=== PATIENT | male | born 1935 | race Caucasian/White ===

== ENCOUNTER → 2016-06-05 | Outpatient (CLI) | payer OTHER ==
[~2016-06-05] MED LIST: APIX1TAB3 PO; ASPI-435 PO; CARV6.252 PO; CLB100 PO; DVN/160 PO; GLC/500 PO; GLCSR/500 PO; INSDGI SC; ISR/30 PO; LEVO100T7 PO; LSX40 PO; MULT-188 PO; NVLGI/PEN SC; OMEP20CA9 PO; RXC5 PO; SUCR1TAB PO; ZCR40 PO; eloquis PO
[2016-06-05 14:09] LABS: BLOOD UREA NITROGEN 18 mg/dl (7-18); BUN/CREATININE RATIO 19.1 (10-20); CREATININE 0.96 mg/dl (0.60-1.40)
[2016-06-05 14:16] LABS: PROSTATE SPECIFIC ANTIGEN 0.734 ng/ml (0.000-4.000)
--- NOTE | 2016-06-10 09:17 | CODING QUERY MEDICAL NECESSITY ---
SUPPORTING DIAGNOSIS NEEDED A supporting diagnosis is required for the test/procedure performed on this patient in order for us to be reimbursed by the patient's insurance. Please provide a supporting diagnosis for the following test/procedure listed below next to the test name along with your signature. *If there is no additional diagnosis for this patient that would support the following test/procedure please document that below next to the test/procedure. Test(s)/Procedure(s) that require a supporting diagnosis: DOS 06/05 * PSA DIAGNOSIS: Provider Signature: Date: Thank you Micaela Le Health Information Management Once completed, please kindly fax back to [phone] For questions please call [phone]
== END | disposition home or self-care (01) ==
LOC: C.LAB 11:00
PROVIDERS: ATTEND Urology
DX: N28.1 Cyst of kidney, acquired (principal); N40.0 Benign prostatic hyperplasia without lower urinary tract symptoms

== ENCOUNTER → 2016-06-12 | Outpatient (CLI) | payer OTHER ==
[~2016-06-12] MED LIST changes: +OPTIRAY 320 IV PRN
--- NOTE | 2016-06-12 12:08 | DIAGNOSTIC IMAGING REPORT ---
CT OF THE ABDOMEN WITH AND WITHOUT CONTRAST RENAL PROTOCOL CT DOSE: 1761.03 mGycm CLINICAL HISTORY: Renal cyst. TECHNIQUE: Unenhanced, nephrographic and 5 minute delayed phase imaging of the abdomen was performed. Injection of 93 cc Optiray 320 IV was uneventful. COMPARISON STUDY: CT of the abdomen and pelvis July 25, 2014 and abdominal ultrasound May 02, 2016. FINDINGS: Visualized portions of the lower chest demonstrate several subpleural nodules which are similar to exam of July 25, 2014. These nodules are likely benign. The liver is cirrhotic. An 8 mm hypodense right hepatic lobe lesion is unchanged since prior CT. Sensitivity for detection of hypervascular lesions is diminished on this exam. The size of the spleen is normal. Adrenal glands and pancreas are normal. Note is made of a 6.1 cm water attenuation left renal lesion. This is consistent with a cyst. There is a 1.3 cm cyst within the midpole of the right kidney. There is a 5.9 cm water attenuation lesion arising from the upper pole of the right kidney. This is consistent with a cyst. This contains thin calcification. This is unchanged since prior CT. There is no hydronephrosis. A 1.4 cm calculus within lower pole of the left kidney is noted. Caliber and wall thickness of visualized small and large bowel are normal. Post surgical findings within the spine are noted. Pacer leads are noted. IMPRESSION: 1. Bilateral renal cysts, as described above. The largest right renal lesion contains thin calcification. This lesion is benign and considered Bosniak 2. 2. 1.4 cm left renal calculus. 3. Suspected cirrhosis. Electronically signed by: Stephen Ricketts M.D. 06/12/2016 12:05 PM Dictated Date/Time: 06/12/2016 11:54 AM
== END | disposition home or self-care (01) ==
LOC: C.CTS 10:46
PROVIDERS: ATTEND Urology
DX: N28.1 Cyst of kidney, acquired (principal)

== ENCOUNTER → 2016-06-14 | Outpatient (CLI) | payer OTHER ==
[~2016-06-14] MED LIST changes: -OPTIRAY 320 IV PRN
[2016-06-14 12:36] LABS: BLOOD UREA NITROGEN 17 mg/dl (7-18); BUN/CREATININE RATIO 17.9 (10-20); CREATININE 0.92 mg/dl (0.60-1.40)
== END | disposition home or self-care (01) ==
LOC: C.LAB 11:17
PROVIDERS: ATTEND Urology
DX: N28.1 Cyst of kidney, acquired (principal)

== ENCOUNTER 2016-06-21 08:57 | Day surgery (SDC) | payer OTHER ==
[~2016-06-21] VITALS: Ht 165.1 cm; Wt 102.5 kg
[2016-06-21] VITALS (10 sets, daily range): BP systolic 120–182; BP diastolic 53–86; PULSE 60–86; TEMP 36.5–37.3; O2SAT 93–97; Ht 165.1 cm; Wt 102.5 kg
[~2016-06-21 08:57] MED LIST changes: -APIX1TAB3 PO; -GLC/500 PO; -MULT-188 PO; -RXC5 PO
--- NOTE | 2016-06-21 10:44 | Discharge Instructions ---
Discharge Instructions Procedure Procedure Date: June 21, 2016. Reason for visit: Lumbar Spine Pain. Discharge Discharge Date: June 21, 2016. Discharge Diagnosis: post op pain Instructions Activity Recommendations: 1 Day-May resume regular activity, 48 Hours of decreased exertion Return to School/Work: no limitations Recommended Home Diet: Resume Previous Diet Provider Instructions: Post lumbar myelogram Lumbar Puncture performed with Fluoroscopic guidance [ L45] level with [22 ] needle. No complications. Allergies Coded Allergies: No Known Allergies (Unverified , 06/21/16) Ivan Quiñones Recommendations: Call your doctor if: * Temperature above 101 degrees * Pain not relieved by pain medicine ordered * There is increased drainage or redness from any incision * You have any unanswered questions or concerns. Your Doctors Instructions noted above were prepared by provider Pj Núñez. Patient Signature Section: Patient Instructions Signature Page Arsenio Hammond Patient (or Guardian) Signature/Date: I have read and understand the instructions given to me by my caregivers. Caregiver/RN/Doctor Signature/Date: The above-named patient and/or guardian has received patient instructions on this date. + Original Patient Signature Page (only) stays with chart. Please make copy for patient.
[2016-06-21] MEDS ORDERED: ACETAMINOPHEN 500 MG TAB PO PRN (10:45)
--- NOTE | 2016-06-21 10:52 | DIAGNOSTIC IMAGING REPORT ---
Lumbar myelogram Myelogram, super/inter LUMBAR CLINICAL HISTORY: Lumbar spine pain pain. Radiculopathy. TECHNIQUE: Following informed consent, a 20-gauge needle was advanced to the L4-L5 level lumbar spine. This is followed by the administration of 10 cc nonionic contrast. There were no complications. Patient was transferred to CT department for scanning purposes. COMPARISON STUDY: None FINDINGS: Successful pre-CT myelogram injection IMPRESSION: Successful pre-CT myelogram injection. Electronically signed by: Pj Núñez M.D. 06/21/2016 10:51 AM Dictated Date/Time: 06/21/2016 10:48 AM
--- NOTE | 2016-06-21 11:05 | DIAGNOSTIC IMAGING REPORT ---
CT lumbar spine post myelography LUMBAR SPINE WITH CLINICAL HISTORY: MYELOGRAM LUMBAR SPINE pain. Neuropathy. TECHNIQUE: Transaxial acquisition with multi axial reformatted images post myelography COMPARISON STUDY: None FINDINGS: Findings consistent with a grade 1 anterolisthesis of L5 on S1. There is a L5-S1 laminectomy and fusion. Interpedicular screws are present. Anterolisthesis is estimated 5 mm. Degenerative disc changes noted throughout. Sagittal images suggest probable multifactorial spinal stenosis at L2-L3. Transaxial images are acquired from T12 through S1. 1. T12-L1: No evidence of disc herniation or spinal stenosis. 2. L1-L2. Mild broad-based bulging disc. Minimal impact anterior thecal sac. Neuroforamina are patent bilaterally. 3. L2-L3: Moderate multifactorial narrowing of the spinal canal. Broad-based disc herniation with mild hypertrophic changes of the posterior elements and ligamentum flavum. Moderate to rather significant compromise of the neuroforamina bilaterally. 4. L3-L4: Broad-based bulging disc with mild impact anterior thecal sac. Foramina show minimal narrowing bilaterally. 5. L4-L5. No evidence of disc herniation 6. L5-S1. Mild broad-based disc bulge with no significant impact upon the thecal sac. IMPRESSION: 1. Significant degenerative and postoperative change throughout the entire lumbar region. 2. Moderate to rather significant multifactorial narrowing of the spinal canal at L2-L3. 3. Mild broad-based bulging disc L3-L4 and to lesser extent L1-L2. 4. L5-S1 laminectomy and fusion Electronically signed by: Pj Núñez M.D. 06/21/2016 11:03 AM Dictated Date/Time: 06/21/2016 10:56 AM
[2016-09-23] MEDS ORDERED: GLC/500 PO (13:46)
[2016-09-23] MEDS ORDERED: MULT-188 PO (14:16)
[2016-09-23] MEDS ORDERED: APIX1TAB3 PO ×2 (14:42→14:43)
== END 2016-06-21 15:10 | disposition home or self-care (01) ==
LOC: C.ACU 08:57
PROVIDERS: ATTEND Orthopaedic Surgery Orthopaedic Surgery of the Spine
DX: M54.16 Radiculopathy, lumbar region (principal)

== ENCOUNTER 2016-10-09 05:21 | Inpatient (IN) | payer OTHER ==
[2016-09-23 13:46] VITALS: BMI 38.0
--- NOTE | 2016-09-23 14:35 | PAT Medication Instructions ---
Service Date Sep 23, 2016. Current Home Medication List Carvedilol (Coreg), 6.25 MG PO BID Furosemide (Furosemide), 40 MG PO QAM Insulin Aspart (Novolog Flexpen), UNITS SC WM Insulin Glargine (Lantus), 31 UNITS SC HS Isosorbide Dinitrate (Isordil), 30 MG PO BID Levothyroxine Sodium (Levothyroxine Sodium), 100 MCG PO QAM Metformin HCl (Metformin HCl ER), 1,000 MG PO HS Metformin Hcl (Glucophage), 500 MG PO QAM Multiple Vitamins W/ Minerals (Ocuvite), 1 TAB PO BID Omeprazole (Prilosec), 20 MG PO BID Simvastatin (Simvastatin), 40 MG PO HS Sucralfate (Sucralfate), 1 GM PO QID Valsartan (Diovan), 160 MG PO QAM [eloquis], 5 MG PO BID Medication Instructions For Your Scheduled Surgery -Check with surgeon/autism tutor for instructions: [Eliquis], 5 MG PO BID - Hold the following medications 48 hours prior to surgery: Metformin HCl (Metformin HCl ER), 1,000 MG PO HS Metformin Hcl (Glucophage), 500 MG PO QAM - Hold the following medications the morning of surgery: Valsartan (Diovan), 160 MG PO QAM Sucralfate (Sucralfate), 1 GM PO QID Insulin Aspart (Novolog Flexpen), UNITS SC WM Furosemide (Furosemide), 40 MG PO QAM Multiple Vitamins W/ Minerals (Ocuvite), 1 TAB PO BID - Take the following medications the morning of surgery with a sip of water: Omeprazole (Prilosec), 20 MG PO BID Levothyroxine Sodium (Levothyroxine Sodium), 100 MCG PO QAM Isosorbide Dinitrate (Isordil), 30 MG PO BID Carvedilol (Coreg), 6.25 MG PO BID. - Take the following medications as scheduled the night before surgery: Sucralfate (Sucralfate), 1 GM PO QID Simvastatin (Simvastatin), 40 MG PO HS Omeprazole (Prilosec), 20 MG PO BID Isosorbide Dinitrate (Isordil), 30 MG PO BID Insulin Glargine (Lantus), 31 UNITS SC HS Insulin Aspart (Novolog Flexpen), UNITS SC WM Carvedilol (Coreg), 6.25 MG PO BID. If you have any questions please call us at [phone] or [phone] or [phone]
--- NOTE | 2016-09-23 15:23 | DIAGNOSTIC IMAGING REPORT ---
CHEST PREADMISSION(PA/LAT) CLINICAL HISTORY: Preoperative evaluation. COMPARISON STUDY: Chest radiograph July or 2015. FINDINGS: Note is made of a dual lead left subclavian pacer and median sternotomy wires. Moderate cardiomegaly is present. There is no evidence of pulmonary edema. No pneumothorax or pleural effusion is present. Prosthetic cardiac valve is present. There is no consolidation to suggest pneumonia. Appearance of the chest is unchanged. There are old right rib fractures. IMPRESSION: No acute cardiopulmonary findings. Stable moderate cardiomegaly. Electronically signed by: Stephen Ricketts M.D. 09/23/2016 3:21 PM Dictated Date/Time: 09/23/2016 3:20 PM
[2016-09-23 15:52] LABS: BASO % 0.3 %; BASO ABS # 0.02 K/uL (0-0.2); COMPLETE YES; EOS % 4.9 %; HEMATOCRIT 40.3 % (42-52); IG% 0.3 %; LYMPH % 32.8 %; LYMPH ABS # 1.95 K/uL (1.2-3.4); MEAN CELL VOLUME 94.2 fL (80-100); MEAN PLATELET VOLUME 10.9 fL (7.4-10.4); MONO % 12.6 %; NEUT % 49.1 %; PLATELET COUNT 162 K/uL (130-400); RED BLOOD COUNT 4.28 M/uL (4.7-6.1); WHITE BLOOD COUNT 5.95 K/uL (4.8-10.8)
[2016-09-23 15:59] LABS: BUN/CREATININE RATIO 19.2 (10-20); CREATININE 0.92 mg/dl (0.60-1.40)
[2016-09-23 16:01] LABS: URINE APPEARANCE CLEAR (CLEAR); URINE BILIRUBIN NEG (NEG); URINE COLOR YELLOW; URINE NITRITE NEG (NEG); URINE PH 5.5 (4.5-7.5); URINE SPECIFIC GRAVITY 1.024 (1.000-1.030); UROBILINOGEN NEG (NEG); ZZUR CULT IF INDIC CLEAN CATCH NO
[2016-09-23 16:03] LABS: MANUAL MICROSCOPIC REQUIRED? NO; REVIEW REQ? NO
[2016-09-23 16:05] LABS: PARTIAL THROMBOPLASTIN RATIO 1.1; PROTHROMBIN TIME (PATIENT) 11.1 SECONDS (9.0-12.0)
[~2016-10-09] VITALS: Ht 165.1 cm; Wt 103.6 kg
[2016-10-09] VITALS (10 sets, daily range): BP systolic 107–164; BP diastolic 63–86; PULSE 60–72; TEMP 36.4–36.8; O2SAT 89–98; BMI 38.0
[~2016-10-09 05:21] MED LIST changes: +APIX1TAB3 PO; -ASPI-435 PO; -CLB100 PO; +GLC/500 PO; +ISOS30TA51 PO; -ISR/30 PO; +MULT-188 PO; -eloquis PO
[2016-10-09] MEDS ORDERED: LACTATED RINGER'S 1000ML 1,000 ML IV SCH (06:00)
[2016-10-09] MEDS ORDERED: CEFAZOLIN 2000 MG/60 ML D5W IV SCH (06:00)
[2016-10-09] MEDS ORDERED: CEFAZOLIN IV 2,000 MG/60 ML D5W IV ONE (06:23)
[2016-10-09] MEDS ORDERED: FENTANYL CITRATE INJ 50 MCG/1 ML 2 ML VIAL ONE ×2 (06:44→07:59)
[2016-10-09] MEDS ORDERED: MIDAZOLAM HCL 1 MG/ML 2ML VIAL ONE (06:44)
[2016-10-09] MEDS ORDERED: BUPIVACAINE/EPINEPHRINE 0.5% MPF 1:200,000 10 ML VIAL ONE (06:57)
[2016-10-09] MEDS ORDERED: BACITRACIN 50000 UNIT VIAL ONE (06:58)
--- NOTE | 2016-10-09 07:29 | History & Physical Bridge Note ---
H&P Re-Evaluation Bridge Note: I have examined the patient, reviewed the History & Physical and in the interval since the performance of the History & Physical I have noted the following changes of clinical significance: No changes noted
--- NOTE | 2016-10-09 07:30 | History and Physical ---
History & Physical Date Oct 09, 2016. Chief Complaint Back and leg pain History of Present Illness The patient is a 81 year old male with complaints of Past Medical/Surgical History Medical Problems: (1) CAD (coronary artery disease) (2) Chest pain (3) DM (diabetes mellitus) (4) HTN (hypertension) (5) Pacemaker Surgical Problems: (1) Heart valve replaced (2) History of back surgery (3) Hx of cholecystectomy Additional History Hepatic Disease: No Endocrine Disorder: No Kidney Disease: No Hypertension: Yes Heart Disease: No Bleeding Tendencies: No Infectious Diseases: No Allergies Coded Allergies: No Known Allergies (Unverified , 10/09/16) Home Medications Scheduled Apixaban (Eliquis), 5 MG PO BID Carvedilol (Coreg), 6.25 MG PO BID Insulin Aspart (Novolog Flexpen), UNITS SC WM Insulin Glargine (Lantus), 31 UNITS SC HS Isosorbide Dinitrate (Isordil), 30 MG PO BID Levothyroxine Sodium (Levothyroxine Sodium), 100 MCG PO QAM Multiple Vitamins W/ Minerals (Ocuvite), 1 TAB PO BID Omeprazole (Prilosec), 20 MG PO BID Simvastatin (Simvastatin), 40 MG PO HS Sucralfate (Sucralfate), 1 GM PO QID Valsartan (Diovan), 160 MG PO QAM Physical Examination Skin: warm/dry, no rash Eyes: normal inspection, EOMI, sclerae normal ENT: normal ENT inspection, pharynx normal Head: normocephalic, atraumatic Neck: supple, no adenopathy, trachea midline Respiratory/Chest: lungs clear, normal breath sounds, no respiratory distress Cardiovascular: regular rate, rhythm, no edema, no murmur Abdomen / GI: normal bowel sounds, non tender Back: normal inspection Extremities: normal inspection, normal range of motion Neurologic/Psych: no motor/sensory deficits, alert, normal reflexes, oriented x 3 Diagnosis Lumbar spinal stenosis Plan of Treatment Lumbar decompression fusion L2 3
[2016-10-09] MEDS ORDERED: HYDROmorphone INJ 2 MG/ML SYR/VIAL ONE ×2 (07:59→09:41)
[2016-10-09] MEDS ORDERED: FENTANYL CITRATE INJ 50 MCG/1 ML 2 ML VIAL IV PRN (08:15)
[2016-10-09] MEDS ORDERED: HYDROmorphone INJ 1 MG/ML SYR IV PRN ×2 (08:15→11:15)
[2016-10-09] MEDS ORDERED: ONDANSETRON INJ 2 MG/ML 2 ML VIAL IV PRN ×2 (08:15→09:15)
[2016-10-09] MEDS ORDERED: EpHEDrine SULFATE INJ 50 MG/ML AMP IV PRN (08:15)
[2016-10-09] MEDS ORDERED: ATROPINE SULFATE 0.1 MG/ML 5ML SYR IV PRN (08:15)
[2016-10-09] MEDS ORDERED: FLOSEAL HEMOSTATIC MATRIX 10ML TOP ONE (08:56)
[2016-10-09] MEDS ORDERED: SODIUM CHLORIDE 0.9% 1000ML 1,000 ML IV SCH (09:14)
[2016-10-09] MEDS ORDERED: MAGNESIUM HYDROXIDE SUSP 30 ML UDC PO PRN (09:15)
[2016-10-09] MEDS ORDERED: HYDROmorphone INJ 0.5 MG/0.5 ML SYR IV PRN (09:15)
[2016-10-09] MEDS ORDERED: NALOXONE HCL 0.4 MG/1 ML VIAL/CARP IV PRN ×2 (09:15)
[2016-10-09] MEDS ORDERED: DO NOT ADMINISTER FLU VACCINE PRN ×3 (09:15)
[2016-10-09] MEDS ORDERED: SOD PHOSPHATE/SOD BIPHOSPHATE ENEMA 132 ML BTL PR PRN (09:15)
[2016-10-09] MEDS ORDERED: ACETAMINOPHEN IV 100 ML IV PRN (09:15)
[2016-10-09] MEDS ORDERED: BISACODYL 10 MG SUPP PR PRN (09:15)
[2016-10-09] MEDS ORDERED: METOCLOPRAMIDE HCL INJ 5 MG/ML 2 ML VIAL IV PRN (09:15)
[2016-10-09] MEDS ORDERED: PROMETHAZINE HCL INJ 12.5 MG in SODIUM CHLORIDE 0.9% 50ML 50 ML IV PRN (09:15)
[2016-10-09] MEDS ORDERED: FAMOTIDINE 20 MG TAB PO PRN (09:15)
[2016-10-09] MEDS ORDERED: ACETAMINOPHEN 500 MG TAB PO PRN (09:15)
[2016-10-09] MEDS ORDERED: DO NOT ADMINISTER PNEUMOCOCCAL VACCINE PRN ×2 (09:15)
[2016-10-09] MEDS ORDERED: LORAZEPAM INJ 0.5 MG in SYRINGE 0 ML IV PRN (09:15)
[2016-10-09] MEDS ORDERED: hydrOXYzine HCL 25 MG TAB PO PRN (09:15)
[2016-10-09] MEDS ORDERED: ALUMINUM/MAGNESIUM SUSP 30 ML UDC PO PRN (09:15)
[2016-10-09] MEDS ORDERED: LORAZEPAM 0.5 MG TAB PO PRN (09:15)
[2016-10-09] MEDS ORDERED: PROPOFOL IV EMULSION 10 MG/ML 20 ML VIAL IV ONE (09:21)
[2016-10-09] MEDS ORDERED: EpHEDrine SULFATE 50MG/5ML SYR ONE (09:21)
[2016-10-09] MEDS ORDERED: LIDOCAINE HCL 2% 2 ML VIAL (20MG/ML) ONE (09:21)
[2016-10-09] MEDS ORDERED: DEXAMETHASONE SOD INJ 4 MG/ML VIAL ONE (09:21)
[2016-10-09] MEDS ORDERED: ONDANSETRON INJ 2 MG/ML 2 ML VIAL ONE (09:21)
[2016-10-09] MEDS ORDERED: ROCURONIUM BROMIDE 10 MG/ML 5 ML VIAL IV ONE (09:21)
[2016-10-09] MEDS ORDERED: NEOSTIGMINE METHYLSULFATE 1 MG/ML 10ML VIAL ONE (09:21)
[2016-10-09] MEDS ORDERED: PHENYLEPHRINE 100MCG/ML 5ML SYR ONE (09:21)
[2016-10-09] MEDS ORDERED: GLYCOPYRROLATE INJ 0.2 MG/ML VIAL ONE (09:21)
--- NOTE | 2016-10-09 09:22 | [facility] Operative Report ---
Operative Report Operative Date Oct 09, 2016. Pre-Operative Diagnosis Lumbar Spinal Stenosis Post-Operative Diagnosis Lumbar Spinal Stenosis Procedure(s) Performed #1 lumbar decompression medial facetectomies foraminotomies L1 to L2 3. #2 posterior spinal fusion L2 3. #3 placement of posterior instrumentation L2 3. #4 interbody fusion L2 3. #5 placement peek cage 12 x 26 mm at L2-3. #6 placement locally harvested morcellized autograft in the posterior lateral gutters. #7 placement of osteoamp combined with bone marrow aspirate in the interbody space and posterior lateral gutters. Surgeon Dr Cedric Champagne Personnel Assistant Surgeon(s) Jessika Luque PA-C Findings Severe spinal stenosis Specimens None as per surgeon Description of Procedure Patient was met with preoperative early case discussed all questions are dressed. After informed consent obtained patient was taken back to the operative suite and underwent intubation placed in a prone position the Silver table on top of the Jamie frame. All bony promises well-padded eyes inspected to ensure no external pressure. This point the lumbar spine was prepped and draped in normal sterile fashion. Sharp dissection with the assistance of Bovie cautery performed onto an exposing the lamina and transverse processes of L to 3. From a caudal to cephalad fashion complete laminectomy of L2 partial laminectomy L3 was performed addressing severe lateral recess and foraminal stenosis. After this complete pedicle screws were placed in L2-L3 bilaterally with assistance of fluoroscopy and the probably size ly placed. Through a transforaminal approach on the right a complete discectomy of L2-3 was performed and plate created to subcortical bleeding bone and a 12 x 26 mm peek cage filled with osteo amp tapped in position. Brought in and locked and final position bilaterally. The transverse processes of L2-L3 burred to subcortical bleeding bone. The remaining bone graft was placed in the posterior lateral gutters. 15 round ANKIT drain inserted. Incision then closed with 1 Vicryl in the fascia 2-0 Vicryl subcutaneous tediously 4 Monocryl for Kimberly closure. Steri-Strips sterile dressing placed. Patient we can taken to PACU stable condition. Please note Jessika Wiseman present about the entire procedure involved in patient positioning complex portions of the procedure and final skin closure. I attest to the content of the Intraoperative Record and any orders documented therein. Any exceptions are noted below.
[2016-10-09] MEDS ORDERED: PHARMACY GLYCEMIC MGMT CONSULT SCH (09:31)
--- NOTE | 2016-10-09 09:42 | DIAGNOSTIC IMAGING REPORT ---
Radiology LUMBAR SPINE 2 OR 3 VIEW CLINICAL HISTORY: 81 years-old Male presenting with L2-L3 DECOMPRESSION AND FUSION. TECHNIQUE: 2 fluoroscopic spot image(s) obtained as part of an intraoperative procedure. COMPARISON: CT from 06/21/2016. FINDINGS/IMPRESSION: Interval posterior transpedicular screw and ly fixation of L2-3 with interbody spacer placement. Partial visualization of L5-S1 posterior fusion hardware with interbody spacer. Slight retrolisthesis of L3 on L4. Please see surgical report for further details. Fluoroscopy dosage (mGy): Not available. Fluoroscopy time: 20 seconds. Number of fluoroscopic spot images: 2. Electronically signed by: Aramis Dodson M.D. 10/09/2016 9:41 AM Dictated Date/Time: 10/09/2016 9:39 AM
[2016-10-09] MEDS: HYDROmorphone HCL 0.5MG/ML 50 ML CASSETTE IV PRN ×4 (09:55→23:15)
--- NOTE | 2016-10-09 10:27 | Anesthesiology Progress Note ---
Anesthesia Post Op Note Date & Time Oct 09, 2016 at 10:27 Vital Signs Pain Intensity: 0 Vital Signs Past 12 Hours Date Time Temp Pulse Resp B/P (MAP) Pulse Ox O2 Delivery O2 Flow Rate FiO2 10/09/16 10:23 60 23 94 10/09/16 10:23 60 23 10/09/16 10:20 122/65 10/09/16 10:18 65 18 94 10/09/16 10:18 65 18 10/09/16 10:16 130/60 10/09/16 10:13 60 22 92 10/09/16 10:13 60 22 10/09/16 10:12 60 21 10/09/16 10:12 60 21 92 10/09/16 10:11 133/61 10/09/16 10:07 60 23 10/09/16 10:07 60 23 95 10/09/16 10:06 126/58 10/09/16 10:02 61 22 10/09/16 10:02 61 22 93 10/09/16 10:01 128/63 10/09/16 09:59 62 19 10/09/16 09:59 61 19 94 10/09/16 09:56 118/78 10/09/16 09:54 63 20 10/09/16 09:54 63 20 94 10/09/16 09:51 117/59 10/09/16 09:49 69 18 93 10/09/16 09:49 64 18 10/09/16 09:45 130/63 10/09/16 09:45 124/61 10/09/16 09:44 67 92 10/09/16 09:44 67 10/09/16 09:44 36.5 66 14 130/63 94 Mask 15 10/09/16 05:54 36.5 67 20 107/79 94 Room Air Notes Mental Status: alert / awake / arousable, participated in evaluation Pt Amnestic to Procedure: Yes Nausea / Vomiting: adequately controlled Pain: adequately controlled Airway Patency, RR, SpO2: stable & adequate BP & HR: stable & adequate Hydration State: stable & adequate Anesthetic Complications: no major complications apparent
[2016-10-09] MEDS ORDERED: DEXTROSE 50% 50 ML SYR IV PRN (11:00)
[2016-10-09] MEDS ORDERED: GLUCAGON FOR INJ 1 MG VIAL SQ PRN (11:00)
[2016-10-09] MEDS ORDERED: GLUCOSE 40% GEL 15 GM TUBE PO PRN (11:00)
[2016-10-09] MEDS ORDERED: GLUCOSE 10 TABS/TUBE PO PRN (11:00)
[2016-10-09] MEDS: SODIUM CHLORIDE 0.9% 1000ML 1,000 ML IV SCH ×2 (11:24→17:16)
[2016-10-09] MEDS ORDERED: NVLGI/PEN SC (11:38)
[2016-10-09] MEDS ORDERED: INSULIN IV INFUSION PROTOCOL SCH (11:45)
[2016-10-09] MEDS ORDERED: INSULIN ASPART 100 UNITS/ML 3 ML PEN SC SCH (12:00)
--- NOTE | 2016-10-09 12:23 | Medical Consult ---
Consultation Date of Consultation: Oct 09, 2016. Attending Physician: Paras Champagne D.O. Reason for Consultation: postop medical management History of Present Illness Patient seen and examined after undergoing lumbar decompression/ fusion today by Dr. Champagne. He denies any complaints at present. Denies back pain, numbness, weakness, dizziness, chest pain, SOB, N/V. Last BM was this morning. Past Medical/Surgical History Medical Problems: (1) Aortic stenosis Status: Chronic (2) CAD (coronary artery disease) Status: Chronic (3) Complete heart block Status: Chronic (4) DM type 2 (diabetes mellitus, type 2) Status: Chronic (5) Dyslipidemia Status: Chronic (6) GERD (gastroesophageal reflux disease) Status: Chronic (7) History of atrial fibrillation Status: Chronic (8) HTN (hypertension) Status: Chronic (9) Hypothyroid Status: Chronic (10) Mitral stenosis Status: Chronic (11) Pacemaker Status: Chronic (12) Sleep apnea Status: Chronic Surgical Problems: (1) History of back surgery Status: Resolved (2) History of carpal tunnel surgery Status: Chronic (3) Hx of cholecystectomy Status: Resolved (4) S/P AVR (aortic valve replacement) Permanent Comment: 06/16/2013- # 23 Chow II bioprosthesis, Dr. William, [facility] [place] Status: Chronic (5) S/P CABG x 2 Permanent Comment: CABG x 2; 06/16/2013; Dr. William, [facility] [place] Status: Chronic (6) S/p mitral valve decalcification Permanent Comment: 06/16/2013; Dr. William, [facility] [place] Status: Chronic Family History Cancer Gallbladder disease Heart disease Hypertension Lung disease Social History Smoking Status: Never Smoker Alcohol Use: none Drug Use: none Marital Status: Housing Status: lives with significant other Occupation Status: retired Allergies Coded Allergies: No Known Allergies (Unverified , 10/09/16) Home Medications Active Reported Novolog Flexpen (Insulin Aspart) 100 Units/Ml Inj Units SC WM Eliquis (Apixaban) 5 Mg Tab 5 Mg PO BID Ocuvite (Multiple Vitamins W/ Minerals) 1 Tab Tab 1 Tab PO BID Isordil (Isosorbide Dinitrate) 30 Mg Tab 30 Mg PO BID Coreg (Carvedilol) 6.25 Mg Tab 12.5 Mg PO BID Diovan (Valsartan) 160 Mg Tab 160 Mg PO QAM Simvastatin 40 Mg Tab 40 Mg PO HS Levothyroxine Sodium 100 Mcg Tab 100 Mcg PO QAM Lantus (Insulin Glargine) 100 Unit/Ml Inj 31 Units SC HS Sucralfate 1 Gm Tab 1 Gm PO QID last pill of day is at bedtime Prilosec (Omeprazole) 20 Mg Cap 20 Mg PO BID Current Inpatient Medications Current Inpatient Medications Medications (Trade) Dose Ordered Sig/Pedrito Route Start Time Stop Time Status Last Admin Dose Admin Cefazolin Sodium 60 ml @ 100 mls/hr PREOP IV 10/09/16 06:00 10/09/16 18:00 Fentanyl Citrate (Fentanyl Inj) 50 mcg Q5M PRN IV 10/09/16 08:15 10/09/16 13:15 Hydromorphone HCl (Dilaudid Inj) 0.5 mg Q5M PRN IV 10/09/16 08:15 10/09/16 13:15 Ondansetron HCl (Zofran Inj) 4 mg ONE PRN IV 10/09/16 08:15 10/09/16 13:15 Ephedrine Sulfate (EpHEDrine SULFATE INJ) 5 mg Q5M PRN IV 10/09/16 08:15 10/09/16 13:15 Atropine Sulfate (Atropine Sulfate 0.1MG/Ml Inj) 0.5 mg Q1M PRN IV 10/09/16 08:15 10/09/16 13:15 Dexamethasone Sodium Phosphate 6 mg/Syringe 1.5 ml @ 1 mls/min Q8H IV 10/09/16 14:00 10/10/16 06:02 Promethazine HCl 12.5 mg/Sodium Chloride 50.5 ml @ 202 mls/hr Q6H PRN IV 10/09/16 09:15 11/08/16 09:14 Ondansetron HCl (Zofran Inj) 4 mg Q6H PRN IV 10/09/16 09:15 11/08/16 09:14 Metoclopramide HCl (Reglan Inj) 10 mg Q6H PRN IV 10/09/16 09:15 11/08/16 09:14 Lorazepam (Ativan Tab) 0.5 mg Q8H PRN PO 10/09/16 09:15 11/08/16 09:14 Lorazepam 0.5 mg/ Syringe 0.25 ml @ 1 mls/min Q8H PRN IV 10/09/16 09:15 11/08/16 09:14 Pneumococcal Polysaccharide Vaccine 1 ea PRN PRN N/A 10/09/16 09:15 11/08/16 09:14 Influenza Virus Vacc Triv Types A&B 1 ea PRN PRN N/A 10/09/16 09:15 11/08/16 09:14 Polyethylene (Miralax Powder Packet) 17 gm Q6 PO 10/11/16 06:00 11/10/16 05:59 Bisacodyl (Dulcolax Supp) 10 mg DAILY PRN NV 10/09/16 09:15 11/08/16 09:14 Magnesium Hydroxide (Milk Of Magnesia Susp) 30 ml DAILY PRN PO 10/09/16 09:15 11/08/16 09:14 Hydromorphone HCl (Dilaudid Inj) 0.5 mg Q3H PRN IV 10/09/16 09:15 10/23/16 09:14 Future hold Oxycodone HCl (Roxicodone Immediate Rel Tab) 5-10mg prn moderate to sev... Q4H PRN PO 10/10/16 06:00 10/24/16 05:59 Cefazolin Sodium 2000 mg/Dextrose 60 ml @ 100 mls/hr Q8H IV 10/09/16 16:00 10/10/16 00:35 Sodium Chloride 1,000 ml @ 150 mls/hr Q6H40M IV 10/09/16 11:00 11/08/16 10:59 10/09/16 11:24 150 MLS/HR Acetaminophen (Tylenol Tab) 1,000 mg Q8H PRN PO 10/09/16 09:15 11/08/16 09:14 Acetaminophen 100 ml @ 400 mls/hr Q8H PRN IV 10/09/16 09:15 11/08/16 09:14 Naloxone HCl (Narcan Inj) 0.1 mg Q5M PRN IV 10/09/16 09:15 11/08/16 09:14 Senna/Docusate Sodium (Senokot S Tab) 2 tab HS PO 10/09/16 21:00 11/08/16 20:59 Sodium Biphosphate/ Sodium Phosphate (Fleet Enema) 132 ml ONE PRN NV 10/09/16 09:15 11/08/16 09:14 Hydroxyzine HCl (Vistaril Tab) 25 mg Q8H PRN PO 10/09/16 09:15 11/08/16 09:14 Al Hydroxide/Mg Hydroxide (Maalox Susp) 30 ml Q6H PRN PO 10/09/16 09:15 11/08/16 09:14 Famotidine (Pepcid Tab) 20 mg Q12 PRN PO 10/09/16 09:15 11/08/16 09:14 Diphenhydramine HCl (Benadryl Cap) 25 mg Q6H PRN PO 10/09/16 09:15 11/08/16 09:14 Miscellaneous Information (Discontinue GENERAL PARTNER) 1 ea TODAY@0600 N/A 10/10/16 06:00 10/10/16 06:01 Naloxone HCl (Narcan Inj) 0.1 mg Q5M PRN IV 10/09/16 09:15 10/10/16 06:00 Hydromorphone HCl (Dilaudid Jv Baseball Coach) 25 mg PRN PRN IV 10/09/16 09:15 10/10/16 06:00 10/09/16 10:46 25 MG Sodium Chloride 1,000 ml @ 15 mls/hr Q24H IV 10/09/16 09:14 10/10/16 06:00 Levothyroxine Sodium (Synthroid Tab) 100 mcg DAILYBB PO 10/10/16 06:00 11/09/16 05:59 Simvastatin (Zocor Tab) 40 mg HS PO 10/09/16 21:00 11/08/16 20:59 Sucralfate (Carafate Tab) 1 gm QID PO 10/09/16 13:00 11/08/16 12:59 Valsartan (Diovan Tab) 160 mg QAM PO 10/10/16 09:00 11/09/16 08:59 Isosorbide Dinitrate (Isordil Tab) 30 mg BID@0700,1200 PO 10/09/16 12:00 11/08/16 11:59 Pantoprazole Sodium (Protonix Tab) 40 mg BID PO 10/09/16 21:00 11/08/16 20:59 Glucose (Glucose 40% Gel) 15-30 GRAMS 15 GRAMS... UD PRN PO 10/09/16 11:00 11/08/16 10:59 Glucose (Glucose Chew Tab) 4-8 Tablets 4 Tabl... UD PRN PO 10/09/16 11:00 11/08/16 10:59 Dextrose (Dextrose 50% 50ML Syringe) 25-50ML OF 50% DW IV FOR... UD PRN IV 10/09/16 11:00 11/08/16 10:59 Glucagon (Glucagon Inj) 1 mg UD PRN SQ 10/09/16 11:00 11/08/16 10:59 Hydromorphone HCl (Dilaudid Inj) 1 mg Q3H PRN IV 10/09/16 11:15 10/23/16 11:14 Future hold Carvedilol (Coreg Tab) 12.5 mg BID PO 10/09/16 21:00 11/08/16 20:59 UNV Insulin Glargine (Lantus Solostar Pen) 31 units HS SC 10/09/16 21:00 11/08/16 20:59 Insulin Aspart (novoLOG ASPART) SLIDING SCALE ACHS SC 10/09/16 12:00 11/08/16 11:59 Review of Systems Ten systems reviewed and negative except as noted in HPI. Physical Exam Date Time Temp Pulse Resp B/P (MAP) Pulse Ox O2 Delivery O2 Flow Rate FiO2 10/09/16 11:47 62 16 141/64 (89) 97 Nasal Cannula 4.0 10/09/16 11:15 36.6 60 16 131/63 (85) 96 Oxymask 4.0 10/09/16 10:45 95 Nasal Cannula 4.0 10/09/16 10:45 36.4 62 16 129/64 (85) 95 Oxymask 4.0 10/09/16 10:45 95 Oxymask 4.0 10/09/16 10:38 36.5 10/09/16 10:36 126/61 10/09/16 10:34 62 13 10/09/16 10:34 61 13 92 10/09/16 10:31 119/62 10/09/16 10:29 61 21 10/09/16 10:29 60 21 94 10/09/16 10:26 137/61 10/09/16 10:24 59 17 10/09/16 10:24 62 17 95 10/09/16 10:23 60 23 94 10/09/16 10:23 60 23 10/09/16 10:20 122/65 10/09/16 10:18 65 18 94 10/09/16 10:18 65 18 10/09/16 10:16 130/60 10/09/16 10:13 60 22 92 10/09/16 10:13 60 22 10/09/16 10:12 60 21 10/09/16 10:12 60 21 92 10/09/16 10:11 133/61 10/09/16 10:07 60 23 10/09/16 10:07 60 23 95 10/09/16 10:06 126/58 10/09/16 10:02 61 22 10/09/16 10:02 61 22 93 10/09/16 10:01 128/63 10/09/16 09:59 62 19 10/09/16 09:59 61 19 94 10/09/16 09:56 118/78 10/09/16 09:54 63 20 10/09/16 09:54 63 20 94 10/09/16 09:51 117/59 10/09/16 09:49 69 18 93 10/09/16 09:49 64 18 10/09/16 09:45 130/63 10/09/16 09:45 124/61 10/09/16 09:44 67 92 10/09/16 09:44 67 10/09/16 09:44 36.5 66 14 130/63 94 Mask 15 10/09/16 05:54 36.5 67 20 107/79 94 Room Air General Appearance: WD/WN, no apparent distress Head: normocephalic, atraumatic Eyes: normal inspection, sclerae normal ENT: + pertinent finding (hard of hearing) Neck: supple, trachea midline Respiratory/Chest: lungs clear, normal breath sounds, no respiratory distress, no accessory muscle use Cardiovascular: regular rate, rhythm, no murmur, normal peripheral pulses Abdomen/GI: normal bowel sounds, non tender, soft Back: + pertinent finding (s/p lumbar decompression/ fusion. drain with sanguinous drainage. ) Extremities/Musculoskelatal: no calf tenderness, no pedal edema, + pertinent finding (SCD's in place) Neurologic/Psych: no motor/sensory deficits, alert, oriented x 3, + pertinent finding (ankle flexion/ extension grossly intact) Skin: normal color, warm/dry Laboratory Results Last 24 Hours Test 10/09/16 05:44 10/09/16 09:51 10/09/16 11:43 10/09/16 11:55 Bedside Glucose 247 mg/dl 266 mg/dl 296 mg/dl Assessment & Plan S/P LUMBAR DECOMPRESSION/ FUSION POD # [address] Champagne Pain control, wound care, activity per ortho Recommend monitoring daily H/H for sign of acute blood loss anemia Continue incentive spirometry PT/ OT DM TYPE 2 BSG's in high 200's, on IV steroids postop Spoke to pharmacy who was consulted by ortho, insulin drip recommended for hyperglycemia, however at this time will hold off on insulin drip Continue home Lantus Novolog sliding scale coverage with stress level of 3 HX ATRIAL FIBRILLATION Rhythm regular, rate controlled Continue carvedilol Resume Eliquis when acceptable to ortho HX BIOPROSTHETIC AORTIC VALVE REPLACEMENT HX COMPLETE HEART BLOCK S/p pacemaker HYPERTENSION Stable, continue carvedilol and valsartan CAD S/P CABG Stable, no chest pain Continue isosorbide, carvedilol, simvastatin HYPOTHYROIDISM Continue levothyroxine DVT PROPHYLAXIS Per ortho DISPO Per ortho Patient seen in collaboration with Dr. Zheng. Please see his addendum. Dr. Mejia will be following the patient tomorrow. Attending Addendum Dr. Zheng I have seen and examined this patient with KAILA Darnell and agree with her plan with the following comments: This is a 81 years-old Male s/p orthopedic procedure for the following: #1 lumbar decompression medial facetectomies foraminotomies L1 to L2 3. #2 posterior spinal fusion L2 3. #3 placement of posterior instrumentation L2 3. #4 interbody fusion L2 3. #5 placement peek cage 12 x 26 mm at L2-3. #6 placement locally harvested morcellized autograft in the posterior lateral gutters. #7 placement of osteoamp combined with bone marrow aspirate in the interbody space and posterior lateral gutters. Patient seen today recuperating post op in his hospital room speaking comfortably and not in acute distress. He has a Silver [place] drain with red serosanguineous fluid to his left side. His lower extremities are in SCD sleeves. No calf tenderness. He is able to move his toes. Medical issues include history of diabetes with glucose above 200 and below 300. Have been called by pharmacy which suggested to start patient on insulin drip for tighter glucose control post-op. I recommend against starting insulin drip at this time as patient is not in diabetic ketoacidosis or hyperosmolar hyperglycemic state and because there are no recent labs since pre-op in regards to patients electrolyte levels such as potassium level. It would be preferable to have patient on subcutaneous Novolog and long acting insulin. Other medical problems of Hypertension, history of CABG with pacemaker and aortic valve replacement, Atrial Fibrillation. Can continue carvedilol, valsartan, isosorbide, carvedilol, simvastatin. Given cardiac history orthopedics can restart Eliquis as soon as possible when risk of bleeding post- op after orthopedic procedure is minimal and will defer this decision to patient 's primary orthopedic team.
[2016-10-09] MEDS: SUCRALFATE 1 GM TAB PO SCH ×3 (12:38→20:57)
[2016-10-09] MEDS: ISOSORBIDE DINITRATE 10 MG TAB PO SCH (12:40)
[2016-10-09] MEDS: INSULIN ASPART 100 UNITS/ML 3 ML PEN SC SCH ×4 (12:48→23:38)
[2016-10-09 12:53] LABS: ALB/GLOB RATIO 0.8 (0.9-2); ALKALINE PHOSPHATASE 66 U/L (45-117); ALT/SGPT 23 U/L (12-78); BLOOD UREA NITROGEN 16 mg/dl (7-18); BUN/CREATININE RATIO 17.5 (10-20); CALCIUM 8.2 mg/dl (8.5-10.1); CARBON DIOXIDE 29 mmol/L (21-32); CHLORIDE 104 mmol/L (98-107); CREATININE 0.92 mg/dl (0.60-1.40); GLUCOSE 313 mg/dl (70-99); SODIUM 137 mmol/L (136-145)
[2016-10-09] MEDS: DEXAMETHASONE INJ 6 MG in SYRINGE 0 ML IV SCH ×2 (13:14→21:19)
[2016-10-09] MEDS ORDERED: RXC5 PO (13:25)
--- NOTE | 2016-10-09 13:26 | Discharge Instructions ---
Discharge Instructions Date of Service Oct 09, 2016. Admission Reason for Admission: Lumbar Spinal Stenosis Discharge Discharge Diagnosis / Problem: lumbar stenosis Discharge Goals Goal(s): Improve function Activity Recommendations Activity Limitations: per Instructions/Follow-up section . Instructions / Follow-Up Instructions / Follow-Up ACTIVITY RECOMMENDATIONS: SELF CARE INSTRUCTIONS AFTER THORACIC/LUMBAR FUSIONS 1. You may walk to your tolerance. It is good exercise for your legs and back. Expect some back and intermittent leg aches and pains. 2. You may perform "counter-top" level activities (make a sandwich, anibal with a project, etc.). 3. No bending or lifting of more than 10 pounds or back twisting of any nature (roll like a log when turning in bed). 4. You may ride in a car for 20-30 minutes at a time. No driving until after your first visit with your doctor. 5. Frequent changes of position and restricting sitting to 30 minutes at a time will help limit the amount of back spasms and stiffness you may experience. 6. You may discontinue the use of ambulatory aids (cane, crutches, etc.) once your strength and confidence allow. 7. You may spindraw operator the shower and let water strike your incision when you arrive home at least once daily. Do not take a tub bath, sit in a hot tub or go into a swimming pool until after your first recheck in the office. SPECIAL CARE INSTRUCTIONS: VERY IMPORTANT TO READ AND REVIEW A. Your surgical incision has been closed with a cosmetic suture under the skin that will dissolve in about 6 weeks. In 14 days, you can use a pair of clean scissors and cut the suture that is left outside of the skin at the ends of your incision. 1. The small skin tapes can be removed 7 days after surgery if they have not fallen off by that point. 2. You may keep the wound open to air as much as possible to promote healing after post-op day number 5 unless told otherwise by your doctor. 3. If you think the wound looks like it is becoming infected (redness or worsening drainage) and/or you are experiencing fever, chill or worsening back pain and muscle spasms, contact the office so that we may evaluate you as soon as possible. B. Complications are uncommon, but please contact us if you have any signs or symptoms of: 1. wound infection (fever higher than 102.5 degrees F, redness, separation of wound, drainage, or increasing pain from the incision) 2. blood clots in legs (pain, swelling, redness and warmth in legs) 3. urinary tract infection (fever higher than 102.5 degrees F, burning upon urination or increased frequency of urination) 4. nerve problems (inability to walk on your toes or heels, numbness, loss of bowel or bladder control) 5. any other symptoms that concern you C. Please call the office at if you have any concerns or questions about your operation or recovery. D. No smoking! Smoking drastically decreases the chance of a solid fusion. E. Do not take any anti-inflammatory medications (Indocin, Advil, Motrin, Aspirin, Naprosyn, etc.) as these may inhibit the chance of a solid fusion. Tylenol is okay to take for pain. MANAGING PAIN AFTER SPINAL SURGERY 1. Narcotic medication is intended for short-term use and will be provided for surgical pain. Surgical pain usually lasts for a period of 4-6 weeks. Narcotic medication includes Percocet, Vicodin, Darvocet, Tylenol #3 or Lortab. 2. Longer-term pain is more appropriately treated with non-narcotic medication such as Tylenol ES. 3. Muscle spasm is not appropriately treated with narcotics. Muscle relaxers such as Soma, Flexeril or Skelaxin can be used along with Tylenol ES. 4. Remember that we all live with some "aches and pains". This is not unusual or uncommon after an injury or as we get older. a. Back pain is expected and may include muscle spasms for 4 to 6 weeks after surgery. The pain should gradually improve. If the pain worsens for no apparent reason, please contact the office. b. Intermittent leg pain may also be experienced and should not be concerned about unless it worsens for no apparent reason. If so, please contact the office. 5. We will provide appropriate medication within the normal guidelines of their prescribed use. We will also be very cautious and aware of potential abuse and extended duration of patients' medication needs. a. Pain medications are for your comfort and to assist with sleep and rest so that the tissue can heal. They are not provided in order to return to normal activity and should not be used through the day. To do so or worsening pain at night can result from ongoing tissue damage and development of tolerance to the prescribed medicine. 6. Please allow 2-3 days to process refills. Prescriptions will not be mailed but must be picked up at the office. FOLLOW UP VISIT: Keep your scheduled follow-up appointment. Any questions, please call the office at . Current Hospital Diet Patient's current hospital diet: Diabetes Type 2 Diet Discharge Diet Recommended Diet: Regular Diet Procedures Procedures Performed: #1 lumbar decompression medial facetectomies foraminotomies L1 to L2 3.#2 posterior spinal fusion L2 3. #3 placement of posteriorinstrumentation L2 3. #4 interbody fusion L2 3. #5 placement peek cage12 x 26 mm at L2-3. #6 placement locally harvested morcellized autograftin the posterior lateral gutters. #7 placement of osteoampcombined with bone marrow aspirate in the interbody space and posteriorlateral gutters. Pending Studies Studies pending at discharge: no Medical Emergencies . Who to Call and When: Medical Emergencies: If at any time you feel your situation is an emergency, please call 911 immediately. . Non-Emergent Contact Non-Emergency issues call your: Primary Care Provider . "Provider Documentation" section prepared by Paras Champagne. . VTE Core Measure Inpt VTE Proph given/why not?: Tej Gomes, SCD's
[2016-10-09 13:48] LABS: BETA-HYDROXYBUTYRATE 4.52 mg/dL (0.2-2.81); POTASSIUM 4.5 mmol/L (3.5-5.1)
[2016-10-09] MEDS: CEFAZOLIN IV 2,000 MG in DEXTROSE 5% 50ML 50 ML IV SCH (17:15)
[2016-10-09] MEDS: CARVEDILOL 12.5 MG TAB PO SCH (17:17)
[2016-10-09] MEDS: DOCUSATE SODIUM/SENNA 50/8.6MG TAB PO SCH (20:57)
[2016-10-09] MEDS: SIMVASTATIN 40 MG TAB PO SCH (20:57)
[2016-10-09] MEDS: PANTOprazole SOD 40 MG TAB PO SCH (20:57)
[2016-10-09] MEDS ORDERED: INSULIN GLARGINE SOLOSTAR 100 UNITS/ML 3 ML PEN SC SCH (21:00)
[2016-10-09] MEDS ORDERED: CARVEDILOL 6.25 MG TAB PO SCH (21:00)
[2016-10-09] MEDS: INSULIN GLARGINE SOLOSTAR 100 UNITS/ML 3 ML PEN SC SCH (21:02)
[2016-10-09] MEDS ORDERED: INSULIN ASPART 100 UNITS/ML 3 ML PEN SC STA (21:21)
[2016-10-09] MEDS ORDERED: PHARMACY GLYCEMIC MGMT CONSULT PRN (22:15)
[2016-10-10] VITALS (11 sets, daily range): BP systolic 121–162; BP diastolic 58–78; PULSE 63–68; TEMP 36.5–37; O2SAT 88–95; Ht 165.1 cm; Wt 103.6 kg
[2016-10-10] MEDS: CEFAZOLIN IV 2,000 MG in DEXTROSE 5% 50ML 50 ML IV SCH (00:05)
[2016-10-10] MEDS: SODIUM CHLORIDE 0.9% 1000ML 1,000 ML IV SCH (00:23)
[2016-10-10] MEDS ORDERED: NURSING VERBAL MED ORDER ONE (00:30)
[2016-10-10] MEDS: INSULIN ASPART 100 UNITS/ML 3 ML PEN SC SCH ×5 (04:35→21:35)
[2016-10-10] MEDS ORDERED: DC PCA SCH (06:00)
[2016-10-10 06:14] LABS: HEMATOCRIT 32.4 % (42-52); LYMPH % 6.8 %; MEAN CORPUSCULAR HEMOGLOBIN 32.3 pg (25-34); MEAN PLATELET VOLUME 9.8 fL (7.4-10.4); MONO % 6.1 %; NEUT % 86.7 %; PLATELET COUNT 153 K/uL (130-400); RED BLOOD COUNT 3.41 M/uL (4.7-6.1); WHITE BLOOD COUNT 12.43 K/uL (4.8-10.8)
[2016-10-10 06:15] LABS: BASO % 0.1 %; BASO ABS # 0.01 K/uL (0-0.2); COMPLETE YES; IG% 0.3 %; LYMPH ABS # 0.85 K/uL (1.2-3.4)
[2016-10-10] MEDS: LEVOTHYROXINE 100 MCG TAB PO SCH (06:26)
[2016-10-10] MEDS: DEXAMETHASONE INJ 6 MG in SYRINGE 0 ML IV SCH (06:27)
[2016-10-10 06:55] LABS: BUN/CREATININE RATIO 17.5 (10-20); CALCIUM 8.3 mg/dl (8.5-10.1); CREATININE 0.84 mg/dl (0.60-1.40); POTASSIUM 4.4 mmol/L (3.5-5.1)
[2016-10-10 07:10] LABS: ESTIMATED AVERAGE GLUCOSE 200 mg/dl; HA1C FLAG Normal (Normal)
[2016-10-10] MEDS: ISOSORBIDE DINITRATE 10 MG TAB PO SCH ×2 (08:20→12:50)
[2016-10-10] MEDS: OXYCODONE HCL IR 5 MG TAB (IMMEDIATE RELEASE) PO PRN ×3 (08:23→21:44)
[2016-10-10] MEDS ORDERED: INSULIN GLARGINE SOLOSTAR 100 UNITS/ML 3 ML PEN SC ONE (08:30)
[2016-10-10] MEDS: SUCRALFATE 1 GM TAB PO SCH ×4 (08:38→21:26)
[2016-10-10] MEDS: CARVEDILOL 12.5 MG TAB PO SCH ×2 (08:39→21:28)
[2016-10-10] MEDS: VALSARTAN 80 MG TAB PO SCH (08:40)
[2016-10-10] MEDS: PANTOprazole SOD 40 MG TAB PO SCH ×2 (08:41→21:27)
--- NOTE | 2016-10-10 08:59 | Anesthesiology Progress Note ---
Anesthesia Post Op Note Date & Time Oct 10, 2016 at 08:58 Vital Signs Pain Intensity: 4.0 Vital Signs Past 12 Hours Date Time Temp Pulse Resp B/P (MAP) Pulse Ox O2 Delivery O2 Flow Rate FiO2 10/10/16 08:05 95 Nasal Cannula 2.0 10/10/16 08:02 37.0 66 22 132/70 (90) 95 Nasal Cannula 2.0 10/10/16 07:05 Room Air 10/10/16 03:55 36.6 64 18 141/68 (92) 94 Nasal Cannula 2.0 10/09/16 23:46 Nasal Cannula 2.0 10/09/16 23:19 94 Nasal Cannula 2.0 10/09/16 23:15 36.8 69 18 136/72 (93) 89 Room Air Notes Mental Status: alert / awake / arousable Pt Amnestic to Procedure: Yes Nausea / Vomiting: adequately controlled Pain: adequately controlled Airway Patency, RR, SpO2: stable & adequate BP & HR: stable & adequate Hydration State: stable & adequate
[2016-10-10] MEDS ORDERED: LANTUS PER UNIT CHARGE SC SCH (09:00)
--- NOTE | 2016-10-10 11:03 | Pharmacy Progress Note ---
Glycemic Control Intl Consult Date of Service Oct 10, 2016. Scope Glycemic Pharmacist consulted by Dr Champagne & Dr Mejia on 10/09-10/10 for glycemic control and to write orders per [facility] inpatient glycemic control protocol Objective Weight (Kilograms): 103.600 Accuchecks BSG (last 24hrs): Test 10/09/16 11:43 10/09/16 12:05 10/09/16 17:23 10/09/16 20:59 Bedside Glucose 296 mg/dl (70-99) 260 mg/dl (70-99) 319 mg/dl (70-99) Random Glucose 313 mg/dl (70-99) Test 10/09/16 23:33 10/10/16 03:58 10/10/16 05:52 10/10/16 08:01 Bedside Glucose 216 mg/dl (70-99) 193 mg/dl (70-99) 228 mg/dl (70-99) Random Glucose 198 mg/dl (70-99) Laboratory Data (last 24hrs) Test 10/09/16 12:05 10/09/16 13:12 10/10/16 05:52 Anion Gap 4.0 mmol/L 4.0 mmol/L BUN/Creatinine Ratio 17.5 17.5 Blood Urea Nitrogen 16 mg/dl 15 mg/dl Creatinine 0.92 mg/dl 0.84 mg/dl Potassium Level mmol/L 4.5 mmol/L 4.4 mmol/L Sodium Level 137 mmol/L 135 mmol/L Hemoglobin A1c 8.6 % White Blood Count 12.43 K/uL Red Blood Count 3.41 M/uL Hemoglobin 11.0 g/dL Hematocrit 32.4 % Mean Corpuscular Volume 95.0 fL Mean Corpuscular Hemoglobin 32.3 pg Mean Corpuscular Hemoglobin Concent 34.0 g/dl Platelet Count 153 K/uL Mean Platelet Volume 9.8 fL Neutrophils (%) (Auto) 86.7 % Lymphocytes (%) (Auto) 6.8 % Monocytes (%) (Auto) 6.1 % Eosinophils (%) (Auto) 0.0 % Basophils (%) (Auto) 0.1 % Neutrophils # (Auto) 10.77 K/uL Lymphocytes # (Auto) 0.85 K/uL Monocytes # (Auto) 0.76 K/uL Eosinophils # (Auto) 0.00 K/uL Basophils # (Auto) 0.01 K/uL HbA1c Test 10/10/16 05:52 Hemoglobin A1c 8.6 % (4.5-5.6) H Recent Pertinent Medications Outpatient Anti-diabetic Regimen: * Lantus 31 units HS; Novolog with meals * A1c = 8.6 % 10/10/16 The patient is currently receiving: * Basal insulin: Lantus 31 units every 24 hours * Correctional Insulin: Novolog Correction per scale ACHS Goal Range: Low 110 mg/dL - High 140 mg/dL Correction Factor: 15 mg/dL/unit * Prandial insulin: Per carb ratio of 1 unit per 5 grams CHO consumed Risk Factors for Insulin Resistance: * Steroids: Dexamethasone 12mg IV x1 yesterday preop, then 6mg IV q8h x 3 doses , last dose was today at 0600 * Recent Surgery: POD1 Lumbar fusion * Diet: Type 2 DM Assessment & Plan ASSESSMENT: * 81 year old male, type 2 diabetic, uncontrolled on insulin at home, hyperglycemic due to steroids post op lumbar fusion, last dose this morning. * Pt requires a supplemental dose of Lantus this morning and tighter CF and CR, then will loosen back down later today as steroids taper off. * ADA & AACE recommend a goal blood sugar range 140-180 mg/dl for the majority of critically ill & non-critically ill patients. However, more stringent targets may be selected in individual cases. Will utilize more stringent goal of 110-140mg/dl based on patient age & comorbidities. Additionally, tighter glycemic control is warranted to facilitate wound/infection healing. PLAN FOR INPATIENT GLYCEMIC CONTROL: * Lantus 15 units x1 dose now, then continue 31 units SQ HS * Correctional Insulin with NOVOLOG per scale ACHS or Q6hrs while NPO * Goal Range: Low 110 mg/dL - High 140 mg/dL * Tighten: Correction Factor: 10 mg/dL/unit - loosen later today depending on BSG as steroids wear off * Tighten: Nutritional / Prandial insulin per carb ratio of 1 unit per 4 grams CHO consumed -loosen later today depending on BSG as steroids wear off DISCHARGE RECOMMENDATIONS: * A1c 8.6%, recommend titrating insulin doses per outpatient provider * Please note that the plan above was derived based on current level of insulin resistance and hospital stress. These recommendations are appropriate for inpatient admission only. Plan of care upon discharge will need to be reassessed to avoid potential outpatient hypo/hyperglycemia. Thank you.
--- NOTE | 2016-10-10 12:11 | Progress Note ---
Progress Note Date of Service Oct 10, 2016. Progress Note Patient's leg symptoms are markedly improved. Back pain is controlled. On exam patient is sitting in chair as good strength testing appears comfortable. Assessment status post lumbar decompression fusion. Planned this time continue physical therapy advance his bowel regimen anticipate home Friday or Friday.
--- NOTE | 2016-10-10 13:10 | Progress Note ---
Subjective Date of Service: Oct 10, 2016. Subjective Pt evaluation today including: conversation w/ patient, physical exam, lab review, review of studies, review of inpatient medication list Saw/examined the patient in room 317 He is doing well Had some hypoxia earlier today, improved with low, supplemental O2 via NC no CP/sob back is doing well with no pain currently drain is in place no other issues to note Problem List Medical Problems: (1) Ear pressure Status: Acute Review of Systems Constitutional: No fever, No chills Respiratory: No cough, No wheezing, No shortness of breath, No dyspnea on exertion, No dyspnea at rest Cardiac: No chest pain Abdomen: No pain, No nausea, No vomiting, No diarrhea Musculoskeletal: No joint pain (resolved) Heme: No abnormal bleeding/bruising Medications Current Inpatient Medications Medications (Trade) Dose Ordered Sig/Pedrito Route Start Time Stop Time Status Last Admin Dose Admin Promethazine HCl 12.5 mg/Sodium Chloride 50.5 ml @ 202 mls/hr Q6H PRN IV 10/09/16 09:15 11/08/16 09:14 Ondansetron HCl (Zofran Inj) 4 mg Q6H PRN IV 10/09/16 09:15 11/08/16 09:14 Metoclopramide HCl (Reglan Inj) 10 mg Q6H PRN IV 10/09/16 09:15 11/08/16 09:14 Lorazepam (Ativan Tab) 0.5 mg Q8H PRN PO 10/09/16 09:15 11/08/16 09:14 Lorazepam 0.5 mg/ Syringe 0.25 ml @ 1 mls/min Q8H PRN IV 10/09/16 09:15 11/08/16 09:14 Pneumococcal Polysaccharide Vaccine 1 ea PRN PRN N/A 10/09/16 09:15 11/08/16 09:14 Influenza Virus Vacc Triv Types A&B 1 ea PRN PRN N/A 10/09/16 09:15 11/08/16 09:14 Polyethylene (Miralax Powder Packet) 17 gm Q6 PO 10/11/16 06:00 11/10/16 05:59 Bisacodyl (Dulcolax Supp) 10 mg DAILY PRN AL 10/09/16 09:15 11/08/16 09:14 Magnesium Hydroxide (Milk Of Magnesia Susp) 30 ml DAILY PRN PO 10/09/16 09:15 11/08/16 09:14 Hydromorphone HCl (Dilaudid Inj) 0.5 mg Q3H PRN IV 10/09/16 09:15 10/23/16 09:14 Future hold Oxycodone HCl (Roxicodone Immediate Rel Tab) 5-10mg prn moderate to sev... Q4H PRN PO 10/10/16 06:00 10/24/16 05:59 10/10/16 08:23 5 MG Acetaminophen (Tylenol Tab) 1,000 mg Q8H PRN PO 10/09/16 09:15 11/08/16 09:14 Acetaminophen 100 ml @ 400 mls/hr Q8H PRN IV 10/09/16 09:15 11/08/16 09:14 Naloxone HCl (Narcan Inj) 0.1 mg Q5M PRN IV 10/09/16 09:15 11/08/16 09:14 Senna/Docusate Sodium (Senokot S Tab) 2 tab HS PO 10/09/16 21:00 11/08/16 20:59 10/09/16 20:57 2 TAB Sodium Biphosphate/ Sodium Phosphate (Fleet Enema) 132 ml ONE PRN AL 10/09/16 09:15 11/08/16 09:14 Hydroxyzine HCl (Vistaril Tab) 25 mg Q8H PRN PO 10/09/16 09:15 11/08/16 09:14 Al Hydroxide/Mg Hydroxide (Maalox Susp) 30 ml Q6H PRN PO 10/09/16 09:15 11/08/16 09:14 Famotidine (Pepcid Tab) 20 mg Q12 PRN PO 10/09/16 09:15 11/08/16 09:14 Diphenhydramine HCl (Benadryl Cap) 25 mg Q6H PRN PO 10/09/16 09:15 11/08/16 09:14 Levothyroxine Sodium (Synthroid Tab) 100 mcg DAILYBB PO 10/10/16 06:00 11/09/16 05:59 10/10/16 06:26 100 MCG Simvastatin (Zocor Tab) 40 mg HS PO 10/09/16 21:00 11/08/16 20:59 10/09/16 20:57 40 MG Sucralfate (Carafate Tab) 1 gm QID PO 10/09/16 13:00 11/08/16 12:59 10/10/16 12:50 1 GM Valsartan (Diovan Tab) 160 mg QAM PO 10/10/16 09:00 11/09/16 08:59 10/10/16 08:40 160 MG Isosorbide Dinitrate (Isordil Tab) 30 mg BID@0700,1200 PO 10/09/16 12:00 11/08/16 11:59 10/10/16 12:50 30 MG Pantoprazole Sodium (Protonix Tab) 40 mg BID PO 10/09/16 21:00 11/08/16 20:59 10/10/16 08:41 40 MG Glucose (Glucose 40% Gel) 15-30 GRAMS 15 GRAMS... UD PRN PO 10/09/16 11:00 11/08/16 10:59 Glucose (Glucose Chew Tab) 4-8 Tablets 4 Tabl... UD PRN PO 10/09/16 11:00 11/08/16 10:59 Dextrose (Dextrose 50% 50ML Syringe) 25-50ML OF 50% DW IV FOR... UD PRN IV 10/09/16 11:00 11/08/16 10:59 Glucagon (Glucagon Inj) 1 mg UD PRN SQ 10/09/16 11:00 11/08/16 10:59 Hydromorphone HCl (Dilaudid Inj) 1 mg Q3H PRN IV 10/09/16 11:15 10/23/16 11:14 Future hold Carvedilol (Coreg Tab) 12.5 mg BID PO 10/09/16 21:00 11/08/16 20:59 10/10/16 08:39 12.5 MG Insulin Glargine (Lantus Solostar Pen) 31 units HS SC 10/09/16 21:00 11/08/16 20:59 10/09/16 21:02 31 UNITS Insulin Aspart (novoLOG ASPART) SLIDING SCALE ACHS SC 10/09/16 12:00 11/08/16 11:59 10/10/16 08:59 23 UNITS Miscellaneous Information (Consult Glycemic Management Pharmacy) 1 ea UD PRN N/A 10/09/16 22:15 11/08/16 22:14 Objective Vital Signs Date Time Temp Pulse Resp B/P (MAP) Pulse Ox O2 Delivery O2 Flow Rate FiO2 10/10/16 12:00 36.8 68 24 128/78 (95) 95 Nasal Cannula 2.0 10/10/16 11:10 93 Nasal Cannula 2.0 10/10/16 10:45 88 Room Air 10/10/16 09:52 91 Room Air 10/10/16 09:45 Room Air 10/10/16 08:05 95 Nasal Cannula 2.0 10/10/16 08:02 37.0 66 22 132/70 (90) 95 Nasal Cannula 2.0 10/10/16 07:05 Room Air 10/10/16 03:55 36.6 64 18 141/68 (92) 94 Nasal Cannula 2.0 10/09/16 23:46 Nasal Cannula 2.0 10/09/16 23:19 94 Nasal Cannula 2.0 10/09/16 23:15 36.8 69 18 136/72 (93) 89 Room Air 10/09/16 19:04 36.6 70 19 131/75 (93) 95 Oxymask 3.0 10/09/16 15:45 Oxymask 4.0 10/09/16 15:37 36.5 72 18 150/86 (107) 96 Oxymask 4.0 10/09/16 14:07 63 16 153/72 (99) 98 Oxymask 4.0 Physical Exam General Appearance: no apparent distress Respiratory/Chest: lungs clear, normal breath sounds, no respiratory distress, no accessory muscle use Cardiovascular: regular rate, rhythm, no edema, no murmur Extremities: + pertinent finding (drain in place) Laboratory Results Last 24 Hours Test 10/09/16 13:12 10/09/16 17:23 10/09/16 20:59 10/09/16 23:33 Potassium Level 4.5 mmol/L Aspartate Amino Transf (AST/SGOT) 20 U/L Beta-Hydroxybutyric Acid 4.52 mg/dL Bedside Glucose 260 mg/dl 319 mg/dl 216 mg/dl Test 10/10/16 03:58 10/10/16 05:52 10/10/16 08:01 10/10/16 12:00 Bedside Glucose 193 mg/dl 228 mg/dl 350 mg/dl White Blood Count 12.43 K/uL Red Blood Count 3.41 M/uL Hemoglobin 11.0 g/dL Hematocrit 32.4 % Mean Corpuscular Volume 95.0 fL Mean Corpuscular Hemoglobin 32.3 pg Mean Corpuscular Hemoglobin Concent 34.0 g/dl Platelet Count 153 K/uL Mean Platelet Volume 9.8 fL Neutrophils (%) (Auto) 86.7 % Lymphocytes (%) (Auto) 6.8 % Monocytes (%) (Auto) 6.1 % Eosinophils (%) (Auto) 0.0 % Basophils (%) (Auto) 0.1 % Neutrophils # (Auto) 10.77 K/uL Lymphocytes # (Auto) 0.85 K/uL Monocytes # (Auto) 0.76 K/uL Eosinophils # (Auto) 0.00 K/uL Basophils # (Auto) 0.01 K/uL RDW Standard Deviation 46.5 fL RDW Coefficient of Variation 13.3 % Immature Granulocyte % (Auto) 0.3 % Immature Granulocyte # (Auto) 0.04 K/uL Sodium Level 135 mmol/L Potassium Level 4.4 mmol/L Chloride Level 102 mmol/L Carbon Dioxide Level 29 mmol/L Anion Gap 4.0 mmol/L Blood Urea Nitrogen 15 mg/dl Creatinine 0.84 mg/dl Est Creatinine Clear Calc Drug Dose 77.7 ml/min Estimated GFR () 95.8 Estimated GFR (Non- 82.7 BUN/Creatinine Ratio 17.5 Random Glucose 198 mg/dl Estimated Average Glucose 200 mg/dl Hemoglobin A1c 8.6 % Calcium Level 8.3 mg/dl Assessment and Plan This is an 81 year old male with a PMH of CAD s/p CABG, A. fib, bioprosthetic aortic valve replacement, insulin dependent DM2, hx. of heart block s/p PPM, HTN , hypothyroidism presents for lumbar decompression/fusion s/p Lumbar Decompression/Fusion POD #1 doing well ANKIT drain still in place pain controlled PT/OT d/c planning as per ortho Uncontrolled, Insulin Dependent DM2 Ha1c = 8.6% intraoperative steroid use BSGs have been uncontrolled appreciate pharmacy glycemic control consultation Expected Acute Blood Loss Anemia s/p surgery, Hgb down to 11 from 13, monitor; no indication for transfusion Expected Leukocytosis secondary to intraoperative steroid use CAD s/p CABG no chest pain, doing well continue current cardiac medications Hx. of complete heart block s/p pacemaker Hypothyroidism continue Synthroid HTN BP stable, continue current medications DVT ppx as per ortho FULL CODE
[2016-10-10] MEDS: DOCUSATE SODIUM/SENNA 50/8.6MG TAB PO SCH (21:28)
[2016-10-10] MEDS: SIMVASTATIN 40 MG TAB PO SCH (21:28)
[2016-10-10] MEDS: INSULIN GLARGINE SOLOSTAR 100 UNITS/ML 3 ML PEN SC SCH (21:32)
[2016-10-11] MEDS: INSULIN ASPART 100 UNITS/ML 3 ML PEN SC SCH ×4 (00:06→13:00)
[2016-10-11] MEDS: OXYCODONE HCL IR 5 MG TAB (IMMEDIATE RELEASE) PO PRN ×3 (01:23→12:17)
[2016-10-11] MEDS: POLYETHYLENE (MIRALAX) 17 GM PACK PO SCH ×2 (05:49→12:04)
[2016-10-11] MEDS: LEVOTHYROXINE 100 MCG TAB PO SCH (05:49)
[2016-10-11 06:12] LABS: HEMATOCRIT 31.9 % (42-52); MEAN CELL VOLUME 94.7 fL (80-100); MEAN CORPUSCULAR HEMOGLOBIN 30.6 pg (25-34); MEAN CORPUSCULAR HGB CONC 32.3 g/dl (32-36); MEAN PLATELET VOLUME 9.5 fL (7.4-10.4); PLATELET COUNT 148 K/uL (130-400); RED BLOOD COUNT 3.37 M/uL (4.7-6.1); WHITE BLOOD COUNT 12.14 K/uL (4.8-10.8)
[2016-10-11] MEDS: ISOSORBIDE DINITRATE 10 MG TAB PO SCH ×2 (06:30→12:03)
[2016-10-11 06:40] LABS: BUN/CREATININE RATIO 24.9 (10-20); CALCIUM 8.1 mg/dl (8.5-10.1); CREATININE 0.79 mg/dl (0.60-1.40)
[2016-10-11 07:25] VITALS: BP 126/66; PULSE 61; TEMP 37; O2SAT 90
[2016-10-11 07:30] VITALS: O2SAT 90
[2016-10-11] MEDS: SUCRALFATE 1 GM TAB PO SCH ×2 (08:25→13:13)
[2016-10-11] MEDS: CARVEDILOL 12.5 MG TAB PO SCH (08:27)
[2016-10-11] MEDS: VALSARTAN 80 MG TAB PO SCH (08:29)
[2016-10-11] MEDS: PANTOprazole SOD 40 MG TAB PO SCH (08:29)
[2016-10-11] MEDS ORDERED: INSULIN GLARGINE SOLOSTAR 100 UNITS/ML 3 ML PEN SC SCH (09:30)
--- NOTE | 2016-10-11 09:33 | Pharmacy Progress Note ---
Glycemic Control Progress Note Date of Service Oct 11, 2016. Scope Glycemic Pharmacist consulted for glycemic control to write orders per [facility] inpatient glycemic control protocol. Objective Accuchecks BSG (last 24hrs): Test 10/10/16 12:00 10/10/16 17:27 10/10/16 21:33 10/11/16 00:02 Bedside Glucose 350 mg/dl (70-99) 223 mg/dl (70-99) 208 mg/dl (70-99) 149 mg/dl (70-99) Test 10/11/16 04:18 10/11/16 05:34 10/11/16 07:57 Bedside Glucose 127 mg/dl (70-99) 149 mg/dl (70-99) Random Glucose 129 mg/dl (70-99) HbA1c: Test 10/10/16 05:52 Hemoglobin A1c 8.6 % (4.5-5.6) H Recent Pertinent Medications The patient is currently receiving: * Basal insulin: Lantus 31 units every qHS (additional 15 units given 10/10 am) * Correctional Insulin: Novolog Correction per scale ACHS Goal Range: Low 110 mg/dL - High 140 mg/dL Correction Factor: 10 mg/dL/unit * Prandial insulin: Per carb ratio of 1 unit per 4 grams CHO consumed Outpatient Anti-Diabetic Meds Basal Insulin * Lantus 31 units SQ HS Bolus Insulin * Novolog with meals Assessment & Plan ASSESSMENT: * See progress note from 10/10 for more background info, in short: * Pt receiving SQ basal bolus insulin regimen for hyperglycemia secondary to uncontrolled baseline DM, stress from recent surgery, and high dose IV steroids. Last dose of dexamethasone IV was administered 10/10 @ 0600. * Patient received 138 units of insulin over the pat 24 hours: * 46 units of basal insulin * 92 units of prandial/correctional insulin * BSGs ranging 149 - 350 mg/dl over the past 24hrs * Changes needed to insulin regimen: * AM Fasting BSG = 149 mg/dl. This is in slightly above goal range for patient based on inpatient targets and co-morbidities. Therefore, additional basal insulin is needed today. * Post-prandial BSGs are elevated but trending downwards. Regimen highly weighted towards basal insulin since steroids have most profound effect on prandial BSG. I anticipate further improvement today as effect of IV steroids wears off. CF/CR will likely require loosening throughout the day. PLAN FOR INPATIENT GLYCEMIC CONTROL: * Basal insulin with Lantus * Continue 31 units SQ HS (home dose) * Give additional 10 units SQ this am * Bolus insulin with Novolog * Loosen correction factor to 12 mg/dl/unit * Loosen carb ratio to 1 unit per 4 grams CHO consumed * Continuing goal range of Low 110 mg/dL - High 140 mg/dL DISCHARGE RECOMMENDATIONS: * Less than adequate glycemic control evidenced by A1c 8.6% * Recommend titrating insulin doses per outpatient provider * Please note that the plan above was derived based on current level of insulin resistance and hospital stress. These recommendations are appropriate for inpatient admission only. Plan of care upon discharge will need to be reassessed to avoid potential outpatient hypo/hyperglycemia. Thank you.
[2016-10-11 12:19] VITALS: BP 122/66; PULSE 66; TEMP 36.7; O2SAT 92
[2016-10-11 14:04] VITALS: BP 122/66; PULSE 66; TEMP 36.7; O2SAT 92
--- NOTE | 2016-10-11 14:46 | Discharge Summary ---
Orthopedic Discharge Summary Admission Date/Reason Oct 09, 2016 at 07:35 Lumbar Spinal Stenosis. Discharge Date/Disposition Oct 11, 2016 Home Diagnosis Principal Diagnosis: Lumbar spinal stenosis Admission Physical Exam As per Admitting History & Physical. Hospital Course Patient 1 lumbar depression fusion tolerated this well was taken to the orthopedic 4 postop we. Postoperative day #1 is up in amatory leg symptoms improved. He progressed to postoperative day #2. ANKIT drain decreased appropriate. Subsequently patient was discharged home. Discharge orders and instructions can be found the chart for further review. Discharge Instructions Please refer to the electronic Patient Visit Report (Discharge Instructions) for additional information.
[2016-10-12] MEDS ORDERED: INSULIN ASPART 100 UNITS/ML 3 ML PEN SC SCH
== END 2016-10-11 14:35 | disposition home or self-care (01) | DRG 460 ==
LOC: C.ACU 05:21 → C.3E 07:35 → ENRESERV 10:09
PROVIDERS: ADMIT Orthopaedic Surgery Orthopaedic Surgery of the Spine; ATTEND Orthopaedic Surgery Orthopaedic Surgery of the Spine
PROC: 0SG00AJ Fusion of Lumbar Vertebral Joint with Interbody Fusion Device, Posterior Approach, Anterior Column, Open Approach (ICD-10-PCS; principal; 2016-10-09 07:45)
PROC: 01NB0ZZ Release Lumbar Nerve, Open Approach (ICD-10-PCS; principal; 2016-10-09 07:45)
PROC: 0ST20ZZ Resection of Lumbar Vertebral Disc, Open Approach (ICD-10-PCS; principal; 2016-10-09 07:45)
PROC: 0SG0071 Fusion of Lumbar Vertebral Joint with Autologous Tissue Substitute, Posterior Approach, Posterior Column, Open Approach (ICD-10-PCS; principal; 2016-10-09 07:45)
DX: M48.06 Spinal stenosis, lumbar region (principal); I25.10 Atherosclerotic heart disease of native coronary artery without angina pectoris; E11.9 Type 2 diabetes mellitus without complications; I11.9 Hypertensive heart disease without heart failure; E78.5 Hyperlipidemia, unspecified; I48.2 Chronic atrial fibrillation; E03.9 Hypothyroidism, unspecified; I34.0 Nonrheumatic mitral (valve) insufficiency; Z95.0 Presence of cardiac pacemaker; Z95.2 Presence of prosthetic heart valve; Z95.1 Presence of aortocoronary bypass graft

== ENCOUNTER 2017-06-29 19:35 | Emergency (ER) | payer OTHER ==
[~2017-06-29] VITALS: Ht 165.1 cm; Wt 100.0 kg
[~2017-06-29 19:35] MED LIST changes: -GLC/500 PO; -GLCSR/500 PO; -ISOS30TA51 PO; +ISR/30 PO; -LSX40 PO; +RXC5 PO
[2017-06-29 19:45] VITALS: TEMP 36.5; Ht 165.1 cm; Wt 100.0 kg
[2017-06-29] MEDS ORDERED: METOCLOPRAMIDE HCL INJ 5 MG/ML 2 ML VIAL IV STA (19:55)
[2017-06-29] MEDS ORDERED: MAGNESIUM CITRATE 296 ML/BTL PO STA (19:55)
[2017-06-29] MEDS ORDERED: SODIUM CHLORIDE 0.9% 1000ML 1,000 ML IV STA (19:55)
--- NOTE | 2017-06-29 19:58 | EMERGENCY ROOM VISIT NOTE ---
History Report prepared by Sheri: Andi Judge Under the Supervision of: Dr. Juan M Hubbard M.D. First contact with patient: 19:49 Chief Complaint: CONSTIPATION Stated Complaint: CONSTIPATION, RECTAL CANCER History of Present Illness The patient is a 81 year old male who presents to the Emergency Room with complaints of constant constipation that began four days ago. He rates his discomfort as a 9/10 in severity. The patient states he recently saw Dr. Marcano three days ago when he was diagnosed with rectal cancer. He reports that he has his first radiation on July 08. The patient states he was put on Percocet for his rectal pain. He reports that since his visit, he has been having trouble urinating. The patient states when he is able to urinate, he notices a burning sensation. He reports that he also has been experiencing constipation and abdominal pain. The patient states he used an Enema earlier today without any relief of symptoms. He reports he is on Eliquis for his history of his pacemaker placement. Source of History: patient Onset: four days ago Position: other (global) Symptom Intensity: 9/10 Timing: constant Modifying Factors (Relieving): other (enema) Associated Symptoms: + abdominal pain, + urinary symptoms Review of Systems See HPI for pertinent positives & negatives. A total of 10 systems reviewed and were otherwise negative. Past Medical & Surgical Medical Problems: (1) Aortic stenosis (2) CAD (coronary artery disease) (3) Complete heart block (4) DM type 2 (diabetes mellitus, type 2) (5) Dyslipidemia (6) GERD (gastroesophageal reflux disease) (7) History of atrial fibrillation (8) HTN (hypertension) (9) Hypothyroid (10) Mitral stenosis (11) Pacemaker (12) Sleep apnea Surgical Problems: (1) History of back surgery (2) History of carpal tunnel surgery (3) Hx of cholecystectomy (4) S/P AVR (aortic valve replacement) (5) S/P CABG x 2 (6) S/p mitral valve decalcification Family History Cancer Gallbladder disease Heart disease Hypertension Lung disease Social History Smoking Status: Never Smoker Alcohol Use: none Drug Use: none Marital Status: Housing Status: lives with significant other Occupation Status: retired Current/Historical Medications Scheduled Apixaban (Eliquis), 5 MG PO BID Carvedilol (Carvedilol), 12.5 MG PO DAILY Ciprofloxacin Hcl (Cipro), 1 TAB PO BID Docusate Sodium (Colace), 1 CAP PO BID Insulin Aspart (Novolog Flexpen), UNITS SC WM Insulin Degludec (Tresiba Flextouch), 40 UNITS SQ HS Levothyroxine Sodium (Levothyroxine Sodium), 100 MCG PO QAM Multiple Vitamins W/ Minerals (Ocuvite), 1 TAB PO BID Omeprazole (Prilosec), 20 MG PO BID Sennosides (Senokot), 8.6 MG PO HS Simvastatin (Simvastatin), 40 MG PO HS Sucralfate (Sucralfate), 1 GM PO QID Valsartan (Diovan), 160 MG PO QAM Scheduled PRN Oxycodone HCl (Oxycodone HCl), 5-10 MG PO Q4H PRN for Moderate - severe pain Allergies Coded Allergies: No Known Allergies (Unverified , 06/29/17) Physical Exam Vital Signs Date Time Temp Pulse Resp B/P (MAP) Pulse Ox O2 Delivery O2 Flow Rate FiO2 06/29/17 22:10 67 16 120/67 98 06/29/17 21:30 52 20 115/76 95 Room Air 06/29/17 20:07 61 06/29/17 19:45 36.5 70 20 139/77 95 Room Air Physical Exam GENERAL: Awake, alert, well-appearing, in no acute distress HENT: Normocephalic, atraumatic. Oropharynx unremarkable. EYES: Normal conjunctiva. Sclera non-icteric. NECK: Supple. No nuchal rigidity. FROM. No JVD. RESPIRATORY: Clear to auscultation. CARDIAC: Regular rate, normal rhythm. Extremities warm and well perfused. Pulses equal. ABDOMEN: Soft, distended. No tenderness to palpation. No rebound or guarding. No masses. RECTAL: Deferred. MUSCULOSKELETAL: Chest examination reveals no tenderness. The back is symmetrical on inspection without obvious abnormality. There is no CVA tenderness to palpation. No joint edema. LOWER EXTREMITIES: Calves are equal size bilaterally and non-tender. No edema. No discoloration. NEURO: Normal sensorium. No sensory or motor deficits noted. SKIN: No rash or jaundice noted. Medical Decision & Procedures Laboratory Results 06/29/17 20:05 Red Blood Count 4.40, Mean Corpuscular Volume 80.9, Mean Corpuscular Hemoglobin 26.1, Mean Corpuscular Hemoglobin Concent 32.3, Mean Platelet Volume 9.7, Neutrophils (%) (Auto) 73.5, Lymphocytes (%) (Auto) 14.9, Monocytes (%) (Auto) 9.3, Eosinophils (%) (Auto) 1.7, Basophils (%) (Auto) 0.3, Neutrophils # (Auto) 5.70, Lymphocytes # (Auto) 1.15, Monocytes # (Auto) 0.72, Eosinophils # (Auto) 0.13, Basophils # (Auto) 0.02 06/29/17 20:05 Test 06/29/17 20:05 06/29/17 20:42 White Blood Count 7.74 K/uL (4.8-10.8) Red Blood Count 4.40 M/uL (4.7-6.1) Hemoglobin 11.5 g/dL (14.0-18.0) Hematocrit 35.6 % (42-52) Mean Corpuscular Volume 80.9 fL (80-100) Mean Corpuscular Hemoglobin 26.1 pg (25-34) Mean Corpuscular Hemoglobin Concent 32.3 g/dl (32-36) Platelet Count 199 K/uL (130-400) Mean Platelet Volume 9.7 fL (7.4-10.4) Neutrophils (%) (Auto) 73.5 % Lymphocytes (%) (Auto) 14.9 % Monocytes (%) (Auto) 9.3 % Eosinophils (%) (Auto) 1.7 % Basophils (%) (Auto) 0.3 % Neutrophils # (Auto) 5.70 K/uL (1.4-6.5) Lymphocytes # (Auto) 1.15 K/uL (1.2-3.4) Monocytes # (Auto) 0.72 K/uL (0.11-0.59) Eosinophils # (Auto) 0.13 K/uL (0-0.5) Basophils # (Auto) 0.02 K/uL (0-0.2) RDW Standard Deviation 46.1 fL (36.4-46.3) RDW Coefficient of Variation 15.7 % (11.5-14.5) Immature Granulocyte % (Auto) 0.3 % Immature Granulocyte # (Auto) 0.02 K/uL (0.00-0.02) Anion Gap 8.0 mmol/L (3-11) Est Creatinine Clear Calc Drug Dose 62.8 ml/min Estimated GFR () 80.1 Estimated GFR (Non- 69.1 BUN/Creatinine Ratio 12.5 (10-20) Calcium Level 8.5 mg/dl (8.5-10.1) Total Bilirubin 0.5 mg/dl (0.2-1) Direct Bilirubin mg/dl (0-0.2) Aspartate Amino Transf (AST/SGOT) U/L (15-37) Alanine Aminotransferase (ALT/SGPT) 21 U/L (12-78) Alkaline Phosphatase 84 U/L (45-117) Total Protein 8.1 gm/dl (6.4-8.2) Albumin 3.5 gm/dl (3.4-5.0) Lipase 86 U/L (73-393) Urine Color YELLOW Urine Appearance ERROR (CLEAR) Urine pH 5.0 (4.5-7.5) Urine Specific [place] 1.020 (1.000-1.030) Urine Protein 1+ (NEG) Urine Glucose (UA) 2+ (NEG) Urine Ketones TRACE (NEG) Urine Occult Blood TRACE (NEG) Urine Nitrite NEG (NEG) Urine Bilirubin NEG (NEG) Urine Urobilinogen NEG (NEG) Urine Leukocyte Esterase NEG (NEG) Urine WBC (Auto) 1-5 /hpf (0-5) Urine RBC (Auto) 0-4 /hpf (0-4) Urine Hyaline Casts (Auto) 0 /lpf (0-5) Urine Epithelial Cells (Auto) 0-5 /lpf (0-5) Urine Bacteria (Auto) NEG (NEG) Labs reviewed by ED physician. Medications Administered Medications (Trade) Dose Ordered Sig/Pedrito Route Start Time Stop Time Status Last Admin Dose Admin Magnesium Citrate (Citrate Of Magnesia Soln) 150 ml NOW STAT PO 06/29/17 19:55 06/29/17 19:58 DC 06/29/17 20:17 150 ML Sodium Chloride 1,000 ml @ 999 mls/hr Q1H1M STAT IV 06/29/17 19:55 06/29/17 20:55 DC 06/29/17 20:40 999 MLS/HR Metoclopramide HCl (Reglan Inj) 10 mg NOW STAT IV 06/29/17 19:55 06/29/17 19:58 DC 06/29/17 20:20 10 MG Hydromorphone HCl (Dilaudid Inj) 0.5 mg NOW STAT IV 06/29/17 20:35 06/29/17 20:36 DC 06/29/17 20:41 0.5 MG Ondansetron HCl (Zofran Inj) 4 mg NOW STAT IV 06/29/17 20:35 06/29/17 20:36 DC 06/29/17 20:43 4 MG Ciprofloxacin (Cipro Tab) 500 mg NOW STAT PO 06/29/17 20:50 06/29/17 20:52 DC 06/29/17 20:50 500 MG ECG Per My Interpretation Indication: abdominal pain Rate (beats per minute): 69 Rhythm: other (paced) Findings: other (No ST elevations or depressions) ED Course 1949: Past medical records reviewed. The patient was evaluated in room C04. A complete history and physical examination was performed. 1954: Ordered Reglan Injection 10 mg IV, Sodium Chloride 1000 ml @ 999 mls/hr IV , Magnesium Citrate 150 ml PO. 2034: Ordered Zofran Injection 4 mg IV, Dilaudid Injection 0.5 mg IV. 2049: Ordered Cipro Tab 500 mg PO. 2050: Upon reexamination the patient is feeling better. I discussed results and treatment plan with the patient. He verbalizes agreement and understanding. The patient is ready for discharge. Medical Decision Triage Nursing notes reviewed. Additional history obtained from the patient. The patient's history was concerning for constipation. Differential diagnosis: Etiologies such as functional constipation, impaction, obstruction, volvulus, metabolic abnormality, infection, neurologic, as well as others were entertained. This is an 81-year-old male who presents the emergency department with inability to move his bowels after starting Percocet. The patient is concerned he has an obstruction therefore using shared medical decision making, the patient was prepped for a CAT scan. The patient also consented to laboratory work including a CBC renal profile liver profile and lipase. These were all found to be within normal limits. While prepping for the CAT scan the patient had a very large bowel movement and at this point would like to cancel the CAT scan. 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 He is going to finish the magnesium citrate bottle at home. I recommended stool softeners on Percocet. Patient was in agreement with treatment plan. Medication Reconcilliation Current Medication List: was personally reviewed by me Blood Pressure Screening Patient's blood pressure: Elevated blood pressure Blood pressure disposition: Referred to PCP Impression Primary Impression: Constipation Additional Impression: UTI (urinary tract infection) Scribe Attestation The scribe's documentation has been prepared under my direction and personally reviewed by me in its entirety. I confirm that the note above accurately reflects all work, treatment, procedures, and medical decision making performed by me. Departure Information Dispostion Home / Self-Care Prescriptions Ciprofloxacin Hcl (CIPRO) 500 Mg Tab 1 TAB PO BID for 10 Days, #20 TAB Prov: Juan M Hubbard MD 06/29/17 Docusate Sodium (COLACE) 100 Mg Cap 1 CAP PO BID for 30 Days, #60 CAP Prov: Juan M Hubbard MD 06/29/17 Sennosides (SENOKOT) 8.6 Mg Tab 8.6 MG PO HS for 30 Days, #30 TAB Prov: Juan M Hubbard MD 06/29/17 Referrals Kennedy Saldaña D.O. (PCP) Forms HOME CARE DOCUMENTATION FORM, IMPORTANT VISIT INFORMATION Patient Instructions ED Constipation, ED UTI Cystitis Male, My [facility] Additional Instructions Finish second half of Mag Citrate in the morning Add stool softners to diet You have been examined and treated today on an emergency basis only. This is not a substitute for, or an effort to provide, complete comprehensive medical care. It is impossible to recognize and treat all injuries or illnesses in a single emergency department visit. It is therefore important that you follow up closely with Dr Saldaña. Call as soon as possible for an appointment. Thank you for your time and consideration. I look forward to speaking with you again soon. Please don't hesitate to call us if you have any questions. Problem Qualifiers Primary Impression: Constipation Constipation type: unspecified constipation type Qualified Codes: K59.00 - Constipation, unspecified Additional Impression: UTI (urinary tract infection) Urinary tract infection type: acute cystitis Hematuria presence: without hematuria Qualified Codes: N30.00 - Acute cystitis without hematuria
[2017-06-29] MEDS ORDERED: OPTIRAY 320 IV PRN (20:00)
[2017-06-29 20:18] LABS: BASO % 0.3 %; BASO ABS # 0.02 K/uL (0-0.2); EOS % 1.7 %; EOS ABS # 0.13 K/uL (0-0.5); HEMATOCRIT 35.6 % (42-52); HEMOGLOBIN 11.5 g/dL (14.0-18.0); IG# 0.02 K/uL (0.00-0.02); LYMPH % 14.9 %; LYMPH ABS # 1.15 K/uL (1.2-3.4); MEAN CELL VOLUME 80.9 fL (80-100); MEAN CORPUSCULAR HEMOGLOBIN 26.1 pg (25-34); MEAN CORPUSCULAR HGB CONC 32.3 g/dl (32-36); MEAN PLATELET VOLUME 9.7 fL (7.4-10.4); MONO % 9.3 %; MONO ABS # 0.72 K/uL (0.11-0.59); NEUT % 73.5 %; PLATELET COUNT 199 K/uL (130-400); RED CELL DISTRIBUTION WIDTH CV 15.7 % (11.5-14.5); RED CELL DISTRIBUTION WIDTH SD 46.1 fL (36.4-46.3); WHITE BLOOD COUNT 7.74 K/uL (4.8-10.8)
[2017-06-29] MEDS ORDERED: ONDANSETRON INJ 2 MG/ML 2 ML VIAL IV STA (20:35)
[2017-06-29] MEDS ORDERED: HYDROmorphone INJ 0.5 MG/0.5 ML SYR IV STA (20:35)
[2017-06-29 20:50] LABS: ALBUMIN 3.5 gm/dl (3.4-5.0); CALCIUM 8.5 mg/dl (8.5-10.1); CREATININE 1.02 mg/dl (0.60-1.40); TOTAL PROTEIN 8.1 gm/dl (6.4-8.2)
[2017-06-29] MEDS ORDERED: CIPROFLOXACIN 500 MG TAB PO STA (20:50)
[2017-06-29] MEDS ORDERED: DOCU-94 PO (20:53)
[2017-06-29] MEDS ORDERED: CIPR-255 PO (20:53)
[2017-06-29] MEDS ORDERED: SENN1TAB77 PO (20:53)
[2017-06-29] MEDS ORDERED: CRG125 PO (21:11)
[2017-06-29] MEDS ORDERED: INSU1INJ33 SQ (21:11)
[2017-06-29 22:10] VITALS: BP 120/67; PULSE 67; O2SAT 98
== END 2017-06-29 22:10 | disposition home or self-care (01) ==
LOC: C.EDB 19:35 → C.EDC 22:10
DX: K59.00 Constipation, unspecified (principal); N30.00 Acute cystitis without hematuria; I25.10 Atherosclerotic heart disease of native coronary artery without angina pectoris; E11.9 Type 2 diabetes mellitus without complications; E78.5 Hyperlipidemia, unspecified; K21.9 Gastro-esophageal reflux disease without esophagitis; I48.91 Unspecified atrial fibrillation; I10 Essential (primary) hypertension; E03.9 Hypothyroidism, unspecified; Z95.0 Presence of cardiac pacemaker; Z95.2 Presence of prosthetic heart valve; Z95.1 Presence of aortocoronary bypass graft; Z90.49 Acquired absence of other specified parts of digestive tract; Z98.890 Other specified postprocedural states; Z82.49 Family history of ischemic heart disease and other diseases of the circulatory system; Z79.01 Long term (current) use of anticoagulants; Z79.4 Long term (current) use of insulin; Z79.899 Other long term (current) drug therapy

== ENCOUNTER → 2017-09-25 | Outpatient (CLI) | payer OTHER ==
[~2017-09-25] MED LIST changes: +CARV12.52 PO; -CARV6.252 PO; +CRG125 PO; +FENT25DI10 TD; +HYDR-5688 PO; -INSDGI SC; +INSU1INJ33 SQ; -ISR/30 PO; -MULT-188 PO; -RXC5 PO; +XLD/500 PO
[2017-09-25 13:17] VITALS: BP 132/77; PULSE 80; TEMP 36.7; O2SAT 94
--- NOTE | 2017-09-25 14:51 | Radiation Oncology Follow-Up ---
Radiation Oncology Follow-Up Date of Visit Sep 25, 2017. Reason For Visit One-month follow-up Radiation Completion Date 08/29/17 Diagnosis (1) Rectal adenocarcinoma Status: Acute Onset Date: 06/03/2017 Permanent Comment: Rectal bleeding Evaluation under anethesia and finding of a rectal mass June 03, 2017 Biopsy revealing adenocarcinoma Plan for radiation and Xeloda Status post completion of combined neoadjuvant radiation and chemotherapy. Radiation was completed August 29, 2017. He received 5040 cGy Last Edited By: Rebecca Campbell on Sep 05, 2017 11:41 History of Present Illness We are seeing Mr. Hammond in consultation at the request of Dr. Chavez. The patient's was also present during the consultation. ECOG PS: 1 Mr. Hammond presented in April 2017 with rectal bleeding. The patient was then seen by Dr. Chavez for workup and evaluation. 05/15/2017 --- consultation with Dr. Toño Chavez from general surgery --- FACUDNO reveals firm posterior anal fissure with external extent skin tags and tenderness to exam as well as mild anal stenosis. Dr. Chavez recommends exam under anesthesia with biopsy. 06/03/2017 --- rectal exam under anesthesia with biopsy --- findings: Posterior anal fissure which is actually a mass. Also noted is submucosal extension going approximately into the rectum. Pathology reveals invasive adenocarcinoma , well-differentiated. No mismatch repair mutation is noted. 06/09/2017 --- follow-up exam with Dr. Chavez --- Dr. Chavez recommends preoperative chemotherapy and radiation therapy followed by surgical resection. Dr. Chavez also recommended staging workup including PET/CT scan given the fact that the patient cannot undergo MRI. 06/23/2017 --- PET/CT scan --- hypermetabolic mass at the low anorectal junction compatible with known primary malignancy. No evidence of dilan or distant metastasis. Multiple pleural-based right lower lobe pulmonary nodules without abnormal metabolic activity are indeterminate. Close interval follow-up, correlation with prior studies recommended. Hypermetabolic skin thickening of the low anterior abdominal wall, likely inflammatory. Hepatic steatosis. Nonobstructing left lower pole renal calculus and bilateral simple renal cysts. 06/26/2017 --- medical oncology consultation with Dr. Rambo Marcano --- Dr. Marcano recommended preoperative chemotherapy and radiation therapy. Dr. Marcano has recommended Xeloda 825 mg/m twice daily. We are now seeing the patient in consultation to discuss the role of radiation therapy. The patient does continue to have some discomfort in the perianal region. He also notes some bleeding per rectum. His energy, appetite and weight are stable. 08/29/2017--- status post completion of combined radiation and chemotherapy. He received 5040 cGy. The chemotherapy was comprised of Xeloda. Interim History Over the past month he has decreased amount of pain in the rectum. There is a continuous dull discomfort which she rates as a level 4. With bowel movements the pain can become a level 6. The pain is controlled with hydrocodone and fentanyl patch. He has occasional nausea for which he takes anti-emetics. He is regulating his bowel movements with MiraLAX and Senokot. He does have some rectal bleeding. This occurs with bowel movements. The amount of blood is minimal. He denied abdominal pain. Following treatment he had a clear discharge. This is improved. Allergies Coded Allergies: No Known Allergies (Unverified , 06/29/17) Home Medications Scheduled Apixaban (Eliquis), 5 MG PO BID Carvedilol (Coreg), 1 TAB PO BID Fentanyl (Duragesic), 12 MCG TD [id number] Insulin Aspart (Novolog Flexpen), 2 SC ACHS Insulin Degludec (Tresiba Flextouch), 40 UNITS SQ HS Levothyroxine Sodium (Levothyroxine Sodium), 100 MCG PO QAM Omeprazole (Prilosec), 20 MG PO BID Simvastatin (Simvastatin), 40 MG PO HS Sucralfate (Sucralfate), 1 GM PO QID Valsartan (Diovan), 160 MG PO QAM Scheduled PRN Hydrocodone/Acetaminophen 5MG/325MG ([place] 5MG/325MG), 1-2 TABLET PO q4-6hprn PRN for Pain Review of Systems Gastrointestinal: Symptoms: Nausea GI Comments: See below notations; Oral: Symptoms: No Problems Respiratory: Symptoms: WNL Urinary: Symptoms: WNL Skin: Symptoms: No Problems Other Skin Symptoms: Uses sween cream PRN to perirectal area;States this area is healed. Additional Notes: He completed a distress management report and answered no to all questions other than he has concerns about eating, pain, and his medical treatment choices. Physical Exam Vital Signs Date Time Temp Pulse Resp B/P (MAP) Pulse Ox O2 Delivery O2 Flow Rate FiO2 09/25/17 13:17 36.7 80 16 132/77 94 ECOG Performance Status: 1 Fatigue: Mild General Appearance: no apparent distress Eyes: normal inspection, EOMI ENT: normal ENT inspection, hearing grossly normal Neck: no adenopathy, thyroid normal Respiratory/Chest: lungs clear, no respiratory distress, no accessory muscle use Cardiovascular: regular rate, rhythm, no gallop, + systolic murmur ([place] best at the aortic area 2/6) Abdomen: non tender, soft, no organomegaly Anal / Rectum: Patient declined rectal exam. Extremities: no pedal edema Neurologic/Psychiatric: no motor/sensory deficits, alert, normal mood/affect Skin: warm/dry Pain Management Patient Reports Pain: Yes Initial Pain Intensity: 4.0 Pain Management Plan Pain is controlled with hydrocodone and fentanyl patch. Laboratory Laboratory Results: not applicable Pathology Pathology Results: were reviewed, and pertinent findings noted in HPI Imaging Imaging Studies: not applicable Assessment & Plan Plan: Continue regular follow-up with his primary care provider and medical oncologist. Pain management is through medical oncology. He has an appointment with the colorectal surgeon October 07, 2017. He has been planned that he would be evaluated and then undergo AP resection. He was seen and examined today by Dr. Barajas. We asked him to return to our office in 6 months. He may call if he has any questions or concerns in the interim. Assessment & Plan (Attending) I agree with note created by Rebecca Campbell PA-C. I reviewed the patient's chart and information with her. I have examined and evaluated the patient. I reviewed relevant clinical information and answered the patient's and/or family' s questions. 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 I spent 15 minutes reviewing information and completing this note. Total Time (Attending) In Follow-Up I spent 15 minutes examining and counseling the patient. 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
== END | disposition home or self-care (01) ==
LOC: C.ONC 13:00
PROVIDERS: ATTEND Physician Assistant Medical
DX: Z08 Encounter for follow-up examination after completed treatment for malignant neoplasm (principal); Z92.3 Personal history of irradiation; Z85.048 Personal history of other malignant neoplasm of rectum, rectosigmoid junction, and anus

== ENCOUNTER → 2017-09-25 | Outpatient (CLI) | payer OTHER ==
[2017-09-25 15:52] LABS: ALBUMIN 3.2 gm/dl (3.4-5.0); ALKALINE PHOSPHATASE 70 U/L (45-117); ALT/SGPT 19 U/L (12-78); AST/SGOT 17 U/L (15-37); BLOOD UREA NITROGEN 10 mg/dl (7-18); CARBON DIOXIDE 26 mmol/L (21-32); CHOLESTEROL 119 mg/dl (0-200); CREATININE 0.78 mg/dl (0.60-1.40); GLUCOSE 204 mg/dl (70-99); LDL CHOLESTEROL CALCULATED 62 mg/dl; SODIUM 132 mmol/L (136-145); TOTAL PROTEIN 7.4 gm/dl (6.4-8.2)
[2017-09-26 05:41] LABS: HEMOGLOBIN A1C 8.2 % (4.5-5.6)
== END | disposition home or self-care (01) ==
LOC: C.LAB 13:11
PROVIDERS: ATTEND Neuromusculoskeletal Medicine & OMM
DX: E11.9 Type 2 diabetes mellitus without complications (principal); E78.5 Hyperlipidemia, unspecified

== ENCOUNTER → 2017-10-10 | Outpatient (CLI) | payer OTHER ==
[~2017-10-10] MED LIST changes: -CRG125 PO; +OPTIRAY 320 IV PRN; -XLD/500 PO
[2017-10-10 12:37] LABS: ALBUMIN 3.2 gm/dl (3.4-5.0); ALKALINE PHOSPHATASE 68 U/L (45-117); ALT/SGPT 20 U/L (12-78); AST/SGOT 20 U/L (15-37); BLOOD UREA NITROGEN 13 mg/dl (7-18); CALCIUM 8.1 mg/dl (8.5-10.1); CARBON DIOXIDE 27 mmol/L (21-32); CREATININE 0.77 mg/dl (0.60-1.40); GLUCOSE 126 mg/dl (70-99); POTASSIUM 4.4 mmol/L (3.5-5.1); SODIUM 135 mmol/L (136-145); TOTAL PROTEIN 7.3 gm/dl (6.4-8.2)
[2017-10-10 12:53] LABS: BASO % 0.4 %; BASO ABS # 0.02 K/uL (0-0.2); EOS % 4.2 %; EOS ABS # 0.21 K/uL (0-0.5); HEMATOCRIT 34.6 % (42-52); HEMOGLOBIN 11.1 g/dL (14.0-18.0); IG# 0.01 K/uL (0.00-0.02); LYMPH ABS # 1.21 K/uL (1.2-3.4); MEAN CELL VOLUME 92.3 fL (80-100); MEAN CORPUSCULAR HEMOGLOBIN 29.6 pg (25-34); MEAN CORPUSCULAR HGB CONC 32.1 g/dl (32-36); MEAN PLATELET VOLUME 10.1 fL (7.4-10.4); MONO % 12.5 %; MONO ABS # 0.63 K/uL (0.11-0.59); NEUT % 58.7 %; NEUT ABS # 2.96 K/uL (1.4-6.5); PLATELET COUNT 169 K/uL (130-400); RED CELL DISTRIBUTION WIDTH CV 19.8 % (11.5-14.5); RED CELL DISTRIBUTION WIDTH SD 67.3 fL (36.4-46.3); WHITE BLOOD COUNT 5.04 K/uL (4.8-10.8)
--- NOTE | 2017-10-10 13:04 | DIAGNOSTIC IMAGING REPORT ---
CT (CHEST) THORAX WITH CLINICAL HISTORY: 82 years-old Male presenting with rectal cancer. TECHNIQUE: Multidetector CT imaging of the chest was performed after the administration of intravenous contrast. IV contrast: 91 mL of Optiray 320. A dose lowering technique was used consistent with the principles of ALARA (as low as reasonably achievable). COMPARISON: 06/23/2017 performed at an outside hospital and PET/CT from 06/23/2017. CT DOSE (mGy.cm): The estimated cumulative dose is 2037.77 mGy.cm. FINDINGS: Speech Therapist Technician topogram: Left subclavian pacer with leads to the right atrium and right ventricular apex. Median sternotomy wires. Moderate cardiomegaly. Lumbar fusion hardware. Cholecystectomy clips. On soft tissue windows, normal thyroid. Bilateral gynecomastia, right greater than left. Postsurgical changes of median sternotomy with coronary artery bypass grafting. Graft vessels grossly patent. Few scattered subcentimeter mediastinal lymph nodes, likely reactive. Atherosclerosis of the aorta. Postsurgical changes of aortic valve replacement. Coronary artery and mitral annular calcification. Mild multichamber enlargement of the heart. No pericardial or pleural effusion. Hepatic steatosis. Cholecystectomy clips. Multiple renal cysts. On lung windows, multiple solid pulmonary nodules noted bilaterally. These are largely subpleural and measure up to 7 mm in the right lower lobe (series 6 image 207). The largest nodule on the left is spiculated and solid measuring 6 mm at the left lower lobe (series 6 image 203). This is new in comparison to a CT of the abdomen and pelvis from 07/25/2014. The left lower lobe nodule has potentially increased in size slightly. Central airways patent. No pneumothorax. On bone windows, degenerative changes of the spine. Multiple old rib fractures noted. No destructive osseous lesion. IMPRESSION: 1. Stable to slight interval increase in size of the solid spiculated left lower lobe nodule. In comparison to many of the nodules, this nodule is new since 2014 and suspicious in its morphology. This is concerning for a site of metastatic disease. No lymphadenopathy. Electronically signed by: Aramis Dodson M.D. 10/10/2017 1:03 PM Dictated Date/Time: 10/10/2017 12:44 PM
--- NOTE | 2017-10-10 13:17 | DIAGNOSTIC IMAGING REPORT ---
CT OF THE ABDOMEN AND PELVIS WITH CONTRAST CLINICAL HISTORY: Rectal cancer. COMPARISON STUDY: Ct of the abdomen and pelvis July 25, 2014 and June 12, 2016 and June 23, 2017 and PET/CT June 23, 2017. TECHNIQUE: Following IV administration of 91 mL of Optiray-320, axial images of the abdomen and pelvis were obtained from the lung bases to the proximal femurs. Images were reviewed in the axial, sagittal, and coronal planes. IV contrast was administered without complication. A dose lowering technique was utilized adhering to the principles of ALARA. FINDINGS: Please note that the chest will be reported separately. However, a 1 cm nodule within the medial basilar segment of the right lower lobe shown on image 70 of 481 has slightly increased in size since CT of June 23, 2017 and is new since since CT of June 12, 2016. Similarly, a 6 mm left lower lobe nodule shown image 31 has slightly increased in size. Slight nodularity of the liver surface is noted with fissural widening. This raises the possibility of cirrhosis. An 8 mm right hepatic lobe cyst is noted. The spleen, adrenal glands and pancreas are unremarkable. There are bilateral renal cysts. A thin calcified septation within a right renal cyst is noted. This is unchanged. There is no hydronephrosis. Postoperative findings with the spine are noted. There is no evidence for a bowel obstruction. There is mild rectal wall thickening with mild perirectal infiltration. No discrete rectal mass is identified by CT although sensitivity for detection mucosal lesions is diminished given this technique. There is no abdominal or pelvic lymphadenopathy. Left renal calculi are noted. No hydronephrosis. IMPRESSION: 1. Several irregular nodules within the lower lungs which have slightly increased in size since CT of June 23, 2017 and are new since CT of June 12, 2016. These are suggestive of pulmonary metastases. 2. Mild rectal wall thickening, a nonspecific finding which may be treatment related. This could be correlated with site of known tumor. Mild perirectal infiltration which is likely treatment related. 3. No abdominal or pelvic lymphadenopathy. Electronically signed by: Stephen Ricketts M.D. 10/10/2017 1:16 PM Dictated Date/Time: 10/10/2017 1:01 PM
== END | disposition home or self-care (01) ==
LOC: C.CTS 09:49
PROVIDERS: ATTEND Colon & Rectal Surgery
DX: C20 Malignant neoplasm of rectum (principal); R91.8 Other nonspecific abnormal finding of lung field

== ENCOUNTER 2018-04-09 14:07 | Inpatient (IN) ==
[2018-04-09] MEDS ORDERED: SODIUM CHLORIDE 0.9% 1000ML 500 ML IV ONE (14:22)
--- NOTE | 2018-04-09 14:32 | Emergency Department Note ---
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 The patient is currently being treated for ongoing cancer. He has a history of rectal cancer. The patient was noted to have low blood pressure at the [facility]. He states that he is been feeling more weak than usual. He is denying any rectal bleeding. He denies having any chest pain. He does complain of some dyspnea on exertion. He also complains of generalized weakness. His blood pressure was noted to be low at the [facility] and he was referred to his primary care physician. When they were trying to set up an appointment with the primary care physician he was referred to the emergency department for further evaluation. The patient states that he has been compliant with his medications. He denies any new medications. He has been taking medications as prescribed. He denies having any recent falls. He denies having any fevers or chills. He states that he has been urinating as usual. He denies of any dysuria or frequency. Home Medications Home Medications Medication Instructions Recorded Confirmed Type carvedilol 25 mg PO BID 10/19/17 04/09/18 History hydrocodone-acetaminophen 1 tab PO Q4 PRN 10/19/17 04/09/18 History insulin aspart U-100 [Novolog 0 units SUBCUT DIRECTED 10/19/17 04/09/18 History Flexpen U-100 Insulin] insulin degludec [Tresiba 40 unit SUBCUT HS 10/19/17 04/09/18 History FlexTouch U-100] levothyroxine 100 mcg PO DAILY 10/19/17 04/09/18 History omeprazole 20 mg PO BID 10/19/17 04/09/18 History simvastatin 40 mg PO HS 10/19/17 04/09/18 History sucralfate 1 g PO QID 10/19/17 04/09/18 History valsartan 160 mg PO QAM 10/19/17 04/09/18 History ondansetron 4 mg TRANSLINGUAL Q6H PRN #14 tab 03/18/18 04/09/18 Rx apixaban 5 mg tablet 5 mg PO BID 04/09/18 04/09/18 History fentanyl 75 mcg/hr transdermal 1 patch TD Q72H 04/09/18 04/09/18 History patch loratadine 10 mg tablet 10 mg PO DAILY 04/09/18 04/09/18 History Allergies Allergy/AdvReac Type Severity Reaction Status Date / Time No Known Allergies Allergy Verified 04/09/18 14:28 Past Med/Surg History Medical History CAD (coronary artery disease) (Chronic) Pacemaker (Chronic) Hypothyroid (Chronic) Complete heart block (Chronic) HTN (hypertension) (Chronic) History of atrial fibrillation (Chronic) Aortic stenosis (Chronic) Mitral stenosis (Chronic) GERD (gastroesophageal reflux disease) (Chronic) Dyslipidemia (Chronic) Sleep apnea (Chronic) Rectal adenocarcinoma (Acute 06/03/17) "Rectal bleeding Evaluation under anethesia and finding of a rectal mass June 03, 2017 Biopsy revealing adenocarcinoma Plan for radiation and Xeloda Status post completion of combined neoadjuvant radiation and chemotherapy. Radiation was completed August 29, 2017. He received 5040 cGy" On 07/08/17 10:30 Rebecca Campbell wrote "Rectal bleeding Evaluation under anethesia and finding of a rectal mass June 03, 2017 Biopsy revealing adenocarcinoma Plan for radiation and Xeloda" On 07/08/17 10:23 Bayron Barajas wrote "Rectal bleeding Evaluation under anethesia and finding of a rectal mass Biopsy revealing adenocarcinoma Plan for radiation and Xeloda" Constipation (Acute) Elevated troponin Heart block (Chronic) Atrial fibrillation (Chronic) Diabetes (Chronic) Heart disease (Chronic) Rectal cancer (Chronic) RECENT DIAGNOSIS, REASON FOR A-PORT PLACEMENT Degenerative disc disease Fusion of spine LUMBAR GERD (gastroesophageal reflux disease) Hyperlipidemia Hypertension Osteoarthritis Sleep apnea Surgical History Hx of cholecystectomy (Resolved) History of back surgery (Resolved) S/P AVR (aortic valve replacement) (Chronic) "06/16/2013- # 23 Chow II bioprosthesis, Dr. William [facility]" S/P CABG x 2 (Chronic) "CABG x 2; 06/16/2013; Dr. William, [facility]" History of carpal tunnel surgery (Chronic) S/P AVR (aortic valve replacement) (Chronic) 05/2013 Status cardiac pacemaker (Chronic) 2014. FOLLOWS WITH DR. LASSITER IN CARDIO. History of cholecystectomy History of colonoscopy History of coronary artery bypass graft 2 VESSELS PER MEDICAL RECORD 05/2013 History of total knee replacement B/L Family History Other DM type 2 (diabetes mellitus, type 2) HTN (hypertension) Social History marital status: Current Living Situation: Spouse Other Information That Helps Us Care for You: No Feels Safe at Home: Yes Safety Concerns: Feels Safe At This Time Smoking Status: Never smoker Do You Dip or Chew Tobacco: No Second Hand Exposure: No Tobacco Cessation Education Requested by Patient: No Hx Alcohol Use: No Hx Substance Use: No Beliefs That Will Affect Care: None Communication Ability: Effective Review of Systems See HPI for pertinent positives & negatives. and A total of 10 systems reviewed and were otherwise negative Physical Exam Vital Signs Vital Signs - 24 hr 04/09/18 14:12 04/09/18 14:43 04/09/18 15:08 Temperature 36.3 C L Temperature Source Oral Sepsis Recent Fever Within 48 Hours No Sepsis Action Taken by Nursing No Action Required Pulse Rate 68 Pulse Rate [Apical] Pulse Rate [Finger] 60 60 Pulse Rhythm Regular Pulse Rhythm [Apical] Pulse Strength Normal Pulse Strength [Apical] Respiratory Rate 20 18 18 Respiratory Effort / Characteristics Non-Labored Respiratory Depth Normal Respiratory Pattern Regular Blood Pressure 91/51 L Blood Pressure [Left Arm] Blood Pressure [Right Arm] 105/56 L 96/57 L Blood Pressure Mean 64 Blood Pressure Mean [Left Arm] Blood Pressure Mean [Right Arm] 72 70 Blood Pressure Position Sitting Blood Pressure Position [Left Arm] Blood Pressure Position [Right Arm] Pulse Oximetry 95 93 86 L Oxygen Delivery Method Room Air Room Air Room Air Oxygen Flow Rate 04/09/18 15:09 04/09/18 15:49 04/09/18 17:50 Temperature Temperature Source Sepsis Recent Fever Within 48 Hours Sepsis Action Taken by Nursing Pulse Rate Pulse Rate [Apical] Pulse Rate [Finger] 60 60 Pulse Rhythm Pulse Rhythm [Apical] Pulse Strength Pulse Strength [Apical] Respiratory Rate 17 13 Respiratory Effort / Characteristics Respiratory Depth Respiratory Pattern Blood Pressure Blood Pressure [Left Arm] Blood Pressure [Right Arm] 103/57 L 123/62 Blood Pressure Mean Blood Pressure Mean [Left Arm] Blood Pressure Mean [Right Arm] 72 82 Blood Pressure Position Blood Pressure Position [Left Arm] Blood Pressure Position [Right Arm] Pulse Oximetry 95 97 97 Oxygen Delivery Method Nasal Cannula Nasal Cannula Nasal Cannula Oxygen Flow Rate 2 2 2 04/09/18 18:07 04/09/18 18:55 04/09/18 19:22 Temperature 36.7 C 36.9 C Temperature Source Axillary Oral Sepsis Recent Fever Within 48 Hours Sepsis Action Taken by Nursing Pulse Rate Pulse Rate [Apical] 68 Pulse Rate [Finger] 63 Pulse Rhythm Pulse Rhythm [Apical] Regular Pulse Strength Pulse Strength [Apical] Normal Respiratory Rate 13 22 18 Respiratory Effort / Characteristics Non-Labored Spontaneous Respiratory Depth Normal Respiratory Pattern Regular Blood Pressure Blood Pressure [Left Arm] Blood Pressure [Right Arm] 136/55 L 139/47 L Blood Pressure Mean Blood Pressure Mean [Left Arm] Blood Pressure Mean [Right Arm] 82 77 Blood Pressure Position Blood Pressure Position [Left Arm] Blood Pressure Position [Right Arm] Sitting Pulse Oximetry 97 93 95 Oxygen Delivery Method Nasal Cannula Room Air Room Air Oxygen Flow Rate 2 04/09/18 19:30 04/09/18 23:59 04/10/18 00:00 Temperature 36.7 C Temperature Source Oral Sepsis Recent Fever Within 48 Hours Sepsis Action Taken by Nursing Pulse Rate 63 60 Pulse Rate [Apical] 65 Pulse Rate [Finger] Pulse Rhythm Pulse Rhythm [Apical] Pulse Strength Pulse Strength [Apical] Respiratory Rate 18 Respiratory Effort / Characteristics Respiratory Depth Respiratory Pattern Blood Pressure Blood Pressure [Left Arm] Blood Pressure [Right Arm] 139/63 Blood Pressure Mean Blood Pressure Mean [Left Arm] Blood Pressure Mean [Right Arm] 88 Blood Pressure Position Blood Pressure Position [Left Arm] Blood Pressure Position [Right Arm] Lying Pulse Oximetry 95 Oxygen Delivery Method Room Air Oxygen Flow Rate 04/10/18 04:00 04/10/18 07:14 04/10/18 10:00 Temperature 36.8 C 36.5 C Temperature Source Oral Oral Sepsis Recent Fever Within 48 Hours Sepsis Action Taken by Nursing Pulse Rate 61 Pulse Rate [Apical] 62 67 Pulse Rate [Finger] Pulse Rhythm Pulse Rhythm [Apical] Pulse Strength Pulse Strength [Apical] Respiratory Rate 18 20 Respiratory Effort / Characteristics Non-Labored Spontaneous Respiratory Depth Normal Normal Respiratory Pattern Blood Pressure Blood Pressure [Left Arm] 119/46 L 154/69 H Blood Pressure [Right Arm] Blood Pressure Mean Blood Pressure Mean [Left Arm] 70 97 Blood Pressure Mean [Right Arm] Blood Pressure Position Blood Pressure Position [Left Arm] Lying Lying Blood Pressure Position [Right Arm] Pulse Oximetry 92 95 Oxygen Delivery Method Room Air Room Air Room Air Oxygen Flow Rate 04/10/18 11:06 Temperature 36.6 C Temperature Source Oral Sepsis Recent Fever Within 48 Hours Sepsis Action Taken by Nursing Pulse Rate Pulse Rate [Apical] 65 Pulse Rate [Finger] Pulse Rhythm Pulse Rhythm [Apical] Pulse Strength Pulse Strength [Apical] Respiratory Rate 16 Respiratory Effort / Characteristics Respiratory Depth Respiratory Pattern Blood Pressure Blood Pressure [Left Arm] 136/51 L Blood Pressure [Right Arm] Blood Pressure Mean Blood Pressure Mean [Left Arm] 79 Blood Pressure Mean [Right Arm] Blood Pressure Position Blood Pressure Position [Left Arm] Blood Pressure Position [Right Arm] Lying Pulse Oximetry 96 Oxygen Delivery Method Room Air Oxygen Flow Rate GENERAL: Patient is awake alert in no acute distress patient is resting comfortably and showing no signs of anxiety EYES: The conjunctivae are clear. The pupils are round and reactive. EARS, NOSE, MOUTH AND THROAT: The nose is without any evidence of any deformity. Mucous membranes are moist tongue is midline NECK: The neck is nontender and supple. RESPIRATORY: Diminished breath sounds were noted at the right base. There is no tachypnea or conversational dyspnea. CARDIOVASCULAR: Bradycardic rate with regular rhythm was noted. There was a systolic murmur noted. GASTROINTESTINAL: The abdomen is soft. Bowel sounds are present in all quadrants. Abdomen is nontender MUSCULOSKELETAL/EXTREMITIES: There is no evidence of gross deformity full range of motion is noted in the hips and shoulders SKIN: There is no obvious evidence of any rash. Trace pedal edema was noted bilaterally. NEUROLOGIC: Patient is awake alert and oriented x3 strength is symmetric patellar reflexes are 2+ bilaterally Course 1430: Past medical records reviewed. The patient was evaluated in room B2, and a complete history and physical examination were performed. 1549: I reviewed the patient's case with Dr. Monsalve - [facility] Hospitalist. He will evaluate the patient for further management. Administered Medications Hydrocodone Bitart/Acetaminophen ([place] 5/325) 1 tab PO Q4 PRN PRN Reason: Pain Stop: 04/23/18 18:30 Last Admin: 04/10/18 07:26 Dose: 1 tab Admin: 04/10/18 01:33 Dose: 1 tab Apixaban (Eliquis) 5 mg PO BID KARIS Stop: 05/09/18 20:59 Last Admin: 04/10/18 09:12 Dose: 5 mg Admin: 04/09/18 20:12 Dose: 5 mg Fentanyl (Duragesic) 75 mcg TD Q72H KARIS; Protocol Stop: 04/23/18 21:59 Last Admin: 04/09/18 22:26 Dose: 75 mcg Potassium Chloride/Sodium Chloride (Normal Saline W/20 Meq Kcl) 20 meq in 1, 000 mls @ 100 mls/hr IV .Q10H KARIS Stop: 05/09/18 18:44 Last Admin: 04/10/18 05:42 Dose: 100 mls/hr Infusion: 04/10/18 05:42 Dose: 100 mls/hr Admin: 04/09/18 20:13 Dose: 100 mls/hr Piperacillin Sod/Tazobactam (Sod 3.375 gm/ Dextrose) 115 mls @ 28.75 mls/hr IV Q8H KARIS; Protocol Stop: 04/16/18 21:59 Last Infusion: 04/10/18 10:13 Dose: Admin: 04/10/18 05:40 Dose: 28.8 mls/hr Infusion: 04/10/18 01:33 Dose: 0 mls/hr Admin: 04/09/18 21:27 Dose: 28.8 mls/hr Insulin Aspart (Novolog Flexpen) 0 units SC ACHS KARIS Stop: 05/09/18 20:59 Last Admin: 04/10/18 12:39 Dose: 5 units Admin: 04/10/18 07:56 Dose: 6 units Admin: 04/09/18 20:14 Dose: 1 units Insulin Glargine (Lantus Solostar Pen) 30 units SC HS KARIS Stop: 05/09/18 20:59 Last Admin: 04/09/18 20:13 Dose: 30 units Levothyroxine Sodium (Synthroid) 100 mcg PO DAILYBB [facility] Stop: 05/10/18 06:29 Last Admin: 04/10/18 05:41 Dose: 100 mcg Loratadine (Claritin) 10 mg PO DAILY [facility] Stop: 05/10/18 08:59 Last Admin: 04/10/18 07:58 Dose: 10 mg Miscellaneous (Fentanyl Patch Check Placement) 1 ea N/A QS KARIS Stop: 05/10/18 00:00 Last Admin: 04/10/18 07:58 Dose: 1 ea Admin: 04/10/18 00:10 Dose: 1 ea Miscellaneous (Fentanyl Patch Remove & Waste) 1 ea N/A Q72H [facility] Stop: 05/09/18 21:58 Last Admin: 04/09/18 22:26 Dose: 1 ea Pantoprazole Sodium (Protonix) 40 mg PO BID [facility]; Protocol Stop: 05/09/18 20:59 Last Admin: 04/10/18 07:58 Dose: 40 mg Admin: 04/09/18 20:12 Dose: 40 mg Simvastatin (Zocor) 40 mg PO HS [facility] Stop: 05/09/18 20:59 Last Admin: 04/09/18 20:13 Dose: 40 mg Sucralfate (Carafate Tab) 1 gm PO QID [facility] Stop: 05/09/18 18:30 Last Admin: 04/10/18 12:40 Dose: 1 gm Admin: 04/10/18 07:57 Dose: 1 gm Admin: 04/09/18 21:58 Dose: Not Given Admin: 04/09/18 20:12 Dose: 1 gm Discontinued Medications Sodium Chloride (Nss 1000ml) 500 mls @ 999 mls/hr IV .Q31M ONE Stop: 04/09/18 14:52 Last Infusion: 04/09/18 15:43 Dose: 0 mls/hr Admin: 04/09/18 15:11 Dose: 999 mls/hr Sodium Chloride (Nss 1000ml) 1,000 mls @ 999 mls/hr IV .Q1H1M ONE Stop: 04/09/18 16:26 Last Infusion: 04/09/18 16:48 Dose: 0 mls/hr Admin: 04/09/18 15:46 Dose: 999 mls/hr Piperacillin Sod/Tazobactam Sod (Zosyn) 4.5 gm in 120 mls @ 240 mls/hr IV NOW ONE Stop: 04/09/18 15:55 Last Infusion: 04/09/18 16:21 Dose: Admin: 04/09/18 15:46 Dose: 240 mls/hr Magnesium Sulfate/Dextrose (Magnesium Sulfate / D5w) 1 gm in 100 mls @ 100 mls/ hr IV Q1H KARIS Stop: 04/09/18 17:44 Last Infusion: 04/09/18 17:49 Dose: 0 mls/hr Admin: 04/09/18 16:20 Dose: 100 mls/hr Infusion: 04/09/18 16:20 Dose: 100 mls/hr Admin: 04/09/18 16:16 Dose: 100 mls/hr Miscellaneous Information (Consult) 1 ea N/A UD PRN PRN Reason: Consult Stop: 05/09/18 15:25 Last Admin: 04/09/18 16:20 Dose: 1 ea Medical Decision Making Differential Diagnosis Differential Diagnosis includes: metabolic, infection, hypo/hyperglycemia, electrolyte abnormalities, cardiac sources, intracerebral event, toxicologic, neurologic, as well as others were entertained. Medical Records Attestation: I reviewed the patient's medical records. Home Medications Current Medication List: was personally reviewed by me Laboratory Data Attestation: I reviewed the patient's lab results. Result diagrams: 04/10/18 06:14 04/10/18 06:14 Lab Results 04/09/18 04/09/18 04/09/18 Range/Units 14:38 14:38 14:38 WBC 8.60 (4.8-10.8) K/uL RBC 3.46 L (4.7-6.1) M/uL Hgb 10.2 L (14.0-18.0) g/dL Hct 30.7 L (42-52) % MCV 88.7 (80-100) fL MCH 29.5 (25-34) pg MCHC 33.2 (32-36) g/dL RDW Std Deviation 51.9 H (36.4-46.3) fL RDW Coeff of Geovani 17.5 H (11.5-14.5) % Plt Count 67 L (130-400) K/uL MPV 10.5 H (7.4-10.4) fL Immature Gran % (Auto) 1.5 % Neut % (Auto) 70.9 % Lymph % (Auto) 14.0 % Pepin % (Auto) 13.0 % Eos % (Auto) 0.5 % Baso % (Auto) 0.1 % Immature Gran # (Auto) 0.13 H (0.00-0.02) K/uL Neut # (Auto) 6.10 (1.4-6.5) K/uL Lymph # (Auto) 1.20 (1.2-3.4) K/uL Pepin # (Auto) 1.12 H (0.11-0.59) K/uL Eos # (Auto) 0.04 (0-0.5) K/uL Baso # (Auto) 0.01 (0-0.2) K/uL Absolute Nucleated RBC (0-0) K/uL Nucleated RBC % (auto) % Toxic Granulation Platelet Estimate Decreased (Normal) ESR 43 H (0-14) mm/hr PT 11.4 (9.0-12.0) Seconds INR 1.1 (0.9-1.1) APTT 27.3 (21.0-31.0) Seconds PTT Ratio 1.0 Sodium (136-145) mmol/L Potassium (3.5-5.1) mmol/L Chloride (98-107) mmol/L Carbon Dioxide (21-32) mmol/L Anion Gap (3-11) BUN (7-18) mg/dl Creatinine (0.6-1.4) mg/dl Est Cr Clr Drug Dosing ml/min Est GFR ( Amer) Est GFR (Non-Af Amer) BUN/Creatinine Ratio (10-20) Glucose (70-99) mg/dl POC Glucose (70-99) Lactate (0.4-2.0) mmol/L Calcium (8.5-10.1) mg/dl Magnesium (1.8-2.4) mg/dl Total Bilirubin (0.2-1) mg/dl AST (15-37) U/L ALT (12-78) U/L Alkaline Phosphatase (45-117) U/L Troponin I (0-0.045) ng/ml C-Reactive Protein (0-0.29) mg/dl Total Protein (6.4-8.2) gm/dl Albumin (3.4-5.0) gm/dl Globulin (2.5-4.0) gm/dl Albumin/Globulin Ratio (0.9-2) Beta-Hydroxybutyric Acd (0.2-2.81) mg/dl Procalcitonin (0-0.5) ng/ml Urine Color Urine Appearance (Clear) Urine pH (4.5-7.5) Ur Specific [place] (1.000-1.030) Urine Protein (Negative) Urine Glucose (UA) (Negative) Urine Ketones (Negative) Urine Blood (Negative) Urine Nitrite (Negative) Urine Bilirubin (Negative) Urine Urobilinogen (Negative) Ur Leukocyte Esterase (Negative) Urine WBC (Auto) (0-5) /hpf Urine RBC (Auto) (0-4) /hpf U Hyaline Cast (Auto) (0-5) /lpf U Epithel Cells (Auto) (0-5) /lpf Urine Bacteria (Auto) (Negative) 04/09/18 04/09/18 04/09/18 Range/Units 14:38 14:38 14:43 WBC (4.8-10.8) K/uL RBC (4.7-6.1) M/uL Hgb (14.0-18.0) g/dL Hct (42-52) % MCV (80-100) fL MCH (25-34) pg MCHC (32-36) g/dL RDW Std Deviation (36.4-46.3) fL RDW Coeff of Geovani (11.5-14.5) % Plt Count (130-400) K/uL MPV (7.4-10.4) fL Immature Gran % (Auto) % Neut % (Auto) % Lymph % (Auto) % Pepin % (Auto) % Eos % (Auto) % Baso % (Auto) % Immature Gran # (Auto) (0.00-0.02) K/uL Neut # (Auto) (1.4-6.5) K/uL Lymph # (Auto) (1.2-3.4) K/uL Pepin # (Auto) (0.11-0.59) K/uL Eos # (Auto) (0-0.5) K/uL Baso # (Auto) (0-0.2) K/uL Absolute Nucleated RBC (0-0) K/uL Nucleated RBC % (auto) % Toxic Granulation Platelet Estimate (Normal) ESR (0-14) mm/hr PT (9.0-12.0) Seconds INR (0.9-1.1) APTT (21.0-31.0) Seconds PTT Ratio Sodium 132 L (136-145) mmol/L Potassium 3.3 L (3.5-5.1) mmol/L Chloride 96 L (98-107) mmol/L Carbon Dioxide 27 (21-32) mmol/L Anion Gap 8.0 (3-11) BUN 15 (7-18) mg/dl Creatinine 1.29 (0.6-1.4) mg/dl Est Cr Clr Drug Dosing 44.9 ml/min Est GFR ( Amer) 59.9 Est GFR (Non-Af Amer) 51.7 BUN/Creatinine Ratio 11.9 (10-20) Glucose 306 H (70-99) mg/dl POC Glucose (70-99) Lactate 3.8 H* (0.4-2.0) mmol/L Calcium 7.7 L (8.5-10.1) mg/dl Magnesium 1.3 L (1.8-2.4) mg/dl Total Bilirubin 0.3 (0.2-1) mg/dl AST 22 (15-37) U/L ALT 20 (12-78) U/L Alkaline Phosphatase 108 (45-117) U/L Troponin I 0.021 (0-0.045) ng/ml C-Reactive Protein 3.12 H (0-0.29) mg/dl Total Protein 6.8 (6.4-8.2) gm/dl Albumin 2.8 L (3.4-5.0) gm/dl Globulin 4.0 (2.5-4.0) gm/dl Albumin/Globulin Ratio 0.7 L (0.9-2) Beta-Hydroxybutyric Acd 2.83 H (0.2-2.81) mg/dl Procalcitonin 0.18 (0-0.5) ng/ml Urine Color Urine Appearance (Clear) Urine pH (4.5-7.5) Ur Specific [place] (1.000-1.030) Urine Protein (Negative) Urine Glucose (UA) (Negative) Urine Ketones (Negative) Urine Blood (Negative) Urine Nitrite (Negative) Urine Bilirubin (Negative) Urine Urobilinogen (Negative) Ur Leukocyte Esterase (Negative) Urine WBC (Auto) (0-5) /hpf Urine RBC (Auto) (0-4) /hpf U Hyaline Cast (Auto) (0-5) /lpf U Epithel Cells (Auto) (0-5) /lpf Urine Bacteria (Auto) (Negative) 04/09/18 04/09/18 04/09/18 Range/Units 18:25 19:09 19:33 WBC (4.8-10.8) K/uL RBC (4.7-6.1) M/uL Hgb (14.0-18.0) g/dL Hct (42-52) % MCV (80-100) fL MCH (25-34) pg MCHC (32-36) g/dL RDW Std Deviation (36.4-46.3) fL RDW Coeff of Geovani (11.5-14.5) % Plt Count (130-400) K/uL MPV (7.4-10.4) fL Immature Gran % (Auto) % Neut % (Auto) % Lymph % (Auto) % Pepin % (Auto) % Eos % (Auto) % Baso % (Auto) % Immature Gran # (Auto) (0.00-0.02) K/uL Neut # (Auto) (1.4-6.5) K/uL Lymph # (Auto) (1.2-3.4) K/uL Pepin # (Auto) (0.11-0.59) K/uL Eos # (Auto) (0-0.5) K/uL Baso # (Auto) (0-0.2) K/uL Absolute Nucleated RBC (0-0) K/uL Nucleated RBC % (auto) % Toxic Granulation Platelet Estimate (Normal) ESR (0-14) mm/hr PT (9.0-12.0) Seconds INR (0.9-1.1) APTT (21.0-31.0) Seconds PTT Ratio Sodium (136-145) mmol/L Potassium (3.5-5.1) mmol/L Chloride (98-107) mmol/L Carbon Dioxide (21-32) mmol/L Anion Gap (3-11) BUN (7-18) mg/dl Creatinine (0.6-1.4) mg/dl Est Cr Clr Drug Dosing ml/min Est GFR ( Amer) Est GFR (Non-Af Amer) BUN/Creatinine Ratio (10-20) Glucose (70-99) mg/dl POC Glucose 191 H (70-99) Lactate 1.6 (0.4-2.0) mmol/L Calcium (8.5-10.1) mg/dl Magnesium (1.8-2.4) mg/dl Total Bilirubin (0.2-1) mg/dl AST (15-37) U/L ALT (12-78) U/L Alkaline Phosphatase (45-117) U/L Troponin I (0-0.045) ng/ml C-Reactive Protein (0-0.29) mg/dl Total Protein (6.4-8.2) gm/dl Albumin (3.4-5.0) gm/dl Globulin (2.5-4.0) gm/dl Albumin/Globulin Ratio (0.9-2) Beta-Hydroxybutyric Acd (0.2-2.81) mg/dl Procalcitonin (0-0.5) ng/ml Urine Color Yellow Urine Appearance Clear (Clear) Urine pH 5.5 (4.5-7.5) Ur Specific [place] 1.014 (1.000-1.030) Urine Protein 1+ H (Negative) Urine Glucose (UA) 1+ H (Negative) Urine Ketones Negative (Negative) Urine Blood Negative (Negative) Urine Nitrite Negative (Negative) Urine Bilirubin Negative (Negative) Urine Urobilinogen Negative (Negative) Ur Leukocyte Esterase Negative (Negative) Urine WBC (Auto) 1-5 (0-5) /hpf Urine RBC (Auto) 0-4 (0-4) /hpf U Hyaline Cast (Auto) 1-5 (0-5) /lpf U Epithel Cells (Auto) 5-10 H (0-5) /lpf Urine Bacteria (Auto) Negative (Negative) 04/10/18 04/10/18 04/10/18 Range/Units 06:14 06:14 07:07 WBC 7.91 (4.8-10.8) K/uL RBC 3.36 L (4.7-6.1) M/uL Hgb 9.8 L (14.0-18.0) g/dL Hct 29.9 L (42-52) % MCV 89.0 (80-100) fL MCH 29.2 (25-34) pg MCHC 32.8 (32-36) g/dL RDW Std Deviation 52.0 H (36.4-46.3) fL RDW Coeff of Geovani 17.6 H (11.5-14.5) % Plt Count 72 L (130-400) K/uL MPV 11.1 H (7.4-10.4) fL Immature Gran % (Auto) 2.7 % Neut % (Auto) 69.9 % Lymph % (Auto) 13.4 % Pepin % (Auto) 12.8 % Eos % (Auto) 0.9 % Baso % (Auto) 0.3 % Immature Gran # (Auto) 0.21 H (0.00-0.02) K/uL Neut # (Auto) 5.54 (1.4-6.5) K/uL Lymph # (Auto) 1.06 L (1.2-3.4) K/uL Pepin # (Auto) 1.01 H (0.11-0.59) K/uL Eos # (Auto) 0.07 (0-0.5) K/uL Baso # (Auto) 0.02 (0-0.2) K/uL Absolute Nucleated RBC 0.03 H (0-0) K/uL Nucleated RBC % (auto) 0.4 % Toxic Granulation 2+ Platelet Estimate (Normal) ESR (0-14) mm/hr PT (9.0-12.0) Seconds INR (0.9-1.1) APTT (21.0-31.0) Seconds PTT Ratio Sodium 139 D (136-145) mmol/L Potassium 3.5 (3.5-5.1) mmol/L Chloride 105 (98-107) mmol/L Carbon Dioxide 28 (21-32) mmol/L Anion Gap 6.0 (3-11) BUN 8 D (7-18) mg/dl Creatinine 0.83 D (0.6-1.4) mg/dl Est Cr Clr Drug Dosing 69.7 ml/min Est GFR ( Amer) 95.6 Est GFR (Non-Af Amer) 82.5 BUN/Creatinine Ratio 9.3 L (10-20) Glucose 122 H (70-99) mg/dl POC Glucose 123 H (70-99) Lactate (0.4-2.0) mmol/L Calcium 7.5 L (8.5-10.1) mg/dl Magnesium (1.8-2.4) mg/dl Total Bilirubin (0.2-1) mg/dl AST (15-37) U/L ALT (12-78) U/L Alkaline Phosphatase (45-117) U/L Troponin I (0-0.045) ng/ml C-Reactive Protein (0-0.29) mg/dl Total Protein (6.4-8.2) gm/dl Albumin (3.4-5.0) gm/dl Globulin (2.5-4.0) gm/dl Albumin/Globulin Ratio (0.9-2) Beta-Hydroxybutyric Acd (0.2-2.81) mg/dl Procalcitonin (0-0.5) ng/ml Urine Color Urine Appearance (Clear) Urine pH (4.5-7.5) Ur Specific [place] (1.000-1.030) Urine Protein (Negative) Urine Glucose (UA) (Negative) Urine Ketones (Negative) Urine Blood (Negative) Urine Nitrite (Negative) Urine Bilirubin (Negative) Urine Urobilinogen (Negative) Ur Leukocyte Esterase (Negative) Urine WBC (Auto) (0-5) /hpf Urine RBC (Auto) (0-4) /hpf U Hyaline Cast (Auto) (0-5) /lpf U Epithel Cells (Auto) (0-5) /lpf Urine Bacteria (Auto) (Negative) 04/10/18 Range/Units 11:29 WBC (4.8-10.8) K/uL RBC (4.7-6.1) M/uL Hgb (14.0-18.0) g/dL Hct (42-52) % MCV (80-100) fL MCH (25-34) pg MCHC (32-36) g/dL RDW Std Deviation (36.4-46.3) fL RDW Coeff of Geovani (11.5-14.5) % Plt Count (130-400) K/uL MPV (7.4-10.4) fL Immature Gran % (Auto) % Neut % (Auto) % Lymph % (Auto) % Pepin % (Auto) % Eos % (Auto) % Baso % (Auto) % Immature Gran # (Auto) (0.00-0.02) K/uL Neut # (Auto) (1.4-6.5) K/uL Lymph # (Auto) (1.2-3.4) K/uL Pepin # (Auto) (0.11-0.59) K/uL Eos # (Auto) (0-0.5) K/uL Baso # (Auto) (0-0.2) K/uL Absolute Nucleated RBC (0-0) K/uL Nucleated RBC % (auto) % Toxic Granulation Platelet Estimate (Normal) ESR (0-14) mm/hr PT (9.0-12.0) Seconds INR (0.9-1.1) APTT (21.0-31.0) Seconds PTT Ratio Sodium (136-145) mmol/L Potassium (3.5-5.1) mmol/L Chloride (98-107) mmol/L Carbon Dioxide (21-32) mmol/L Anion Gap (3-11) BUN (7-18) mg/dl Creatinine (0.6-1.4) mg/dl Est Cr Clr Drug Dosing ml/min Est GFR ( Amer) Est GFR (Non-Af Amer) BUN/Creatinine Ratio (10-20) Glucose (70-99) mg/dl POC Glucose 165 H (70-99) Lactate (0.4-2.0) mmol/L Calcium (8.5-10.1) mg/dl Magnesium (1.8-2.4) mg/dl Total Bilirubin (0.2-1) mg/dl AST (15-37) U/L ALT (12-78) U/L Alkaline Phosphatase (45-117) U/L Troponin I (0-0.045) ng/ml C-Reactive Protein (0-0.29) mg/dl Total Protein (6.4-8.2) gm/dl Albumin (3.4-5.0) gm/dl Globulin (2.5-4.0) gm/dl Albumin/Globulin Ratio (0.9-2) Beta-Hydroxybutyric Acd (0.2-2.81) mg/dl Procalcitonin (0-0.5) ng/ml Urine Color Urine Appearance (Clear) Urine pH (4.5-7.5) Ur Specific [place] (1.000-1.030) Urine Protein (Negative) Urine Glucose (UA) (Negative) Urine Ketones (Negative) Urine Blood (Negative) Urine Nitrite (Negative) Urine Bilirubin (Negative) Urine Urobilinogen (Negative) Ur Leukocyte Esterase (Negative) Urine WBC (Auto) (0-5) /hpf Urine RBC (Auto) (0-4) /hpf U Hyaline Cast (Auto) (0-5) /lpf U Epithel Cells (Auto) (0-5) /lpf Urine Bacteria (Auto) (Negative) Imaging Data Radiologist's Impression: Radiology results as stated below per my review and the radiologist's interpretation: XR chest 1V portable CLINICAL HISTORY: 82 years-old Male presenting with Sepsis. TECHNIQUE: Portable upright AP view of the chest was obtained. COMPARISON: 03/10/2018. FINDINGS: Left subclavian pacer with leads to the right atrium and right ventricular apex. Median sternotomy wires. Right subclavian Mediport terminates in the lower SVC. Bypass graft rings noted. Atherosclerosis of aortic arch. Chronic silhouette moderately enlarged. Mitral annular calcification. Pulmonary vascular prominence of bronchial wall cuffing. Central predominant opacity in the left lung with partial obscuration of the left heart border. No large pleural effusion or pneumothorax. Degenerative changes of the spine and shoulders. IMPRESSION: 1. Cardiomegaly with volume overload and congestive change, worsened from prior exam. 2. Asymmetric pulmonary edema in the left lung versus a focal infiltrate/ pneumonia to be considered. Electronically signed by: Aramis Dodson M.D. 04/09/2018 3:01 PM ECG Data Attestation: I personally reviewed and interpreted this ECG as follows: Indication: SOB/dyspnea Rate (beats per minute): 61 Rhythm: other (dual-chamber pacemaker) Findings: + other ( [place] beats); no PVC Comparison ECG Date: from (19-OCT-2017) Change: no significant change Blood Pressure Blood Pressure Findings: Low blood pressure Blood Pressure Disposition: further management by hospitalist [facility]ART Narrative The patient is an 82-year-old male who presented to the emergency department for an evaluation of low blood pressure. The patient is a history of cancer and is receiving chemotherapy. He was seen at the cancer center but was noted to have low blood pressure. For this reason he was sent to the emergency department for further evaluation. The patient was treated with IV fluids as well as IV antibiotics for presumed pneumonia noted on chest x-ray. I discussed the patient's laboratory and radiographic studies with him. Because of his presenting blood pressure I also discussed this case with the on-call [facility] hospitalist. They have agreed to evaluate the patient in the emergency department for further management and disposition. Impression & Plan Pneumonia, Hypotension, Hypomagnesemia Discharge Plan Visit Data *Final* Discharge Date/Time: 04/09/18 18:07 Chief Complaint: Hypotension Stated Complaint: LOW BLOOD PRESSURE 88/64 ED Provider: Jamison Yu Discharge Problem: Pneumonia, Hypotension, Hypomagnesemia Patient Disposition: Admitted As Inpatient Discharge Instructions Interventions: ED Discharge Assessment Last Done: 04/09/18 18:07 The scribe's documentation has been prepared under my direction and personally reviewed by me in its entirety. I confirm that the note above accurately reflects all work, treatment, procedures, and medical decision making performed by me.
[2018-04-09 14:59] LABS: Hematocrit (blood only) 30.7 % (42-52); Hemoglobin 10.2 g/dL (14.0-18.0); Mean Corpuscular Hgb Conc 33.2 g/dL (32-36); Mean Corpuscular Volume 88.7 fL (80-100); RDW Coefficient of Variation 17.5 % (11.5-14.5); RDW Standard Deviation 51.9 fL (36.4-46.3); Red Blood Count 3.46 M/uL (4.7-6.1)
--- NOTE | 2018-04-09 15:02 | XRay Report ---
XR chest 1V portable CLINICAL HISTORY: 82 years-old Male presenting with Sepsis. TECHNIQUE: Portable upright AP view of the chest was obtained. COMPARISON: 03/10/2018. FINDINGS: Left subclavian pacer with leads to the right atrium and right ventricular apex. Median sternotomy wi res. Right subclavian Mediport terminates in the lower SVC. Bypass graft rings noted. Atherosclerosis of aortic arch. Chronic silhouette moderately enlarged. Mitral annular calcification. Pulmonary vasc ular prominence of bronchial wall cuffing. Central predominant opacity in the left lung with partial obscuration of the left heart border. No large pleural effusion or pneumothorax. Degenerative changes of the spine and shoulders. IMPRESSION: 1. Cardiomegaly with volume overload and congestive change, worsened from prior exam. 2. Asymmetric pulmonary edema in the left lung versus a focal infiltrate/pneumonia to be considered. Electronically signed by: Aramis Dodson M.D. 04/09/2018 3:01 PM
[2018-04-09 15:10] LABS: INR 1.1 (0.9-1.1); Partial Thromboplastin Time 27.3 Seconds (21.0-31.0); Prothrombin Time 11.4 Seconds (9.0-12.0)
[2018-04-09 15:11] LABS: Albumin Level 2.8 gm/dl (3.4-5.0); BUN Creatinine Ratio 11.9 (10-20); C Reactive Protein 3.12 mg/dl (0-0.29); Calcium 7.7 mg/dl (8.5-10.1); Creatinine Clr Calc Pharmacy 44.9 ml/min; Est GFR (African American) 59.9; Est GFR (Non-African American) 51.7; Magnesium 1.3 mg/dl (1.8-2.4); Potassium 3.3 mmol/L (3.5-5.1)
[2018-04-09 15:13] LABS: Albumin Globulin Ratio 0.7 (0.9-2); Bilirubin,Total 0.3 mg/dl (0.2-1); Total Protein 6.8 gm/dl (6.4-8.2)
[2018-04-09 15:20] LABS: Basophils # (auto) 0.01 K/uL (0-0.2); Basophils % (auto) 0.1 %; Eosinophils # (auto) 0.04 K/uL (0-0.5); Eosinophils % (auto) 0.5 %; Immature Granulocytes # (auto) 0.13 K/uL (0.00-0.02); Immature Granulocytes % (auto) 1.5 %; Mean Platelet Volume 10.5 fL (7.4-10.4); Monocytes # (auto) 1.12 K/uL (0.11-0.59); Neutrophils % (auto) 70.9 %; Platelet Count 67 K/uL (130-400); Platelet Estimate Decreased (Normal); Troponin I 0.021 ng/ml (0-0.045)
[2018-04-09 15:21] LABS: Beta-Hydroxybutyrate 2.83 mg/dl (0.2-2.81)
[2018-04-09] MEDS ORDERED: PIPERACILLIN/TAZOBACTAM 4.5 GM/120 ML BAG IV ONE (15:26)
[2018-04-09] MEDS ORDERED: PIPERACILL/TAZOBAC CONSULT ACTIVE PRN ×2 (15:26→18:31)
[2018-04-09] MEDS ORDERED: SODIUM CHLORIDE 0.9% 1000ML 1,000 ML IV ONE (15:26)
[2018-04-09] MEDS: MAGNESIUM SULFATE / D5W 1 GM/100 ML BAG IV SCH ×2 (16:16→16:20)
--- NOTE | 2018-04-09 17:07 | History & Physical Report ---
Date of Service April 09, 2018 Assessment & Plan (1) Sepsis: sepsis due to left lower lobe pneumonia, POA no shock, BP was low but responded to IV fluids lactic acid was 3 but improved to 1.6 after fluids follow up blood cultures continue IV fluids, continue Zosyn (2) Pneumonia: left lower lobe, had symptoms of cough, sweats, malaise, poor appetite certainly set up for infection with chemotherapy WBC normal continue Zosyn, change to Augmentin as tolerated follow up blood cultures (3) Hypotension: due to infection, possibly due to some dehydration with chemoradiation, not eating well resolved with IV fluid challenge (4) Hypomagnesemia: replaced in the ED (5) CAD (coronary artery disease): no current chest pain continue Zocor aspirin not listed as medication (6) Pacemaker: paced, due to afib, heart block in the past (7) History of atrial fibrillation: continue Eliquis holding Coreg for now due to hypotension, likely resume tomorrow (8) Rectal adenocarcinoma: currently under radiation and chemotherapy treatment should resume after discharge once pneumonia and sepsis adequately treated History of Present Illness Chief Complaint: I feel really weak Primary Care Provider: Michael Humphries, DO 82 yo male with history of CABG x 2, AVR, back surgery who was diagnosed with rectal cancer in April 2017. He presented to the oncologist office for chemotherapy today but his blood pressure was too low and he was feeling weak. He was referred to the ED for evaluation and work up. The patient admits to feeling weak for a few days, has had light headedness and has been unsteady on his feet, even with his cane. He has not fallen. He admits to some increased shortness of breath, has a cough but not productive. His appetite has been decreased for a few days. He has experienced some sweats and chills, no true fever to his knowledge. He was attributing this to his chemotherapy, currently on third cycle of chemotherapy under direction of Dr. Marcano. In the ED he was initially hypotensive with BP 88/56 and his lactic acid was 3. WBC was normal. CXR showed possible pneumonia left lower lobe. UA was normal. He was given 2L of NSS and his BP improved, he was given a dose of Zosyn IV. His rectal cancer was diagnosed in April 2017 after he had rectal bleeding. Dr. Chavez, colorectal surgeon, found that he had an anal fissure on exam. Further examination showed a posterior mass, was biopsied, adenocarcinoma. He was treated with radiation and Xeloda initially. Staging PET scan and MRI showed no distant mets. He had spots on his lungs bilaterally that were considered equivocal on the PET. Following the initial radiation and Xeloda he still had rectal bleeding and evidence of mass. He is currently undergoing repeat radiation treatment and chemotherapy with FOLFOX and Avastin. He has had three cycles of chemotherapy, tolerating reasonably well. Has a history of CAD with CABG x 2 about three years ago. Never had any VA, his CAD was discovered as part of pre-op work up for spine surgery. In the past three years he underwent the CABG, aortic valve replacement, lumbar spine surgery as well as bilateral knee replacements. Despite the rectal cancer and chemoradiation, he continues to be independent, says that he "has a lot of living left to do." Allergies Allergy/AdvReac Type Severity Reaction Status Date / Time No Known Allergies Allergy Verified 04/09/18 14:28 Home Medications Home Medications Medication Instructions Recorded Confirmed Type carvedilol 25 mg PO BID 10/19/17 04/09/18 History hydrocodone-acetaminophen 1 tab PO Q4 PRN 10/19/17 04/09/18 History insulin aspart U-100 [Novolog 0 units SUBCUT DIRECTED 10/19/17 04/09/18 History Flexpen U-100 Insulin] insulin degludec [Tresiba 40 unit SUBCUT HS 10/19/17 04/09/18 History FlexTouch U-100] levothyroxine 100 mcg PO DAILY 10/19/17 04/09/18 History omeprazole 20 mg PO BID 10/19/17 04/09/18 History simvastatin 40 mg PO HS 10/19/17 04/09/18 History sucralfate 1 g PO QID 10/19/17 04/09/18 History valsartan 160 mg PO QAM 10/19/17 04/09/18 History ondansetron 4 mg TRANSLINGUAL Q6H PRN #14 tab 03/18/18 04/09/18 Rx apixaban 5 mg tablet 5 mg PO BID 04/09/18 04/09/18 History fentanyl 75 mcg/hr transdermal 1 patch TD Q72H 04/09/18 04/09/18 History patch loratadine 10 mg tablet 10 mg PO DAILY 04/09/18 04/09/18 History Past Med/Surg History Medical History CAD (coronary artery disease) (Chronic) Pacemaker (Chronic) Hypothyroid (Chronic) Complete heart block (Chronic) HTN (hypertension) (Chronic) History of atrial fibrillation (Chronic) Aortic stenosis (Chronic) Mitral stenosis (Chronic) GERD (gastroesophageal reflux disease) (Chronic) Dyslipidemia (Chronic) Sleep apnea (Chronic) Rectal adenocarcinoma (Acute 06/03/17) "Rectal bleeding Evaluation under anethesia and finding of a rectal mass June 03, 2017 Biopsy revealing adenocarcinoma Plan for radiation and Xeloda Status post completion of combined neoadjuvant radiation and chemotherapy. Radiation was completed August 29, 2017. He received 5040 cGy" On 07/08/17 10:30 Rebecca Campbell wrote "Rectal bleeding Evaluation under anethesia and finding of a rectal mass June 03, 2017 Biopsy revealing adenocarcinoma Plan for radiation and Xeloda" On 07/08/17 10:23 Bayron Barajas wrote "Rectal bleeding Evaluation under anethesia and finding of a rectal mass Biopsy revealing adenocarcinoma Plan for radiation and Xeloda" Constipation (Acute) Elevated troponin Heart block (Chronic) Atrial fibrillation (Chronic) Diabetes (Chronic) Heart disease (Chronic) Rectal cancer (Chronic) RECENT DIAGNOSIS, REASON FOR A-PORT PLACEMENT Degenerative disc disease Fusion of spine LUMBAR GERD (gastroesophageal reflux disease) Hyperlipidemia Hypertension Osteoarthritis Sleep apnea Surgical History Hx of cholecystectomy (Resolved) History of back surgery (Resolved) S/P AVR (aortic valve replacement) (Chronic) "06/16/2013- # 23 Chow II bioprosthesis, [place]. William, [facility] [place] S/P CABG x 2 (Chronic) "CABG x 2; 06/16/2013; Dr. William, [facility] [place] History of carpal tunnel surgery (Chronic) S/P AVR (aortic valve replacement) (Chronic) 05/2013 Status cardiac pacemaker (Chronic) 2014. FOLLOWS WITH DR. LASSITER IN CARDIO. History of cholecystectomy History of colonoscopy History of coronary artery bypass graft 2 VESSELS PER MEDICAL RECORD 05/2013 History of total knee replacement B/L Family History Other DM type 2 (diabetes mellitus, type 2) HTN (hypertension) Social History marital status: Current Living Situation: Spouse Other Information That Helps Us Care for You: No Feels Safe at Home: Yes Safety Concerns: Feels Safe At This Time Smoking Status: Never smoker Do You Dip or Chew Tobacco: No Second Hand Exposure: No Tobacco Cessation Education Requested by Patient: No Hx Alcohol Use: No Hx Substance Use: No Beliefs That Will Affect Care: None Preferred Language: Nigerian Communication Ability: Effective Curb Supervisor Required: No Review of Systems All systems reviewed & are unremarkable except as noted in HPI & below Physical Exam 2 Vital Signs (Past 24 Hours): Last Vital Signs Temp 36.3 C L 04/09/18 14:12 Pulse 60 04/09/18 15:49 Resp 17 04/09/18 15:49 BP 103/57 L 04/09/18 15:49 Pulse Ox 97 04/09/18 15:49 Constitutional: WD/WN, vitals as above Eyes: PERRL, conjunctivae normal, anicteric sclerae ENMT: external ear and nose normal, oropharynx normal Neck: trachea midline, no thyromegaly Respiratory: normal respiratory effort, lungs clear to auscultation Auscultation: + diminished lung sounds Cardiovascular: RRR, no murmur, no edema Rate/Rhythm: regular rate (paced) Heart Sounds: normal S1 and normal S2 (artificial S2) Vessels: normal peripheral pulses; no JVD Extremities: normal capillary refill; no pedal edema Gastrointestinal (Abdomen): normal bowel sounds, soft, nontender, no hepatosplenomegaly Musculoskeletal: no cyanosis or clubbing, extremities motor strength 5/5 Skin: no rashes, warm and dry Neurologic: patellar DTR's 2+ bilat, sensation intact and PERRL, EOMI, accommodation nl, no face palsy, no dysarthria Psychiatric: A+Ox3, euthymic affect Lymphatic: no cervical or axillary lymphadenopathy Results & Data Laboratory Results Laboratory Results - last 24 hr 04/09/18 04/09/18 04/09/18 14:38 14:38 14:38 WBC 8.60 RBC 3.46 L Hgb 10.2 L Hct 30.7 L MCV 88.7 MCH 29.5 MCHC 33.2 RDW Std Deviation 51.9 H RDW Coeff of Geovani 17.5 H Plt Count 67 L MPV 10.5 H Immature Gran % (Auto) 1.5 Neut % (Auto) 70.9 Lymph % (Auto) 14.0 Coleman % (Auto) 13.0 Eos % (Auto) 0.5 Baso % (Auto) 0.1 Immature Gran # (Auto) 0.13 H Neut # (Auto) 6.10 Lymph # (Auto) 1.20 Coleman # (Auto) 1.12 H Eos # (Auto) 0.04 Baso # (Auto) 0.01 Platelet Estimate Decreased ESR 43 H PT 11.4 INR 1.1 APTT 27.3 PTT Ratio 1.0 Sodium Potassium Chloride Carbon Dioxide Anion Gap BUN Creatinine Est Cr Clr Drug Dosing Est GFR ( Amer) Est GFR (Non-Af Amer) BUN/Creatinine Ratio Glucose POC Glucose Lactate Calcium Magnesium Total Bilirubin AST ALT Alkaline Phosphatase Troponin I C-Reactive Protein Total Protein Albumin Globulin Albumin/Globulin Ratio Beta-Hydroxybutyric Acd Procalcitonin Urine Color Urine Appearance Urine pH Ur Specific [place] Urine Protein Urine Glucose (UA) Urine Ketones Urine Blood Urine Nitrite Urine Bilirubin Urine Urobilinogen Ur Leukocyte Esterase Urine WBC (Auto) Urine RBC (Auto) U Hyaline Cast (Auto) U Epithel Cells (Auto) Urine Bacteria (Auto) 04/09/18 04/09/18 04/09/18 14:38 14:38 14:43 WBC RBC Hgb Hct MCV MCH MCHC RDW Std Deviation RDW Coeff of Geovani Plt Count MPV Immature Gran % (Auto) Neut % (Auto) Lymph % (Auto) [place] % (Auto) Eos % (Auto) Baso % (Auto) Immature Gran # (Auto) Neut # (Auto) Lymph # (Auto) Coleman # (Auto) Eos # (Auto) Baso # (Auto) Platelet Estimate ESR PT INR APTT PTT Ratio Sodium 132 L Potassium 3.3 L Chloride 96 L Carbon Dioxide 27 Anion Gap 8.0 BUN 15 Creatinine 1.29 Est Cr Clr Drug Dosing 44.9 Est GFR ( Amer) 59.9 Est GFR (Non-Af Amer) 51.7 BUN/Creatinine Ratio 11.9 Glucose 306 H POC Glucose Lactate 3.8 H* Calcium 7.7 L Magnesium 1.3 L Total Bilirubin 0.3 AST 22 ALT 20 Alkaline Phosphatase 108 Troponin I 0.021 C-Reactive Protein 3.12 H Total Protein 6.8 Albumin 2.8 L Globulin 4.0 Albumin/Globulin Ratio 0.7 L Beta-Hydroxybutyric Acd 2.83 H Procalcitonin 0.18 Urine Color Urine Appearance Urine pH Ur Specific [place] Urine Protein Urine Glucose (UA) Urine Ketones Urine Blood Urine Nitrite Urine Bilirubin Urine Urobilinogen Ur Leukocyte Esterase Urine WBC (Auto) Urine RBC (Auto) U Hyaline Cast (Auto) U Epithel Cells (Auto) Urine Bacteria (Auto) 04/09/18 04/09/18 04/09/18 18:25 19:09 19:33 WBC RBC Hgb Hct MCV MCH MCHC RDW Std Deviation RDW Coeff of Geovani Plt Count MPV Immature Gran % (Auto) Neut % (Auto) Lymph % (Auto) [place] % (Auto) Eos % (Auto) Baso % (Auto) Immature Gran # (Auto) Neut # (Auto) Lymph # (Auto) [place] # (Auto) Eos # (Auto) Baso # (Auto) Platelet Estimate ESR PT INR APTT PTT Ratio Sodium Potassium Chloride Carbon Dioxide Anion Gap BUN Creatinine Est Cr Clr Drug Dosing Est GFR ( Amer) Est GFR (Non-Af Amer) BUN/Creatinine Ratio Glucose POC Glucose 191 H Lactate 1.6 Calcium Magnesium Total Bilirubin AST ALT Alkaline Phosphatase Troponin I C-Reactive Protein Total Protein Albumin Globulin Albumin/Globulin Ratio Beta-Hydroxybutyric Acd Procalcitonin Urine Color Yellow Urine Appearance Clear Urine pH 5.5 Ur Specific [place] 1.014 Urine Protein 1+ H Urine Glucose (UA) 1+ H Urine Ketones Negative Urine Blood Negative Urine Nitrite Negative Urine Bilirubin Negative Urine Urobilinogen Negative Ur Leukocyte Esterase Negative Urine WBC (Auto) 1-5 Urine RBC (Auto) 0-4 U Hyaline Cast (Auto) 1-5 U Epithel Cells (Auto) 5-10 H Urine Bacteria (Auto) Negative Diagnostic Findings CHEST XRAY: IMPRESSION: 1. Cardiomegaly with volume overload and congestive change, worsened from prior exam. 2. Asymmetric pulmonary edema in the left lung versus a focal infiltrate/ pneumonia to be considered. Code Status & VTE Plan Code Status FULL CODE VTE Prophylaxis Plan VTE Prophylaxis will be ordered: Yes _ (1) Pneumonia Aspiration pneumonia type: Laterality: left Lung location: lower lobe of lung Pneumonia type: due to unspecified organism Qualified Code(s): J18.1 - Lobar pneumonia, unspecified organism (2) Hypotension Hypotension type: unspecified hypotension type Trimester: Qualified Code(s) : I95.9 - Hypotension, unspecified
[2018-04-09] MEDS ORDERED: ONDANSETRON INJ 2 MG/ML 2 ML VIAL IV PRN (18:31)
[2018-04-09] MEDS ORDERED: ACETAMINOPHEN 325 MG TAB PO PRN (18:31)
[2018-04-09] MEDS ORDERED: PIPERACILLIN/TAZOBACTAM 3.375 GM in DEXTROSE 5% 100 ML IV SCH (18:31)
[2018-04-09] MEDS ORDERED: GLUCOSE 10 TABS/TUBE PO PRN (18:48)
[2018-04-09] MEDS ORDERED: DEXTROSE 50% 50 ML SYRINGE IV PRN (18:48)
[2018-04-09] MEDS ORDERED: GLUCOSE 40% GEL 15 GM TUBE PO PRN (18:48)
[2018-04-09] MEDS ORDERED: CARBOHYDRATES FOR HYPOGLYCEMIA PO PRN (18:48)
[2018-04-09] MEDS ORDERED: GLUCAGON FOR INJ 1 MG VIAL IM PRN (18:48)
[2018-04-09] MEDS: PANTOprazole 40 MG TAB PO SCH (20:12)
[2018-04-09] MEDS: APIXABAN 5 MG TABLET PO SCH (20:12)
[2018-04-09] MEDS: SUCRALFATE 1 GM TAB PO SCH ×2 (20:12→21:58)
[2018-04-09] MEDS: SIMVASTATIN 40 MG TAB PO SCH (20:13)
[2018-04-09] MEDS: INSULIN GLARGINE SOLOSTAR 100 UNITS/ML 3 ML PEN SC SCH (20:13)
[2018-04-09] MEDS: NSS + 20MEQ KCL 20 MEQ/1,000 ML BAG IV SCH (20:13)
[2018-04-09] MEDS: INSULIN ASPART 100 UNITS/ML 3 ML PEN SC SCH (20:14)
[2018-04-09 20:56] LABS: Appearance Urine Clear (Clear); Bacteria Urine Automated Negative (Negative); Bilirubin Urine Negative (Negative); Blood Urine Negative (Negative); Color Urine Yellow; Glucose Urine UA 1+ (Negative); Ketones Urine Negative (Negative); Leukocyte Esterase Urine Negative (Negative); Nitrite Urine Negative (Negative); Protein Urine 1+ (Negative); RBC Urine Automated 0-4 /hpf (0-4); Specific Gravity Urine 1.014 (1.000-1.030); Urobilinogen Urine Negative (Negative); pH Urine 5.5 (4.5-7.5)
[2018-04-09] MEDS: PIPERACILLIN/TAZOBACTAM 3.375 GM in DEXTROSE 5% 100 ML IV SCH (21:27)
[2018-04-09] MEDS ORDERED: fentaNYL 75 MCG/HR TDSY TD SCH (22:00)
[2018-04-10] MEDS: CHECK FENTANYL PATCH PLACEMENT SCH ×4 (00:10→23:32)
[2018-04-10] MEDS: HYDROCODONE/ACETAMOPHEN 5/325MG TAB PO PRN ×4 (01:33→21:52)
[2018-04-10] MEDS: PIPERACILLIN/TAZOBACTAM 3.375 GM in DEXTROSE 5% 100 ML IV SCH ×3 (05:40→21:53)
[2018-04-10] MEDS: LEVOTHYROXINE SODIUM 100 MCG TABLET PO SCH (05:41)
[2018-04-10] MEDS: NSS + 20MEQ KCL 20 MEQ/1,000 ML BAG IV SCH ×2 (05:42→16:08)
[2018-04-10 06:40] LABS: Hematocrit (blood only) 29.9 % (42-52); Hemoglobin 9.8 g/dL (14.0-18.0); Mean Corpuscular Hgb Conc 32.8 g/dL (32-36); Nucleated RBC # (auto) 0.03 K/uL (0-0); Nucleated RBC % (auto) 0.4 %; RDW Coefficient of Variation 17.6 % (11.5-14.5); Red Blood Count 3.36 M/uL (4.7-6.1); White Blood Count 7.91 K/uL (4.8-10.8)
[2018-04-10 06:50] LABS: Mean Platelet Volume 11.1 fL (7.4-10.4); Platelet Count 72 K/uL (130-400)
[2018-04-10 07:07] LABS: Basophils # (auto) 0.02 K/uL (0-0.2); Basophils % (auto) 0.3 %; Eosinophils # (auto) 0.07 K/uL (0-0.5); Eosinophils % (auto) 0.9 %; Immature Granulocytes # (auto) 0.21 K/uL (0.00-0.02); Immature Granulocytes % (auto) 2.7 %; Lymphocytes # (auto) 1.06 K/uL (1.2-3.4); Lymphocytes % (auto) 13.4 %; Monocytes # (auto) 1.01 K/uL (0.11-0.59); Monocytes % (auto) 12.8 %; Neutrophils # (auto) 5.54 K/uL (1.4-6.5); Neutrophils % (auto) 69.9 %; Toxic Granulation 2+
[2018-04-10 07:17] LABS: BUN Creatinine Ratio 9.3 (10-20); Calcium 7.5 mg/dl (8.5-10.1); Creatinine Clr Calc Pharmacy 69.7 ml/min; Est GFR (African American) 95.6; Est GFR (Non-African American) 82.5; Potassium 3.5 mmol/L (3.5-5.1)
[2018-04-10] MEDS: INSULIN ASPART 100 UNITS/ML 3 ML PEN SC SCH ×4 (07:56→20:49)
[2018-04-10] MEDS: SUCRALFATE 1 GM TAB PO SCH ×4 (07:57→20:11)
[2018-04-10] MEDS: PANTOprazole 40 MG TAB PO SCH ×2 (07:58→20:12)
[2018-04-10] MEDS: LORATADINE 10 MG TAB PO SCH (07:58)
--- NOTE | 2018-04-10 08:45 | Family Medicine Progress Note ---
Date of Service April 10, 2018 Assessment & Plan (1) Sepsis: 82 yo M with h/o CAD s/p CABG, AVRm rectal cancer ( [id number]) presenting from Oncology clinic with generalized weakness, hypotension admitted with suspected Sepsis with elevated Lactate in the setting LLL Pneumonia - Sepsis resolved, qSOFA score 1 (low risk,Vitals signs stable, clinically improved, lactate normalized - likely secondary to Left Lower lobe Pneumonia consistent with CXR findings - Given resolution of hypotension, now hypertensive, will discontinue IV fluids - Continue to monitor BP - Continue antibiotic treatment with Zosyn for Pneumonia (2) Pneumonia: -significant clinical improvement - currently afebrile, VSS, no leukocytosis -CXR findings from 04/09 concerning for Pneumonia -Continue Zosyn (3) HTN (hypertension): - hypotension on arrival - resolved s/p IV fluids, now hypertensive , - home antihypertensives currently held - will restart metoprolol at low dose. maintain hold on valsartan - D/C IV fluids (4) History of atrial fibrillation: - asx, rate controlled - restart coreg at low dose, gradually increase to home dose by discharge - Continue anticoagulation with Eliquis (5) Hypothyroid: Continue Levothyroxine (6) CAD (coronary artery disease): asx - Coreg as above - Continue Simvistatin (7) Complete heart block: s/p pacemaker asx Continue to monitor (8) Dyslipidemia: Continue Simvistatin as above Supervising Physician Co-Signing Physician Notes I personally examined the patient and verified all villaseñor points of history and exam, discussed case, and agree with decision making with Dr Monzon. Feeling much better. Breathing better. Overall feels like himself again. Vitals noted, in general he is awake alert oriented x3 pleasant no distress. HEENT normal cephalic atraumatic mucous members are moist. Lungs show diminished air entry base left a little bit but no rales rhonchi or wheezes otherwise is clear to auscultation. Possible sepsis related to pneumoniathis appears to have improved, continue antibiotics, hopefully home tomorrow on p.o. antibiotics. Safe to moved to [facility], otherwise as above Subjective Patient reports overall improvement. Patient denies cough, chest pain, sob, wheezing. She denies fever, chills. abdominal pain, diarrhea. She is tolerating food, ambulating normally. Constitutional: no fever, no chills, no fatigue and no weakness Ear, Nose, Mouth, Throat: + sore throat; no nasal congestion and no post nasal drip Respiratory: + cough; no wheezing Cardiovascular: no chest pain, no palpitations, no edema and no calf pain Gastrointestinal: no abdominal pain, no nausea, no vomiting and no change in stools Integumentary: no rash and no lesions Neurologic: no localized weakness, no tingling and no numbness Physical Exam 2 Vital Signs (Past 24 Hours): Last Vital Signs Temp 36.5 C 04/10/18 07:14 Pulse 67 04/10/18 07:14 Resp 20 04/10/18 07:14 BP 154/69 H 04/10/18 07:14 Pulse Ox 95 04/10/18 07:14 Constitutional: WD/WN, vitals as above no acute distress Eyes: PERRL and EOM intact bilaterally ENMT: external ear and nose normal, oropharynx normal Neck: trachea midline, no thyromegaly Respiratory: Auscultation: + crackles (LLL) Cardiovascular: RRR, no murmur, no edema Gastrointestinal (Abdomen): normal bowel sounds, soft, nontender, no hepatosplenomegaly Musculoskeletal: Head/Neck/Chest: normocephalic and head atraumatic Skin: no rashes, warm and dry Neurologic: PERRL, EOMI, accommodation nl, no face palsy, no dysarthria CN' s II-XI intact bilaterally (grossly) and awake Psychiatric: A+Ox3, euthymic affect Results & Data Laboratory Results Laboratory Results WBC 7.91 K/uL (4.8-10.8) 04/10/18 06:14 RBC 3.36 M/uL (4.7-6.1) L 04/10/18 06:14 Hgb 9.8 g/dL (14.0-18.0) L 04/10/18 06:14 Hct 29.9 % (42-52) L 04/10/18 06:14 MCV 89.0 fL (80-100) 04/10/18 06:14 MCH 29.2 pg (25-34) 04/10/18 06:14 MCHC 32.8 g/dL (32-36) 04/10/18 06:14 RDW Std Deviation 52.0 fL (36.4-46.3) H 04/10/18 06:14 RDW Coeff of Geovani 17.6 % (11.5-14.5) H 04/10/18 06:14 Plt Count 72 K/uL (130-400) L 04/10/18 06:14 MPV 11.1 fL (7.4-10.4) H 04/10/18 06:14 Immature Gran % (Auto) 2.7 % 04/10/18 06:14 Neut % (Auto) 69.9 % 04/10/18 06:14 Lymph % (Auto) 13.4 % 04/10/18 06:14 [place] % (Auto) 12.8 % 04/10/18 06:14 Eos % (Auto) 0.9 % 04/10/18 06:14 Baso % (Auto) 0.3 % 04/10/18 06:14 Immature Gran # (Auto) 0.21 K/uL (0.00-0.02) H 04/10/18 06:14 Neut # (Auto) 5.54 K/uL (1.4-6.5) 04/10/18 06:14 Lymph # (Auto) 1.06 K/uL (1.2-3.4) L 04/10/18 06:14 [place] # (Auto) 1.01 K/uL (0.11-0.59) H 04/10/18 06:14 Eos # (Auto) 0.07 K/uL (0-0.5) 04/10/18 06:14 Baso # (Auto) 0.02 K/uL (0-0.2) 04/10/18 06:14 Absolute Nucleated RBC 0.03 K/uL (0-0) H 04/10/18 06:14 Nucleated RBC % (auto) 0.4 % 04/10/18 06:14 Toxic Granulation 2+ 04/10/18 06:14 Platelet Estimate Decreased (Normal) 04/09/18 14:38 ESR 43 mm/hr (0-14) H 04/09/18 14:38 PT 11.4 Seconds (9.0-12.0) 04/09/18 14:38 INR 1.1 (0.9-1.1) 04/09/18 14:38 APTT 27.3 Seconds (21.0-31.0) 04/09/18 14:38 PTT Ratio 1.0 04/09/18 14:38 Sodium 139 mmol/L (136-145) D 04/10/18 06:14 Potassium 3.5 mmol/L (3.5-5.1) 04/10/18 06:14 Chloride 105 mmol/L (98-107) 04/10/18 06:14 Carbon Dioxide 28 mmol/L (21-32) 04/10/18 06:14 Anion Gap 6.0 (3-11) 04/10/18 06:14 BUN 8 mg/dl (7-18) D 04/10/18 06:14 Creatinine 0.83 mg/dl (0.6-1.4) D 04/10/18 06:14 Est Cr Clr Drug Dosing 69.7 ml/min 04/10/18 06:14 Est GFR ( Amer) 95.6 04/10/18 06:14 Est GFR (Non-Af Amer) 82.5 04/10/18 06:14 BUN/Creatinine Ratio 9.3 (10-20) L 04/10/18 06:14 Glucose 122 mg/dl (70-99) H 04/10/18 06:14 POC Glucose 123 (70-99) H 04/10/18 07:07 Lactate 1.6 mmol/L (0.4-2.0) 04/09/18 19:33 Calcium 7.5 mg/dl (8.5-10.1) L 04/10/18 06:14 Magnesium 1.3 mg/dl (1.8-2.4) L 04/09/18 14:38 Total Bilirubin 0.3 mg/dl (0.2-1) 04/09/18 14:38 AST 22 U/L (15-37) 04/09/18 14:38 ALT 20 U/L (12-78) 04/09/18 14:38 Alkaline Phosphatase 108 U/L (45-117) 04/09/18 14:38 Troponin I 0.021 ng/ml (0-0.045) 04/09/18 14:38 C-Reactive Protein 3.12 mg/dl (0-0.29) H 04/09/18 14:38 Total Protein 6.8 gm/dl (6.4-8.2) 04/09/18 14:38 Albumin 2.8 gm/dl (3.4-5.0) L 04/09/18 14:38 Globulin 4.0 gm/dl (2.5-4.0) 04/09/18 14:38 Albumin/Globulin Ratio 0.7 (0.9-2) L 04/09/18 14:38 Beta-Hydroxybutyric Acd 2.83 mg/dl (0.2-2.81) H 04/09/18 14:38 Procalcitonin 0.18 ng/ml (0-0.5) 04/09/18 14:38 Urine Color Yellow 04/09/18 18:25 Urine Appearance Clear (Clear) 04/09/18 18:25 Urine pH 5.5 (4.5-7.5) 04/09/18 18:25 Ur Specific [place] 1.014 (1.000-1.030) 04/09/18 18:25 Urine Protein 1+ (Negative) H 04/09/18 18:25 Urine Glucose (UA) 1+ (Negative) H 04/09/18 18:25 Urine Ketones Negative (Negative) 04/09/18 18:25 Urine Blood Negative (Negative) 04/09/18 18:25 Urine Nitrite Negative (Negative) 04/09/18 18:25 Urine Bilirubin Negative (Negative) 04/09/18 18:25 Urine Urobilinogen Negative (Negative) 04/09/18 18:25 Ur Leukocyte Esterase Negative (Negative) 04/09/18 18:25 Urine WBC (Auto) 1-5 /hpf (0-5) 04/09/18 18:25 Urine RBC (Auto) 0-4 /hpf (0-4) 04/09/18 18:25 U Hyaline Cast (Auto) 1-5 /lpf (0-5) 04/09/18 18:25 U Epithel Cells (Auto) 5-10 /lpf (0-5) H 04/09/18 18:25 Urine Bacteria (Auto) Negative (Negative) 04/09/18 18:25 Medications Administered Hydrocodone Bitart/Acetaminophen ([place] 5/325) 1 tab PO Q4 PRN PRN Reason: Pain Stop: 04/23/18 18:30 Last Admin: 04/10/18 07:26 Dose: 1 tab Admin: 04/10/18 01:33 Dose: 1 tab Apixaban (Eliquis) 5 mg PO BID [facility] Stop: 05/09/18 20:59 Last Admin: 04/10/18 09:12 Dose: 5 mg Admin: 04/09/18 20:12 Dose: 5 mg Fentanyl (Duragesic) 75 mcg TD Q72H [facility]; Protocol Stop: 04/23/18 21:59 Last Admin: 04/09/18 22:26 Dose: 75 mcg Potassium Chloride/Sodium Chloride (Normal Saline W/20 Meq Kcl) 20 meq in 1, 000 mls @ 100 mls/hr IV .Q10H [facility] Stop: 05/09/18 18:44 Last Admin: 04/10/18 05:42 Dose: 100 mls/hr Infusion: 04/10/18 05:42 Dose: 100 mls/hr Admin: 04/09/18 20:13 Dose: 100 mls/hr Piperacillin Sod/Tazobactam (Sod 3.375 gm/ Dextrose) 115 mls @ 28.75 mls/hr IV Q8H [facility]; Protocol Stop: 04/16/18 21:59 Last Infusion: 04/10/18 10:13 Dose: Admin: 04/10/18 05:40 Dose: 28.8 mls/hr Infusion: 04/10/18 01:33 Dose: 0 mls/hr Admin: 04/09/18 21:27 Dose: 28.8 mls/hr Insulin Aspart (Novolog Flexpen) 0 units SC ACHS [facility] Stop: 05/09/18 20:59 Last Admin: 04/10/18 07:56 Dose: 6 units Admin: 04/09/18 20:14 Dose: 1 units Insulin Glargine (Lantus Solostar Pen) 30 units SC HS [facility] Stop: 05/09/18 20:59 Last Admin: 04/09/18 20:13 Dose: 30 units Levothyroxine Sodium (Synthroid) 100 mcg PO DAILYBB [facility] Stop: 05/10/18 06:29 Last Admin: 04/10/18 05:41 Dose: 100 mcg Loratadine (Claritin) 10 mg PO DAILY [facility] Stop: 05/10/18 08:59 Last Admin: 04/10/18 07:58 Dose: 10 mg Miscellaneous (Fentanyl Patch Check Placement) 1 ea N/A QS [facility] Stop: 05/10/18 00:00 Last Admin: 04/10/18 07:58 Dose: 1 ea Admin: 04/10/18 00:10 Dose: 1 ea Miscellaneous (Fentanyl Patch Remove & Waste) 1 ea N/A Q72H [facility] Stop: 05/09/18 21:58 Last Admin: 04/09/18 22:26 Dose: 1 ea Pantoprazole Sodium (Protonix) 40 mg PO BID [facility]; Protocol Stop: 05/09/18 20:59 Last Admin: 04/10/18 07:58 Dose: 40 mg Admin: 04/09/18 20:12 Dose: 40 mg Simvastatin (Zocor) 40 mg PO HS [facility] Stop: 05/09/18 20:59 Last Admin: 04/09/18 20:13 Dose: 40 mg Sucralfate (Carafate Tab) 1 gm PO QID [facility] Stop: 05/09/18 18:30 Last Admin: 04/10/18 07:57 Dose: 1 gm Admin: 04/09/18 21:58 Dose: Not Given Admin: 04/09/18 20:12 Dose: 1 gm Discontinued Medications Sodium Chloride (Nss 1000ml) 500 mls @ 999 mls/hr IV .Q31M ONE Stop: 04/09/18 14:52 Last Infusion: 04/09/18 15:43 Dose: 0 mls/hr Admin: 04/09/18 15:11 Dose: 999 mls/hr Sodium Chloride (Nss 1000ml) 1,000 mls @ 999 mls/hr IV .Q1H1M ONE Stop: 04/09/18 16:26 Last Infusion: 04/09/18 16:48 Dose: 0 mls/hr Admin: 04/09/18 15:46 Dose: 999 mls/hr Piperacillin Sod/Tazobactam Sod (Zosyn) 4.5 gm in 120 mls @ 240 mls/hr IV NOW ONE Stop: 04/09/18 15:55 Last Infusion: 04/09/18 16:21 Dose: Admin: 04/09/18 15:46 Dose: 240 mls/hr Magnesium Sulfate/Dextrose (Magnesium Sulfate / D5w) 1 gm in 100 mls @ 100 mls/ hr IV Q1H [facility] Stop: 04/09/18 17:44 Last Infusion: 04/09/18 17:49 Dose: 0 mls/hr Admin: 04/09/18 16:20 Dose: 100 mls/hr Infusion: 04/09/18 16:20 Dose: 100 mls/hr Admin: 04/09/18 16:16 Dose: 100 mls/hr Miscellaneous Information (Consult) 1 ea N/A UD PRN PRN Reason: Consult Stop: 05/09/18 15:25 Last Admin: 04/09/18 16:20 Dose: 1 ea Resident Activity Tracking Resident Involvement: Resident Care Provided Care Provided: Adult [facility] Medicine _ (1) Pneumonia Aspiration pneumonia type: Laterality: left Lung location: lower lobe of lung Pneumonia type: due to unspecified organism Qualified Code(s): J18.1 - Lobar pneumonia, unspecified organism
[2018-04-10] MEDS ORDERED: fentaNYL 75 MCG/HR TDSY TD SCH (09:00)
[2018-04-10] MEDS: APIXABAN 5 MG TABLET PO SCH ×2 (09:12→20:11)
[2018-04-10] MEDS: SIMVASTATIN 40 MG TAB PO SCH (20:12)
[2018-04-10] MEDS: CARVEDILOL 3.125 MG TAB PO SCH (20:51)
[2018-04-10] MEDS: INSULIN GLARGINE SOLOSTAR 100 UNITS/ML 3 ML PEN SC SCH (22:27)
[2018-04-11] MEDS: HYDROCODONE/ACETAMOPHEN 5/325MG TAB PO PRN ×3 (01:41→11:05)
[2018-04-11] MEDS ORDERED: HEPARIN 100 UNIT/ML 5ML FLUSH ONE (04:03)
[2018-04-11] MEDS: PIPERACILLIN/TAZOBACTAM 3.375 GM in DEXTROSE 5% 100 ML IV SCH ×2 (06:33→14:06)
[2018-04-11] MEDS: LEVOTHYROXINE SODIUM 100 MCG TABLET PO SCH (06:33)
[2018-04-11] MEDS: INSULIN ASPART 100 UNITS/ML 3 ML PEN SC SCH ×2 (07:58→12:02)
[2018-04-11] MEDS: PANTOprazole 40 MG TAB PO SCH (07:59)
[2018-04-11] MEDS: APIXABAN 5 MG TABLET PO SCH (07:59)
[2018-04-11] MEDS: CARVEDILOL 3.125 MG TAB PO SCH (07:59)
[2018-04-11] MEDS: SUCRALFATE 1 GM TAB PO SCH ×2 (07:59→12:01)
[2018-04-11] MEDS: LORATADINE 10 MG TAB PO SCH (07:59)
[2018-04-11] MEDS: CHECK FENTANYL PATCH PLACEMENT SCH (08:00)
--- NOTE | 2018-04-11 09:58 | Discharge Summary ---
Date of Service April 11, 2018 Admission HPI Per Admitting Provider 82 yo male with history of CABG x 2, AVR, back surgery who was diagnosed with rectal cancer in April 2017. He presented to the oncologist office for chemotherapy today but his blood pressure was too low and he was feeling weak. He was referred to the ED for evaluation and work up. The patient admits to feeling weak for a few days, has had light headedness and has been unsteady on his feet, even with his cane. He has not fallen. He admits to some increased shortness of breath, has a cough but not productive. His appetite has been decreased for a few days. He has experienced some sweats and chills, no true fever to his knowledge. He was attributing this to his chemotherapy, currently on third cycle of chemotherapy under direction of Dr. Marcano. In the ED he was initially hypotensive with BP 88/56 and his lactic acid was 3. WBC was normal. CXR showed possible pneumonia left lower lobe. UA was normal. He was given 2L of NSS and his BP improved, he was given a dose of Zosyn IV. His rectal cancer was diagnosed in April 2017 after he had rectal bleeding. Dr. Chavez, colorectal surgeon, found that he had an anal fissure on exam. Further examination showed a posterior mass, was biopsied, adenocarcinoma. He was treated with radiation and Xeloda initially. Staging PET scan and MRI showed no distant mets. He had spots on his lungs bilaterally that were considered equivocal on the PET. Following the initial radiation and Xeloda he still had rectal bleeding and evidence of mass. He is currently undergoing repeat radiation treatment and chemotherapy with FOLFOX and Avastin. He has had three cycles of chemotherapy, tolerating reasonably well. Has a history of CAD with CABG x 2 about three years ago. Never had any MN, his CAD was discovered as part of pre-op work up for spine surgery. In the past three years he underwent the CABG, aortic valve replacement, lumbar spine surgery as well as bilateral knee replacements. Despite the rectal cancer and chemoradiation, he continues to be independent, says that he "has a lot of living left to do." Principal Diagnosis Pneumonia Discharge Exam Subjective Exam: Pt told nurse he feels 120% better and told me he feels 130% better. He states he is ready to go home. He denies any significant coughing now or prior to admission. He does admit that sometimes at home when he eats food goes into the "wrong hole". ROS: No chest pain, no SOB, no dyspnea on exertion, no palpitations, no fevers, no chills, no nausea, no vomiting, no diarrhea, no dysuria, no rash. Constitutional WD/WN, vitals as above no acute distress Eyes PERRL and EOM intact bilaterally ENMT external ear and nose normal, oropharynx normal Neck trachea midline, no thyromegaly Respiratory normal respiratory effort, lungs clear to auscultation no respiratory distress Cardiovascular RRR, no murmur, no edema Gastrointestinal (Abdomen) normal bowel sounds, soft, nontender, no hepatosplenomegaly Musculoskeletal Head/Neck/Chest: normocephalic and head atraumatic Skin no rashes, warm and dry Neurologic PERRL, EOMI, accommodation nl, no face palsy, no dysarthria CN's II-XI intact bilaterally (grossly) and awake Psychiatric A+Ox3, euthymic affect Discharge Data Allergies Allergy/AdvReac Type Severity Reaction Status Date / Time No Known Allergies Allergy Verified 04/09/18 14:28 Consultations 04/09/18 15:41 ED Decision to Admit Stat 04/09/18 18:31 Consult Case Management - Discharge Planning Routine Hospital Course (1) Sepsis: 82 yo M with h/o CAD s/p CABG, AVRm rectal cancer ( [id number]) presenting from Oncology clinic with generalized weakness, hypotension admitted with suspected Sepsis with elevated Lactate in the setting LLL Pneumonia - Sepsis resolved, (low risk,Vitals signs stable, clinically improved, lactate normalized) - likely secondary to Left Lower lobe Pneumonia consistent with CXR findings, wondering if Aspiration plays a part. - Will discharge on Augmentin to complete a 10 day course of Antibiotics. - Will also set patient up for outpatient speech and swallow eval. - On admission pt's Valsartan was held and Coreg was reduced from 25mg BID to 3.125mg BID - his BPs have trended upwards however he does feel clinically better. Would like to continue 3.125mg BID of coreg with BP monitoring at home. Will restarted Valsartan on Discharge. Wondering if part of hypotension on admission could be attributable to high dose of coreg, especially in light of "new frailty" brought on by his current cancer situation. Recommend titrating back up on Coreg relatively slowly. (2) Pneumonia: - significant clinical improvement, pt does provider a history of aspiration, denied any respiratory symptoms prior to admission. - Will get speech therapy outpatient eval as above. - DC on Augmentin as above. (3) HTN (hypertension): - hypotension on arrival that resolved on Day #1 on admission. - Reduced Coreg dose on admission from 25mg BID to 3.125mg BID - will DC on 3.125mg BID. See above otherwise - Will resume Valsartan on Discharge. - Follow up with PCP for Coreg titration upwards and further BP monitoring. - Pt encouraged to monitor BP at home. (4) History of atrial fibrillation: - Asymptomatic & Paced rhythm. - HR was consistently under 70bpm entire admission. - Discharge on lower dose of coreg as above. - Continue anticoagulation with Eliquis (5) Hypothyroid: Continue Levothyroxine (6) CAD (coronary artery disease): - Stable, denies chest pain. - Coreg as above - Continue Simvastatin (7) Complete heart block: s/p pacemaker Continue to monitor (8) Dyslipidemia: Continue Simvastatin as above Total Time Total Time Spent Total Time Spent (In Minutes): <30 Discharge Plan Discharge Items Patient Disposition: Home - Home Health Services Reason For Visit: SEPSIS,PNEUMONIA Discharge Diagnosis: Aspiration Pneumonia Discharge Goals: Decrease discomfort, Improve disease control and Improve function Activity: Resume your previous activity Non-emergency contact: Primary Care Provider and Oncologist Call non-emergency contact if: you have any medication questions, your symptoms worsen, your pain is not controlled and your pain is worsening Follow-up/Referrals: Michael Humphries, [Primary Care Provider] - 04/17/18 9:20 am (Please, follow up with Dr. Michael Humphries on FridayApril 17 at 9:20 am. *If you need to change this appointment, call the office at [phone].) Diet: Regular Addtl Provider Instructions: You were admitted to the hospital for a suspected aspiration pneumonia. In the Emergency Room we found your blood pressure to be low. You improved with Intravenous antibiotics and by decreasing your Carvedilol ( Coreg) dosage from 25mg twice a day to 3.125mg twice a day while holding your Valsartan. On discharge you be prescribed an antibiotic called Augmentin for 8 days and you will be given a prescription for a lower dose (3.125mg twice daily ) of Carvedilol. You may resume your Valsartan. You should follow up with your PCP regarding bringing your Coreg dose back up if your blood pressure is not controlled. You should temporarily stop taking your 25mg coreg tablets while you are on this lower dose of Coreg. Coreg is also known as Carvedilol and the names are used interchangeably. An outpatient evaluation of your swallowing ability will be arranged for you. Please expect to be contacted early next week with a date and time for your speech evaluation. Information on swallowing, pharynx and tongue strengthening exercises will be printed for you on discharge. There are exercises and dietary tips in these instructions that may prevent aspiration in the future. There are also lifestyle modifications that can be incorporated to prevent aspiration. Please read these instructions carefully. Please follow up with your Primary care provider in one week. Please keep all follow up appointments with your Oncologist. Prescriptions: New carvedilol 3.125 mg Tablet 3.125 mg PO BID 30 Days Qty: 60 RF: 0 amoxicillin-pot clavulanate [Augmentin] 875-125 mg tablet 1 tab PO BID Qty: 17 RF: 0 Continue fentanyl 75 mcg/hr patch 72 hour 1 patch TD Q72H RF: 0 loratadine [Claritin] 10 mg tablet 10 mg PO DAILY RF: 0 hydrocodone-acetaminophen 5-325 mg Tablet 1 tab PO Q4 PRN (Reason: Pain) RF: 0 sucralfate 1 gram Tablet 1 g PO QID RF: 0 simvastatin 40 mg Tablet 40 mg PO HS RF: 0 levothyroxine 100 mcg Tablet 100 mcg PO DAILY RF: 0 valsartan 160 mg Tablet 160 mg PO QAM RF: 0 insulin aspart U-100 [Novolog Flexpen U-100 Insulin] 100 unit/mL Insulin Pen subcut DIRECTED RF: 0 omeprazole 20 mg Tablet,Delayed Release (Dr/Ec) 20 mg PO BID RF: 0 insulin degludec [Tresiba FlexTouch U-100] 100 unit/mL (3 mL) Insulin Pen 40 unit SUBCUT HS RF: 0 apixaban [Eliquis] 5 mg tablet 5 mg PO BID RF: 0 ondansetron 4 mg tablet,disintegrating 4 mg Translingual Q6H PRN (Reason: nausea and vomiting) Qty: 14 RF: 0 Discontinued carvedilol 25 mg Tablet 25 mg PO BID RF: 0 Stand-Alone Forms: [employer]/Other Patient Handouts: Amoxicillin Trihydrate Clavulanate Potassium Oral tablet, Pneumonia, Sepsis, Exercises Swallow Larynx Closure, Dysphagia Diet Manage Liquids, Larynx-Lifting Exercises for Dysphagia, Tongue- Strengthening Exercises for Dysphagia, Dysphagia Aspiration Discharge Orders: Discharge Order (Routine); Ordered 04/11/18 Ordered By: Pj Cat Admission Data Admit Date/Time: 04/09/18 16:54 Attending Provider: Leonid Monroe Admit Provider: Eriberto Monsalve Primary Care Provider: Michael Humphries Other Providers: Eriberto Monsalve Service: Telemetry Other Interventions: Discharge Summary Assessment (RN) Last Done: 04/11/18 13:35 DC Date/Time DO NOT enter until pt leaves facility: 04/11/18 14:53 Supervising Physician Co-Signing Physician Notes I personally examined the patient and verified all villaseñor points of history and exam, discussed case, and agree with decision making with Dr Cat. Feeling much good, wants to go home Vitals noted, in general he is awake alert oriented x3 pleasant no distress. HEENT normal cephalic atraumatic mucous members are moist. breathing unlabored no accessory muscles good effort Possible sepsis related to pneumoniathis appears to have improved, home as above. Resident Activity Tracking Resident Involvement: Resident Care Provided Care Provided: Adult Hospital Medicine
== END 2018-04-11 14:53 | disposition home health service (06) | DRG 871 ==
LOC: ED 14:07 → 2E 16:54 → SUATTDRO 16:54 → 2E 18:07

== ENCOUNTER 2018-06-09 19:27 | Inpatient (IN) ==
[2018-06-09] MEDS ORDERED: SODIUM CHLORIDE 0.9% 500 ML IV ONE (20:10)
[2018-06-09 21:17] LABS: INR 1.2 (0.9-1.1); Prothrombin Time 11.9 Seconds (9.0-12.0)
[2018-06-09 21:23] LABS: Albumin Level 2.8 gm/dl (3.4-5.0); BUN Creatinine Ratio 19.9 (10-20); Calcium 8.5 mg/dl (8.5-10.1); Creatinine Clr Calc Pharmacy 76.4 ml/min; Est GFR (African American) 99.2; Est GFR (Non-African American) 85.6; Potassium 3.6 mmol/L (3.5-5.1)
[2018-06-09 21:27] LABS: Albumin Globulin Ratio 0.7 (0.9-2); Bilirubin Direct 0.2 mg/dl (0-0.2); Bilirubin,Total 0.6 mg/dl (0.2-1); Globulin 3.8 gm/dl (2.5-4.0); Phosphorus 3.1 mg/dl (2.5-4.9); Total Protein 6.6 gm/dl (6.4-8.2)
[2018-06-09 21:37] LABS: Hematocrit (blood only) 27.4 % (42-52); Hemoglobin 9.4 g/dL (14.0-18.0); Mean Corpuscular Hgb Conc 34.3 g/dL (32-36); Mean Corpuscular Volume 96.5 fL (80-100); Mean Platelet Volume 9.5 fL (7.4-10.4); Platelet Count 132 K/uL (130-400); RDW Coefficient of Variation 22.1 % (11.5-14.5); RDW Standard Deviation 77.7 fL (36.4-46.3); Red Blood Count 2.84 M/uL (4.7-6.1); White Blood Count 60.76 K/uL (4.8-10.8)
[2018-06-09 21:38] LABS: Basophils # (auto) 0.03 K/uL (0-0.2); Dohle Bodies 1+; Eosinophils # (auto) 0.01 K/uL (0-0.5); Immature Granulocytes # (auto) 2.88 K/uL (0.00-0.02); Immature Granulocytes % (auto) 4.7 %; Lymphocytes # (auto) 0.87 K/uL (1.2-3.4); Lymphocytes % (auto) 1.4 %; Monocytes # (auto) 0.88 K/uL (0.11-0.59); Monocytes % (auto) 1.4 %; Neutrophils # (auto) 56.09 K/uL (1.4-6.5); Neutrophils % (auto) 92.5 %; Platelet Estimate Normal (Normal); Stomatocytes 1+
[2018-06-09] MEDS ORDERED: IOVERSOL 100ml IV PRN (21:40)
--- NOTE | 2018-06-09 21:57 | CT Scan Report ---
CT abd pelvis IV con only CLINICAL HISTORY: abdominal/rectal pain, metastatic rectal ca COMPARISON STUDY: 05/17/2018 TECHNIQUE: The patient was scanned in a dynamic helical fashion during intravenous administration of 94 cc of Optiray 320. A dose lowering technique was utilized adhering to the principles of ALARA. CT DOSE: 504.22 mGy.cm FINDINGS: Lower chest: There are bilateral lower lobe pulmonary nodules, similar to the preceding study. Liver: The serosal surface is somewhat nodular. Early cirrhosis must be considered. There is a stable 1 cm right lobe hypodensity. This likely represents a cyst. The portal vein is patent. Mild prominen ce the common bile duct likely relates to prior cholecystectomy Gallbladder: Surgically absent Spleen: Normal in size and attenuation. Pancreas: Unremarkable. Adrenal glands: Unremarkable. Kidneys: There are bilateral renal cysts. The largest on the left measures 6.2 cm. The largest in the right measures 6.7 cm. There is a 1 cm left renal calculus. There is no hydronephrosis. No ureteral calculi are visualized. Bowel: There are no transition zones indicate bowel obstruction. There is moderate fecal retention. T here is stable nonspecific thickening at the rectoanal junction. Peritoneum: There is no intraperitoneal free air or abdominal ascites. Vasculature: The abdominal aorta is normal in course and caliber. Adenopathy: None. Pelvic viscera: The bladder is distended measuring 19 cm in length. Skeletal structures: Postsurgical changes within the lumbar spine are again evident. IMPRESSION: 1. No evidence of bowel obstruction. No evidence of free air 2. Moderate fecal retention 3. Stable nonspecific thickening at the rectoanal junction 4. Multiple lower lobe pulmonary nodules similar to the prior study 5. Left-sided nephrolithiasis 6. Interval development of a distended urinary bladder which measures 19 cm in length Electronically signed by: Maikel Rao M.D. 06/09/2018 9:55 PM
[2018-06-09] MEDS ORDERED: LIDOCAINE 2% JELLY 5 ML TUBE ONE (22:03)
[2018-06-09] MEDS ORDERED: MoRPHine SULFATE 10 MG/ML CARP/VIAL IV STA (22:10)
--- NOTE | 2018-06-09 22:48 | Emergency Department Note ---
Entered by Beverly Roque acting as a scribe for Pablo Jean-Baptiste MD History of Present Illness General Chief complaint: Rectal Pain Stated complaint: RECTAL PAIN Time Seen by Provider: 06/09/18 20:08 Source: patient Limitations: no limitations History of Present Illness Provider complaint: rectal pain Onset (ago): year(s) (1.5) Location: buttocks Maximum Pain Intensity: 10 Associated symptoms: + nausea/vomiting (nausea no vomiting ) and + other (+constipation) Treatments prior to arrival: other (+oxycodone ) The patient is a 82 year old male who presents to the Emergency Room with complaints of rectal pain. The patient states that he has Stage 4 rectal cancer and states that he has had severe rectal pain from this. The patient states that he has constipation and nausea. The patient denies any vomiting. The patient states that his last bowel movement was 4 days prior to arrival and states that his usual bowel movements are every 4 days. The patient states that he is currently undergoing chemotherapy and states that his last treatment was 2 days prior to arrival. The patient states that he has been undergoing treatment for 1.[address] Marcano. The patient states that he takes oxycodone every 4 hours to manage his pain. Home Medications Home Medications Medication Instructions Recorded Confirmed Type Novolog Flexpen U-100 Insulin 0 units SUBCUT DIRECTED 10/19/17 06/09/18 History Tresiba FlexTouch U-100 40 unit SUBCUT HS 10/19/17 06/09/18 History levothyroxine 100 mcg PO QAM 10/19/17 06/09/18 History omeprazole 20 mg PO BID 10/19/17 06/09/18 History simvastatin 40 mg PO HS 10/19/17 06/09/18 History sucralfate 1 g PO QID 10/19/17 06/09/18 History apixaban 5 mg tablet 5 mg PO BID 04/09/18 06/09/18 History loratadine 10 mg tablet 10 mg PO QAM 04/09/18 06/09/18 History carvedilol 3.125 mg PO BID 05/17/18 06/09/18 History fentanyl 100 mcg TRANSDERMAL Q72H 05/17/18 06/09/18 History albuterol sulfate [ProAir HFA] 1 - 2 puff INHALATION Q6H PRN 06/09/18 06/09/18 History escitalopram oxalate 15 mg PO DAILY 06/09/18 06/09/18 History furosemide 40 mg PO DAILY 06/09/18 06/09/18 History hydrocodone-acetaminophen 1 tab PO .Q 4-6HR PRN 06/09/18 06/09/18 History hydrocortisone 1 applic TOPICAL DIRECTED 06/09/18 06/09/18 History linaclotide [Linzess] 145 mg PO DAILY 06/09/18 06/09/18 History ondansetron HCl 8 mg PO Q8 PRN 06/09/18 06/09/18 History prochlorperazine maleate 10 mg PO Q6 PRN 06/09/18 06/09/18 History vit C-E-zinc foi-gvovav-elusmp 1 tab PO BID 06/09/18 06/09/18 [facility] Allergies Allergy/AdvReac Type Severity Reaction Status Date / Time No Known Allergies Allergy Verified 06/09/18 23:31 Past Med/Surg History Medical History Sepsis Pneumonia (Acute) Hypotension (Acute) Hypomagnesemia (Acute) CAD (coronary artery disease) (Chronic) Pacemaker (Chronic) Hypothyroid (Chronic) Complete heart block (Chronic) HTN (hypertension) (Chronic) History of atrial fibrillation (Chronic) Aortic stenosis (Chronic) Mitral stenosis (Chronic) GERD (gastroesophageal reflux disease) (Chronic) Dyslipidemia (Chronic) Sleep apnea (Chronic) Rectal adenocarcinoma (Acute 06/03/17) "Rectal bleeding Evaluation under anethesia and finding of a rectal mass June 03, 2017 Biopsy revealing adenocarcinoma Plan for radiation and Xeloda Status post completion of combined neoadjuvant radiation and chemotherapy. Radiation was completed August 29, 2017. He received 5040 cGy" On 07/08/17 10:30 Rebecca Campbell wrote "Rectal bleeding Evaluation under anethesia and finding of a rectal mass June 03, 2017 Biopsy revealing adenocarcinoma Plan for radiation and Xeloda" On 07/08/17 10:23 Bayron Barajas wrote "Rectal bleeding Evaluation under anethesia and finding of a rectal mass Biopsy revealing adenocarcinoma Plan for radiation and Xeloda" Constipation (Acute) Elevated troponin Heart block (Chronic) Atrial fibrillation (Chronic) Diabetes (Chronic) Heart disease (Chronic) Rectal cancer (Chronic) RECENT DIAGNOSIS, REASON FOR A-PORT PLACEMENT Degenerative disc disease Fusion of spine LUMBAR GERD (gastroesophageal reflux disease) Hyperlipidemia Hypertension Osteoarthritis Sleep apnea Surgical History Hx of cholecystectomy (Resolved) History of back surgery (Resolved) S/P AVR (aortic valve replacement) (Chronic) "06/16/2013- # 23 Chow II bioprosthesis, Dr. William [facility]" S/P CABG x 2 (Chronic) "CABG x 2; 06/16/2013; Dr. William [facility] [place]" History of carpal tunnel surgery (Chronic) S/P AVR (aortic valve replacement) (Chronic) 05/2013 Status cardiac pacemaker (Chronic) 2014. FOLLOWS WITH DR. LASSITER IN CARDIO. History of cholecystectomy History of colonoscopy History of coronary artery bypass graft 2 VESSELS PER MEDICAL RECORD 05/2013 History of total knee replacement B/L Family History Other DM type 2 (diabetes mellitus, type 2) Hypertension Social History Preferred Language: Polish Communication Ability: Effective Visual Impairment: No Limitations Parking Meter Collector Required: No Beliefs That Will Affect Care: None marital status: Current Living Situation: Spouse current occupational status: retired Feels Safe at Home: Yes Safety Concerns: Feels Safe At This Time Smoking Status: Never smoker Second Hand Exposure: No Hx Alcohol Use: No Hx Substance Use: No Review of Systems See HPI for pertinent positives & negatives. and A total of 10 systems reviewed and were otherwise negative See HPI for pertinent positives & negatives. A total of 10 systems reviewed and were otherwise negative. Physical Exam Vital Signs Vital Signs - 24 hr 06/09/18 19:36 06/09/18 21:36 06/09/18 21:48 Temperature 36.5 C Temperature Source Oral Sepsis Recent Fever Within 48 Hours No Sepsis New/Unexplained Change in Mental Status No Sepsis Action Taken by Nursing No Action Required Pulse Rate 66 Pulse Rate [Apical] 71 Pulse Rhythm Regular Pulse Rhythm [Apical] Pulse Strength Normal Pulse Strength [Apical] Respiratory Rate 17 18 Respiratory Effort / Characteristics Non-Labored Spontaneous Non-Labored Spontaneous Respiratory Depth Normal Normal Respiratory Pattern Regular Regular Blood Pressure 144/72 H Blood Pressure [Right Arm] 177/82 H Blood Pressure Mean 96 Blood Pressure Mean [Right Arm] 113 Blood Pressure Position Sitting Blood Pressure Position [Right Arm] Lying Pulse Oximetry 95 96 96 Oxygen Delivery Method Room Air Room Air Room Air 06/09/18 23:36 06/10/18 00:00 06/10/18 01:04 Temperature 36.6 C Temperature Source Oral Sepsis Recent Fever Within 48 Hours Sepsis New/Unexplained Change in Mental Status Sepsis Action Taken by Nursing Pulse Rate Pulse Rate [Apical] 70 66 69 Pulse Rhythm Pulse Rhythm [Apical] Regular Pulse Strength Pulse Strength [Apical] Normal Respiratory Rate 18 18 16 Respiratory Effort / Characteristics Non-Labored Spontaneous Non-Labored Spontaneous Non-Labored Spontaneous Respiratory Depth Normal Normal Normal Respiratory Pattern Regular Regular Regular Blood Pressure Blood Pressure [Right Arm] 179/84 H 171/76 H 184/72 H Blood Pressure Mean Blood Pressure Mean [Right Arm] 115 107 109 Blood Pressure Position Blood Pressure Position [Right Arm] Lying Lying Lying Pulse Oximetry 97 94 94 Oxygen Delivery Method Room Air Room Air Room Air 06/10/18 01:12 06/10/18 01:56 Temperature Temperature Source Sepsis Recent Fever Within 48 Hours Sepsis New/Unexplained Change in Mental Status Sepsis Action Taken by Nursing Pulse Rate 74 Pulse Rate [Apical] Pulse Rhythm Pulse Rhythm [Apical] Pulse Strength Pulse Strength [Apical] Respiratory Rate 18 Respiratory Effort / Characteristics Non-Labored Accessory Muscle Use Respiratory Depth Normal Respiratory Pattern Regular Blood Pressure 180/77 H Blood Pressure [Right Arm] Blood Pressure Mean Blood Pressure Mean [Right Arm] Blood Pressure Position Blood Pressure Position [Right Arm] Pulse Oximetry 97 Oxygen Delivery Method Room Air GENERAL: Awake, alert, fatigued/chronically-ill appearing, in no distress. HENT: Normocephalic, atraumatic. Oropharynx with dry mucous membranes and otherwise unremarkable. EYES: Normal conjunctiva. Sclera non-icteric. NECK: Supple. No nuchal rigidity. FROM. No JVD. RESPIRATORY: Scant intermittent wheeze, otherwise clear. CARDIAC: Regular rate, normal rhythm. Extremities warm and well perfused. Pulses equal. ABDOMEN: Soft, Mild suprapubic fullness. No tenderness to palpation. No rebound or guarding. No masses. RECTAL: Deferred. MUSCULOSKELETAL: Chest examination reveals no tenderness. The back is symmetrical on inspection without obvious abnormality. There is no CVA t enderness to palpation. No joint edema. LOWER EXTREMITIES: Calves are equal size bilaterally and non-tender. No edema. No discoloration. NEURO: Normal sensorium. No sensory or motor deficits noted. SKIN: No rash or jaundice noted. Procedures Rectal Disimpaction Time out performed rectal disimpaction: Yes Indication: fecal impaction Procedural Sedation: No Sedation/Analgesia: opioids and other (Lidocaine Jelly) Technique: manual disimpaction with gloved finger Result: unable to disimpact Patient Tolerated Procedure: well Complications: bleeding (scant) Course 2020: The patient was evaluated in room C1B, and a complete history and physical examination were performed. Administered Medications Hydrocodone Bitart/Acetaminophen (Fulda 10/325) 1 tab PO Q4H PRN PRN Reason: Pain Stop: 06/24/18 01:41 Last Admin: 06/10/18 02:02 Dose: 1 tab Documented by: [id number] Carvedilol (Coreg) 3.125 mg PO BID KARIS Stop: 07/10/18 01:41 Last Admin: 06/10/18 02:17 Dose: 3.125 mg Documented by: [id number] Docusate Sodium (Colace) 100 mg PO BID KARIS Stop: 07/10/18 00:44 Last Admin: 06/10/18 02:17 Dose: 100 mg Documented by: [id number] Fentanyl (Duragesic) 100 mcg TD Q72H KARIS Stop: 06/24/18 01:41 Last Admin: 06/10/18 02:49 Dose: Not Given Documented by: [id number] Multivitamins/Minerals (Multivitamin W/ Minerals Tab) 1 tab PO BID KARIS Stop: 07/10/18 01:41 Last Admin: 06/10/18 02:20 Dose: 1 tab Documented by: [id number] Polyethylene Glycol (Miralax Powder Packet) 17 gm PO DAILY KARIS Stop: 07/10/18 01:41 Last Admin: 06/10/18 02:19 Dose: 17 gm Documented by: [id number] Prochlorperazine (Compazine) 10 mg PO Q6 PRN PRN Reason: Nausea Stop: 07/10/18 01:41 Last Admin: 06/10/18 02:17 Dose: 10 mg Documented by: [id number] Discontinued Medications Sodium Chloride (Nss) 500 mls @ 999 mls/hr IV .Q31M ONE Stop: 06/09/18 20:40 Last Infusion: 06/09/18 21:19 Dose: 0 mls/hr Documented by: [id number] Admin: 06/09/18 20:49 Dose: 999 mls/hr Documented by: [id number] Ioversol (Optiray 320 100ml) 94 ml IV ONCE PRN PRN Reason: Interaction Checking Stop: 06/13/18 21:39 Last Admin: 06/09/18 21:40 Dose: 94 ml Documented by: [id number] Lidocaine HCl (Xylocaine Jely 2%) Confirm Administered Dose 5 ml .ROUTE .STK-MED ONE Stop: 06/09/18 22:04 Last Admin: 06/09/18 22:15 Dose: 5 ml Documented by: [id number] Morphine Sulfate (Morphine Sulfate) 6 mg IV NOW STA Stop: 06/09/18 22:11 Last Admin: 06/09/18 22:14 Dose: 6 mg Documented by: [id number] Morphine Sulfate (Morphine Sulfate) 4 mg IV NOW STA Stop: 06/10/18 00:18 Last Admin: 06/10/18 00:26 Dose: 4 mg Documented by: [id number] Ondansetron HCl (Zofran) Confirm Administered Dose 4 mg .ROUTE .STK-MED ONE Stop: 06/09/18 22:50 Last Admin: 06/09/18 22:58 Dose: 4 mg Documented by: [id number] Medical Decision Making Differential Diagnosis Differential diagnosis: Etiologies such as functional constipation, drug effect, lack of activity, impaction, obstruction, volvulus, metabolic abnormality, infection, neurologic process, as well as others were entertained. Medical Records Attestation: I reviewed the patient's medical records. Home Medications Current Medication List: was personally reviewed by me Laboratory Data Attestation: I reviewed the patient's lab results. Result diagrams: 06/09/18 20:43 06/09/18 20:43 Lab Results 06/09/18 06/09/18 06/09/18 Range/Units 20:43 20:43 20:43 WBC 60.76 H* (4.8-10.8) K/uL RBC 2.84 L (4.7-6.1) M/uL Hgb 9.4 L (14.0-18.0) g/dL Hct 27.4 L (42-52) % MCV 96.5 (80-100) fL MCH 33.1 (25-34) pg MCHC 34.3 (32-36) g/dL RDW Std Deviation 77.7 H (36.4-46.3) fL RDW Coeff of Geovani 22.1 H (11.5-14.5) % Plt Count 132 (130-400) K/uL MPV 9.5 (7.4-10.4) fL Immature Gran % (Auto) 4.7 % Neut % (Auto) 92.5 % Lymph % (Auto) 1.4 % [place] % (Auto) 1.4 % Eos % (Auto) 0.0 % Baso % (Auto) 0.0 % Immature Gran # (Auto) 2.88 H (0.00-0.02) K/uL Neut # (Auto) 56.09 H (1.4-6.5) K/uL Lymph # (Auto) 0.87 L (1.2-3.4) K/uL [place] # (Auto) 0.88 H (0.11-0.59) K/uL Eos # (Auto) 0.01 (0-0.5) K/uL Baso # (Auto) 0.03 (0-0.2) K/uL Dohle Bodies 1+ Platelet Estimate Normal (Normal) Stomatocytes 1+ PT 11.9 (9.0-12.0) Seconds INR 1.2 H (0.9-1.1) Sodium 132 L (136-145) mmol/L Potassium 3.6 (3.5-5.1) mmol/L Chloride 96 L (98-107) mmol/L Carbon Dioxide 28 (21-32) mmol/L Anion Gap 9.0 (3-11) BUN 15 (7-18) mg/dl Creatinine 0.76 (0.6-1.4) mg/dl Est Cr Clr Drug Dosing 76.4 ml/min Est GFR ( Amer) 99.2 Est GFR (Non-Af Amer) 85.6 BUN/Creatinine Ratio 19.9 (10-20) Glucose 270 H (70-99) mg/dl POC Glucose (70-99) Calcium 8.5 (8.5-10.1) mg/dl Phosphorus 3.1 (2.5-4.9) mg/dl Magnesium 2.0 (1.8-2.4) mg/dl Total Bilirubin 0.6 (0.2-1) mg/dl Direct Bilirubin 0.2 (0-0.2) mg/dl AST 31 (15-37) U/L ALT 31 (12-78) U/L Alkaline Phosphatase 155 H (45-117) U/L Total Protein 6.6 (6.4-8.2) gm/dl Albumin 2.8 L (3.4-5.0) gm/dl Globulin 3.8 (2.5-4.0) gm/dl Albumin/Globulin Ratio 0.7 L (0.9-2) Lipase 88 (73-393) U/L Urine Color Urine Appearance (Clear) Urine pH (4.5-7.5) Ur Specific [place] (1.000-1.030) Urine Protein (Negative) Urine Glucose (UA) (Negative) Urine Ketones (Negative) Urine Blood (Negative) Urine Nitrite (Negative) Urine Bilirubin (Negative) Urine Urobilinogen (Negative) Ur Leukocyte Esterase (Negative) Urine WBC (Auto) (0-5) /hpf Urine RBC (Auto) (0-4) /hpf U Hyaline Cast (Auto) (0-5) /lpf U Epithel Cells (Auto) (0-5) /lpf Urine Bacteria (Auto) (Negative) 06/09/18 06/10/18 Range/Units 23:00 02:39 WBC (4.8-10.8) K/uL RBC (4.7-6.1) M/uL Hgb (14.0-18.0) g/dL Hct (42-52) % MCV (80-100) fL MCH (25-34) pg MCHC (32-36) g/dL RDW Std Deviation (36.4-46.3) fL RDW Coeff of Geovani (11.5-14.5) % Plt Count (130-400) K/uL MPV (7.4-10.4) fL Immature Gran % (Auto) % Neut % (Auto) % Lymph % (Auto) % [place] % (Auto) % Eos % (Auto) % Baso % (Auto) % Immature Gran # (Auto) (0.00-0.02) K/uL Neut # (Auto) (1.4-6.5) K/uL Lymph # (Auto) (1.2-3.4) K/uL [place] # (Auto) (0.11-0.59) K/uL Eos # (Auto) (0-0.5) K/uL Baso # (Auto) (0-0.2) K/uL Dohle Bodies Platelet Estimate (Normal) Stomatocytes PT (9.0-12.0) Seconds INR (0.9-1.1) Sodium (136-145) mmol/L Potassium (3.5-5.1) mmol/L Chloride (98-107) mmol/L Carbon Dioxide (21-32) mmol/L Anion Gap (3-11) BUN (7-18) mg/dl Creatinine (0.6-1.4) mg/dl Est Cr Clr Drug Dosing ml/min Est GFR ( Amer) Est GFR (Non-Af Amer) BUN/Creatinine Ratio (10-20) Glucose (70-99) mg/dl POC Glucose 240 H (70-99) Calcium (8.5-10.1) mg/dl Phosphorus (2.5-4.9) mg/dl Magnesium (1.8-2.4) mg/dl Total Bilirubin (0.2-1) mg/dl Direct Bilirubin (0-0.2) mg/dl AST (15-37) U/L ALT (12-78) U/L Alkaline Phosphatase (45-117) U/L Total Protein (6.4-8.2) gm/dl Albumin (3.4-5.0) gm/dl Globulin (2.5-4.0) gm/dl Albumin/Globulin Ratio (0.9-2) Lipase (73-393) U/L Urine Color Yellow Urine Appearance Clear (Clear) Urine pH 6.5 (4.5-7.5) Ur Specific [place] 1.018 (1.000-1.030) Urine Protein 1+ H (Negative) Urine Glucose (UA) 3+ H (Negative) Urine Ketones Negative (Negative) Urine Blood Negative (Negative) Urine Nitrite Negative (Negative) Urine Bilirubin Negative (Negative) Urine Urobilinogen Negative (Negative) Ur Leukocyte Esterase Negative (Negative) Urine WBC (Auto) 1-5 (0-5) /hpf Urine RBC (Auto) 0-4 (0-4) /hpf U Hyaline Cast (Auto) 0 (0-5) /lpf U Epithel Cells (Auto) 0-5 (0-5) /lpf Urine Bacteria (Auto) Negative (Negative) Imaging Data Radiologist's Impression: Radiology results as stated below per my review and the radiologist's interpretation: CT abd pelvis IV con only CLINICAL HISTORY: abdominal/rectal pain, metastatic rectal ca COMPARISON STUDY: 05/17/2018 TECHNIQUE: The patient was scanned in a dynamic helical fashion during intravenous administration of 94 cc of Optiray 320. A dose lowering technique was utilized adhering to the principles of ALARA. CT DOSE: 504.22 mGy.cm FINDINGS: Lower chest: There are bilateral lower lobe pulmonary nodules, similar to the preceding study. Liver: The serosal surface is somewhat nodular. Early cirrhosis must be considered. There is a stable 1 cm right lobe hypodensity. This likely represents a cyst. The portal vein is patent. Mild prominence the common bile duct likely relates to prior cholecystectomy Gallbladder: Surgically absent Spleen: Normal in size and attenuation. Pancreas: Unremarkable. Adrenal glands: Unremarkable. Kidneys: There are bilateral renal cysts. The largest on the left measures 6.2 cm. The largest in the right measures 6.7 cm. There is a 1 cm left renal calculus. There is no hydronephrosis. No ureteral calculi are visualized. Bowel: There are no transition zones indicate bowel obstruction. There is moderate fecal retention. There is stable nonspecific thickening at the rectoanal junction. Peritoneum: There is no intraperitoneal free air or abdominal ascites. Vasculature: The abdominal aorta is normal in course and caliber. Adenopathy: None. Pelvic viscera: The bladder is distended measuring 19 cm in length. Skeletal structures: Postsurgical changes within the lumbar spine are again evident. IMPRESSION: 1. No evidence of bowel obstruction. No evidence of free air 2. Moderate fecal retention 3. Stable nonspecific thickening at the rectoanal junction 4. Multiple lower lobe pulmonary nodules similar to the prior study 5. Left-sided nephrolithiasis 6. Interval development of a distended urinary bladder which measures 19 cm in length Electronically signed by: Maikel Rao M.D. 06/09/2018 9:55 PM Blood Pressure Blood Pressure Findings: Elevated blood pressure MDM Narrative The patient is a pleasant 82-year-old gentleman with a past medical history of stage IV rectal cancer who presents emergency department with intractable rectal pain in the setting of a large rectal fissure in the setting of his rectal cancer per hpi. Patient has been seen in the emergency department for this pain with associated constipation in the setting of his heavy narcotic use in the setting of his cancer twice in the past month, including initial visit with u rinary retention related to the patient's stool burden. Patient was referred to emergency department if symptoms worsen by his oncologist Dr. Marcano for additional pain control and likely surgical consultation for possible diversion given the patient's persistent intractable symptoms. On arrival patient is chronically ill-appearing but no acute distress, afebrile stable vital signs. Patient has suprapubic fullness but no tenderness to palpation. WBC 60 K the setting of the patient's Neulasta. H/H 9.4/27.4 similar to prior values. Platelets within normal limits. Chemistry without acidosis. LFTs unremarkable. CT abdomen pelvis demonstrates stable findings related to the patient's metast atic disease with moderate stool burden. Patient's bladder is distended. Disimpaction attempted at the bedside with marginal results. Subsequent enema also with marginal results. Of note, during enema patient did spontaneously void/urinate large volume with subsequent bladder scan per RN without retention. Case was discussed with Dr. Marcano who further describes the patient's persistent intractable pain requiring significant doses of narcotics without success which also makes his constipation worsen and then subsequently his rectal pain worse. Recommends admission to optimize pain control and possible surgical consultation to assess possibility/appropriateness for diversion, which while a drastic measure could alleviate the patient's recurring sx. Case d/w Dr. Rollins, [facility] [place], who will evaluate the patient for admission. Impression & Plan Intractable pain, Metastatic disease, Obstipation Discharge Plan Visit Data *Final* Discharge Date/Time: 06/10/18 01:12 Chief Complaint: Rectal Pain Stated Complaint: RECTAL PAIN ED Provider: Pablo Jean-Baptiste Discharge Problem: Intractable pain, Metastatic disease, Obstipation Patient Disposition: Admitted As Inpatient Discharge Instructions Interventions: ED Discharge Assessment Last Done: 06/10/18 01:12 The scribe's documentation has been prepared under my direction and personally reviewed by me in its entirety. I confirm that the note above accurately reflects all work, treatment, procedures, and medical decision making performed by me.
[2018-06-09] MEDS ORDERED: ONDANSETRON INJ 2 MG/ML 2 ML VIAL ONE (22:49)
[2018-06-09 23:27] LABS: Appearance Urine Clear (Clear); Bacteria Urine Automated Negative (Negative); Bilirubin Urine Negative (Negative); Blood Urine Negative (Negative); Cast Urine Automated 0 /lpf (0-5); Color Urine Yellow; Epithelial Cell Urine Auto 0-5 /lpf (0-5); Glucose Urine UA 3+ (Negative); Ketones Urine Negative (Negative); Leukocyte Esterase Urine Negative (Negative); Nitrite Urine Negative (Negative); Protein Urine 1+ (Negative); RBC Urine Automated 0-4 /hpf (0-4); Specific Gravity Urine 1.018 (1.000-1.030); Urobilinogen Urine Negative (Negative); pH Urine 6.5 (4.5-7.5)
[2018-06-10] MEDS ORDERED: MoRPHine SULFATE 4 MG/ML 1 ML CARP\\VIAL IV STA (00:17)
--- NOTE | 2018-06-10 00:38 | History & Physical Report ---
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 Refractory anal pain in the setting of stage 4 rectal adenocarcinoma exacerbated by narcotic induced constipation -afebrile -WBC elevated in the setting of neulasta (received chemo 2 days ago) -Continue home fentanyl 100mcg patch, norco 10/325 1 tab Q4H PRN and Linzess -Consider morphine for break through pain -Received soap suds enema in the ED -Bowel regimen: miralax and colace daily -Continue home zofran and compazine for nausea/vomiting -Surgery consulted for diversion surgery recommended by Dr. Marcano - NPO for possible procedure -Oncology consulted: Dr. Marcano Anal fissure -Continue hydrocortisone cream -Started on nitro 2% cream BID -Bowel and pain regimen as above CAD/HTN/HLD/AVR/MV stenosis/AFib -Continue home carvedilol, lasix, simvastatin and apixaban DM2 -Hold home insulin regimen while NPO -On SSI with Novolog Hypothyroidism -Continue levothyroxine GERD -Continue prilosec Anemia -Hgb 9.4 (baseline 9-10) -No concern for acute bleed at this time -Continue to monitor CBC Mood disorder -Continue home escitalopram DVT prophylaxis: apixaban Code: Full Dispo: med/surg telemetry (2) Metastatic disease: (3) CAD (coronary artery disease): (4) Pacemaker: (5) Hypothyroid: (6) Complete heart block: (7) HTN (hypertension): (8) History of atrial fibrillation: (9) Mitral stenosis: (10) GERD (gastroesophageal reflux disease): (11) Dyslipidemia: (12) Sleep apnea: (13) DM type 2 (diabetes mellitus, type 2): (14) S/P AVR (aortic valve replacement): (15) S/P CABG x 2: (16) Rectal adenocarcinoma: (17) Constipation: (18) Diabetes: History of Present Illness Chief Complaint: Anal pain Primary Care Provider: Michael Humphries, DO 82 yo M with h/o of CAD s/p CABGx 2, AVR, MV stenosis, Afib, HTN, HLD, complete heart block with pacemaker, DM2, ESME, GERD, hypothyroidism, mood disorder and rectal adenocarcinoma stage 4 ([id number]) presents with severe rectal pain exacerbated by constipation and anal fissure. Pt is on narcotics for significant anal pain secondary to stage 4 rectal cancer which subsequently causes constipation and exacerbated anal pain. He currently also has an anal fissure. Last BM was 4 days ago and semi-hard. He did not note any bleeding or dark stools. A/w nausea. Oncologist is Dr. Marcano. Denies any f/c, HAMM/dizziness, cp, sob, abdominal pain, vomiting, hematochezia, melena, hematuria, dysuria. Surgical hx: cholecystectomy, back surgery, AVR, CABGx2 Allergies Allergy/AdvReac Type Severity Reaction Status Date / Time No Known Allergies Allergy Verified 06/09/18 23:31 Home Medications Home Medications Medication Instructions Recorded Confirmed Type Novolog Flexpen U-100 Insulin 0 units SUBCUT DIRECTED 10/19/17 06/09/18 History Tresiba FlexTouch U-100 40 unit SUBCUT HS 10/19/17 06/09/18 History levothyroxine 100 mcg PO QAM 10/19/17 06/09/18 History omeprazole 20 mg PO BID 10/19/17 06/09/18 History simvastatin 40 mg PO HS 10/19/17 06/09/18 History sucralfate 1 g PO QID 10/19/17 06/09/18 History apixaban 5 mg tablet 5 mg PO BID 04/09/18 06/09/18 History loratadine 10 mg tablet 10 mg PO QAM 04/09/18 06/09/18 History carvedilol 3.125 mg PO BID 05/17/18 06/09/18 History fentanyl 100 mcg TRANSDERMAL Q72H 05/17/18 06/09/18 History albuterol sulfate [ProAir HFA] 1 - 2 puff INHALATION Q6H PRN 06/09/18 06/09/18 History escitalopram oxalate 15 mg PO DAILY 06/09/18 06/09/18 History furosemide 40 mg PO DAILY 06/09/18 06/09/18 History hydrocodone-acetaminophen 1 tab PO .Q 4-6HR PRN 06/09/18 06/09/18 History hydrocortisone 1 applic TOPICAL DIRECTED 06/09/18 06/09/18 History linaclotide [Linzess] 145 mg PO DAILY 06/09/18 06/09/18 History ondansetron HCl 8 mg PO Q8 PRN 06/09/18 06/09/18 History prochlorperazine maleate 10 mg PO Q6 PRN 06/09/18 06/09/18 History vit C-E-zinc vbd-fxbomc-[id number] 1 tab PO BID 06/09/18 06/09/18 History [[facility]] Past Med/Surg History Medical History Sepsis Pneumonia (Acute) Hypotension (Acute) Hypomagnesemia (Acute) CAD (coronary artery disease) (Chronic) Pacemaker (Chronic) Hypothyroid (Chronic) Complete heart block (Chronic) HTN (hypertension) (Chronic) History of atrial fibrillation (Chronic) Aortic stenosis (Chronic) Mitral stenosis (Chronic) GERD (gastroesophageal reflux disease) (Chronic) Dyslipidemia (Chronic) Sleep apnea (Chronic) Rectal adenocarcinoma (Acute 06/03/17) "Rectal bleeding Evaluation under anethesia and finding of a rectal mass June 03, 2017 Biopsy revealing adenocarcinoma Plan for radiation and Xeloda Status post completion of combined neoadjuvant radiation and chemotherapy. Radiation was completed August 29, 2017. He received 5040 cGy" On 07/08/17 10:30 Rebecca Campbell wrote "Rectal bleeding Evaluation under anethesia and finding of a rectal mass June 03, 2017 Biopsy revealing adenocarcinoma Plan for radiation and Xeloda" On 07/08/17 10:23 Bayron Barajas wrote "Rectal bleeding Evaluation under anethesia and finding of a rectal mass Biopsy revealing adenocarcinoma Plan for radiation and Xeloda" Constipation (Acute) Elevated troponin Heart block (Chronic) Atrial fibrillation (Chronic) Diabetes (Chronic) Heart disease (Chronic) Rectal cancer (Chronic) RECENT DIAGNOSIS, REASON FOR A-PORT PLACEMENT Degenerative disc disease Fusion of spine LUMBAR GERD (gastroesophageal reflux disease) Hyperlipidemia Hypertension Osteoarthritis Sleep apnea Surgical History Hx of cholecystectomy (Resolved) History of back surgery (Resolved) S/P AVR (aortic valve replacement) (Chronic) "06/16/2013- # 23 Chow II bioprost[place], [place] [facility] [place] S/P CABG x 2 (Chronic) "CABG x 2; 06/16/2013; [place]. [place], [facility] [place] History of carpal tunnel surgery (Chronic) S/P AVR (aortic valve replacement) (Chronic) 05/2013 Status cardiac pacemaker (Chronic) 2014. FOLLOWS WITH DR. LASSITER IN CARDIO. History of cholecystectomy History of colonoscopy History of coronary artery bypass graft 2 VESSELS PER MEDICAL RECORD 05/2013 History of total knee replacement B/L Family History Other DM type 2 (diabetes mellitus, type 2) Hypertension Social History Preferred Language: Slovenian Communication Ability: Effective Visual Impairment: No Limitations Kiln Drawer Required: No Beliefs That Will Affect Care: None marital status: Current Living Situation: Spouse current occupational status: retired Feels Safe at Home: Yes Safety Concerns: Feels Safe At This Time Smoking Status: Never smoker Second Hand Exposure: No Hx Alcohol Use: No Hx Substance Use: No Review of Systems Review of Systems: As per HPI Physical Exam Physical Exam: General: In NAD, pleasant Neuro: alert, and oriented x 4 CV: RRR, 3/6 decrescendo murmur PULM: CTAB, equal breath sounds bilaterally GI: +BS, non-distended, TTP over LLQ region, large fissure along posterior rectal wall without active bleeding LE: no calf TTP, no LE edema Results & Data Vital Signs (Past 12 Hours) Vital Signs Temp Pulse Pulse Resp BP BP Pulse Ox 06/10/18 00:00 66 18 171/76 H 94 06/09/18 23:36 70 18 179/84 H 97 06/09/18 21:48 96 06/09/18 21:36 71 18 177/82 H 96 06/09/18 19:36 36.5 C 66 17 144/72 H 95 Laboratory Results Abnormal lab results 06/09/18 06/09/18 06/09/18 Range/Units 20:43 20:43 20:43 WBC 60.76 H* (4.8-10.8) K/uL RBC 2.84 L (4.7-6.1) M/uL Hgb 9.4 L (14.0-18.0) g/dL Hct 27.4 L (42-52) % RDW Std Deviation 77.7 H (36.4-46.3) fL RDW Coeff of Geovani 22.1 H (11.5-14.5) % Immature Gran # (Auto) 2.88 H (0.00-0.02) K/uL Neut # (Auto) 56.09 H (1.4-6.5) K/uL Lymph # (Auto) 0.87 L (1.2-3.4) K/uL Banks # (Auto) 0.88 H (0.11-0.59) K/uL INR 1.2 H (0.9-1.1) Sodium 132 L (136-145) mmol/L Chloride 96 L (98-107) mmol/L Glucose 270 H (70-99) mg/dl Alkaline Phosphatase 155 H (45-117) U/L Albumin 2.8 L (3.4-5.0) gm/dl Albumin/Globulin Ratio 0.7 L (0.9-2) Urine Protein (Negative) Urine Glucose (UA) (Negative) 06/09/18 Range/Units 23:00 WBC (4.8-10.8) K/uL RBC (4.7-6.1) M/uL Hgb (14.0-18.0) g/dL Hct (42-52) % RDW Std Deviation (36.4-46.3) fL RDW Coeff of Geovani (11.5-14.5) % Immature Gran # (Auto) (0.00-0.02) K/uL Neut # (Auto) (1.4-6.5) K/uL Lymph # (Auto) (1.2-3.4) K/uL Banks # (Auto) (0.11-0.59) K/uL INR (0.9-1.1) Sodium (136-145) mmol/L Chloride (98-107) mmol/L Glucose (70-99) mg/dl Alkaline Phosphatase (45-117) U/L Albumin (3.4-5.0) gm/dl Albumin/Globulin Ratio (0.9-2) Urine Protein 1+ H (Negative) Urine Glucose (UA) 3+ H (Negative) Diagnostic Findings CT abd pelvis IV con only CLINICAL HISTORY: abdominal/rectal pain, metastatic rectal ca COMPARISON STUDY: 05/17/2018 TECHNIQUE: The patient was scanned in a dynamic helical fashion during intravenous administration of 94 cc of Optiray 320. A dose lowering technique was utilized adhering to the principles of ALARA. CT DOSE: 504.22 mGy.cm FINDINGS: Lower chest: There are bilateral lower lobe pulmonary nodules, similar to the preceding study. Liver: The serosal surface is somewhat nodular. Early cirrhosis must be considered. There is a stable 1 cm right lobe hypodensity. This likely represents a cyst. The portal vein is patent. Mild prominence the common bile duct likely relates to prior cholecystectomy Gallbladder: Surgically absent Spleen: Normal in size and attenuation. Pancreas: Unremarkable. Adrenal glands: Unremarkable. Kidneys: There are bilateral renal cysts. The largest on the left measures 6.2 cm. The largest in the right measures 6.7 cm. There is a 1 cm left renal calculus. There is no hydronephrosis. No ureteral calculi are visualized. Bowel: There are no transition zones indicate bowel obstruction. There is moderate fecal retention. There is stable nonspecific thickening at the rectoanal junction. Peritoneum: There is no intraperitoneal free air or abdominal ascites. Vasculature: The abdominal aorta is normal in course and caliber. Adenopathy: None. Pelvic viscera: The bladder is distended measuring 19 cm in length. Skeletal structures: Postsurgical changes within the lumbar spine are again evident. IMPRESSION: 1. No evidence of bowel obstruction. No evidence of free air 2. Moderate fecal retention 3. Stable nonspecific thickening at the rectoanal junction 4. Multiple lower lobe pulmonary nodules similar to the prior study 5. Left-sided nephrolithiasis 6. Interval development of a distended urinary bladder which measures 19 cm in length Code Status & VTE Plan Code Status Full Code VTE Prophylaxis Plan VTE Prophylaxis will be ordered: Yes Supervising Physician Co-Signing Physician Notes 82 y/o M Hx CAD, AVR, mitral stenosis, AF, HTN, HLD, 3' heart block - pacemaker, DMII, ESME, GERD, hypothyroid, stage IV rectal adenoCA. Presents with intractable pain due to CA and a fissure. The fissure has been present for an extended period and there is consideration for diversion surgery. OE AAO x 3 S1,2 R , +M CTAB NT, ND No CCE Rectal exam per ER - large perirectal P: We have consulted surgery and requested an NTG cream compound from pharmacy - stool softeners provided - IV narcotics provided to supplement Fentanyl patch Placed on a SS for DM He is anticoagulated with Apixaban which would delay surgery for 1-2 days - will cont Carvedilol Resident Activity Tracking Resident Involvement: Resident Care Provided Care Provided: Adult Hospital Medicine
[2018-06-10] MEDS ORDERED: ALBUTEROL HFA 8 GM INHALER INH PRN (01:42)
[2018-06-10] MEDS ORDERED: MAGNESIUM HYDROXIDE SUSP 30 ML UDC PO PRN (01:42)
[2018-06-10] MEDS ORDERED: fentaNYL 100 MCG/HR TDSY TD SCH (01:42)
[2018-06-10] MEDS: HYDROCODONE/ACETAMINOPHEN 10/325 TAB PO PRN ×5 (02:02→20:33)
[2018-06-10] MEDS: CARVEDILOL 3.125 MG TAB PO SCH ×3 (02:17→21:36)
[2018-06-10] MEDS: PROCHLORPERAZINE MALEATE 10 MG TAB PO PRN (02:17)
[2018-06-10] MEDS: DOCUSATE SODIUM 100 MG CAP PO SCH ×2 (02:17→08:20)
[2018-06-10] MEDS: POLYETHYLENE (MIRALAX) 17 GM PACK PO SCH ×2 (02:19→08:20)
[2018-06-10] MEDS: CEROVITE ADV FORMULA TAB PO SCH ×3 (02:20→20:35)
[2018-06-10] MEDS ORDERED: DEXTROSE 50% 50 ML SYRINGE IV PRN (04:00)
[2018-06-10] MEDS ORDERED: GLUCOSE 40% GEL 15 GM TUBE PO PRN (04:00)
[2018-06-10] MEDS ORDERED: CARBOHYDRATES FOR HYPOGLYCEMIA PO PRN (04:00)
[2018-06-10] MEDS ORDERED: GLUCAGON FOR INJ 1 MG VIAL IM PRN (04:00)
[2018-06-10] MEDS ORDERED: GLUCOSE 10 TABS/TUBE PO PRN (04:00)
[2018-06-10] MEDS: LEVOTHYROXINE SODIUM 100 MCG TABLET PO SCH (05:44)
[2018-06-10] MEDS: INSULIN ASPART 100 UNITS/ML 3 ML PEN SC SCH ×4 (06:06→20:41)
[2018-06-10 06:56] LABS: Hematocrit (blood only) 27.6 % (42-52); Hemoglobin 9.2 g/dL (14.0-18.0); Mean Corpuscular Hgb Conc 33.3 g/dL (32-36); Mean Corpuscular Volume 98.6 fL (80-100); Mean Platelet Volume 9.3 fL (7.4-10.4); Platelet Count 106 K/uL (130-400); RDW Coefficient of Variation 22.1 % (11.5-14.5); RDW Standard Deviation 79.8 fL (36.4-46.3)
[2018-06-10 07:25] LABS: Albumin Level 2.6 gm/dl (3.4-5.0); BUN Creatinine Ratio 18.4 (10-20); Calcium 8.4 mg/dl (8.5-10.1); Creatinine Clr Calc Pharmacy 94.6 ml/min; Est GFR (African American) 104.4; Est GFR (Non-African American) 90.1; Potassium 3.6 mmol/L (3.5-5.1)
[2018-06-10 07:28] LABS: Albumin Globulin Ratio 0.7 (0.9-2); Bilirubin,Total 0.6 mg/dl (0.2-1); Globulin 3.6 gm/dl (2.5-4.0); Total Protein 6.2 gm/dl (6.4-8.2)
[2018-06-10 07:36] LABS: Basophils # (auto) 0.03 K/uL (0-0.2); Basophils % (auto) 0.1 %; Eosinophils # (auto) 0.02 K/uL (0-0.5); Immature Granulocytes # (auto) 2.95 K/uL (0.00-0.02); Immature Granulocytes % (auto) 5.1 %; Lymphocytes % (auto) 2.1 %; Monocytes # (auto) 0.89 K/uL (0.11-0.59); Monocytes % (auto) 1.5 %; Neutrophils # (auto) 53.01 K/uL (1.4-6.5); Neutrophils % (auto) 91.2 %
[2018-06-10] MEDS: CHECK FENTANYL PATCH PLACEMENT SCH ×2 (08:16→15:38)
[2018-06-10] MEDS: PANTOprazole 40 MG TAB PO SCH ×2 (08:17→20:34)
[2018-06-10] MEDS: FUROSEMIDE 40 MG TAB PO SCH (08:17)
[2018-06-10] MEDS: SUCRALFATE 1 GM TAB PO SCH ×4 (08:17→20:34)
[2018-06-10] MEDS: ESCITALOPRAM OXALATE 10 MG TAB PO SCH (08:17)
[2018-06-10] MEDS: LORATADINE 10 MG TAB PO SCH (08:17)
[2018-06-10] MEDS: APIXABAN 5 MG TABLET PO SCH ×2 (08:19→21:36)
--- NOTE | 2018-06-10 08:21 | Family Medicine Progress Note ---
Date of Service June 10, 2018 Assessment & Plan (1) Intractable pain: 82 yo M with h/o of CAD s/p CABGx 2, AVR, MV stenosis, Afib, HTN, HLD, complete heart block with pacemaker, DM2, ESME, GERD, hypothyroidism, mood disorder and rectal adenocarcinoma stage 4 ([id number]) presents with severe rectal pain exacerbated by constipation and anal fissure. Refractory anal pain in the setting of stage 4 rectal adenocarcinoma exacerbated by narcotic induced constipation -afebrile -WBC elevated to 58 in the setting of neulasta (received chemo 2 days ago) -Continue home fentanyl 100mcg patch, norco 10/325 1 tab Q4H PRN -Start Relistor for constipation -Pain management consult -PRN Runnells 10/325 -Discontinued Linzess in favor of Relistor -If anal fissure heals consider ganglionic impar nerve block -Received soap suds enema in the ED, has not had a bowel movement since -Bowel regimen: miralax daily and Senokot BID, Relistor -Continue home zofran and compazine for nausea/vomiting -Surgery consulted -Outpatient follow-up in 4 weeks to discuss palliative colostomy -Hydrocortisone suppositories 25 mg twice daily -Can consider cansa if hydrocortisone is not effective -Due to location of tumor and relation to fissure doubtful if topical therapy will be effective -Senokot S twice daily MiraLAX daily can also use milk of magnesia, mag citrate, and prune juice -Oncology consulted: Dr. Marcano -Consider palliative colostomy, likely will need to delay surgery as patient has been on biologic Bevacizumab -Consider transition to methadone if current pain med regimen is not effective Anal fissure -dc hydrocortisone cream -dc nitro cream BID and start on nifedipine 2% cream 4 times daily applied to the anus -hydrocortisone suppository -Bowel regimen per surgery -Pain regimen per pain management CAD/HTN/HLD/AVR/MV stenosis/AFib -Continue home carvedilol, lasix, simvastatin and apixaban DM2 -On SSI with Novolog Hypothyroidism -Continue levothyroxine GERD -Continue prilosec Anemia -Hgb 9.4 (baseline 9-10) -No concern for acute bleed at this time -Continue to monitor CBC Mood disorder -Continue home escitalopram DVT prophylaxis: apixaban Diet: Heart healthy/DM 1 Code: Full Dispo: med/surg telemetry Supervising Physician Co-Signing Physician Notes Patient seen and examined with Dr. Medina. Agree with history, exam, assessment and plan of care with the following updates: 82 year old male with hx of CAD s/p CABG x2, AVR, MV stenosis, afib, HTN, HLD, complete heart block with pacer, mood disorder and rectal adenocarcinoma stage 4 admitted with uncontrolled rectal pain complicated by constipation and anal fissure. 1.rectal pain. Continue home fentanyl 100mcg TD, norco 10/325. Morphine for breakthrough pain. If pain is not well controlled, may consider consulted palliative to discuss possibility of methadone vs having pain management discuss methadone possibilities. 2. constipation. s/p soap linda enema in ED. Bowel regimen. Added Relistor for opioid induced constipation. 3. anal fissure. Switch from topical nitro to topical nifedipime. Continue bowel regiment as above. Spoke with surgerycurrently not a good candidate for diversion procedure. Rec trial of optimizing bowel regimen. Pharmacy does not have Canasa in stock so will do hydrocortisone suppositories BID. We can write a rx for canasa and try to get it approved prior to discharge through his insurance. 4. anemia. Chronic. Stable. Baseline hgb ~9. 5. chronically anticoagulated with apixaban. Subjective Patient laying in the bed during the exam this morning in no acute distress. Patient reported improvement in his rectal pain although it was still quite severe. Patient is tolerating his diet, voiding, sleeping, significantly constipated with last complete bowel movement approximately 5 days ago. No acute concerns at present, answered all questions, lots of consultants scheduled for today. Patient denies fevers, chills, nausea, vomiting, diarrhea, weakness in his extremities, or other signs or symptoms of acute infectious process Physical Exam Physical Exam: General: In NAD, pleasant Neuro: alert, and oriented x 4 CV: RRR, 3/6 decrescendo murmur PULM: CTAB, equal breath sounds bilaterally GI: +BS, non-distended, TTP over LLQ region LE: no calf TTP, no LE edema Results & Data Vital Signs (Past 12 Hours) Vital Signs Temp Pulse Pulse Pulse Resp BP BP 06/10/18 07:24 36.3 C L 60 16 138/64 06/10/18 04:18 36.6 C 71 18 160/71 H 06/10/18 01:12 74 18 180/77 H 06/10/18 01:04 36.6 C 69 16 184/72 H 06/10/18 00:00 66 18 171/76 H 06/09/18 23:36 70 18 179/84 H 06/09/18 21:48 06/09/18 21:36 71 18 177/82 H Pulse Ox 06/10/18 07:24 92 06/10/18 04:18 94 06/10/18 01:12 97 06/10/18 01:04 94 06/10/18 00:00 94 06/09/18 23:36 97 06/09/18 21:48 96 06/09/18 21:36 96 Laboratory Results 06/10/18 06/10/18 06/10/18 Range/Units 16:57 11:34 06:30 WBC (4.8-10.8) K/uL RBC (4.7-6.1) M/uL Hgb (14.0-18.0) g/dL Hct (42-52) % MCV (80-100) fL MCH (25-34) pg MCHC (32-36) g/dL RDW Std Deviation (36.4-46.3) fL RDW Coeff of Geovani (11.5-14.5) % Plt Count (130-400) K/uL MPV (7.4-10.4) fL Immature Gran % (Auto) % Neut % (Auto) % Lymph % (Auto) % [place] % (Auto) % Eos % (Auto) % Baso % (Auto) % Immature Gran # (Auto) (0.00-0.02) K/uL Neut # (Auto) (1.4-6.5) K/uL Lymph # (Auto) (1.2-3.4) K/uL [place] # (Auto) (0.11-0.59) K/uL Eos # (Auto) (0-0.5) K/uL Baso # (Auto) (0-0.2) K/uL Dohle Bodies Platelet Estimate (Normal) Stomatocytes PT (9.0-12.0) Seconds INR (0.9-1.1) Sodium 132 L (136-145) mmol/L Potassium 3.6 (3.5-5.1) mmol/L Chloride 97 L (98-107) mmol/L Carbon Dioxide 28 (21-32) mmol/L Anion Gap 7.0 (3-11) BUN 12 (7-18) mg/dl Creatinine 0.67 (0.6-1.4) mg/dl Est Cr Clr Drug Dosing 94.6 ml/min Est GFR ( Amer) 104.4 Est GFR (Non-Af Amer) 90.1 BUN/Creatinine Ratio 18.4 (10-20) Glucose 193 H (70-99) mg/dl POC Glucose 198 H 188 H (70-99) Calcium 8.4 L (8.5-10.1) mg/dl Phosphorus (2.5-4.9) mg/dl Magnesium (1.8-2.4) mg/dl Total Bilirubin 0.6 (0.2-1) mg/dl Direct Bilirubin (0-0.2) mg/dl AST 29 (15-37) U/L ALT 28 (12-78) U/L Alkaline Phosphatase 180 H (45-117) U/L Total Protein 6.2 L (6.4-8.2) gm/dl Albumin 2.6 L (3.4-5.0) gm/dl Globulin 3.6 (2.5-4.0) gm/dl Albumin/Globulin Ratio 0.7 L (0.9-2) Lipase (73-393) U/L Urine Color Urine Appearance (Clear) Urine pH (4.5-7.5) Ur Specific [place] (1.000-1.030) Urine Protein (Negative) Urine Glucose (UA) (Negative) Urine Ketones (Negative) Urine Blood (Negative) Urine Nitrite (Negative) Urine Bilirubin (Negative) Urine Urobilinogen (Negative) Ur Leukocyte Esterase (Negative) Urine WBC (Auto) (0-5) /hpf Urine RBC (Auto) (0-4) /hpf U Hyaline Cast (Auto) (0-5) /lpf U Epithel Cells (Auto) (0-5) /lpf Urine Bacteria (Auto) (Negative) 06/10/18 06/10/18 06/10/18 Range/Units 06:30 05:58 02:39 WBC 58.10 H* (4.8-10.8) K/uL RBC 2.80 L (4.7-6.1) M/uL Hgb 9.2 L (14.0-18.0) g/dL Hct 27.6 L (42-52) % MCV 98.6 (80-100) fL MCH 32.9 (25-34) pg MCHC 33.3 (32-36) g/dL RDW Std Deviation 79.8 H (36.4-46.3) fL RDW Coeff of Geovani 22.1 H (11.5-14.5) % Plt Count 106 L (130-400) K/uL MPV 9.3 (7.4-10.4) fL Immature Gran % (Auto) 5.1 % Neut % (Auto) 91.2 % Lymph % (Auto) 2.1 % [place] % (Auto) 1.5 % Eos % (Auto) 0.0 % Baso % (Auto) 0.1 % Immature Gran # (Auto) 2.95 H (0.00-0.02) K/uL Neut # (Auto) 53.01 H (1.4-6.5) K/uL Lymph # (Auto) 1.20 (1.2-3.4) K/uL [place] # (Auto) 0.89 H (0.11-0.59) K/uL Eos # (Auto) 0.02 (0-0.5) K/uL Baso # (Auto) 0.03 (0-0.2) K/uL Dohle Bodies Platelet Estimate (Normal) Stomatocytes PT (9.0-12.0) Seconds INR (0.9-1.1) Sodium (136-145) mmol/L Potassium (3.5-5.1) mmol/L Chloride (98-107) mmol/L Carbon Dioxide (21-32) mmol/L Anion Gap (3-11) BUN (7-18) mg/dl Creatinine (0.6-1.4) mg/dl Est Cr Clr Drug Dosing ml/min Est GFR ( Amer) Est GFR (Non-Af Amer) BUN/Creatinine Ratio (10-20) Glucose (70-99) mg/dl POC Glucose 230 H 240 H (70-99) Calcium (8.5-10.1) mg/dl Phosphorus (2.5-4.9) mg/dl Magnesium (1.8-2.4) mg/dl Total Bilirubin (0.2-1) mg/dl Direct Bilirubin (0-0.2) mg/dl AST (15-37) U/L ALT (12-78) U/L Alkaline Phosphatase (45-117) U/L Total Protein (6.4-8.2) gm/dl Albumin (3.4-5.0) gm/dl Globulin (2.5-4.0) gm/dl Albumin/Globulin Ratio (0.9-2) Lipase (73-393) U/L Urine Color Urine Appearance (Clear) Urine pH (4.5-7.5) Ur Specific [place] (1.000-1.030) Urine Protein (Negative) Urine Glucose (UA) (Negative) Urine Ketones (Negative) Urine Blood (Negative) Urine Nitrite (Negative) Urine Bilirubin (Negative) Urine Urobilinogen (Negative) Ur Leukocyte Esterase (Negative) Urine WBC (Auto) (0-5) /hpf Urine RBC (Auto) (0-4) /hpf U Hyaline Cast (Auto) (0-5) /lpf U Epithel Cells (Auto) (0-5) /lpf Urine Bacteria (Auto) (Negative) 06/09/18 06/09/18 06/09/18 Range/Units 23:00 20:43 20:43 WBC (4.8-10.8) K/uL RBC (4.7-6.1) M/uL Hgb (14.0-18.0) g/dL Hct (42-52) % MCV (80-100) fL MCH (25-34) pg MCHC (32-36) g/dL RDW Std Deviation (36.4-46.3) fL RDW Coeff of Geovani (11.5-14.5) % Plt Count (130-400) K/uL MPV (7.4-10.4) fL Immature Gran % (Auto) % Neut % (Auto) % Lymph % (Auto) % [place] % (Auto) % Eos % (Auto) % Baso % (Auto) % Immature Gran # (Auto) (0.00-0.02) K/uL Neut # (Auto) (1.4-6.5) K/uL Lymph # (Auto) (1.2-3.4) K/uL [place] # (Auto) (0.11-0.59) K/uL Eos # (Auto) (0-0.5) K/uL Baso # (Auto) (0-0.2) K/uL Dohle Bodies Platelet Estimate (Normal) Stomatocytes PT 11.9 (9.0-12.0) Seconds INR 1.2 H (0.9-1.1) Sodium 132 L (136-145) mmol/L Potassium 3.6 (3.5-5.1) mmol/L Chloride 96 L (98-107) mmol/L Carbon Dioxide 28 (21-32) mmol/L Anion Gap 9.0 (3-11) BUN 15 (7-18) mg/dl Creatinine 0.76 (0.6-1.4) mg/dl Est Cr Clr Drug Dosing 76.4 ml/min Est GFR ( Amer) 99.2 Est GFR (Non-Af Amer) 85.6 BUN/Creatinine Ratio 19.9 (10-20) Glucose 270 H (70-99) mg/dl POC Glucose (70-99) Calcium 8.5 (8.5-10.1) mg/dl Phosphorus 3.1 (2.5-4.9) mg/dl Magnesium 2.0 (1.8-2.4) mg/dl Total Bilirubin 0.6 (0.2-1) mg/dl Direct Bilirubin 0.2 (0-0.2) mg/dl AST 31 (15-37) U/L ALT 31 (12-78) U/L Alkaline Phosphatase 155 H (45-117) U/L Total Protein 6.6 (6.4-8.2) gm/dl Albumin 2.8 L (3.4-5.0) gm/dl Globulin 3.8 (2.5-4.0) gm/dl Albumin/Globulin Ratio 0.7 L (0.9-2) Lipase 88 (73-393) U/L Urine Color Yellow Urine Appearance Clear (Clear) Urine pH 6.5 (4.5-7.5) Ur Specific [place] 1.018 (1.000-1.030) Urine Protein 1+ H (Negative) Urine Glucose (UA) 3+ H (Negative) Urine Ketones Negative (Negative) Urine Blood Negative (Negative) Urine Nitrite Negative (Negative) Urine Bilirubin Negative (Negative) Urine Urobilinogen Negative (Negative) Ur Leukocyte Esterase Negative (Negative) Urine WBC (Auto) 1-5 (0-5) /hpf Urine RBC (Auto) 0-4 (0-4) /hpf U Hyaline Cast (Auto) 0 (0-5) /lpf U Epithel Cells (Auto) 0-5 (0-5) /lpf Urine Bacteria (Auto) Negative (Negative) 06/09/18 Range/Units 20:43 WBC 60.76 H* (4.8-10.8) K/uL RBC 2.84 L (4.7-6.1) M/uL Hgb 9.4 L (14.0-18.0) g/dL Hct 27.4 L (42-52) % MCV 96.5 (80-100) fL MCH 33.1 (25-34) pg MCHC 34.3 (32-36) g/dL RDW Std Deviation 77.7 H (36.4-46.3) fL RDW Coeff of Geovani 22.1 H (11.5-14.5) % Plt Count 132 (130-400) K/uL MPV 9.5 (7.4-10.4) fL Immature Gran % (Auto) 4.7 % Neut % (Auto) 92.5 % Lymph % (Auto) 1.4 % [place] % (Auto) 1.4 % Eos % (Auto) 0.0 % Baso % (Auto) 0.0 % Immature Gran # (Auto) 2.88 H (0.00-0.02) K/uL Neut # (Auto) 56.09 H (1.4-6.5) K/uL Lymph # (Auto) 0.87 L (1.2-3.4) K/uL [place] # (Auto) 0.88 H (0.11-0.59) K/uL Eos # (Auto) 0.01 (0-0.5) K/uL Baso # (Auto) 0.03 (0-0.2) K/uL Dohle Bodies 1+ Platelet Estimate Normal (Normal) Stomatocytes 1+ PT (9.0-12.0) Seconds INR (0.9-1.1) Sodium (136-145) mmol/L Potassium (3.5-5.1) mmol/L Chloride (98-107) mmol/L Carbon Dioxide (21-32) mmol/L Anion Gap (3-11) BUN (7-18) mg/dl Creatinine (0.6-1.4) mg/dl Est Cr Clr Drug Dosing ml/min Est GFR ( Amer) Est GFR (Non-Af Amer) BUN/Creatinine Ratio (10-20) Glucose (70-99) mg/dl POC Glucose (70-99) Calcium (8.5-10.1) mg/dl Phosphorus (2.5-4.9) mg/dl Magnesium (1.8-2.4) mg/dl Total Bilirubin (0.2-1) mg/dl Direct Bilirubin (0-0.2) mg/dl AST (15-37) U/L ALT (12-78) U/L Alkaline Phosphatase (45-117) U/L Total Protein (6.4-8.2) gm/dl Albumin (3.4-5.0) gm/dl Globulin (2.5-4.0) gm/dl Albumin/Globulin Ratio (0.9-2) Lipase (73-393) U/L Urine Color Urine Appearance (Clear) Urine pH (4.5-7.5) Ur Specific [place] (1.000-1.030) Urine Protein (Negative) Urine Glucose (UA) (Negative) Urine Ketones (Negative) Urine Blood (Negative) Urine Nitrite (Negative) Urine Bilirubin (Negative) Urine Urobilinogen (Negative) Ur Leukocyte Esterase (Negative) Urine WBC (Auto) (0-5) /hpf Urine RBC (Auto) (0-4) /hpf U Hyaline Cast (Auto) (0-5) /lpf U Epithel Cells (Auto) (0-5) /lpf Urine Bacteria (Auto) (Negative) Medications Administered Current Inpatient Medications Hydrocodone Bitart/Acetaminophen (Runnells 10/325) 1 tab PO Q4H PRN PRN Reason: Pain Stop: 06/24/18 01:41 Last Admin: 06/10/18 15:41 Dose: 1 tab Documented by: Albuterol (Ventolin Hfa) 2 puffs INH Q6H PRN PRN Reason: Shortness Of Breath Or Wheezin Apixaban (Eliquis) 5 mg PO BID [facility] Stop: 07/10/18 08:59 Last Admin: 06/10/18 08:19 Dose: Not Given Documented by: Carvedilol (Coreg) 3.125 mg PO BID [facility] Stop: 07/10/18 01:41 Last Admin: 06/10/18 08:20 Dose: 3.125 mg Documented by: Nitroglycerin 7.5 inch/Emollient Ointment 67.5 gm/BARCODE IDENTIFIER 1 ea 0 inch EXT BID [facility] Stop: 07/10/18 08:59 Last Admin: 06/10/18 08:22 Dose: 1 appln Documented by: Dextrose (Dextrose 50%) 25 - 50 ml IV UD PRN; Protocol PRN Reason: Hypoglycemia Protocol Stop: 07/10/18 03:59 Escitalopram Oxalate (Lexapro) 15 mg PO DAILY [facility] Stop: 07/10/18 08:59 Last Admin: 06/10/18 08:17 Dose: 15 mg Documented by: Fentanyl (Duragesic) 100 mcg TD Q72H [facility] Stop: 06/26/18 07:59 Furosemide (Lasix) 40 mg PO DAILY [facility] Stop: 07/10/18 08:59 Last Admin: 06/10/18 08:17 Dose: 40 mg Documented by: Glucagon (Glucagen) 1 mg IM UD PRN; Protocol PRN Reason: Hypoglycemia Protocol Stop: 07/10/18 03:59 Glucose (Glucose 40%) 15 - 30 gm PO UD PRN; Protocol PRN Reason: Hypoglycemia Protocol Stop: 07/10/18 03:59 Glucose (Dex4 Glucose) 4 - 8 tabs PO UD PRN; Protocol PRN Reason: Hypoglycemia Protocol Stop: 07/10/18 03:59 Hydrocortisone (Anusol Hc) 25 mg IA BID [facility] Stop: 07/10/18 20:59 Insulin Aspart (Novolog Flexpen) 0 units SC ACHS [facility] Stop: 07/10/18 16:29 Last Admin: 06/10/18 17:19 Dose: 4 units Documented by: Levothyroxine Sodium (Synthroid) 100 mcg PO DAILYBB [facility] Stop: 07/10/18 06:29 Last Admin: 06/10/18 05:44 Dose: 100 mcg Documented by: Loratadine (Claritin) 10 mg PO QAM [facility] Stop: 07/10/18 08:59 Last Admin: 06/10/18 08:17 Dose: 10 mg Documented by: Magnesium Hydroxide (Milk Of Magnesia) 30 ml PO Q12H PRN PRN Reason: Constipation Stop: 07/10/18 01:41 Methylnaltrexone [place] (Relistor) 12 mg SQ Q2D [facility] Stop: 07/10/18 09:59 Last Admin: 06/10/18 11:18 Dose: 12 mg Documented by: Miscellaneous (Fentanyl Patch Remove & Waste) 1 ea N/A Q72H [facility] Stop: 07/12/18 07:58 Miscellaneous (Fentanyl Patch Check Placement) 1 ea N/A QS [facility] Stop: 07/10/18 07:59 Last Admin: 06/10/18 15:38 Dose: 1 ea Documented by: Miscellaneous (Carbohydrates For Hypoglycemia) 15 - 30 gm PO UD PRN PRN Reason: Hypoglycemia Treatment Stop: 07/10/18 03:59 Morphine Sulfate (Morphine Sulfate) 2 mg IV Q6H PRN PRN Reason: Breakthrough Pain Stop: 06/24/18 13:23 Last Admin: 06/10/18 13:43 Dose: 2 mg Documented by: Multivitamins/Minerals (Multivitamin W/ Minerals Tab) 1 tab PO BID [facility] Stop: 07/10/18 01:41 Last Admin: 06/10/18 08:20 Dose: 1 tab Documented by: Nifedipine (Nifedipine Rectal Ointment) 1 appln TOP QID [facility] Stop: 07/10/18 16:59 Last Admin: 06/10/18 17:03 Dose: 1 appln Documented by: Ondansetron HCl (Zofran Odt) 8 mg PO Q8 PRN PRN Reason: Nausea Stop: 07/10/18 01:41 Pantoprazole Sodium (Protonix) 40 mg PO BID [facility] Stop: 07/10/18 08:59 Last Admin: 06/10/18 08:17 Dose: 40 mg Documented by: Polyethylene Glycol (Miralax Powder Packet) 17 gm PO DAILY [facility] Stop: 07/10/18 01:41 Last Admin: 06/10/18 08:20 Dose: Not Given Documented by: Prochlorperazine (Compazine) 10 mg PO Q6 PRN PRN Reason: Nausea Stop: 07/10/18 01:41 Last Admin: 06/10/18 02:17 Dose: 10 mg Documented by: Senna/Docusate Sodium (Senokot S) 1 tab PO BID [facility] Stop: 07/10/18 20:59 Simvastatin (Zocor) 40 mg PO HS [facility] Stop: 07/10/18 20:59 Sucralfate (Carafate Tab) 1 gm PO QID [facility] Stop: 07/10/18 08:59 Last Admin: 06/10/18 17:02 Dose: 1 gm Documented by: Resident Activity Tracking Resident Involvement: Resident Care Provided Care Provided: Adult Hospital Medicine
[2018-06-10] MEDS: NITROGLYCERIN 2% 7.5 INCH, AQUAPHOR 67.5 GM, BARCODE IDENTIFIER 1 EA EXT SCH ×2 (08:22→20:36)
[2018-06-10] MEDS ORDERED: LINACLOTIDE 72 MCG CAPSULE PO SCH (09:00)
[2018-06-10] MEDS ORDERED: HYDROCORTISONE 2.5% CR 30 GM TUBE EXT SCH (09:00)
--- NOTE | 2018-06-10 10:18 | Consultation Report ---
DATE OF CONSULTATION: 06/10/2018 MEDICAL ONCOLOGY CONSULTATION REASON FOR CONSULTATION: An 82-year-old gentleman with history of metastatic colorectal cancer and intractable perirectal pain. HISTORY OF PRESENT ILLNESS: Mr. Hammond is a very pleasant 82-year-old gentleman with longstanding history of metastatic colorectal cancer, currently under my care at the [facility], receiving combination FOLFOX and Avastin therapy. Mr. Hammond was originally diagnosed in June of 2017. He was originally being considered for definitive surgical intervention and had received chemoradiation. Subsequently, after he completed combined modality therapy, he was evaluated by colorectal surgery at the [facility] and determined to suffer from pulmonary metastatic disease and thus deeming him unresectable. That said, we then proceeded to give him combination FOLFOX with Avastin which continues at present. Last dose was administered on 06/04/2018. Since the completion of combined modality therapy, Arsenio has struggled with perirectal pain, specifically on defecation. He equally struggles with constipation associated with increased opioid demand. He is presently on fentanyl 100 mcg topically q. 72 hours and he has been taking more than the prescribed breakthrough opioids. I had him seen by Dr. Contreras at one point to consider methadone. The noncompliance has resulted in multiple red flags by the state database and pharmacies refusing to refills of breakthrough opioids. This has become a significant problem. 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 There are no surgical suggestions provided at that time. His pain issues have span over several months and equally significant increase in his opioid demand has become problematic. I believe Arsenio has been evaluated by pain management and perhaps being considered for epidural or perhaps a pain pump. I will ask general surgery to evaluate Arsenio and possibly consider a diverting procedure for palliation. PAST MEDICAL HISTORY: Includes metastatic colorectal cancer, type 2 diabetes mellitus, diabetic neuropathy, diabetic retinopathy, dyslipidemia, hyperkalemia, hypertension, microalbuminuria, seborrheic keratoses, squamous cell carcinoma of the skin, thyroid disease, coronary artery disease. PAST SURGICAL HISTORY: Includes aortic valve replacement, hemorrhoidectomy, spinal surgery, upper GI endoscopy, coronary artery bypass grafting, cholecystectomy, knee replacement, cardiac pacemaker insertion. MEDICATIONS: Prior to admission include NovoLog FlexPen insulin p.r.n., Tresiba 40 units subQ at bedtime, levothyroxine 100 mcg p.o. q.a.m., omeprazole 20 mg p.o. b.i.d., simvastatin 40 mg p.o. at bedtime, sucralfate 1 gram p.o. q.i.d., Eliquis 5 mg p.o. b.i.d., loratadine 10 mg p.o. q. daily, carvedilol 3.125 mg p.o. b.i.d., fentanyl 100 mcg transdermally q. 72 hours, albuterol sulfate 1-2 puffs inhalation q. 6 hours p.r.n., escitalopram oxalate 15 mg p.o. daily, furosemide 40 mg p.o. daily, recently prescribed oxycodone 10 mg q. 4-6 hours p.r.n. He was also on hydrocodone/acetaminophen previously. Hydrocortisone 1 application topical in the perirectal area, Linzess 145 mg p.o. daily, Zofran 8 mg p.o. q. 8 hours p.r.n., Compazine 10 mg p.o. q. 6 hours p.r.n. ALLERGIES: No known drug allergies. 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 He has grown children. He is a nonsmoker, nondrinker. FAMILY HISTORY: Mother succumbed to complications of multiple myeloma. Father succumbed to emphysema. REVIEW OF SYSTEMS: As per HPI, most notably for uncontrolled perirectal pain and significant opioid requirement. No fevers, chills or sweats. He has maintained his weight and appetite. SKIN: No rashes or lesions. He has history of seborrheic keratoses and skin cancer. HEENT: Negative for headaches, lightheadedness or dizziness. He denies any visual or hearing deficits. No sinus symptoms, sore throat or dysphagia. LYMPH: No history of lymphoproliferative disease. CARDIAC: Positive history of coronary artery disease. No current angina or palpitations. PULMONARY: Negative for COPD. He is not short of breath, dyspneic or orthopneic at present. GASTROINTESTINAL: Negative for abdominal pain. Positive for persistent perirectal pain, attributable to radiation-induced proctitis and anal fissure. Positive for occasional rectal bleeding. GENITOURINARY: No history of prostate disease. Positive for urinary retention, again attributable to chronic constipation. ENDOCRINE: Positive for diabetes. Positive for hypothyroidism. MUSCULOSKELETAL: No arthralgias or myalgias. No muscle weakness. PSYCHIATRIC: Negative for anxiety, depression or psychoses. NEUROLOGIC: Negative for seizure, stroke, or migraine headache. HEMATOLOGIC: Positive for cytopenias attributable to chemotherapeutic effect. PHYSICAL EXAMINATION: GENERAL: Arsenio is a pleasant 82-year-old gentleman, awake, alert and appropriate, in no acute distress. VITAL SIGNS: Temperature 36.3, pulse 60, respiratory rate 16, blood pressure 138/64. SKIN: Warm, dry, noncyanotic without petechia, rash or ecchymosis. HEENT: Head: Atraumatic, normocephalic. Eyes: PERRLA, EOMI. Sclerae nonicteric. Nares patent. Throat clear. Tongue midline. No buccal lesions or ulcerations. NECK: Supple. Trachea midline, no JVD noted. LYMPH: No cervical or supraclavicular palpable nodes. HEART: Regular rate and rhythm. No clicks, rubs, murmurs or gallops. LUNGS: Clear to auscultation bilaterally. ABDOMEN: Soft, nontender, nondistended without palpable hepatosplenomegaly. EXTREMITIES: No clubbing, cyanosis or edema. NEUROLOGICALLY: He is awake, alert and oriented x3. Cranial nerves are grossly intact. LABORATORY DATA: WBC count 58,100, hemoglobin 9.2, platelet count 106,000. Absolute neutrophil count 53,000. Sodium 132, potassium 3.6, chloride 97, carbon dioxide 28, BUN 12, creatinine 0.67, glucose elevated at 193, albumin 2.6, alkaline phosphatase 180. RADIOGRAPHIC DATA: CT scan of the abdomen and pelvis, no evidence of bowel obstruction or free air, moderate fecal retention, left-sided nephrolithiasis, stable nonspecific thickening at the rectoanal junction. Multiple lower lobe pulmonary nodules, similar to prior study. IMPRESSION: 1. Intractable perirectal pain. 2. Urinary retention, attributable to constipation. 3. Constipation. 4. Metastatic colorectal cancer. 5. Leukocytosis, attributable to granulocyte colony stimulating growth factor. 6. Anemia/thrombocytopenia, attributable to current chemotherapy, FOLFOX/Avastin. PLAN: Mr. Hammond is a very pleasant but unfortunate 82-year-old gentleman who was diagnosed with colorectal cancer in [place] of 2018. When he initially presented, there was no evidence of metastatic disease present. He proceeded with standard chemoradiation which completed later on the spring. Since that time, he has continued to struggle with perirectal pain and actually underwent examination with anesthesia at the [facility] which diagnosed him with radiation-induced proctitis and anal fissure. It is unclear to me why there was no surgical recommendation at that time. Arsenio has struggled with perirectal pain, constipation, urinary retention with an ever increasing opioid requirement. I have received many red flag warnings from the [place] database because of Arsenio's overuse of breakthrough opioids as a result of his pain. I think at this point surgical options need to be explored particularly palliative colostomy to allow this area to heal without constant exposure of stool and further trauma brought on by constipation. However, surgery with Mr. Hammond may pose some risk. He has been receiving bevacizumab as part of his salvage regimen. Bevacizumab can inhibit wound healing and should allow at least 4-6 weeks prior to any type of surgery. I did discuss this fact with Arsenio which unfortunately may delay surgical intervention. In the meantime, I would like Dr. Contreras to revisit the possibility of putting him on methadone and subsequently discontinuing both fentanyl and breakthrough opioids if at all possible. Perhaps pain management could render an opinion regarding possible inserted pain pump versus epidural to at least buy time to allow the effects of bevacizumab to wean preceding surgical intervention. Obviously, further chemotherapy will be held until decisions are made moving forward. Agree with current medical management. It would more than happy to discuss Arsenio's case with the certified surgical tech/first assistant when available. Thank you very much for allowing me to participate in this gentleman's care. KATHY
--- NOTE | 2018-06-10 10:23 | Pain Management Consultation ---
Date of Consultation June 10, 2018 Assessment & Plan (1) Rectal adenocarcinoma: Continue Fentanyl patch 100mcg Continue PRN Antigo 10/325mg Linzess was discontinued and Relistor was ordered for opioid induced constipation He is not a candidate for a ganglion impar nerve block at this time as he does have an open wound (anal fissure). If anal fissure does heal then he may be considered for ganglion impar nerve block. Please note that a radiofrequency ablation of the ganglion impar nerves could not be performed as he does have a pacemaker. Patient may come into the Pain Management office as a new patient on an outpatient basis. Thank you for the consultation. (2) Anal fissure: Defer to hospitalist on creams for anal fissure treatment. History of Present Illness Attending Physician: Ed Ortiz DO History of Present Illness This is an 82-year-old white male with a significant history of stage IV rectal adenocarcinoma with metastasis. Patient has been chronically on Fentanyl patch 100mcg and Antigo 10/325mg PRN. Patient's predominant pain complaint is located in the rectal area and described as a burning and aching pain. Patient did previously have radiation in the rectal area and states that the pain started then. Patient does have associated opioid induced constipation and typically has a bowel movement every 3 days or so. Stool is always hard and difficult to pass. He is prescribed Linzess but he is unsure how long he has been on that medication. Patient does have an anal fissure that has been non-healing. Currently hydrocortisone and Nitro is being placed on the anal fissure. Patient is unsure how long he has had the fissure for. Pain is rated 4/10 currently. Patient denies any constitutional complaints, abdominal pain , flank pain, urinary sx. Patient was scheduled for a new patient consultation with our office tomorrow but it was cancelled due to hospitalization. Case discussed with Dr. Anabel Christine Allergies Allergy/AdvReac Type Severity Reaction Status Date / Time No Known Allergies Allergy Verified 06/09/18 23:31 Home Medications Home Medications Medication Instructions Recorded Confirmed Type Novolog Flexpen U-100 Insulin 0 units SUBCUT DIRECTED 10/19/17 06/09/18 History Tresiba FlexTouch U-100 40 unit SUBCUT HS 10/19/17 06/09/18 History levothyroxine 100 mcg PO QAM 10/19/17 06/09/18 History omeprazole 20 mg PO BID 10/19/17 06/09/18 History simvastatin 40 mg PO HS 10/19/17 06/09/18 History sucralfate 1 g PO QID 10/19/17 06/09/18 History apixaban 5 mg tablet 5 mg PO BID 04/09/18 06/09/18 History loratadine 10 mg tablet 10 mg PO QAM 04/09/18 06/09/18 History carvedilol 3.125 mg PO BID 05/17/18 06/09/18 History fentanyl 100 mcg TRANSDERMAL Q72H 05/17/18 06/09/18 History albuterol sulfate [ProAir HFA] 1 - 2 puff INHALATION Q6H PRN 06/09/18 06/09/18 History escitalopram oxalate 15 mg PO DAILY 06/09/18 06/09/18 History furosemide 40 mg PO DAILY 06/09/18 06/09/18 History hydrocodone-acetaminophen 1 tab PO .Q 4-6HR PRN 06/09/18 06/09/18 History hydrocortisone 1 applic TOPICAL DIRECTED 06/09/18 06/09/18 History linaclotide [Linzess] 145 mg PO DAILY 06/09/18 06/09/18 History ondansetron HCl 8 mg PO Q8 PRN 06/09/18 06/09/18 History prochlorperazine maleate 10 mg PO Q6 PRN 06/09/18 06/09/18 History vit C-E-zinc [id number]-[id number] 1 tab PO BID 06/09/18 06/09/18 History [[facility]] Pain History Pain Location Full Body Front + Back: 1. Pain Intensity [facility] Combined Pain Scale: 5-Moderate - Cannot perform normal tasks without increase in pain Patient History Medical History Fusion of spine LUMBAR Osteoarthritis Sleep apnea Hypertension Hyperlipidemia GERD (gastroesophageal reflux disease) Sepsis Pneumonia (Acute) Hypotension (Acute) Hypomagnesemia (Acute) CAD (coronary artery disease) (Chronic) Pacemaker (Chronic) Hypothyroid (Chronic) Complete heart block (Chronic) HTN (hypertension) (Chronic) History of atrial fibrillation (Chronic) Aortic stenosis (Chronic) Mitral stenosis (Chronic) GERD (gastroesophageal reflux disease) (Chronic) Dyslipidemia (Chronic) Sleep apnea (Chronic) Rectal adenocarcinoma (Acute 06/03/17) "Rectal bleeding Evaluation under anethesia and finding of a rectal mass June 03, 2017 Biopsy revealing adenocarcinoma Plan for radiation and Xeloda Status post completion of combined neoadjuvant radiation and chemotherapy. Radiation was completed August 29, 2017. He received 5040 cGy" On 07/08/17 10:30 Rebecca Campbell wrote "Rectal bleeding Evaluation under anethesia and finding of a rectal mass June 03, 2017 Biopsy revealing adenocarcinoma Plan for radiation and Xeloda" On 07/08/17 10:23 Bayron Barajas wrote "Rectal bleeding Evaluation under anethesia and finding of a rectal mass Biopsy revealing adenocarcinoma Plan for radiation and Xeloda" Constipation (Acute) Elevated troponin Heart block (Chronic) Atrial fibrillation (Chronic) Diabetes (Chronic) Heart disease (Chronic) Rectal cancer (Chronic) RECENT DIAGNOSIS, REASON FOR A-PORT PLACEMENT Degenerative disc disease Surgical History History of total knee replacement B/L History of cholecystectomy History of colonoscopy History of coronary artery bypass graft 2 VESSELS PER MEDICAL RECORD 05/2013 Hx of cholecystectomy (Resolved) History of back surgery (Resolved) S/P AVR (aortic valve replacement) (Chronic) "06/16/2013- # 23 Chow II bioprosthesis, Dr. William, [facility] [place]" S/P CABG x 2 (Chronic) "CABG x 2; 06/16/2013; Dr. William, [facility] [place]" History of carpal tunnel surgery (Chronic) S/P AVR (aortic valve replacement) (Chronic) 05/2013 Status cardiac pacemaker (Chronic) 2014. FOLLOWS WITH DR. LASSITER IN C[facility]IO. Family History Other DM type 2 (diabetes mellitus, type 2) Hypertension Social History Preferred Language: Occitan Communication Ability: Effective Visual Impairment: No Limitations Glass Tube Bender Required: No Beliefs That Will Affect Care: None marital status: Current Living Situation: Spouse current occupational status: retired Feels Safe at Home: Yes Safety Concerns: Feels Safe At This Time Smoking Status: Never smoker Second Hand Exposure: No Hx Alcohol Use: No Hx Substance Use: No Physical Exam Physical Exam: GENERAL: 82 year old white male is moderately confused and does have difficulty recalling and answering medical history questions that I have asked him. Speech is slightly slowed. Mood and affect is appropriate. Does not appear in acute distress. HEAD: Normocephalic; atraumatic. EYES: Pupils are round, equal, and reactive to light; EOM intact. ENT: No external ear discharge or lesions. No rhinorrhea or epistaxis. No mucosal lesions. CHEST: Regular chest respiration and excursion. ABDOMEN: Mildly protuberant abdomen. Active bowel sounds throughout; non-tender to palpation. No peritoneal signs. No CVA tenderness bilaterally. BACK: There is no midline, SI joint, or facet joint tenderness. No lumbosacral tenderness. NEURO: CN II-XII grossly intact with no focal deficits noted. Gait was not witnessed. SKIN: No lesions, erythema, or rashes noted. Results Diagnostic Review CT Findings: CT abd pelvis IV con only CLINICAL HISTORY: abdominal/rectal pain, metastatic rectal ca COMPARISON STUDY: 05/17/2018 TECHNIQUE: The patient was scanned in a dynamic helical fashion during intravenous administration of 94 cc of Optiray 320. A dose lowering technique was utilized adhering to the principles of ALARA. CT DOSE: 504.22 mGy.cm FINDINGS: Lower chest: There are bilateral lower lobe pulmonary nodules, similar to the preceding study. Liver: The serosal surface is somewhat nodular. Early cirrhosis must be considered. There is a stable 1 cm right lobe hypodensity. This likely represents a cyst. The portal vein is patent. Mild prominence the common bile duct likely relates to prior cholecystectomy Gallbladder: Surgically absent Spleen: Normal in size and attenuation. Pancreas: Unremarkable. Adrenal glands: Unremarkable. Kidneys: There are bilateral renal cysts. The largest on the left measures 6.2 cm. The largest in the right measures 6.7 cm. There is a 1 cm left renal calculus. There is no hydronephrosis. No ureteral calculi are visualized. Bowel: There are no transition zones indicate bowel obstruction. There is moderate fecal retention. There is stable nonspecific thickening at the rectoanal junction. Peritoneum: There is no intraperitoneal free air or abdominal ascites. Vasculature: The abdominal aorta is normal in course and caliber. Adenopathy: None. Pelvic viscera: The bladder is distended measuring 19 cm in length. Skeletal structures: Postsurgical changes within the lumbar spine are again evident. IMPRESSION: 1. No evidence of bowel obstruction. No evidence of free air 2. Moderate fecal retention 3. Stable nonspecific thickening at the rectoanal junction 4. Multiple lower lobe pulmonary nodules similar to the prior study 5. Left-sided nephrolithiasis 6. Interval development of a distended urinary bladder which measures 19 cm in length Electronically signed by: Maikel Rao M.D. 06/09/2018 9:55 PM
[2018-06-10] MEDS: METHYLNALTREXONE BROMIDE 12 MG/0.6 ML VIAL SQ SCH (11:18)
[2018-06-10] MEDS: MoRPHine SULFATE 2 MG/ML CARP IV PRN ×2 (13:43→19:20)
--- NOTE | 2018-06-10 16:36 | Surgery Consultation ---
Date of Consultation June 10, 2018 Assessment & Plan (1) Colorectal cancer, stage IV: Pt is an 82 yo male with multiple comorbidities and stage for colorectal cancer with mets to the lungs. 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 Diverting ostomy may relieve some of the pain with defecation, but he will likely still have ongoing pain related to the primary disease process and radiation proctitis. It would be reasonable to pursue diverting ostomy to help with some of these symptoms as well as the fact that he will likely need diversion for obstruction in the future (though he currently has no obstruction). He is on Avastin so ideally would wait a minimum of 6 weeks after the last dose prior to any surgical intervention because of the very high risk of significant wound healing issues and concern for wound dehiscence. Also, prior to diverting for pain purposes would try all non-operative measures. Regardless of treatments pursued the posterior fissure will almost certainly not heal. - Recommend Canasa suppository QHS or Hydrocortisone 25 mg suppositories BID, which can help with proctitis. - These options were discussed with the Dr. Ortiz with Internal Medicine reg arding availability and affordability both as an inpatient and outpatient. These suppositories are associated with pain on insertion, but if tolerated can help with some of the proctitis related pain. Effects can take a week to see results. - If suppository is started would d/c hydrocortisone cream - Constipation: - Recommend starting with Senokot-S BID and Miralax daily. Titrate these based on effect. Will see how he does with these medications. Other agents to alternate with this regimen include MOM, Mg Citrate, and even prune juice. - I have not personally prescribed Linzess, this is more frequently prescribed by GI, and in my limited experience with the drug I have seen it mostly in the setting of IBS, however it is possible that there is indication for narcotic induced constipation. Relistor is another potential agent used for narcotic induced constipation. For either Linzess or Relistor I would defer to recommendations from GI - Will continue to follow along, however plan for outpatient f/u with general surgery in approximately 4 weeks to re-evaluate for diverting ostomy. Plans were also discussed with Dr. Marcano from Oncology and he was likely planning on stopping Avastin for the time being History of Present Illness Reason for Consultation: Rectal pain in the setting of colorectal cancer Requesting Physician: Ed Ortiz DO; Rambo Marcano DO Attending Physician: Ed Ortiz DO History of Present Illness Patient is an 82 yo male with a past medical history significant for, but not limited to, CAD, hx of CABG x 2, aortic valve replacement, A-fib, complete heart block with pacemaker, on Eliquis, DM2, ESME, and GERD. He has metastatic colorectal adenocarcinoma (mets to the lungs), initially diagnosed in May 2017 via a biopsy of a posterior anal fissure. During the EUA and biopsy he was also noted to have stenosis. He has received radiation and is currently receiving a combination of FOLFOX and Avastin, last dose was 06/04/18. 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 He has chronic rectal pain requiring increased doses of narcotics. Pain is worse with defecation. He was diagnosed with radiation proctitis a couple of months ago as well. He also has constipation. Prior to the past couple of weeks he would be incontinent of stool very occasionally, but this has become more frequent over the past couple of weeks. On exam today he was incontinent of liquid stool. He has mild abdominal pain. He denies nausea. He hasn't had significant weight loss and denies decreased appetite. His mobility has decreased significantly and he states he does not ambulate much. Current pain regimen includes fentanyl 100 mcg patch q72 hours, oxycodone 10 mg q4-6 hrs prn and previously Percocet. For constipation he was prescribed Linzes s. He has been taking narcotics more frequently than prescribed and has had issues with refills at pharmacies because of this and this was also apparently one of the reasons methadone was not pursued. He was initially seen by a surgeon at [facility], uncertain of the last time they evaluated him. He denies any prior abdominal surgeries, but records show a cholecystectomy. General Surgery was asked to evaluate the patient for possible diverting ostomy to help with pain and healing of fissure, as well as recommendations for constipation management. Allergies Allergy/AdvReac Type Severity Reaction Status Date / Time No Known Allergies Allergy Verified 06/09/18 23:31 Home Medications Home Medications Medication Instructions Recorded Confirmed Type Novolog Flexpen U-100 Insulin 0 units SUBCUT DIRECTED 10/19/17 06/09/18 History Tresiba FlexTouch U-100 40 unit SUBCUT HS 10/19/17 06/09/18 History levothyroxine 100 mcg PO QAM 10/19/17 06/09/18 History omeprazole 20 mg PO BID 10/19/17 06/09/18 History simvastatin 40 mg PO HS 10/19/17 06/09/18 History sucralfate 1 g PO QID 10/19/17 06/09/18 History apixaban 5 mg tablet 5 mg PO BID 04/09/18 06/09/18 History loratadine 10 mg tablet 10 mg PO QAM 04/09/18 06/09/18 History carvedilol 3.125 mg PO BID 05/17/18 06/09/18 History fentanyl 100 mcg TRANSDERMAL Q72H 05/17/18 06/09/18 History albuterol sulfate [ProAir HFA] 1 - 2 puff INHALATION Q6H PRN 06/09/18 06/09/18 History escitalopram oxalate 15 mg PO DAILY 06/09/18 06/09/18 History furosemide 40 mg PO DAILY 06/09/18 06/09/18 History hydrocodone-acetaminophen 1 tab PO .Q 4-6HR PRN 06/09/18 06/09/18 History hydrocortisone 1 applic TOPICAL DIRECTED 06/09/18 06/09/18 History linaclotide [Linzess] 145 mg PO DAILY 06/09/18 06/09/18 History ondansetron HCl 8 mg PO Q8 PRN 06/09/18 06/09/18 History prochlorperazine maleate 10 mg PO Q6 PRN 06/09/18 06/09/18 History vit C-E-zinc gee-ezslqi-egrluj 1 tab PO BID 06/09/18 06/09/18 History [[facility]] Patient History Medical History Anal fissure (Acute) Fusion of spine LUMBAR Osteoarthritis Sleep apnea Hypertension Hyperlipidemia GERD (gastroesophageal reflux disease) Sepsis Pneumonia (Acute) Hypotension (Acute) Hypomagnesemia (Acute) CAD (coronary artery disease) (Chronic) Pacemaker (Chronic) Hypothyroid (Chronic) Complete heart block (Chronic) HTN (hypertension) (Chronic) History of atrial fibrillation (Chronic) Aortic stenosis (Chronic) Mitral stenosis (Chronic) GERD (gastroesophageal reflux disease) (Chronic) Dyslipidemia (Chronic) Sleep apnea (Chronic) Rectal adenocarcinoma (Chronic 06/03/17) "Rectal bleeding Evaluation under anethesia and finding of a rectal mass June 03, 2017 Biopsy revealing adenocarcinoma Plan for radiation and Xeloda Status post completion of combined neoadjuvant radiation and chemotherapy. Radiation was completed August 29, 2017. He received 5040 cGy" On 07/08/17 10:30 Rebecca Campbell wrote "Rectal bleeding Evaluation under anethesia and finding of a rectal mass June 03, 2017 Biopsy revealing adenocarcinoma Plan for radiation and Xeloda" On 07/08/17 10:23 Bayron Barajas wrote "Rectal bleeding Evaluation under anethesia and finding of a rectal mass Biopsy revealing adenocarcinoma Plan for radiation and Xeloda" Constipation (Acute) Elevated troponin Heart block (Chronic) Atrial fibrillation (Chronic) Diabetes (Chronic) Heart disease (Chronic) Rectal cancer (Chronic) RECENT DIAGNOSIS, REASON FOR A-PORT PLACEMENT Degenerative disc disease Surgical History History of total knee replacement B/L History of cholecystectomy History of colonoscopy History of coronary artery bypass graft 2 VESSELS PER MEDICAL RECORD 05/2013 Hx of cholecystectomy (Resolved) History of back surgery (Resolved) S/P AVR (aortic valve replacement) (Chronic) "06/16/2013- # 23 Chow II bioprosthesis, Dr. William, [facility] – [place]" S/P CABG x 2 (Chronic) "CABG x 2; 06/16/2013; Dr. William, [facility] [place]" History of carpal tunnel surgery (Chronic) S/P AVR (aortic valve replacement) (Chronic) 05/2013 Status cardiac pacemaker (Chronic) 2014. FOLLOWS WITH DR. LASSITER IN [facility]. Family History Other DM type 2 (diabetes mellitus, type 2) Hypertension Social History Preferred Language: [place] Island[place] Communication Ability: Effective Visual Impairment: No Limitations Soap Maker Required: No Beliefs That Will Affect Care: None marital status: Current Living Situation: Spouse current occupational status: retired Feels Safe at Home: Yes Safety Concerns: Feels Safe At This Time Smoking Status: Never smoker Second Hand Exposure: No Hx Alcohol Use: No Hx Substance Use: No Review of Systems Constitutional: no fever, no chills, no weight loss and no weight gain Respiratory: no cough and no dyspnea Cardiovascular: no chest pain Gastrointestinal: as per Subjective / HPI Genitourinary: no dysuria Musculoskeletal: as per Subjective / HPI Physical Exam Constitutional: well developed and well nourished; no acute distress Eyes: PERRL, conjunctivae normal, anicteric sclerae ENMT: external ear and nose normal, oropharynx normal Neck: normal visual inspection Respiratory: normal respiratory effort Cardiovascular: Rate/Rhythm: regular rate Gastrointestinal (Abdomen): abdomen soft, nondistended, mild lower abdominal tenderness, incontinent of liquid stool, large posterior "fissure" (defect at site of known cancer), tender to palpation Neurologic: alert and oriented Results & Data Vital Signs (Past 12 Hours) Vital Signs Temp Pulse Pulse Pulse Pulse Resp BP 06/10/18 15:41 36.5 C 62 18 154/68 H 06/10/18 15:03 60 06/10/18 12:23 36.9 C 70 18 171/69 H 06/10/18 08:00 60 06/10/18 07:24 36.3 C L 60 16 138/64 06/10/18 04:18 36.6 C 71 18 160/71 H Pulse Ox 06/10/18 15:41 91 06/10/18 15:03 06/10/18 12:23 95 06/10/18 08:00 06/10/18 07:24 92 06/10/18 04:18 94 Laboratory Results 06/10/18 06/10/18 06/10/18 Range/Units 16:57 11:34 06:30 WBC (4.8-10.8) K/uL RBC (4.7-6.1) M/uL Hgb (14.0-18.0) g/dL Hct (42-52) % MCV (80-100) fL MCH (25-34) pg MCHC (32-36) g/dL RDW Std Deviation (36.4-46.3) fL RDW Coeff of Geovani (11.5-14.5) % Plt Count (130-400) K/uL MPV (7.4-10.4) fL Immature Gran % (Auto) % Neut % (Auto) % Lymph % (Auto) % [place] % (Auto) % Eos % (Auto) % Baso % (Auto) % Immature Gran # (Auto) (0.00-0.02) K/uL Neut # (Auto) (1.4-6.5) K/uL Lymph # (Auto) (1.2-3.4) K/uL [place] # (Auto) (0.11-0.59) K/uL Eos # (Auto) (0-0.5) K/uL Baso # (Auto) (0-0.2) K/uL Dohle Bodies Platelet Estimate (Normal) Stomatocytes PT (9.0-12.0) Seconds INR (0.9-1.1) Sodium 132 L (136-145) mmol/L Potassium 3.6 (3.5-5.1) mmol/L Chloride 97 L (98-107) mmol/L Carbon Dioxide 28 (21-32) mmol/L Anion Gap 7.0 (3-11) BUN 12 (7-18) mg/dl Creatinine 0.67 (0.6-1.4) mg/dl Est Cr Clr Drug Dosing 94.6 ml/min Est GFR ( Amer) 104.4 Est GFR (Non-Af Amer) 90.1 BUN/Creatinine Ratio 18.4 (10-20) Glucose 193 H (70-99) mg/dl POC Glucose 198 H 188 H (70-99) Calcium 8.4 L (8.5-10.1) mg/dl Phosphorus (2.5-4.9) mg/dl Magnesium (1.8-2.4) mg/dl Total Bilirubin 0.6 (0.2-1) mg/dl Direct Bilirubin (0-0.2) mg/dl AST 29 (15-37) U/L ALT 28 (12-78) U/L Alkaline Phosphatase 180 H (45-117) U/L Total Protein 6.2 L (6.4-8.2) gm/dl Albumin 2.6 L (3.4-5.0) gm/dl Globulin 3.6 (2.5-4.0) gm/dl Albumin/Globulin Ratio 0.7 L (0.9-2) Lipase (73-393) U/L Urine Color Urine Appearance (Clear) Urine pH (4.5-7.5) Ur Specific [place] (1.000-1.030) Urine Protein (Negative) Urine Glucose (UA) (Negative) Urine Ketones (Negative) Urine Blood (Negative) Urine Nitrite (Negative) Urine Bilirubin (Negative) Urine Urobilinogen (Negative) Ur Leukocyte Esterase (Negative) Urine WBC (Auto) (0-5) /hpf Urine RBC (Auto) (0-4) /hpf U Hyaline Cast (Auto) (0-5) /lpf U Epithel Cells (Auto) (0-5) /lpf Urine Bacteria (Auto) (Negative) 06/10/18 06/10/18 06/10/18 Range/Units 06:30 05:58 02:39 WBC 58.10 H* (4.8-10.8) K/uL RBC 2.80 L (4.7-6.1) M/uL Hgb 9.2 L (14.0-18.0) g/dL Hct 27.6 L (42-52) % MCV 98.6 (80-100) fL MCH 32.9 (25-34) pg MCHC 33.3 (32-36) g/dL RDW Std Deviation 79.8 H (36.4-46.3) fL RDW Coeff of Geovani 22.1 H (11.5-14.5) % Plt Count 106 L (130-400) K/uL MPV 9.3 (7.4-10.4) fL Immature Gran % (Auto) 5.1 % Neut % (Auto) 91.2 % Lymph % (Auto) 2.1 % Eaton % (Auto) 1.5 % Eos % (Auto) 0.0 % Baso % (Auto) 0.1 % Immature Gran # (Auto) 2.95 H (0.00-0.02) K/uL Neut # (Auto) 53.01 H (1.4-6.5) K/uL Lymph # (Auto) 1.20 (1.2-3.4) K/uL Eaton # (Auto) 0.89 H (0.11-0.59) K/uL Eos # (Auto) 0.02 (0-0.5) K/uL Baso # (Auto) 0.03 (0-0.2) K/uL Dohle Bodies Platelet Estimate (Normal) Stomatocytes PT (9.0-12.0) Seconds INR (0.9-1.1) Sodium (136-145) mmol/L Potassium (3.5-5.1) mmol/L Chloride (98-107) mmol/L Carbon Dioxide (21-32) mmol/L Anion Gap (3-11) BUN (7-18) mg/dl Creatinine (0.6-1.4) mg/dl Est Cr Clr Drug Dosing ml/min Est GFR ( Amer) Est GFR (Non-Af Amer) BUN/Creatinine Ratio (10-20) Glucose (70-99) mg/dl POC Glucose 230 H 240 H (70-99) Calcium (8.5-10.1) mg/dl Phosphorus (2.5-4.9) mg/dl Magnesium (1.8-2.4) mg/dl Total Bilirubin (0.2-1) mg/dl Direct Bilirubin (0-0.2) mg/dl AST (15-37) U/L ALT (12-78) U/L Alkaline Phosphatase (45-117) U/L Total Protein (6.4-8.2) gm/dl Albumin (3.4-5.0) gm/dl Globulin (2.5-4.0) gm/dl Albumin/Globulin Ratio (0.9-2) Lipase (73-393) U/L Urine Color Urine Appearance (Clear) Urine pH (4.5-7.5) Ur Specific [place] (1.000-1.030) Urine Protein (Negative) Urine Glucose (UA) (Negative) Urine Ketones (Negative) Urine Blood (Negative) Urine Nitrite (Negative) Urine Bilirubin (Negative) Urine Urobilinogen (Negative) Ur Leukocyte Esterase (Negative) Urine WBC (Auto) (0-5) /hpf Urine RBC (Auto) (0-4) /hpf U Hyaline Cast (Auto) (0-5) /lpf U Epithel Cells (Auto) (0-5) /lpf Urine Bacteria (Auto) (Negative) 06/09/18 06/09/18 06/09/18 Range/Units 23:00 20:43 20:43 WBC (4.8-10.8) K/uL RBC (4.7-6.1) M/uL Hgb (14.0-18.0) g/dL Hct (42-52) % MCV (80-100) fL MCH (25-34) pg MCHC (32-36) g/dL RDW Std Deviation (36.4-46.3) fL RDW Coeff of Geovani (11.5-14.5) % Plt Count (130-400) K/uL MPV (7.4-10.4) fL Immature Gran % (Auto) % Neut % (Auto) % Lymph % (Auto) % Eaton % (Auto) % Eos % (Auto) % Baso % (Auto) % Immature Gran # (Auto) (0.00-0.02) K/uL Neut # (Auto) (1.4-6.5) K/uL Lymph # (Auto) (1.2-3.4) K/uL [place] # (Auto) (0.11-0.59) K/uL Eos # (Auto) (0-0.5) K/uL Baso # (Auto) (0-0.2) K/uL Dohle Bodies Platelet Estimate (Normal) Stomatocytes PT 11.9 (9.0-12.0) Seconds INR 1.2 H (0.9-1.1) Sodium 132 L (136-145) mmol/L Potassium 3.6 (3.5-5.1) mmol/L Chloride 96 L (98-107) mmol/L Carbon Dioxide 28 (21-32) mmol/L Anion Gap 9.0 (3-11) BUN 15 (7-18) mg/dl Creatinine 0.76 (0.6-1.4) mg/dl Est Cr Clr Drug Dosing 76.4 ml/min Est GFR ( Amer) 99.2 Est GFR (Non-Af Amer) 85.6 BUN/Creatinine Ratio 19.9 (10-20) Glucose 270 H (70-99) mg/dl POC Glucose (70-99) Calcium 8.5 (8.5-10.1) mg/dl Phosphorus 3.1 (2.5-4.9) mg/dl Magnesium 2.0 (1.8-2.4) mg/dl Total Bilirubin 0.6 (0.2-1) mg/dl Direct Bilirubin 0.2 (0-0.2) mg/dl AST 31 (15-37) U/L ALT 31 (12-78) U/L Alkaline Phosphatase 155 H (45-117) U/L Total Protein 6.6 (6.4-8.2) gm/dl Albumin 2.8 L (3.4-5.0) gm/dl Globulin 3.8 (2.5-4.0) gm/dl Albumin/Globulin Ratio 0.7 L (0.9-2) Lipase 88 (73-393) U/L Urine Color Yellow Urine Appearance Clear (Clear) Urine pH 6.5 (4.5-7.5) Ur Specific [place] 1.018 (1.000-1.030) Urine Protein 1+ H (Negative) Urine Glucose (UA) 3+ H (Negative) Urine Ketones Negative (Negative) Urine Blood Negative (Negative) Urine Nitrite Negative (Negative) Urine Bilirubin Negative (Negative) Urine Urobilinogen Negative (Negative) Ur Leukocyte Esterase Negative (Negative) Urine WBC (Auto) 1-5 (0-5) /hpf Urine RBC (Auto) 0-4 (0-4) /hpf U Hyaline Cast (Auto) 0 (0-5) /lpf U Epithel Cells (Auto) 0-5 (0-5) /lpf Urine Bacteria (Auto) Negative (Negative) 06/09/18 Range/Units 20:43 WBC 60.76 H* (4.8-10.8) K/uL RBC 2.84 L (4.7-6.1) M/uL Hgb 9.4 L (14.0-18.0) g/dL Hct 27.4 L (42-52) % MCV 96.5 (80-100) fL MCH 33.1 (25-34) pg MCHC 34.3 (32-36) g/dL RDW Std Deviation 77.7 H (36.4-46.3) fL RDW Coeff of Geovani 22.1 H (11.5-14.5) % Plt Count 132 (130-400) K/uL MPV 9.5 (7.4-10.4) fL Immature Gran % (Auto) 4.7 % Neut % (Auto) 92.5 % Lymph % (Auto) 1.4 % Eaton % (Auto) 1.4 % Eos % (Auto) 0.0 % Baso % (Auto) 0.0 % Immature Gran # (Auto) 2.88 H (0.00-0.02) K/uL Neut # (Auto) 56.09 H (1.4-6.5) K/uL Lymph # (Auto) 0.87 L (1.2-3.4) K/uL Eaton # (Auto) 0.88 H (0.11-0.59) K/uL Eos # (Auto) 0.01 (0-0.5) K/uL Baso # (Auto) 0.03 (0-0.2) K/uL Dohle Bodies 1+ Platelet Estimate Normal (Normal) Stomatocytes 1+ PT (9.0-12.0) Seconds INR (0.9-1.1) Sodium (136-145) mmol/L Potassium (3.5-5.1) mmol/L Chloride (98-107) mmol/L Carbon Dioxide (21-32) mmol/L Anion Gap (3-11) BUN (7-18) mg/dl Creatinine (0.6-1.4) mg/dl Est Cr Clr Drug Dosing ml/min Est GFR ( Amer) Est GFR (Non-Af Amer) BUN/Creatinine Ratio (10-20) Glucose (70-99) mg/dl POC Glucose (70-99) Calcium (8.5-10.1) mg/dl Phosphorus (2.5-4.9) mg/dl Magnesium (1.8-2.4) mg/dl Total Bilirubin (0.2-1) mg/dl Direct Bilirubin (0-0.2) mg/dl AST (15-37) U/L ALT (12-78) U/L Alkaline Phosphatase (45-117) U/L Total Protein (6.4-8.2) gm/dl Albumin (3.4-5.0) gm/dl Globulin (2.5-4.0) gm/dl Albumin/Globulin Ratio (0.9-2) Lipase (73-393) U/L Urine Color Urine Appearance (Clear) Urine pH (4.5-7.5) Ur Specific [place] (1.000-1.030) Urine Protein (Negative) Urine Glucose (UA) (Negative) Urine Ketones (Negative) Urine Blood (Negative) Urine Nitrite (Negative) Urine Bilirubin (Negative) Urine Urobilinogen (Negative) Ur Leukocyte Esterase (Negative) Urine WBC (Auto) (0-5) /hpf Urine RBC (Auto) (0-4) /hpf U Hyaline Cast (Auto) (0-5) /lpf U Epithel Cells (Auto) (0-5) /lpf Urine Bacteria (Auto) (Negative) Diagnostic Findings (06/09/18) CT Abdomen/Pelvis: FINDINGS: Lower chest: There are bilateral lower lobe pulmonary nodules, similar to the preceding study. Liver: The serosal surface is somewhat nodular. Early cirrhosis must be considered. There is a stable 1 cm right lobe hypodensity. This likely represents a cyst. The portal vein is patent. Mild prominence the common bile duct likely relates to prior cholecystectomy Gallbladder: Surgically absent Spleen: Normal in size and attenuation. Pancreas: Unremarkable. Adrenal glands: Unremarkable. Kidneys: There are bilateral renal cysts. The largest on the left measures 6.2 cm. The largest in the right measures 6.7 cm. There is a 1 cm left renal calculus. There is no hydronephrosis. No ureteral calculi are visualized. Bowel: There are no transition zones indicate bowel obstruction. There is moderate fecal retention. There is stable nonspecific thickening at the rectoanal junction. Peritoneum: There is no intraperitoneal free air or abdominal ascites. Vasculature: The abdominal aorta is normal in course and caliber. Adenopathy: None. Pelvic viscera: The bladder is distended measuring 19 cm in length. Skeletal structures: Postsurgical changes within the lumbar spine are again evident. IMPRESSION: 1. No evidence of bowel obstruction. No evidence of free air 2. Moderate fecal retention 3. Stable nonspecific thickening at the rectoanal junction 4. Multiple lower lobe pulmonary nodules similar to the prior study 5. Left-sided nephrolithiasis 6. Interval development of a distended urinary bladder which measures 19 cm in length
[2018-06-10] MEDS ORDERED: Nursing to Pharmacy Communication ONE (16:57)
[2018-06-10] MEDS: NIFEDIPINE 0.2% TOP SCH ×2 (17:03→20:35)
[2018-06-10] MEDS: SIMVASTATIN 40 MG TAB PO SCH (20:34)
[2018-06-10] MEDS: DOCUSATE SODIUM/SENNA 50/8.6MG TAB PO SCH (20:40)
[2018-06-10] MEDS: HYDROCORTISONE ACETATE 25 MG SUPP PR SCH (20:40)
[2018-06-11] MEDS: CHECK FENTANYL PATCH PLACEMENT SCH ×4 (00:05→23:30)
[2018-06-11] MEDS: HYDROCODONE/ACETAMINOPHEN 10/325 TAB PO PRN ×2 (00:29→04:29)
[2018-06-11] MEDS: MoRPHine SULFATE 2 MG/ML CARP IV PRN ×4 (01:58→20:59)
[2018-06-11] MEDS: ONDANSETRON 4 MG OD TAB PO PRN ×3 (04:29→21:12)
[2018-06-11] MEDS: LEVOTHYROXINE SODIUM 100 MCG TABLET PO SCH (05:41)
[2018-06-11 08:06] LABS: Hematocrit (blood only) 27.6 % (42-52); Hemoglobin 9.4 g/dL (14.0-18.0); Mean Corpuscular Hgb Conc 34.1 g/dL (32-36); Mean Corpuscular Volume 97.9 fL (80-100); Mean Platelet Volume 9.1 fL (7.4-10.4); Platelet Count 92 K/uL (130-400); RDW Standard Deviation 78.5 fL (36.4-46.3); Red Blood Count 2.82 M/uL (4.7-6.1); White Blood Count 48.81 K/uL (4.8-10.8)
[2018-06-11] MEDS: INSULIN ASPART 100 UNITS/ML 3 ML PEN SC SCH ×4 (08:11→21:17)
[2018-06-11] MEDS: NIFEDIPINE 0.2% TOP SCH ×4 (08:12→21:13)
[2018-06-11] MEDS: ESCITALOPRAM OXALATE 10 MG TAB PO SCH (08:12)
[2018-06-11] MEDS: APIXABAN 5 MG TABLET PO SCH ×2 (08:13→21:05)
[2018-06-11] MEDS: FUROSEMIDE 40 MG TAB PO SCH (08:13)
[2018-06-11] MEDS: LORATADINE 10 MG TAB PO SCH (08:13)
[2018-06-11] MEDS: CEROVITE ADV FORMULA TAB PO SCH ×2 (08:13→21:06)
[2018-06-11] MEDS: SUCRALFATE 1 GM TAB PO SCH ×4 (08:13→21:05)
[2018-06-11] MEDS: PANTOprazole 40 MG TAB PO SCH ×2 (08:13→21:06)
[2018-06-11] MEDS: POLYETHYLENE (MIRALAX) 17 GM PACK PO SCH (08:13)
[2018-06-11] MEDS: CARVEDILOL 3.125 MG TAB PO SCH ×2 (08:14→21:05)
[2018-06-11] MEDS: DOCUSATE SODIUM/SENNA 50/8.6MG TAB PO SCH ×2 (08:14→21:12)
[2018-06-11] MEDS: HYDROCORTISONE ACETATE 25 MG SUPP PR SCH ×2 (08:15→21:04)
[2018-06-11] MEDS: NITROGLYCERIN 2% 7.5 INCH, AQUAPHOR 67.5 GM, BARCODE IDENTIFIER 1 EA EXT SCH ×2 (08:16→21:04)
[2018-06-11 08:27] LABS: Anisocytosis Present; Basophils # (auto) 0.03 K/uL (0-0.2); Basophils % (auto) 0.1 %; Eosinophils # (auto) 0.01 K/uL (0-0.5); Immature Granulocytes % (auto) 1.2 %; Lymphocytes # (auto) 1.24 K/uL (1.2-3.4); Lymphocytes % (auto) 2.5 %; Monocytes # (auto) 1.07 K/uL (0.11-0.59); Monocytes % (auto) 2.2 %; Neutrophils # (auto) 45.86 K/uL (1.4-6.5)
[2018-06-11 08:35] LABS: BUN Creatinine Ratio 11.3 (10-20); Calcium 8.2 mg/dl (8.5-10.1); Creatinine Clr Calc Pharmacy 92.4 ml/min; Est GFR (African American) 107.8
--- NOTE | 2018-06-11 09:37 | Pain Management Progress Note ---
Date of Service June 11, 2018 Assessment & Plan (1) Colorectal cancer, stage IV: 1. Continue Fentanyl patch 100mcg 2. Discontinue Hydrocodone and initiate Dilaudid PO 2mg x 4 hours PRN pain for possible increased efficacy. 3. If Dilaudid 2mg is not effective, may consider increasing to 4mg tablets. 4. Patient is not a candidate for interventional procedures such as a ganglion impar block or intrathecal pump implantation due to open non healing wound and impaired healing. (2) Anal fissure: Subjective This is an 82-year-old white male with a significant history of stage IV rectal adenocarcinoma with metastasis. Patient's predominant pain complaint is located in the rectal area and described as a burning and aching pain. Patient does have an anal fissure that has been non-healing. When he is having a bowel movement, the pain is significantly worsened. Currently hydrocortisone and Nefedipine is being placed on the anal fissure. He is currently on Fentanyl patch 100mcg and [place] 10/325mg. He does find the medication slightly efficacious towards diminishing his pain but pain levels are slight ranging from 5-10/10. Patient denies any side effects to the medications. Case discussed with Dr. Anabel Christine Pain Assessment Pain Assessment Full Body Front + Back: 1. [facility] Combined Pain Scale: 7-Severe - Pain prevents productive activity. Impossible to tolerate. Physical Exam Physical Exam: GENERAL: 82 year old white male appears his stated age. Speech and cognition is intact. Mood and affect is appropriate. He is sitting quietly in the hospital bed, no acute distress. HEAD: Normocephalic; atraumatic. EYES: Pupils are round, equal, and reactive to light; EOM intact. ENT: No external ear discharge or lesions. No rhinorrhea or epistaxis. No mucosal lesions. CHEST: Regular chest respiration and excursion. ABDOMEN: Active bowel sounds throughout; non-tender to palpation. No peritoneal signs. No CVA tenderness bilaterally. NEURO: CN II-XII grossly intact with no focal deficits noted. SKIN: No lesions, erythema, or rashes noted.
--- NOTE | 2018-06-11 10:27 | Surgery Progress Note ---
Date of Service June 11, 2018 Assessment & Plan (1) Colorectal cancer, stage IV: Pt is an 82 yo male with multiple comorbidities and stage four colorectal cancer with mets to the lungs. 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 Diverting ostomy may relieve some of the pain with defecation, but he will likely still have ongoing pain related to the primary disease process and radiation proctitis. It would be reasonable to pursue diverting ostomy to help with some of these symptoms as well as the fact that he will likely need diversion for obstruction in the future (though he currently has no obstruction). He is on Avastin so ideally would wait a minimum of 6 weeks after the last dose prior to any surgical intervention because of the very high risk of significant wound healing issues and concern for wound dehiscence. Also, prior to diverting for pain purposes would try all non-operative measures. Regardless of treatments pursued the posterior fissure will almost certainly not heal. - Continue Anusol 25 mg suppository bid -Would continue the suppository for at least 1-2 weeks to see effect - continue bowel regimen to prevent constipation/straining/hard stools - Recommend starting with Senokot-S BID and Miralax daily. Titrate these based on effect. Will see how he does with these medications. Other agents to alternate with this regimen include MOM, Mg Citrate, and even prune juice. - Continue pain management recommendations for pain control - outpatient f/u with general surgery in approximately 4 weeks to re-evaluate for diverting ostomy. Our services signing off, please call with any questions in regards to bowel regimen. Dr. Escobar has seen patient and agrees with above Supervising Physician Co-Signing Physician Notes I have seen and evaluated the patient and reviewed the medical record. I agree with the documentation as provided in this note by [place] Farr PA-C. Subjective still having moderate to severe rectal pain, " can be debilitating at times" had suppository this morning no nausea or vomiting Physical Exam Constitutional: WD/WN, vitals as above no acute distress and not ill appearing Respiratory: normal respiratory effort; no respiratory distress Gastrointestinal (Abdomen): Inspection/Auscultation: abdomen normal to inspection; abdomen not distended Percussion/Palpation: abdomen soft; abdomen nontender, no guarding and abdomen not rigid Skin: no rashes, warm and dry Psychiatric: A+Ox3, euthymic affect Results & Data Vital Signs (Past 12 Hours) Vital Signs Temp Pulse Pulse Resp BP BP Pulse Ox 06/11/18 08:00 60 06/11/18 07:00 36.6 C 60 20 136/65 92 06/11/18 03:00 36.4 C L 61 18 146/66 H 94 06/10/18 22:55 37.0 C 60 18 119/63 93 Laboratory Results 06/11/18 06/11/18 06/11/18 Range/Units 07:45 07:45 07:30 WBC 48.81 H* (4.8-10.8) K/uL RBC 2.82 L (4.7-6.1) M/uL Hgb 9.4 L (14.0-18.0) g/dL Hct 27.6 L (42-52) % MCV 97.9 (80-100) fL MCH 33.3 (25-34) pg MCHC 34.1 (32-36) g/dL RDW Std Deviation 78.5 H (36.4-46.3) fL RDW Coeff of Geovani 22.0 H (11.5-14.5) % Plt Count 92 L (130-400) K/uL MPV 9.1 (7.4-10.4) fL Immature Gran % (Auto) 1.2 % Neut % (Auto) 94.0 % Lymph % (Auto) 2.5 % App[place] % (Auto) 2.2 % Eos % (Auto) 0.0 % Baso % (Auto) 0.1 % Immature Gran # (Auto) 0.60 H (0.00-0.02) K/uL Neut # (Auto) 45.86 H (1.4-6.5) K/uL Lymph # (Auto) 1.24 (1.2-3.4) K/uL [place] # (Auto) 1.07 H (0.11-0.59) K/uL Eos # (Auto) 0.01 (0-0.5) K/uL Baso # (Auto) 0.03 (0-0.2) K/uL Hypersegmented Neuts Occasional Anisocytosis Present Sodium 134 L (136-145) mmol/L Potassium 3.0 L D (3.5-5.1) mmol/L Chloride 99 (98-107) mmol/L Carbon Dioxide 28 (21-32) mmol/L Anion Gap 8.0 (3-11) BUN 7 D (7-18) mg/dl Creatinine 0.62 (0.6-1.4) mg/dl Est Cr Clr Drug Dosing 92.4 ml/min Est GFR ( Amer) 107.8 Est GFR (Non-Af Amer) 93.0 BUN/Creatinine Ratio 11.3 (10-20) Glucose 152 H (70-99) mg/dl POC Glucose 157 H (70-99) Calcium 8.2 L (8.5-10.1) mg/dl 06/10/18 06/10/18 06/10/18 Range/Units 20:14 16:57 11:34 WBC (4.8-10.8) K/uL RBC (4.7-6.1) M/uL Hgb (14.0-18.0) g/dL Hct (42-52) % MCV (80-100) fL MCH (25-34) pg MCHC (32-36) g/dL RDW Std Deviation (36.4-46.3) fL RDW Coeff of Geovani (11.5-14.5) % Plt Count (130-400) K/uL MPV (7.4-10.4) fL Immature Gran % (Auto) % Neut % (Auto) % Lymph % (Auto) % [place] % (Auto) % Eos % (Auto) % Baso % (Auto) % Immature Gran # (Auto) (0.00-0.02) K/uL Neut # (Auto) (1.4-6.5) K/uL Lymph # (Auto) (1.2-3.4) K/uL [place] # (Auto) (0.11-0.59) K/uL Eos # (Auto) (0-0.5) K/uL Baso # (Auto) (0-0.2) K/uL Hypersegmented Neuts Anisocytosis Sodium (136-145) mmol/L Potassium (3.5-5.1) mmol/L Chloride (98-107) mmol/L Carbon Dioxide (21-32) mmol/L Anion Gap (3-11) BUN (7-18) mg/dl Creatinine (0.6-1.4) mg/dl Est Cr Clr Drug Dosing ml/min Est GFR ( Amer) Est GFR (Non-Af Amer) BUN/Creatinine Ratio (10-20) Glucose (70-99) mg/dl POC Glucose 235 H 198 H 188 H (70-99) Calcium (8.5-10.1) mg/dl
[2018-06-11] MEDS: POTASSIUM CHLORIDE 20 MEQ TABCR PO SCH ×3 (11:22→16:10)
[2018-06-11] MEDS: HYDROmorphone HCL 2 MG TAB PO PRN ×4 (12:19→23:55)
--- NOTE | 2018-06-11 17:31 | Family Medicine Progress Note ---
Date of Service June 11, 2018 Assessment & Plan (1) Intractable pain: 82 yo M with h/o of CAD s/p CABGx 2, AVR, MV stenosis, Afib, HTN, HLD, complete heart block with pacemaker, DM2, ESME, GERD, hypothyroidism, mood disorder and rectal adenocarcinoma stage 4 ([id number]) presents with severe rectal pain exacerbated by constipation and anal fissure. Refractory anal pain in the setting of stage 4 rectal adenocarcinoma exacerbated by narcotic induced constipation -afebrile -WBC elevated to 58 in the setting of neulasta (received chemo 2 days ago) -Start Relistor for constipation -Pain management consult -Continue home fentanyl 100mcg patch -Patient transition from hydrocodone to p.o. Dilaudid 2 mg every 4 H has not received adequate analgesia will increase to 4 mg tablets -Discontinued Linzess in favor of Relistor -Bowel regimen: miralax and colace daily, Relistor twice q2d -Patient had 5 bowel movements since yesterday it appears as if his constipation is resolved -Continue home zofran and compazine for nausea/vomiting -Surgery consulted -Outpatient follow-up in 4 weeks to discuss palliative colostomy -Hydrocortisone suppositories 25 mg twice daily -Can consider cansa if hydrocortisone is not effective -Due to location of tumor and relation to fissure doubtful if topical therapy will be effective -Senokot S twice daily MiraLAX daily rotate with milk of magnesia, mag citrate, and prune juice -Oncology consulted: Dr. Marcano -Consider palliative colostomy, likely will need to delay surgery as patient has been on biologic Bevacizumab -Consider transition to methadone Anal fissure -Continue hydrocortisone suppository if ineffective try cansa -Continue nitro cream BID and started on nifedipine 2% cream 4 times daily applied to the anus -Bowel regimen per surgery -Pain regimen per pain management CAD/HTN/HLD/AVR/MV stenosis/AFib -Continue home carvedilol, lasix, simvastatin and apixaban DM2 -On SSI with Novolog Hypothyroidism -Continue levothyroxine GERD -Continue prilosec Anemia -Hgb 9.4 (baseline 9-10) -No concern for acute bleed at this time -Continue to monitor CBC Mood disorder -Continue home escitalopram DVT prophylaxis: apixaban Diet: Heart healthy/DM 1 Code: Full Dispo: med/surg telemetry Supervising Physician Co-Signing Physician Notes Patient seen and examined with Dr. Medina. Agree with history, exam, assessment and plan of care with the following updates: 82 year old male with hx of CAD s/p CABG x2, AVR, MV stenosis, afib, HTN, HLD, complete heart block with pacer, mood disorder and rectal adenocarcinoma stage 4 admitted with uncontrolled rectal pain complicated by constipation and anal fissure. 1.rectal pain. Continue home fentanyl 100mcg TD, d/c norco 10/325. Dilaudid 2mg q4h PRN pain. If pain is not well controlled, may consider consulted palliative to discuss possibility of methadone vs having pain management discuss methadone possibilities. 2. constipation. s/p soap linda enema in ED. Bowel regimen. Added Relistor for opioid induced constipation. 3. anal fissure. Switch from topical nitro to topical nifedipime. Continue bowel regiment as above. Spoke with surgerycurrently not a good candidate for diversion procedure. Rec trial of optimizing bowel regimen. Pharmacy does not have Canasa in stock so will do hydrocortisone suppositories BID. We can write a rx for canasa and try to get it approved prior to discharge through his insurance. 4. anemia. Chronic. Stable. Baseline hgb ~9. 5. chronically anticoagulated with apixaban. Dispo: pending improved pain on oral medication Subjective Patient sitting up in bed today in no acute distress with his at the bedside. Patient reports doing well overnight tolerating his diet, sleeping, voiding, and had 5 bowel movements providing significant relief from his constipation. Patient did require IV pain medication this morning and was requesting it again this afternoon. His current pain regimen does not appear adequate to control his pain. Patient reports his pain is 8 out of 10 today. All questions were answered, no acute concerns at present. Patient denies fevers, chills, nausea, vomiting, diarrhea, muscle aches or pains, congestion, or other signs or symptoms of acute infectious process Physical Exam Physical Exam: General: In NAD, pleasant Neuro: alert, and oriented x 4 CV: RRR, 3/6 decrescendo murmur PULM: CTAB, equal breath sounds bilaterally GI: +BS, non-distended, TTP over LLQ region LE: no calf TTP, no LE edema Results & Data Vital Signs (Past 12 Hours) Vital Signs Temp Pulse Pulse Resp BP BP Pulse Ox 06/11/18 15:48 71 06/11/18 15:20 36.7 C 57 L 18 158/73 H 95 06/11/18 11:55 36.5 C 60 20 145/66 H 91 06/11/18 08:00 60 06/11/18 07:00 36.6 C 60 20 136/65 92 Laboratory Results 06/11/18 07:45 06/11/18 07:45 06/11/18 06/11/18 06/11/18 Range/Units 16:36 11:27 07:45 WBC (4.8-10.8) K/uL RBC (4.7-6.1) M/uL Hgb (14.0-18.0) g/dL Hct (42-52) % MCV (80-100) fL MCH (25-34) pg MCHC (32-36) g/dL RDW Std Deviation (36.4-46.3) fL RDW Coeff of Geovani (11.5-14.5) % Plt Count (130-400) K/uL MPV (7.4-10.4) fL Immature Gran % (Auto) % Neut % (Auto) % Lymph % (Auto) % [place] % (Auto) % Eos % (Auto) % Baso % (Auto) % Immature Gran # (Auto) (0.00-0.02) K/uL Neut # (Auto) (1.4-6.5) K/uL Lymph # (Auto) (1.2-3.4) K/uL [place] # (Auto) (0.11-0.59) K/uL Eos # (Auto) (0-0.5) K/uL Baso # (Auto) (0-0.2) K/uL Hypersegmented Neuts Anisocytosis Sodium 134 L (136-145) mmol/L Potassium 3.0 L D (3.5-5.1) mmol/L Chloride 99 (98-107) mmol/L Carbon Dioxide 28 (21-32) mmol/L Anion Gap 8.0 (3-11) BUN 7 D (7-18) mg/dl Creatinine 0.62 (0.6-1.4) mg/dl Est Cr Clr Drug Dosing 92.4 ml/min Est GFR ( Amer) 107.8 Est GFR (Non-Af Amer) 93.0 BUN/Creatinine Ratio 11.3 (10-20) Glucose 152 H (70-99) mg/dl POC Glucose 127 H 197 H (70-99) Calcium 8.2 L (8.5-10.1) mg/dl 06/11/18 06/11/18 06/10/18 Range/Units 07:45 07:30 20:14 WBC 48.81 H* (4.8-10.8) K/uL RBC 2.82 L (4.7-6.1) M/uL Hgb 9.4 L (14.0-18.0) g/dL Hct 27.6 L (42-52) % MCV 97.9 (80-100) fL MCH 33.3 (25-34) pg MCHC 34.1 (32-36) g/dL RDW Std Deviation 78.5 H (36.4-46.3) fL RDW Coeff of Geovani 22.0 H (11.5-14.5) % Plt Count 92 L (130-400) K/uL MPV 9.1 (7.4-10.4) fL Immature Gran % (Auto) 1.2 % Neut % (Auto) 94.0 % Lymph % (Auto) 2.5 % [place] % (Auto) 2.2 % Eos % (Auto) 0.0 % Baso % (Auto) 0.1 % Immature Gran # (Auto) 0.60 H (0.00-0.02) K/uL Neut # (Auto) 45.86 H (1.4-6.5) K/uL Lymph # (Auto) 1.24 (1.2-3.4) K/uL [place]ard # (Auto) 1.07 H (0.11-0.59) K/uL Eos # (Auto) 0.01 (0-0.5) K/uL Baso # (Auto) 0.03 (0-0.2) K/uL Hypersegmented Neuts Occasional Anisocytosis Present Sodium (136-145) mmol/L Potassium (3.5-5.1) mmol/L Chloride (98-107) mmol/L Carbon Dioxide (21-32) mmol/L Anion Gap (3-11) BUN (7-18) mg/dl Creatinine (0.6-1.4) mg/dl Est Cr Clr Drug Dosing ml/min Est GFR ( Amer) Est GFR (Non-Af Amer) BUN/Creatinine Ratio (10-20) Glucose (70-99) mg/dl POC Glucose 157 H 235 H (70-99) Calcium (8.5-10.1) mg/dl Medications Administered Current Inpatient Medications Albuterol (Ventolin Hfa) 2 puffs INH Q6H PRN PRN Reason: Shortness Of Breath Or Wheezin Apixaban (Eliquis) 5 mg PO BID [facility] Stop: 07/10/18 08:59 Last Admin: 06/11/18 08:13 Dose: 5 mg Documented by: Carvedilol (Coreg) 3.125 mg PO BID [facility] Stop: 07/10/18 01:41 Last Admin: 06/11/18 08:14 Dose: 3.125 mg Documented by: Nitroglycerin 7.5 inch/Emollient Ointment 67.5 gm/BARCODE IDENTIFIER 1 ea 0 inch EXT BID [facility] Stop: 07/10/18 08:59 Last Admin: 06/11/18 08:16 Dose: 1 appln Documented by: Dextrose (Dextrose 50%) 25 - 50 ml IV UD PRN; Protocol PRN Reason: Hypoglycemia Protocol Stop: 07/10/18 03:59 Escitalopram Oxalate (Lexapro) 15 mg PO DAILY [facility] Stop: 07/10/18 08:59 Last Admin: 06/11/18 08:12 Dose: 15 mg Documented by: Fentanyl (Duragesic) 100 mcg TD Q72H [facility] Stop: 06/26/18 07:59 Furosemide (Lasix) 40 mg PO DAILY [facility] Stop: 07/10/18 08:59 Last Admin: 06/11/18 08:13 Dose: 40 mg Documented by: Glucagon (Glucagen) 1 mg IM UD PRN; Protocol PRN Reason: Hypoglycemia Protocol Stop: 07/10/18 03:59 Glucose (Glucose 40%) 15 - 30 gm PO UD PRN; Protocol PRN Reason: Hypoglycemia Protocol Stop: 07/10/18 03:59 Glucose (Dex4 Glucose) 4 - 8 tabs PO UD PRN; Protocol PRN Reason: Hypoglycemia Protocol Stop: 07/10/18 03:59 Hydrocortisone (Anusol Hc) 25 mg WA BID [facility] Stop: 07/10/18 20:59 Last Admin: 06/11/18 08:15 Dose: 25 mg Documented by: Hydromorphone HCl (Dilaudid) 4 mg PO Q4 PRN PRN Reason: Pain Stop: 06/25/18 08:36 Insulin Aspart (Novolog Flexpen) 0 units SC ACHS [facility] Stop: 07/10/18 16:29 Last Admin: 06/11/18 17:31 Dose: Not Given Documented by: Levothyroxine Sodium (Synthroid) 100 mcg PO DAILYBB [facility] Stop: 07/10/18 06:29 Last Admin: 06/11/18 05:41 Dose: 100 mcg Documented by: Loratadine (Claritin) 10 mg PO QAM [facility] Stop: 07/10/18 08:59 Last Admin: 06/11/18 08:13 Dose: 10 mg Documented by: Magnesium Hydroxide (Milk Of Magnesia) 30 ml PO Q12H PRN PRN Reason: Constipation Stop: 07/10/18 01:41 Methylnaltrexone [place] (Relistor) 12 mg SQ Q2D [facility] Stop: 07/10/18 09:59 Last Admin: 06/10/18 11:18 Dose: 12 mg Documented by: Miscellaneous (Fentanyl Patch Remove & Waste) 1 ea N/A Q72H [facility] Stop: 07/12/18 07:58 Miscellaneous (Fentanyl Patch Check Placement) 1 ea N/A QS [facility] Stop: 07/10/18 07:59 Last Admin: 06/11/18 15:25 Dose: 1 ea Documented by: Miscellaneous (Carbohydrates For Hypoglycemia) 15 - 30 gm PO UD PRN PRN Reason: Hypoglycemia Treatment Stop: 07/10/18 03:59 Morphine Sulfate (Morphine Sulfate) 2 mg IV Q6H PRN PRN Reason: Breakthrough Pain Stop: 06/24/18 13:23 Last Admin: 06/11/18 15:05 Dose: 2 mg Documented by: Multivitamins/Minerals (Multivitamin W/ Minerals Tab) 1 tab PO BID [facility] Stop: 07/10/18 01:41 Last Admin: 06/11/18 08:13 Dose: 1 tab Documented by: Nifedipine (Nifedipine Rectal Ointment) 1 appln TOP QID [facility] Stop: 07/10/18 16:59 Last Admin: 06/11/18 17:10 Dose: 1 appln Documented by: Ondansetron HCl (Zofran Odt) 8 mg PO Q8 PRN PRN Reason: Nausea Stop: 07/10/18 01:41 Last Admin: 06/11/18 15:25 Dose: 8 mg Documented by: Pantoprazole Sodium (Protonix) 40 mg PO BID [facility] Stop: 07/10/18 08:59 Last Admin: 06/11/18 08:13 Dose: 40 mg Documented by: Polyethylene Glycol (Miralax Powder Packet) 17 gm PO DAILY [facility] Stop: 07/10/18 01:41 Last Admin: 06/11/18 08:13 Dose: 17 gm Documented by: Prochlorperazine (Compazine) 10 mg PO Q6 PRN PRN Reason: Nausea Stop: 07/10/18 01:41 Last Admin: 06/10/18 02:17 Dose: 10 mg Documented by: Senna/Docusate Sodium (Senokot S) 1 tab PO BID [facility] Stop: 07/10/18 20:59 Last Admin: 06/11/18 08:14 Dose: 1 tab Documented by: Simvastatin (Zocor) 40 mg PO HS [facility] Stop: 07/10/18 20:59 Last Admin: 06/10/18 20:34 Dose: 40 mg Documented by: Sucralfate (Carafate Tab) 1 gm PO QID [facility] Stop: 07/10/18 08:59 Last Admin: 06/11/18 17:10 Dose: Not Given Documented by: Resident Activity Tracking Resident Involvement: Resident Care Provided Care Provided: Adult Hospital Medicine
[2018-06-11] MEDS: PROCHLORPERAZINE MALEATE 10 MG TAB PO PRN (19:46)
[2018-06-11] MEDS ORDERED: Nursing to Pharmacy Communication ONE ×2 (20:52)
[2018-06-11] MEDS ORDERED: ONDANSETRON 4 MG OD TAB ONE (20:56)
[2018-06-11] MEDS: SIMVASTATIN 40 MG TAB PO SCH (21:07)
[2018-06-12] MEDS: MoRPHine SULFATE 2 MG/ML CARP IV PRN ×2 (03:42→10:54)
[2018-06-12] MEDS: HYDROmorphone HCL 2 MG TAB PO PRN ×5 (05:32→21:00)
[2018-06-12] MEDS: LEVOTHYROXINE SODIUM 100 MCG TABLET PO SCH (05:32)
[2018-06-12 07:13] LABS: BUN Creatinine Ratio 13.8 (10-20); Calcium 8.2 mg/dl (8.5-10.1); Creatinine Clr Calc Pharmacy 111.6 ml/min; Est GFR (African American) 116.8; Est GFR (Non-African American) 100.8; Potassium 3.5 mmol/L (3.5-5.1)
[2018-06-12 07:14] LABS: Hematocrit (blood only) 28.2 % (42-52); Hemoglobin 9.5 g/dL (14.0-18.0); Mean Corpuscular Hgb Conc 33.7 g/dL (32-36); Mean Corpuscular Volume 96.9 fL (80-100); Mean Platelet Volume 8.8 fL (7.4-10.4); Platelet Count 81 K/uL (130-400); RDW Coefficient of Variation 21.9 % (11.5-14.5); RDW Standard Deviation 77.4 fL (36.4-46.3); Red Blood Count 2.91 M/uL (4.7-6.1); White Blood Count 21.38 K/uL (4.8-10.8)
[2018-06-12 07:16] LABS: Anisocytosis Present; Basophils # (auto) 0.01 K/uL (0-0.2); Dohle Bodies 1+; Eosinophils # (auto) 0.07 K/uL (0-0.5); Eosinophils % (auto) 0.3 %; Immature Granulocytes % (auto) 0.5 %; Lymphocytes % (auto) 5.6 %; Monocytes % (auto) 6.5 %; Neutrophils % (auto) 87.1 %
[2018-06-12] MEDS ORDERED: POTASSIUM CHLORIDE 10 MEQ TABCR PO ONE ×2 (07:45→10:00)
[2018-06-12] MEDS: fentaNYL 100 MCG/HR TDSY TD SCH (08:15)
[2018-06-12] MEDS: POLYETHYLENE (MIRALAX) 17 GM PACK PO SCH (08:15)
[2018-06-12] MEDS: CHECK FENTANYL PATCH PLACEMENT SCH ×3 (08:16→23:45)
[2018-06-12] MEDS: DOCUSATE SODIUM/SENNA 50/8.6MG TAB PO SCH ×2 (08:17→20:57)
[2018-06-12] MEDS: NITROGLYCERIN 2% 7.5 INCH, AQUAPHOR 67.5 GM, BARCODE IDENTIFIER 1 EA EXT SCH ×2 (08:17→21:00)
[2018-06-12] MEDS: ESCITALOPRAM OXALATE 10 MG TAB PO SCH (08:18)
[2018-06-12] MEDS: SUCRALFATE 1 GM TAB PO SCH ×4 (08:19→20:56)
[2018-06-12] MEDS: LORATADINE 10 MG TAB PO SCH (08:19)
[2018-06-12] MEDS: HYDROCORTISONE ACETATE 25 MG SUPP PR SCH ×2 (08:20→20:56)
[2018-06-12] MEDS: CEROVITE ADV FORMULA TAB PO SCH ×2 (08:20→20:57)
[2018-06-12] MEDS: NIFEDIPINE 0.2% TOP SCH ×4 (08:20→20:58)
[2018-06-12] MEDS: CARVEDILOL 3.125 MG TAB PO SCH ×2 (08:20→20:57)
[2018-06-12] MEDS: PANTOprazole 40 MG TAB PO SCH ×2 (08:20→20:57)
[2018-06-12] MEDS: APIXABAN 5 MG TABLET PO SCH ×2 (08:21→20:58)
[2018-06-12] MEDS: FUROSEMIDE 40 MG TAB PO SCH (08:21)
[2018-06-12] MEDS: INSULIN ASPART 100 UNITS/ML 3 ML PEN SC SCH ×4 (08:23→20:59)
--- NOTE | 2018-06-12 08:49 | Pain Management Progress Note ---
Date of Service June 12, 2018 Assessment & Plan (1) Colorectal cancer, stage IV: 1. Continue Fentanyl patch 100mcg 2. Continue Dilaudid 4mg PO x 4 hours PRN pain 3. Patient reports adequate pain relief so pain management will sign off at this time. Thank you for the consultation. (2) Anal fissure: Subjective This is an 82-year-old white male with a significant history of stage IV rectal adenocarcinoma with metastasis. Rectal pain from tumor and non healing anal fissure are his predominent pain complaints. He is on Fentanyl patch and Dilaudid PO for pain. Yesterday Hydrocodone 10/325mg was discontinued and he was initiated on Dilaudid PO which has been providing adequate relief at 4mg dosage. He is pleased with his pain relief at this time. He was able to sleep well throughout the night. Pain is rated 2/10 currently. Patient denies any constitutional complaints. Case discussed with Dr. Anabel Christine Physical Exam Physical Exam: GENERAL: 82 year old white male appears his stated age. Speech and cognition is intact. Mood and affect is appropriate. He is sitting quietly in the hospital bed, no acute distress. ABDOMEN: Active bowel sounds throughout; non-tender to palpation. No peritoneal signs. No CVA tenderness bilaterally. NEURO: CN II-XII grossly intact with no focal deficits noted.
[2018-06-12] MEDS: METHYLNALTREXONE BROMIDE 12 MG/0.6 ML VIAL SQ SCH (09:51)
--- NOTE | 2018-06-12 15:28 | Family Medicine Progress Note ---
Date of Service June 12, 2018 Assessment & Plan (1) Intractable pain: 82 yo M with h/o of CAD s/p CABGx 2, AVR, MV stenosis, Afib, HTN, HLD, complete heart block with pacemaker, DM2, ESME, GERD, hypothyroidism, mood disorder and rectal adenocarcinoma stage 4 ([id number]) presents with severe rectal pain exacerbated by constipation and anal fissure. Refractory anal pain in the setting of stage 4 rectal adenocarcinoma exacerbated by narcotic induced constipation -afebrile -WBC elevated to 21.38 in the setting of neulasta (received chemo 2 days ago) -Pain management signed off -Pain Regimen -Patient agreeable with pain management expectations see subjective -Continue home fentanyl 100mcg patch -Dilaudid 5 mg every 4 hours as needed as needed for pain -DC'd IV morphine -Discontinued Linzess in favor of Relistor -Bowel regimen: miralax and colace daily, Relistor twice q2d -Patient is moving his bowels adequately reports subjective constipation is gone -Continue home zofran and compazine for nausea/vomiting -Surgery consulted -Outpatient follow-up in 4 weeks to discuss palliative colostomy -Hydrocortisone suppositories 25 mg twice daily -Can consider cansa if hydrocortisone is not effective -Due to location of tumor and relation to fissure doubtful if topical therapy will be effective -Senokot S twice daily MiraLAX daily rotate with milk of magnesia, mag citrate, and prune juice -Oncology consulted: Dr. Marcano -Consider palliative colostomy, likely will need to delay surgery as patient has been on biologic Bevacizumab -Consider transition to methadone Anal fissure -Continue hydrocortisone suppository if ineffective try cansa -Continue nitro cream BID and started on nifedipine 2% cream 4 times daily applied to the anus -Bowel regimen per surgery -Pain regimen as above CAD/HTN/HLD/AVR/MV stenosis/AFib -Continue home carvedilol, lasix, simvastatin and apixaban DM2 -On SSI with Novolog Hypothyroidism -Continue levothyroxine GERD -Continue prilosec Anemia -Hgb 9.5 (baseline 9-10) -No concern for acute bleed at this time -Continue to monitor CBC Mood disorder -Continue home escitalopram DVT prophylaxis: apixaban Diet: Heart healthy/DM 1 Code: Full Dispo: Assuming pain is well controlled over the next day or 2 Supervising Physician Co-Signing Physician Notes Attending attestation Pt seen and examined in concert with Dr. Medina. In agreement with the documented findings as noted in the resident documentation with any exceptions or additions as noted here. Patient reports pain is presently a 9/10. He states that he has been a 9/10 for approximately 6 months which has been unpleasant but did not previously require hospitalization. He had been previously at a 3/10 until he received chemo and radiation for his cancer, which caused the increase in discomfort. He states that his pain on admission was a 13 or more, and that it is improved. Having just received his pain medication approximately 1 hour prior to my evaluation, he states that he is 9/10 with a smile and laugh. On examination, S1/S2 nl RRR no MCG. CTAB. Abd NT/ND BS+ve Rectal pain - presently on fentanyl 100mcg, dilaudid 4mg q4 PRN and IV morphine 2mg PRN. After discussion above, will d/c IV morphine, increase hydromorphone PO to 5mg, monitoring closely for mental status changes, and trend tolerance. Patient is understanding that he will be unable to return home while needing IV medications, and that he will not have a pain level of 0/10 or even 3/10 prior to his discharge. Constipation - significant improvement, tolerating relistor well. Anal fissure - continue nifedipine, HC supp and bowel regimen. For surgical evaluation as outpatient Else see resident documentation as noted. Subjective Patient sitting up in bed in no acute distress. Reported no acute events overnight. Tolerating his diet, voiding, stooling, and sleeping well. We had a conversation this afternoon about expectation managements with regards to pain, the patient reported his current pain is a 9 but was a 13 on admission. We explained to him that unfortunately we will be unable to alleviate all of his pain given the severity of his current condition however the goal was for "pain management". To achieve our goal we are going to stop using IV pain medication and transition to only orals, upon discharge from the hospital he should expect his pain to be at about 9 but trending downwards and will defer to his primary care physician for further pain recommendations. Patient was agreeable to this strategy we answered all questions and no acute concerns are present. Patient denies fevers chills nausea vomiting diarrhea muscle aches and pains head congestion shortness of breath chest pain chest pressure or other signs or symptoms of acute process Physical Exam Physical Exam: General: In NAD, pleasant Neuro: alert, and oriented x 4 CV: RRR, 3/6 decrescendo murmur PULM: CTAB, equal breath sounds bilaterally GI: +BS, non-distended, TTP over LLQ region LE: no calf TTP, no LE edema Results & Data Vital Signs (Past 12 Hours) Vital Signs Temp Pulse Resp BP Pulse Ox 06/12/18 07:17 36.8 C 60 20 147/70 H 97 06/12/18 03:40 36.4 C L 65 18 178/81 H 95 06/11/18 22:30 36.4 C L 59 L 21 162/72 H 94 06/11/18 19:45 36.6 C 97 H 20 173/74 H 98 Laboratory Results 06/12/18 06:24 06/12/18 06:24 06/12/18 06/12/18 06/12/18 Range/Units 11:28 07:43 06:24 WBC 21.38 H D (4.8-10.8) K/uL RBC 2.91 L (4.7-6.1) M/uL Hgb 9.5 L (14.0-18.0) g/dL Hct 28.2 L (42-52) % MCV 96.9 (80-100) fL MCH 32.6 (25-34) pg MCHC 33.7 (32-36) g/dL RDW Std Deviation 77.4 H (36.4-46.3) fL RDW Coeff of Geovani 21.9 H (11.5-14.5) % Plt Count 81 L (130-400) K/uL MPV 8.8 (7.4-10.4) fL Immature Gran % (Auto) 0.5 % Neut % (Auto) 87.1 % Lymph % (Auto) 5.6 % [place] % (Auto) 6.5 % Eos % (Auto) 0.3 % Baso % (Auto) 0.0 % Immature Gran # (Auto) 0.10 H (0.00-0.02) K/uL Neut # (Auto) 18.60 H (1.4-6.5) K/uL Lymph # (Auto) 1.20 (1.2-3.4) K/uL [place] # (Auto) 1.40 H (0.11-0.59) K/uL Eos # (Auto) 0.07 (0-0.5) K/uL Baso # (Auto) 0.01 (0-0.2) K/uL Dohle Bodies 1+ Anisocytosis Present Sodium (136-145) mmol/L Potassium (3.5-5.1) mmol/L Chloride (98-107) mmol/L Carbon Dioxide (21-32) mmol/L Anion Gap (3-11) BUN (7-18) mg/dl Creatinine (0.6-1.4) mg/dl Est Cr Clr Drug Dosing ml/min Est GFR ( Amer) Est GFR (Non-Af Amer) BUN/Creatinine Ratio (10-20) Glucose (70-99) mg/dl POC Glucose 214 H 145 H (70-99) Calcium (8.5-10.1) mg/dl 06/12/18 06/11/18 06/11/18 Range/Units 06:24 20:09 16:36 WBC (4.8-10.8) K/uL RBC (4.7-6.1) M/uL Hgb (14.0-18.0) g/dL Hct (42-52) % MCV (80-100) fL MCH (25-34) pg MCHC (32-36) g/dL RDW Std Deviation (36.4-46.3) fL RDW Coeff of Geovani (11.5-14.5) % Plt Count (130-400) K/uL MPV (7.4-10.4) fL Immature Gran % (Auto) % Neut % (Auto) % Lymph % (Auto) % [place] % (Auto) % Eos % (Auto) % Baso % (Auto) % Immature Gran # (Auto) (0.00-0.02) K/uL Neut # (Auto) (1.4-6.5) K/uL Lymph # (Auto) (1.2-3.4) K/uL [place] # (Auto) (0.11-0.59) K/uL Eos # (Auto) (0-0.5) K/uL Baso # (Auto) (0-0.2) K/uL Dohle Bodies Anisocytosis Sodium 136 (136-145) mmol/L Potassium 3.5 D (3.5-5.1) mmol/L Chloride 103 (98-107) mmol/L Carbon Dioxide 25 (21-32) mmol/L Anion Gap 7.0 (3-11) BUN 7 (7-18) mg/dl Creatinine 0.51 L (0.6-1.4) mg/dl Est Cr Clr Drug Dosing 111.6 ml/min Est GFR ( Amer) 116.8 Est GFR (Non-Af Amer) 100.8 BUN/Creatinine Ratio 13.8 (10-20) Glucose 135 H (70-99) mg/dl POC Glucose 146 H 127 H (70-99) Calcium 8.2 L (8.5-10.1) mg/dl Medications Administered Current Inpatient Medications Albuterol (Ventolin Hfa) 2 puffs INH Q6H PRN PRN Reason: Shortness Of Breath Or Wheezin Apixaban (Eliquis) 5 mg PO BID KARIS Stop: 07/10/18 08:59 Last Admin: 06/12/18 08:21 Dose: 5 mg Documented by: Carvedilol (Coreg) 3.125 mg PO BID KARIS Stop: 07/10/18 01:41 Last Admin: 06/12/18 08:20 Dose: 3.125 mg Documented by: Nitroglycerin 7.5 inch/Emollient Ointment 67.5 gm/BARCODE IDENTIFIER 1 ea 0 inch EXT BID KARIS Stop: 07/10/18 08:59 Last Admin: 06/12/18 08:17 Dose: 1 appln Documented by: Dextrose (Dextrose 50%) 25 - 50 ml IV UD PRN; Protocol PRN Reason: Hypoglycemia Protocol Stop: 07/10/18 03:59 Escitalopram Oxalate (Lexapro) 15 mg PO DAILY [facility]IS Stop: 07/10/18 08:59 Last Admin: 06/12/18 08:18 Dose: 15 mg Documented by: Fentanyl (Duragesic) 100 mcg TD Q72H [facility] Stop: 06/26/18 07:59 Last Admin: 06/12/18 08:15 Dose: 100 mcg Documented by: Furosemide (Lasix) 40 mg PO DAILY K[facility]IS Stop: 07/10/18 08:59 Last Admin: 06/12/18 08:21 Dose: 40 mg Documented by: Glucagon (Glucagen) 1 mg IM UD PRN; Protocol PRN Reason: Hypoglycemia Protocol Stop: 07/10/18 03:59 Glucose (Glucose 40%) 15 - 30 gm PO UD PRN; Protocol PRN Reason: Hypoglycemia Protocol Stop: 07/10/18 03:59 Glucose (Dex4 Glucose) 4 - 8 tabs PO UD PRN; Protocol PRN Reason: Hypoglycemia Protocol Stop: 07/10/18 03:59 Heparin Sodium (Porcine) (Heparin Sod 100 Unit/Ml Flush) 5 ml IV PRN PRN PRN Reason: Flush Stop: 07/11/18 20:59 Last Admin: 06/12/18 10:59 Dose: 5 ml Documented by: Hydrocortisone (Anusol Hc) 25 mg MD BID KARIS Stop: 07/10/18 20:59 Last Admin: 06/12/18 08:20 Dose: 25 mg Documented by: Hydromorphone HCl (Dilaudid) 5 mg PO Q4 PRN PRN Reason: Pain Stop: 06/25/18 08:36 Insulin Aspart (Novolog Flexpen) [address] [facility] Stop: 07/10/18 16:29 Last Admin: 06/12/18 12:20 Dose: 7 units Documented by: Levothyroxine Sodium (Synthroid) [address] [facility] Stop: 07/10/18 06:29 Last Admin: 06/12/18 05:32 Dose: 100 mcg Documented by: Loratadine (Claritin) [address] [facility] Stop: 07/10/18 08:59 Last Admin: 06/12/18 08:19 Dose: 10 mg Documented by: Magnesium Hydroxide (Milk Of Magnesia) 30 ml PO Q12H PRN PRN Reason: Constipation Stop: 07/10/18 01:41 Methylnaltrexone [place] (Relistor) [address] [facility] Stop: 07/10/18 09:59 Last Admin: 06/12/18 09:51 Dose: 12 mg Documented by: Miscellaneous (Fentanyl Patch Remove & Waste) 1 ea N/A Q72H [facility] Stop: 07/12/18 07:58 Last Admin: 06/12/18 08:16 Dose: 1 ea Documented by: Miscellaneous (Fentanyl Patch Check Placement) 1 ea N/A QS [facility] Stop: 07/10/18 07:59 Last Admin: 06/12/18 08:16 Dose: 1 ea Documented by: Miscellaneous (Carbohydrates For Hypoglycemia) 15 - 30 gm PO UD PRN PRN Reason: Hypoglycemia Treatment Stop: 07/10/18 03:59 Morphine Sulfate (Morphine Sulfate) 2 mg IV Q6H PRN PRN Reason: Breakthrough Pain Stop: 06/24/18 13:23 Last Admin: 06/12/18 10:54 Dose: 2 mg Documented by: Multivitamins/Minerals (Multivitamin W/ Minerals Tab) 1 tab PO BID [facility] Stop: 07/10/18 01:41 Last Admin: 06/12/18 08:20 Dose: 1 tab Documented by: Nifedipine (Nifedipine Rectal Ointment) [address] [facility] Stop: 07/10/18 16:59 Last Admin: 06/12/18 12:19 Dose: 1 appln Documented by: Ondansetron HCl (Zofran Odt) 8 mg PO Q4H PRN PRN Reason: Nausea Stop: 07/10/18 01:41 Last Admin: 06/11/18 21:12 Dose: 8 mg Documented by: Pantoprazole Sodium (Protonix) 40 mg PO BID [facility]IS Stop: 07/10/18 08:59 Last Admin: 06/12/18 08:20 Dose: 40 mg Documented by: Polyethylene Glycol (Miralax Powder Packet) [address] [facility] Stop: 07/10/18 01:41 Last Admin: 06/12/18 08:15 Dose: 17 gm Documented by: Prochlorperazine (Compazine) 10 mg PO Q6 PRN PRN Reason: Nausea Stop: 07/10/18 01:41 Last Admin: 06/11/18 19:46 Dose: 10 mg Documented by: Senna/Docusate Sodium (Senokot S) 1 tab PO BID [facility] Stop: 07/10/18 20:59 Last Admin: 06/12/18 08:17 Dose: 1 tab Documented by: Simvastatin (Zocor) [address] [facility] Stop: 07/10/18 20:59 Last Admin: 06/11/18 21:07 Dose: 40 mg Documented by: Sucralfate (Carafate Tab) 1 gm PO QID [facility] Stop: 07/10/18 08:59 Last Admin: 06/12/18 12:19 Dose: 1 gm Documented by: Resident Activity Tracking Resident Involvement: Resident Care Provided Care Provided: Adult Hospital Medicine
[2018-06-12] MEDS: ONDANSETRON 4 MG OD TAB PO PRN (16:20)
[2018-06-12] MEDS: PROCHLORPERAZINE MALEATE 10 MG TAB PO PRN ×2 (17:12→23:37)
[2018-06-12] MEDS ORDERED: DRONABINOL 2.5 MG CAP PO PRN (19:09)
[2018-06-12] MEDS: DRONABINOL 2.5 MG CAP PO SCH (19:48)
[2018-06-12] MEDS: SIMVASTATIN 40 MG TAB PO SCH (20:58)
[2018-06-13] MEDS: HYDROmorphone HCL 2 MG TAB PO PRN ×6 (01:12→23:49)
[2018-06-13] MEDS: ONDANSETRON 4 MG OD TAB PO PRN ×2 (03:47→08:10)
[2018-06-13] MEDS ORDERED: HydrALAZINE HCL 20 MG/ML VIAL IV PRN ×2 (04:51→08:22)
[2018-06-13] MEDS: LEVOTHYROXINE SODIUM 100 MCG TABLET PO SCH (05:26)
--- NOTE | 2018-06-13 06:40 | Family Medicine Progress Note ---
Date of Service June 13, 2018 Assessment & Plan (1) Intractable pain: 82 yo M with h/o of CAD s/p CABGx 2, AVR, MV stenosis, Afib, HTN, HLD, complete heart block with pacemaker, DM2, ESME, GERD, hypothyroidism, mood disorder and rectal adenocarcinoma stage 4 ([id number]) presents with severe rectal pain exacerbated by constipation and anal fissure. Refractory anal pain in the setting of stage 4 rectal adenocarcinoma exacerbated by narcotic induced constipation -afebrile -Received last dose of Neulasta 2 days prior to admission -Pain management signed off -Pain Regimen -Patient agreeable with pain management expectations see subjective -Continue home fentanyl 100mcg patch -Dilaudid 5 mg every 4 hours as needed as needed for pain -Relistor prn for constipation -Marinol 2.5 mg 3 times daily for cachexia and synergistic pain management -Patient reports significant improvement on this pain went 13 on admission to 9 and is now a 6 status post initiation of Marinol -Bowel regimen: miralax and colace daily -Patient has not moved his bowels in 2 days, if he does not have an adequate bowel movement will consider another dose of Relistor tomorrow -Continue home zofran and compazine for nausea/vomiting -Surgery consulted -Outpatient follow-up in 4 weeks to discuss palliative colostomy -Hydrocortisone suppositories 25 mg twice daily -Can consider cansa if hydrocortisone is not effective -Due to location of tumor and relation to fissure doubtful if topical therapy will be effective -Senokot S twice daily MiraLAX daily rotate with milk of magnesia, mag citrate, and prune juice -Oncology consulted: Dr. Marcano -Consider palliative colostomy, likely will need to delay surgery as patient has been on biologic Bevacizumab -Consider transition to methadone -Palliative consult placed appreciate Recs -PT OT consult placed appreciate further recommendations with new knowledge that his will be unable to help him with ADLs at home Urinary retention During this admission patient began to experience urinary retention approximately on 06/11. Patient has been unable to control his voids and required intermittent straight cathing since. -Differential includes: Secondary to constipation, secondary to malignancy, BPH, significantly less likely secondary to pain management therapy -Straight cath every 4 hours for now -We will contact Dr. Humphries to see if he has any history of similar -Potentially a gravity dependent process patient was attempted he was standing up -We will consider uro-consult Hypertension Patient seems to have curiosity to his hypertension and seems to get worse in the evening and overnight and resolve in the morning -Potentially secondary to urinary retention -Responded to PRN hydralazine, 10 Mgs hydralazine every 2 hours as needed for systolic greater than 180 -Continue to monitor for now Anal fissure -Continue hydrocortisone suppository if ineffective try cansa -Continue nitro cream BID and started on nifedipine 2% cream 4 times daily applied to the anus -Bowel regimen per surgery -Pain regimen as above CAD/HTN/HLD/AVR/MV stenosis/AFib -Continue home carvedilol, lasix, simvastatin and apixaban DM2 -On SSI with Novolog Hypothyroidism -Continue levothyroxine GERD -Continue prilosec Anemia -Hgb 10.7 (baseline 9-10) -No concern for acute bleed at this time -Continue to monitor CBC Mood disorder -Continue home escitalopram DVT prophylaxis: apixaban Diet: Heart healthy/DM 1 Code: Full Dispo: Assuming pain is well controlled over the next day or 2 Supervising Physician Co-Signing Physician Notes Attending attestation Pt seen and examined in concert with Dr. Medina. In agreement with the documented findings as noted in the resident documentation with any exceptions or additions as noted here. Significant improvement in pain control w/ dilaudid 5mg and marinol addition for POI. Complaining of difficulty with urination for the last few days, truncated, weak stream which is new for him. Has been tolerating CIC well and clearing urine. On examination, S1/S2 nl RRR no MCG. CTAB. Abd NT/ND BS+ve Difficulty voiding - multifactorial underlying causes including stage 4 rectal carcinoma and radiation therapy to the area - start tamsulosin, consult urology for tomorrow in case of no improvement Rectal pain - presently on fentanyl 100mcg, dilaudid 5mg q4 PRN and doing well. Continue. Constipation - significant improvement, tolerating Relistor well. Anal fissure - continue nifedipine, HC supp and bowel regimen. For surgical evaluation as outpatient 4-6 wks after d/c chemotherapy Else see resident documentation as noted. Subjective Patient sleeping in bed this morning in no acute distress. Overnight the patient was hypertensive and was noted to have trouble voiding on his own requiring straight cath. The patient reports significant improvement in his pain after initiation of Marinol. On admission his pain was a 13 with optimizing his bowel and pain regimen he dropped to a 9 and remained there for several days. With the addition of Marinol overnight his pain is now a 6. Attempted to elucidate further history with reference to his urinary hesitancy. He states this is a new symptom that started during this admission he was voiding on his own and then was not. We advised he attempt to urinate while standing upright and advises that this improved his symptoms. He has not had a bowel movement 1.5 days, slept well overnight, and is tolerating his diet. In fact he reports his diet has been much improved since initiation of Marinol. Answered all questions no acute concerns at present Physical Exam Physical Exam: General: In NAD, pleasant decreased pain Neuro: alert, and oriented x 4 CV: RRR, 3/6 decrescendo murmur PULM: CTAB, equal breath sounds bilaterally GI: +BS, non-distended, TTP over LLQ region LE: no calf TTP, no LE edema Results & Data Vital Signs (Past 12 Hours) Vital Signs Temp Pulse Resp BP BP Pulse Ox 06/13/18 04:45 175/80 H 06/13/18 04:27 60 190/87 H 202/92 H 06/13/18 04:14 36.3 C L 61 18 199/94 H 98 06/12/18 23:09 36.5 C 60 18 161/79 H 98 06/12/18 19:00 36.6 C 61 18 148/68 H 94 Laboratory Results 06/13/18 06:46 06/13/18 06:46 06/13/18 06/13/18 06/13/18 Range/Units 11:54 07:38 06:46 WBC (4.8-10.8) K/uL RBC (4.7-6.1) M/uL Hgb (14.0-18.0) g/dL Hct (42-52) % MCV (80-100) fL MCH (25-34) pg MCHC (32-36) g/dL RDW Std Deviation (36.4-46.3) fL RDW Coeff of Geovani (11.5-14.5) % Plt Count (130-400) K/uL MPV (7.4-10.4) fL Immature Gran % (Auto) % Neut % (Auto) % Lymph % (Auto) % Payne % (Auto) % Eos % (Auto) % Baso % (Auto) % Immature Gran # (Auto) (0.00-0.02) K/uL Neut # (Auto) (1.4-6.5) K/uL Lymph # (Auto) (1.2-3.4) K/uL Payne # (Auto) (0.11-0.59) K/uL Eos # (Auto) (0-0.5) K/uL Baso # (Auto) (0-0.2) K/uL Anisocytosis Sodium 131 L (136-145) mmol/L Potassium 3.7 (3.5-5.1) mmol/L Chloride 101 (98-107) mmol/L Carbon Dioxide 24 (21-32) mmol/L Anion Gap 6.0 (3-11) BUN 9 (7-18) mg/dl Creatinine 0.56 L (0.6-1.4) mg/dl Est Cr Clr Drug Dosing 100.4 ml/min Est GFR ( Amer) 112.4 Est GFR (Non-Af Amer) 97.0 BUN/Creatinine Ratio 16.1 (10-20) Glucose 171 H (70-99) mg/dl POC Glucose 174 H 178 H (70-99) Calcium 8.2 L (8.5-10.1) mg/dl 06/13/18 06/13/18 06/12/18 Range/Units 06:46 05:58 20:07 WBC 14.34 H (4.8-10.8) K/uL RBC 3.25 L (4.7-6.1) M/uL Hgb 10.7 L (14.0-18.0) g/dL Hct 31.6 L (42-52) % MCV 97.2 (80-100) fL MCH 32.9 (25-34) pg MCHC 33.9 (32-36) g/dL RDW Std Deviation 76.8 H (36.4-46.3) fL RDW Coeff of Geovani 21.8 H (11.5-14.5) % Plt Count 92 L (130-400) K/uL MPV 9.7 (7.4-10.4) fL Immature Gran % (Auto) 0.6 % Neut % (Auto) 82.0 % Lymph % (Auto) 6.8 % Payne % (Auto) 10.2 % Eos % (Auto) 0.3 % Baso % (Auto) 0.1 % Immature Gran # (Auto) 0.09 H (0.00-0.02) K/uL Neut # (Auto) 11.77 H (1.4-6.5) K/uL Lymph # (Auto) 0.97 L (1.2-3.4) K/uL Payne # (Auto) 1.46 H (0.11-0.59) K/uL Eos # (Auto) 0.04 (0-0.5) K/uL Baso # (Auto) 0.01 (0-0.2) K/uL Anisocytosis Present Sodium (136-145) mmol/L Potassium (3.5-5.1) mmol/L Chloride (98-107) mmol/L Carbon Dioxide (21-32) mmol/L Anion Gap (3-11) BUN (7-18) mg/dl Creatinine 0.55 L (0.6-1.4) mg/dl Est Cr Clr Drug Dosing 102.2 ml/min Est GFR ( Amer) 113.3 Est GFR (Non-Af Amer) 97.7 BUN/Creatinine Ratio (10-20) Glucose (70-99) mg/dl POC Glucose 214 H (70-99) Calcium (8.5-10.1) mg/dl 06/12/18 Range/Units 16:38 WBC (4.8-10.8) K/uL RBC (4.7-6.1) M/uL Hgb (14.0-18.0) g/dL Hct (42-52) % MCV (80-100) fL MCH (25-34) pg MCHC (32-36) g/dL RDW Std Deviation (36.4-46.3) fL RDW Coeff of Geovani (11.5-14.5) % Plt Count (130-400) K/uL MPV (7.4-10.4) fL Immature Gran % (Auto) % Neut % (Auto) % Lymph % (Auto) % Payne % (Auto) % Eos % (Auto) % Baso % (Auto) % Immature Gran # (Auto) (0.00-0.02) K/uL Neut # (Auto) (1.4-6.5) K/uL Lymph # (Auto) (1.2-3.4) K/uL Payne # (Auto) (0.11-0.59) K/uL Eos # (Auto) (0-0.5) K/uL Baso # (Auto) (0-0.2) K/uL Anisocytosis Sodium (136-145) mmol/L Potassium (3.5-5.1) mmol/L Chloride (98-107) mmol/L Carbon Dioxide (21-32) mmol/L Anion Gap (3-11) BUN (7-18) mg/dl Creatinine (0.6-1.4) mg/dl Est Cr Clr Drug Dosing ml/min Est GFR ( Amer) Est GFR (Non-Af Amer) BUN/Creatinine Ratio (10-20) Glucose (70-99) mg/dl POC Glucose 168 H (70-99) Calcium (8.5-10.1) mg/dl Medications Administered Current Inpatient Medications Albuterol (Ventolin Hfa) 2 puffs INH Q6H PRN PRN Reason: Shortness Of Breath Or Wheezin Apixaban (Eliquis) 5 mg PO BID [facility] Stop: 07/10/18 08:59 Last Admin: 06/13/18 08:13 Dose: 5 mg Documented by: Carvedilol (Coreg) 3.125 mg PO BID [facility] Stop: 07/10/18 01:41 Last Admin: 06/13/18 08:12 Dose: 3.125 mg Documented by: Nitroglycerin 7.5 inch/Emollient Ointment 67.5 gm/[employer] 1 ea 0 inch EXT BID [facility] Stop: 07/10/18 08:59 Last Admin: 06/13/18 08:13 Dose: 1 appln Documented by: Dextrose (Dextrose 50%) 25 - 50 ml IV UD PRN; Protocol PRN Reason: Hypoglycemia Protocol Stop: 07/10/18 03:59 Dronabinol (Marinol) 2.5 mg PO TID [facility] Stop: 07/12/18 19:29 Last Admin: 06/13/18 09:00 Dose: 2.5 mg Documented by: Escitalopram Oxalate (Lexapro) 15 mg PO DAILY [facility] Stop: 07/10/18 08:59 Last Admin: 06/13/18 08:11 Dose: 15 mg Documented by: Fentanyl (Duragesic) 100 mcg TD Q72H [facility] Stop: 06/26/18 07:59 Last Admin: 06/12/18 08:15 Dose: 100 mcg Documented by: Furosemide (Lasix) 40 mg PO DAILY [facility] Stop: 07/10/18 08:59 Last Admin: 06/13/18 08:13 Dose: 40 mg Documented by: Glucagon (Glucagen) 1 mg IM UD PRN; Protocol PRN Reason: Hypoglycemia Protocol Stop: 07/10/18 03:59 Glucose (Glucose 40%) 15 - 30 gm PO UD PRN; Protocol PRN Reason: Hypoglycemia Protocol Stop: 07/10/18 03:59 Glucose (Dex4 Glucose) 4 - 8 tabs PO UD PRN; Protocol PRN Reason: Hypoglycemia Protocol Stop: 07/10/18 03:59 Heparin Sodium (Porcine) (Heparin Sod 100 Unit/Ml Flush) 5 ml IV PRN PRN PRN Reason: Flush Stop: 07/11/18 20:59 Last Admin: 06/13/18 05:55 Dose: 5 ml Documented by: Hydralazine HCl (Hydralazine Hcl) 10 mg IV Q2H PRN PRN Reason: Hypertension Stop: 07/13/18 04:59 Hydrocortisone (Anusol Hc) 25 mg GA BID [facility] Stop: 07/10/18 20:59 Last Admin: 06/13/18 08:09 Dose: 25 mg Documented by: Hydromorphone HCl (Dilaudid) 5 mg PO Q4 PRN PRN Reason: Pain Stop: 06/25/18 08:36 Last Admin: 06/13/18 09:01 Dose: 5 mg Documented by: Insulin Aspart (Novolog Flexpen) 0 units SC ACHS [facility] Stop: 07/10/18 16:29 Last Admin: 06/13/18 12:22 Dose: 1 units Documented by: Levothyroxine Sodium (Synthroid) 100 mcg PO DAILYBB [facility] Stop: 07/10/18 06:29 Last Admin: 06/13/18 05:26 Dose: 100 mcg Documented by: Loratadine (Claritin) 10 mg PO QAM [facility] Stop: 07/10/18 08:59 Last Admin: 06/13/18 08:11 Dose: 10 mg Documented by: Magnesium Hydroxide (Milk Of Magnesia) 30 ml PO Q12H PRN PRN Reason: Constipation Stop: 07/10/18 01:41 Methylnaltrexone Downing (Relistor) 12 mg SQ Q2D [facility] Stop: 07/10/18 09:59 Last Admin: 06/12/18 09:51 Dose: 12 mg Documented by: Miscellaneous (Fentanyl Patch Remove & Waste) 1 ea N/A Q72H [facility] Stop: 07/12/18 07:58 Last Admin: 06/12/18 08:16 Dose: 1 ea Documented by: Nagi (Fentanyl Patch Check Placement) 1 ea N/A QS [facility] Stop: 07/10/18 07:59 Last Admin: 06/13/18 08:09 Dose: 1 ea Documented by: Nagi (Carbohydrates For Hypoglycemia) 15 - 30 gm PO UD PRN PRN Reason: Hypoglycemia Treatment Stop: 07/10/18 03:59 Morphine Sulfate (Morphine Sulfate) 2 mg IV Q6H PRN PRN Reason: Breakthrough Pain Stop: 06/24/18 13:23 Last Admin: 06/12/18 10:54 Dose: 2 mg Documented by: Multivitamins/Minerals (Multivitamin W/ Minerals Tab) 1 tab PO BID [facility] Stop: 07/10/18 01:41 Last Admin: 06/13/18 08:11 Dose: 1 tab Documented by: Nifedipine (Nifedipine Rectal Ointment) 1 appln TOP QID [facility] Stop: 07/10/18 16:59 Last Admin: 06/13/18 08:12 Dose: Not Given Documented by: Ondansetron HCl (Zofran Odt) 8 mg PO Q4H PRN PRN Reason: Nausea Stop: 07/10/18 01:41 Last Admin: 06/13/18 08:10 Dose: 8 mg Documented by: Pantoprazole Sodium (Protonix) 40 mg PO BID [facility] Stop: 07/10/18 08:59 Last Admin: 06/13/18 08:11 Dose: 40 mg Documented by: Polyethylene Glycol (Miralax Powder Packet) 17 gm PO DAILY [facility] Stop: 07/10/18 01:41 Last Admin: 06/13/18 08:12 Dose: 17 gm Documented by: Prochlorperazine (Compazine) 10 mg PO Q6 PRN PRN Reason: Nausea Stop: 07/10/18 01:41 Last Admin: 06/12/18 23:37 Dose: 10 mg Documented by: Senna/Docusate Sodium (Senokot S) 1 tab PO BID [facility] Stop: 07/10/18 20:59 Last Admin: 06/13/18 08:12 Dose: 1 tab Documented by: Simvastatin (Zocor) 40 mg PO HS [facility] Stop: 07/10/18 20:59 Last Admin: 06/12/18 20:58 Dose: 40 mg Documented by: Sucralfate (Carafate Tab) 1 gm PO QID [facility] Stop: 07/10/18 08:59 Last Admin: 06/13/18 08:11 Dose: 1 gm Documented by: Resident Activity Tracking Resident Involvement: Resident Care Provided Care Provided: Adult Hospital Medicine
[2018-06-13 06:58] LABS: Creatinine Clr Calc Pharmacy 102.2 ml/min; Est GFR (African American) 113.3; Est GFR (Non-African American) 97.7
[2018-06-13 07:16] LABS: Hematocrit (blood only) 31.6 % (42-52); Hemoglobin 10.7 g/dL (14.0-18.0); Mean Corpuscular Hgb Conc 33.9 g/dL (32-36); Mean Corpuscular Volume 97.2 fL (80-100); RDW Coefficient of Variation 21.8 % (11.5-14.5); RDW Standard Deviation 76.8 fL (36.4-46.3); Red Blood Count 3.25 M/uL (4.7-6.1); White Blood Count 14.34 K/uL (4.8-10.8)
[2018-06-13 07:23] LABS: Mean Platelet Volume 9.7 fL (7.4-10.4); Platelet Count 92 K/uL (130-400)
[2018-06-13 07:52] LABS: BUN Creatinine Ratio 16.1 (10-20); Calcium 8.2 mg/dl (8.5-10.1); Creatinine Clr Calc Pharmacy 100.4 ml/min; Est GFR (African American) 112.4; Potassium 3.7 mmol/L (3.5-5.1)
[2018-06-13 07:53] LABS: Anisocytosis Present; Basophils # (auto) 0.01 K/uL (0-0.2); Basophils % (auto) 0.1 %; Eosinophils # (auto) 0.04 K/uL (0-0.5); Eosinophils % (auto) 0.3 %; Immature Granulocytes # (auto) 0.09 K/uL (0.00-0.02); Immature Granulocytes % (auto) 0.6 %; Lymphocytes # (auto) 0.97 K/uL (1.2-3.4); Lymphocytes % (auto) 6.8 %; Monocytes # (auto) 1.46 K/uL (0.11-0.59); Monocytes % (auto) 10.2 %; Neutrophils # (auto) 11.77 K/uL (1.4-6.5)
[2018-06-13] MEDS: HYDROCORTISONE ACETATE 25 MG SUPP PR SCH ×2 (08:09→21:08)
[2018-06-13] MEDS: CHECK FENTANYL PATCH PLACEMENT SCH ×3 (08:09→23:49)
[2018-06-13] MEDS: CEROVITE ADV FORMULA TAB PO SCH ×2 (08:11→21:09)
[2018-06-13] MEDS: SUCRALFATE 1 GM TAB PO SCH ×3 (08:11→17:09)
[2018-06-13] MEDS: ESCITALOPRAM OXALATE 10 MG TAB PO SCH (08:11)
[2018-06-13] MEDS: LORATADINE 10 MG TAB PO SCH (08:11)
[2018-06-13] MEDS: PANTOprazole 40 MG TAB PO SCH ×2 (08:11→21:09)
[2018-06-13] MEDS: DOCUSATE SODIUM/SENNA 50/8.6MG TAB PO SCH ×2 (08:12→21:10)
[2018-06-13] MEDS: POLYETHYLENE (MIRALAX) 17 GM PACK PO SCH (08:12)
[2018-06-13] MEDS: NIFEDIPINE 0.2% TOP SCH ×4 (08:12→21:10)
[2018-06-13] MEDS: CARVEDILOL 3.125 MG TAB PO SCH ×2 (08:12→21:08)
[2018-06-13] MEDS: NITROGLYCERIN 2% 7.5 INCH, AQUAPHOR 67.5 GM, BARCODE IDENTIFIER 1 EA EXT SCH ×2 (08:13→21:11)
[2018-06-13] MEDS: FUROSEMIDE 40 MG TAB PO SCH (08:13)
[2018-06-13] MEDS: APIXABAN 5 MG TABLET PO SCH ×2 (08:13→21:08)
[2018-06-13] MEDS: INSULIN ASPART 100 UNITS/ML 3 ML PEN SC SCH ×4 (08:14→21:06)
[2018-06-13] MEDS ORDERED: HydrALAZINE HCL 20 MG/ML VIAL IV STA (08:22)
[2018-06-13] MEDS ORDERED: POTASSIUM CHLORIDE 10 MEQ TABCR PO STA (08:28)
[2018-06-13] MEDS: DRONABINOL 2.5 MG CAP PO SCH ×3 (09:00→21:07)
[2018-06-13] MEDS ORDERED: POTASSIUM CHLORIDE 20 MEQ TABCR PO ONE (10:30)
[2018-06-13] MEDS ORDERED: Nursing to Pharmacy Communication ONE (17:37)
[2018-06-13] MEDS: SUCRALFATE 1 GM/10 ML UDC PO SCH (21:07)
[2018-06-13] MEDS: SIMVASTATIN 40 MG TAB PO SCH (21:11)
[2018-06-14] MEDS: LEVOTHYROXINE SODIUM 100 MCG TABLET PO SCH (06:01)
[2018-06-14 07:44] LABS: Hematocrit (blood only) 31.1 % (42-52); Hemoglobin 10.5 g/dL (14.0-18.0); Mean Corpuscular Hgb Conc 33.8 g/dL (32-36); Mean Corpuscular Volume 98.4 fL (80-100); RDW Coefficient of Variation 21.7 % (11.5-14.5); RDW Standard Deviation 77.7 fL (36.4-46.3); Red Blood Count 3.16 M/uL (4.7-6.1); White Blood Count 14.27 K/uL (4.8-10.8)
--- NOTE | 2018-06-14 07:46 | Family Medicine Progress Note ---
Date of Service June 14, 2018 Assessment & Plan (1) Intractable pain: 82 yo M with h/o of CAD s/p CABGx 2, AVR, MV stenosis, Afib, HTN, HLD, complete heart block with pacemaker, DM2, ESME, GERD, hypothyroidism, mood disorder and rectal adenocarcinoma stage 4 ([id number]) presents with severe rectal pain exacerbated by constipation and anal fissure. Refractory anal pain in the setting of stage 4 rectal adenocarcinoma exacerbated by narcotic induced constipation -afebrile -Received last dose of Neulasta 2 days prior to admission -Pain management signed off -Pain Regimen -Patient agreeable with pain management expectations see subjective -Continue home fentanyl 100mcg patch -Dilaudid 5 mg every 4 hours as needed as needed for pain -Relistor holding relistor,Secondary to diarrhea -Marinol 2.5 mg 3 times daily for cachexia and synergistic pain management -Patient reports significant improvement on this pain went 13 on admission to 9 and is now a 6 status post initiation of Marinol, Patient reported pain was a 4 yesterday afternoon -Bowel regimen: Relistor DC all other meds as patient is having significant diarrhea -Continue home zofran and compazine for nausea/vomiting -Surgery consulted -Outpatient follow-up in 4 weeks to discuss palliative colostomy -Hydrocortisone suppositories 25 mg twice daily -Can consider cansa if hydrocortisone is not effective -Due to location of tumor and relation to fissure doubtful if topical therapy will be effective -Senokot S twice daily MiraLAX daily rotate with milk of magnesia, mag citrate, and prune juice -Oncology consulted: Dr. Marcano -Consider palliative colostomy, likely will need to delay surgery as patient has been on biologic Bevacizumab -Consider transition to methadone -Palliative consult placed appreciate Recs -PT OT consult placed appreciate further recommendations with new knowledge that his will be unable to help him with ADLs at home Urinary retention During this admission patient began to experience urinary retention approximately on 06/11. Patient has been unable to control his voids and required intermittent straight cathing since. -Differential includes: Secondary to constipation, secondary to malignancy, BPH, significantly less likely secondary to pain management therapy -Straight cath every 4 hours for now -We will contact Dr. Humphries to see if he has any history of similar -Potentially a gravity dependent process patient was attempted he was standing up -Uro Cx -check PVR with bladder scan Q shift to ensure he is emptying adequately. -new meds for symptoms seen ongoing health issues if he is feeling better. recheck symptoms tomorrow. Consider outpatient vs. PRN f/u depending on bladder scan and symptoms. Hypertension Patient seems to have periodcity to his hypertension and seems to get worse in the evening and overnight and resolve in the morning -Potentially secondary to urinary retention Appears to have resolved status post every 6 hours straight cath -Responded to PRN hydralazine, 10 Mgs hydralazine every 2 hours as needed for systolic greater than 180 -Continue to monitor for now Anal fissure -Continue hydrocortisone suppository if ineffective try cansa -Continue nitro cream BID and started on nifedipine 2% cream 4 times daily applied to the anus -Relistor for constipation -Pain regimen as above CAD/HTN/HLD/AVR/MV stenosis/AFib -Continue home carvedilol, lasix, simvastatin and apixaban DM2 -On SSI with Novolog -No indication for basal insulin at present Hypothyroidism -Continue levothyroxine GERD -Continue prilosec Anemia -Hgb 10.5 (baseline 9-10) -No concern for acute bleed at this time -Continue to monitor CBC Mood disorder -Continue home escitalopram DVT prophylaxis: apixaban Diet: Heart healthy/DM 1 Code: Full Dispo: pending PT and OT final recs and evaluation Supervising Physician Co-Signing Physician Notes Attending attestation Pt seen and examined in concert with Dr. Medina. In agreement with the documented findings as noted in the resident documentation with any exceptions or additions as noted here. 82 y/o male h/o stage 4 rectal carcinoma. Pain is well controlled on present regimen with mild flare this morning 2/2 increased bowel movement frequency following laxative administration. POI/appetite considerably improved with marinol. Was able to void 500/800cc while standing overnight, but still tolerating CIC well. On examination, S1/S2 nl RRR no MCG. CTAB. Abd NT/ND BS+ve Difficulty voiding - multifactorial underlying causes including stage 4 rectal carcinoma and radiation therapy to the area - urology consultation - continue tamsulosin, CIC. For outpatient follow up with urology. Rectal pain - presently on fentanyl 100mcg, dilaudid 5mg q4 PRN. Tolerating. Constipation - now having significantly increased BM, so will narrow bowel regimen. Anal fissure - continue nifedipine, HC supp and bowel regimen. For surgical evaluation as outpatient 4-6 wks after d/c chemotherapy Else see resident documentation as noted. Subjective Patient laying in bed this morning complaining of rectal pain. Patient reports having severe diarrhea this morning, and being unable to make it to the restroom. The diarrhea irritated his fissure and has been causing him significant pain. Patient voided ones on his own overnight reports he is unable to void while seated however does better while standing. Otherwise patient has been straight cath every 6 hours. Patient is tolerating his diet and reports increased hunger. Patient's pain was previously well controlled and he reported at a 4 yesterday afternoon however the diarrhea has worsened. Patient slept well overnight. No acute concerns at present, all questions answered. Patient denies fevers, chills, nausea, vomiting, abdominal pain, muscle aches or pain, chest pain, shortness of breath, other signs or symptoms of acute infectious process Physical Exam Physical Exam: General: In NAD, pleasant Neuro: alert, and oriented x 4 CV: RRR, 3/6 decrescendo murmur PULM: CTAB, equal breath sounds bilaterally GI: +BS, non-distended, Reports diarrhea and rectal pain LE: no calf TTP, no LE edema Results & Data Vital Signs (Past 12 Hours) Vital Signs Temp Pulse Pulse Resp BP BP Pulse Ox 06/14/18 07:21 36.4 C L 20 111/63 97 06/14/18 06:59 60 06/14/18 05:23 133/71 06/14/18 04:00 36.6 C 59 L 18 163/86 H 98 06/13/18 23:00 36.7 C 59 L 18 128/72 96 Laboratory Results 06/14/18 07:29 06/14/18 07:29 06/14/18 06/14/18 06/14/18 Range/Units 08:09 07:29 07:29 WBC 14.27 H (4.8-10.8) K/uL RBC 3.16 L (4.7-6.1) M/uL Hgb 10.5 L (14.0-18.0) g/dL Hct 31.1 L (42-52) % MCV 98.4 (80-100) fL MCH 33.2 (25-34) pg MCHC 33.8 (32-36) g/dL RDW Std Deviation 77.7 H (36.4-46.3) fL RDW Coeff of Geovani 21.7 H (11.5-14.5) % Plt Count 99 L (130-400) K/uL MPV 9.5 (7.4-10.4) fL Immature Gran % (Auto) 0.4 % Neut % (Auto) 78.8 % Lymph % (Auto) 8.5 % [place] % (Auto) 11.5 % Eos % (Auto) 0.7 % Baso % (Auto) 0.1 % Immature Gran # (Auto) 0.06 H (0.00-0.02) K/uL Neut # (Auto) 11.24 H (1.4-6.5) K/uL Lymph # (Auto) 1.21 (1.2-3.4) K/uL [place] # (Auto) 1.64 H (0.11-0.59) K/uL Eos # (Auto) 0.10 (0-0.5) K/uL Baso # (Auto) 0.02 (0-0.2) K/uL Toxic Granulation 1+ Dohle Bodies 2+ Polychromasia 1+ Macrocytosis Present Sodium 134 L (136-145) mmol/L Potassium 3.7 (3.5-5.1) mmol/L Chloride 100 (98-107) mmol/L Carbon Dioxide 28 (21-32) mmol/L Anion Gap 6.0 (3-11) BUN 11 (7-18) mg/dl Creatinine 0.72 (0.6-1.4) mg/dl Est Cr Clr Drug Dosing 76.7 ml/min Est GFR ( Amer) 101.4 Est GFR (Non-Af Amer) 87.5 BUN/Creatinine Ratio 15.5 (10-20) Glucose 170 H (70-99) mg/dl POC Glucose 196 H (70-99) Calcium 8.7 (8.5-10.1) mg/dl 06/13/18 06/13/18 06/13/18 Range/Units 20:04 16:34 11:54 WBC (4.8-10.8) K/uL RBC (4.7-6.1) M/uL Hgb (14.0-18.0) g/dL Hct (42-52) % MCV (80-100) fL MCH (25-34) pg MCHC (32-36) g/dL RDW Std Deviation (36.4-46.3) fL RDW Coeff of Geovani (11.5-14.5) % Plt Count (130-400) K/uL MPV (7.4-10.4) fL Immature Gran % (Auto) % Neut % (Auto) % Lymph % (Auto) % [place] % (Auto) % Eos % (Auto) % Baso % (Auto) % Immature Gran # (Auto) (0.00-0.02) K/uL Neut # (Auto) (1.4-6.5) K/uL Lymph # (Auto) (1.2-3.4) K/uL [place] # (Auto) (0.11-0.59) K/uL Eos # (Auto) (0-0.5) K/uL Baso # (Auto) (0-0.2) K/uL Toxic Granulation Dohle Bodies Polychromasia Macrocytosis Sodium (136-145) mmol/L Potassium (3.5-5.1) mmol/L Chloride (98-107) mmol/L Carbon Dioxide (21-32) mmol/L Anion Gap (3-11) BUN (7-18) mg/dl Creatinine (0.6-1.4) mg/dl Est Cr Clr Drug Dosing ml/min Est GFR ( Amer) Est GFR (Non-Af Amer) BUN/Creatinine Ratio (10-20) Glucose (70-99) mg/dl POC Glucose 199 H 157 H 174 H (70-99) Calcium (8.5-10.1) mg/dl Medications Administered Current Inpatient Medications Albuterol (Ventolin Hfa) 2 puffs INH Q6H PRN PRN Reason: Shortness Of Breath Or Wheezin Apixaban (Eliquis) 5 mg PO BID [facility] Stop: 07/10/18 08:59 Last Admin: 06/14/18 08:34 Dose: 5 mg Documented by: Carvedilol (Coreg) 3.125 mg PO BID [facility] Stop: 07/10/18 01:41 Last Admin: 06/14/18 08:36 Dose: 3.125 mg Documented by: Nitroglycerin 7.5 inch/Emollient Ointment 67.5 gm/BARCODE IDENTIFIER 1 ea 0 inch EXT BID [facility] Stop: 07/10/18 08:59 Last Admin: 06/14/18 08:36 Dose: 1 appln Documented by: Dextrose (Dextrose 50%) 25 - 50 ml IV UD PRN; Protocol PRN Reason: Hypoglycemia Protocol Stop: 07/10/18 03:59 Dronabinol (Marinol) 2.5 mg PO TID [facility] Stop: 07/12/18 19:29 Last Admin: 06/14/18 08:52 Dose: 2.5 mg Documented by: Escitalopram Oxalate (Lexapro) 15 mg PO DAILY [facility] Stop: 07/10/18 08:59 Last Admin: 06/14/18 08:28 Dose: 15 mg Documented by: Fentanyl (Duragesic) 100 mcg TD Q72H [facility] Stop: 06/26/18 07:59 Last Admin: 06/12/18 08:15 Dose: 100 mcg Documented by: Furosemide (Lasix) 40 mg PO DAILY [facility] Stop: 07/10/18 08:59 Last Admin: 06/14/18 08:34 Dose: 40 mg Documented by: Glucagon (Glucagen) 1 mg IM UD PRN; Protocol PRN Reason: Hypoglycemia Protocol Stop: 07/10/18 03:59 Glucose (Glucose 40%) 15 - 30 gm PO UD PRN; Protocol PRN Reason: Hypoglycemia Protocol Stop: 07/10/18 03:59 Glucose (Dex4 Glucose) 4 - 8 tabs PO UD PRN; Protocol PRN Reason: Hypoglycemia Protocol Stop: 07/10/18 03:59 Heparin Sodium (Porcine) (Heparin Sod 100 Unit/Ml Flush) 5 ml IV PRN PRN PRN Reason: Flush Stop: 07/11/18 20:59 Last Admin: 06/13/18 05:55 Dose: 5 ml Documented by: Hydralazine HCl (Hydralazine Hcl) 10 mg IV Q2H PRN PRN Reason: Hypertension Stop: 07/13/18 04:59 Hydrocortisone (Anusol Hc) 25 mg OR BID [facility] Stop: 07/10/18 20:59 Last Admin: 06/14/18 08:29 Dose: 25 mg Documented by: Hydromorphone HCl (Dilaudid) 5 mg PO Q4 PRN PRN Reason: Pain Stop: 06/25/18 08:36 Last Admin: 06/14/18 08:27 Dose: 5 mg Documented by: Insulin Aspart (Novolog Flexpen) 0 units SC ACHS [facility] Stop: 07/10/18 16:29 Last Admin: 06/14/18 08:37 Dose: 300 units Documented by: Levothyroxine Sodium (Synthroid) 100 mcg PO DAILYBB [facility] Stop: 07/10/18 06:29 Last Admin: 06/14/18 06:01 Dose: 100 mcg Documented by: Loratadine (Claritin) 10 mg PO QAM [facility] Stop: 07/10/18 08:59 Last Admin: 06/14/18 08:34 Dose: 10 mg Documented by: Magnesium Hydroxide (Milk Of Magnesia) 30 ml PO Q12H PRN PRN Reason: Constipation Stop: 07/10/18 01:41 Methylnaltrexone [place] (Relistor) 12 mg SQ Q2D [facility] Stop: 07/10/18 09:59 Last Admin: 06/14/18 09:55 Dose: Not Given Documented by: Miscellaneous (Fentanyl Patch Remove & Waste) 1 ea N/A Q72H [facility] Stop: 07/12/18 07:58 Last Admin: 06/12/18 08:16 Dose: 1 ea Documented by: Miscellaneous (Fentanyl Patch Check Placement) 1 ea N/A QS [facility] Stop: 07/10/18 07:59 Last Admin: 06/14/18 08:29 Dose: 1 ea Documented by: Miscellaneous (Carbohydrates For Hypoglycemia) 15 - 30 gm PO UD PRN PRN Reason: Hypoglycemia Treatment Stop: 07/10/18 03:59 Morphine Sulfate (Morphine Sulfate) 2 mg IV Q6H PRN PRN Reason: Breakthrough Pain Stop: 06/24/18 13:23 Last Admin: 06/12/18 10:54 Dose: 2 mg Documented by: Multivitamins/Minerals (Multivitamin W/ Minerals Tab) 1 tab PO BID [facility] Stop: 07/10/18 01:41 Last Admin: 06/14/18 08:35 Dose: 1 tab Documented by: Nifedipine (Nifedipine Rectal Ointment) 1 appln TOP QID [facility] Stop: 07/10/18 16:59 Last Admin: 06/14/18 08:29 Dose: 1 appln Documented by: Ondansetron HCl (Zofran Odt) 8 mg PO Q4H PRN PRN Reason: Nausea Stop: 07/10/18 01:41 Last Admin: 06/13/18 08:10 Dose: 8 mg Documented by: Pantoprazole Sodium (Protonix) 40 mg PO BID [facility] Stop: 07/10/18 08:59 Last Admin: 06/14/18 08:33 Dose: 40 mg Documented by: Polyethylene Glycol (Miralax Powder Packet) 17 gm PO DAILY [facility] Stop: 07/10/18 01:41 Last Admin: 06/14/18 08:35 Dose: Not Given Documented by: Prochlorperazine (Compazine) 10 mg PO Q6 PRN PRN Reason: Nausea Stop: 07/10/18 01:41 Last Admin: 06/12/18 23:37 Dose: 10 mg Documented by: Senna/Docusate Sodium (Senokot S) 1 tab PO BID [facility] Stop: 07/10/18 20:59 Last Admin: 06/14/18 08:33 Dose: 1 tab Documented by: Simvastatin (Zocor) 40 mg PO HS [facility] Stop: 07/10/18 20:59 Last Admin: 06/13/18 21:11 Dose: 40 mg Documented by: Sucralfate (Carafate) 1 gm PO QID [facility] Stop: 07/13/18 20:59 Last Admin: 06/14/18 08:32 Dose: 1 gm Documented by: Tamsulosin HCl (Flomax) 0.4 mg PO QAM [facility] Stop: 07/14/18 08:59 Last Admin: 06/14/18 08:52 Dose: 0.4 mg Documented by: Resident Activity Tracking Resident Involvement: Resident Care Provided Care Provided: Adult Hospital Medicine
[2018-06-14 08:04] LABS: Mean Platelet Volume 9.5 fL (7.4-10.4); Platelet Count 99 K/uL (130-400)
[2018-06-14 08:07] LABS: Basophils # (auto) 0.02 K/uL (0-0.2); Basophils % (auto) 0.1 %; Dohle Bodies 2+; Eosinophils % (auto) 0.7 %; Immature Granulocytes # (auto) 0.06 K/uL (0.00-0.02); Immature Granulocytes % (auto) 0.4 %; Lymphocytes # (auto) 1.21 K/uL (1.2-3.4); Lymphocytes % (auto) 8.5 %; Macrocytosis Present; Monocytes # (auto) 1.64 K/uL (0.11-0.59); Monocytes % (auto) 11.5 %; Neutrophils # (auto) 11.24 K/uL (1.4-6.5); Neutrophils % (auto) 78.8 %; Polychromasia 1+; Toxic Granulation 1+
[2018-06-14 08:09] LABS: BUN Creatinine Ratio 15.5 (10-20); Calcium 8.7 mg/dl (8.5-10.1); Creatinine Clr Calc Pharmacy 76.7 ml/min; Est GFR (African American) 101.4; Est GFR (Non-African American) 87.5; Potassium 3.7 mmol/L (3.5-5.1)
[2018-06-14] MEDS: HYDROmorphone HCL 2 MG TAB PO PRN ×4 (08:27→21:07)
[2018-06-14] MEDS: ESCITALOPRAM OXALATE 10 MG TAB PO SCH (08:28)
[2018-06-14] MEDS: CHECK FENTANYL PATCH PLACEMENT SCH ×2 (08:29→16:28)
[2018-06-14] MEDS: NIFEDIPINE 0.2% TOP SCH ×4 (08:29→21:07)
[2018-06-14] MEDS: HYDROCORTISONE ACETATE 25 MG SUPP PR SCH ×2 (08:29→21:05)
[2018-06-14] MEDS: SUCRALFATE 1 GM/10 ML UDC PO SCH ×4 (08:32→21:05)
[2018-06-14] MEDS: PANTOprazole 40 MG TAB PO SCH ×2 (08:33→21:04)
[2018-06-14] MEDS: DOCUSATE SODIUM/SENNA 50/8.6MG TAB PO SCH (08:33)
[2018-06-14] MEDS: APIXABAN 5 MG TABLET PO SCH ×2 (08:34→21:05)
[2018-06-14] MEDS: LORATADINE 10 MG TAB PO SCH (08:34)
[2018-06-14] MEDS: FUROSEMIDE 40 MG TAB PO SCH (08:34)
[2018-06-14] MEDS: POLYETHYLENE (MIRALAX) 17 GM PACK PO SCH (08:35)
[2018-06-14] MEDS: CEROVITE ADV FORMULA TAB PO SCH ×2 (08:35→21:06)
[2018-06-14] MEDS: CARVEDILOL 3.125 MG TAB PO SCH ×2 (08:36→21:05)
[2018-06-14] MEDS: NITROGLYCERIN 2% 7.5 INCH, AQUAPHOR 67.5 GM, BARCODE IDENTIFIER 1 EA EXT SCH ×2 (08:36→21:06)
[2018-06-14] MEDS: INSULIN ASPART 100 UNITS/ML 3 ML PEN SC SCH ×4 (08:37→21:12)
[2018-06-14] MEDS: DRONABINOL 2.5 MG CAP PO SCH ×3 (08:52→21:01)
[2018-06-14] MEDS: TAMSULOSIN HCL 0.4 MG CAP PO SCH (08:52)
[2018-06-14] MEDS: POTASSIUM CHLORIDE 20 MEQ TABCR PO SCH ×2 (09:55→10:47)
[2018-06-14] MEDS: METHYLNALTREXONE BROMIDE 12 MG/0.6 ML VIAL SQ SCH (09:55)
--- NOTE | 2018-06-14 11:08 | Urology Consultation ---
Date of Consultation June 14, 2018 Assessment & Plan (1) Slow urinary stream: A/P 82 yo male with transient LUTS, improved. Patient feels he has returned to baseline, not currently bothered. Will check PVR with bladder scan Q shift to ensure he is emptying adequately. Hold on new meds for symptoms seen ongoing health issues if he is feeling better. Will recheck symptoms tomorrow. Consider outpatient vs. PRN f/u depending on bladder scan and symptoms. Thank you for allowing us to participate in this patient's acute care. Please contact our services with any questions or concerns. History of Present Illness Reason for Consultation: LUTS, retention. Attending Physician: Oscar Pearson MD History of Present Illness 82 yo male admitted due to rectal pain, history of metastatic colorectal CA with an extensive medical history who had new onset of bothersome symptoms associated with his voiding. His inpatient notes and consultations are reviewed. He required straight catheterization twice yesterday but seems to be doing better today, feels his voiding has returned to baseline. He denies hematuria or prior issues with his voiding. Urology consultation is requested to assist with his inpatient care. Allergies Allergy/AdvReac Type Severity Reaction Status Date / Time No Known Allergies Allergy Verified 06/09/18 23:31 Home Medications Home Medications Medication Instructions Recorded Confirmed Type Novolog Flexpen U-100 Insulin 0 units SUBCUT DIRECTED 10/19/17 06/09/18 History Tresiba FlexTouch U-100 40 unit SUBCUT HS 10/19/17 06/09/18 History levothyroxine 100 mcg PO QAM 10/19/17 06/09/18 History omeprazole 20 mg PO BID 10/19/17 06/09/18 History simvastatin 40 mg PO HS 10/19/17 06/09/18 History sucralfate 1 g PO QID 10/19/17 06/09/18 History apixaban 5 mg tablet 5 mg PO BID 04/09/18 06/09/18 History loratadine 10 mg tablet 10 mg PO QAM 04/09/18 06/09/18 History carvedilol 3.125 mg PO BID 05/17/18 06/09/18 History fentanyl 100 mcg TRANSDERMAL Q72H 05/17/18 06/09/18 History albuterol sulfate [ProAir HFA] 1 - 2 puff INHALATION Q6H PRN 06/09/18 06/09/18 History escitalopram oxalate 15 mg PO DAILY 06/09/18 06/09/18 History furosemide 40 mg PO DAILY 06/09/18 06/09/18 History hydrocodone-acetaminophen 1 tab PO .Q 4-6HR PRN 06/09/18 06/09/18 History hydrocortisone 1 applic TOPICAL DIRECTED 06/09/18 06/09/18 History linaclotide [Linzess] 145 mg PO DAILY 06/09/18 06/09/18 History ondansetron HCl 8 mg PO Q8 PRN 06/09/18 06/09/18 History prochlorperazine maleate 10 mg PO Q6 PRN 06/09/18 06/09/18 History vit C-E-zinc [id number] 1 tab PO BID 06/09/18 06/09/18 History [[facility]] Patient History Medical History Anal fissure (Acute) Fusion of spine LUMBAR Osteoarthritis Sleep apnea Hypertension Hyperlipidemia GERD (gastroesophageal reflux disease) Sepsis Pneumonia (Acute) Hypotension (Acute) Hypomagnesemia (Acute) CAD (coronary artery disease) (Chronic) Pacemaker (Chronic) Hypothyroid (Chronic) Complete heart block (Chronic) HTN (hypertension) (Chronic) History of atrial fibrillation (Chronic) Aortic stenosis (Chronic) Mitral stenosis (Chronic) GERD (gastroesophageal reflux disease) (Chronic) Dyslipidemia (Chronic) Sleep apnea (Chronic) Rectal adenocarcinoma (Chronic 06/03/17) "Rectal bleeding Evaluation under anethesia and finding of a rectal mass June 03, 2017 Biopsy revealing adenocarcinoma Plan for radiation and Xeloda Status post completion of combined neoadjuvant radiation and chemotherapy. Radiation was completed August 29, 2017. He received 5040 cGy" On 07/08/17 10:30 Rebecca Campbell wrote "Rectal bleeding Evaluation under anethesia and finding of a rectal mass June 03, 2017 Biopsy revealing adenocarcinoma Plan for radiation and Xeloda" On 07/08/17 10:23 Bayron Barajas wrote "Rectal bleeding Evaluation under anethesia and finding of a rectal mass Biopsy revealing adenocarcinoma Plan for radiation and Xeloda" Constipation (Acute) Elevated troponin Heart block (Chronic) Atrial fibrillation (Chronic) Diabetes (Chronic) Heart disease (Chronic) Rectal cancer (Chronic) RECENT DIAGNOSIS, REASON FOR A-PORT PLACEMENT Slow urinary stream Degenerative disc disease Surgical History History of total knee replacement B/L History of cholecystectomy History of colonoscopy History of coronary artery bypass graft 2 VESSELS PER MEDICAL RECORD 05/2013 Hx of cholecystectomy (Resolved) History of back surgery (Resolved) S/P AVR (aortic valve replacement) (Chronic) "06/16/2013- # 23 Chow II bioprosthesis, Dr. William [facility] [place]" S/P CABG x 2 (Chronic) "CABG x 2; 06/16/2013; Dr. William [facility] [place]" History of carpal tunnel surgery (Chronic) S/P AVR (aortic valve replacement) (Chronic) 05/2013 Status cardiac pacemaker (Chronic) 2014. FOLLOWS WITH DR. LASSITER IN [facility]. Family History Other DM type 2 (diabetes mellitus, type 2) Hypertension Social History Preferred Language: [place] Communication Ability: Effective Visual Impairment: No Limitations Beliefs That Will Affect Care: None marital status: Current Living Situation: Spouse current occupational status: retired Feels Safe at Home: Yes Smoking Status: Never smoker Second Hand Exposure: No Hx Alcohol Use: No Hx Substance Use: No Review of Systems Constitutional: + weakness; no fever Ear, Nose, Mouth, Throat: no ear pain Respiratory: no hemoptysis Cardiovascular: no chest pain Gastrointestinal: no nausea and no vomiting Genitourinary: + difficulty urinating Integumentary: no acne Neurologic: no paralysis Psychiatric: no hopelessness Physical Exam Constitutional: + frail appearing; not morbidly obese ENMT: Ears: no external ear abnormality Neck: trachea midline Respiratory: no respiratory distress and does not use accessory muscles Cardiovascular: Vessels: radial pulses present Gastrointestinal (Abdomen): Inspection/Auscultation: abdomen not distended Percussion/Palpation: abdomen soft Skin: normal turgor Neurologic: awake; not obtunded Psychiatric: Orientation: oriented x 3 Results & Data Vital Signs (Past 12 Hours) Vital Signs Temp Pulse Pulse Resp BP BP Pulse Ox 06/14/18 07:21 36.4 C L 20 111/63 97 06/14/18 06:59 60 06/14/18 05:23 133/71 06/14/18 04:00 36.6 C 59 L 18 163/86 H 98 Laboratory Results Laboratory Results - last 48 hr 06/12/18 06/12/18 06/12/18 11:28 16:38 20:07 WBC RBC Hgb Hct MCV MCH MCHC RDW Std Deviation RDW Coeff of Geovani Plt Count MPV Immature Gran % (Auto) Neut % (Auto) Lymph % (Auto) [place] % (Auto) Eos % (Auto) Baso % (Auto) Immature Gran # (Auto) Neut # (Auto) Lymph # (Auto) [place] # (Auto) Eos # (Auto) Baso # (Auto) Toxic Granulation Dohle Bodies Polychromasia Anisocytosis Macrocytosis Sodium Potassium Chloride Carbon Dioxide Anion Gap BUN Creatinine Est Cr Clr Drug Dosing Est GFR ( Amer) Est GFR (Non-Af Amer) BUN/Creatinine Ratio Glucose POC Glucose 214 H 168 H 214 H Calcium 06/13/18 06/13/18 06/13/18 05:58 06:46 06:46 WBC 14.34 H RBC 3.25 L Hgb 10.7 L Hct 31.6 L MCV 97.2 MCH 32.9 MCHC 33.9 RDW Std Deviation 76.8 H RDW Coeff of Geovani 21.8 H Plt Count 92 L MPV 9.7 Immature Gran % (Auto) 0.6 Neut % (Auto) 82.0 Lymph % (Auto) 6.8 [place] % (Auto) 10.2 Eos % (Auto) 0.3 Baso % (Auto) 0.1 Immature Gran # (Auto) 0.09 H Neut # (Auto) 11.77 H Lymph # (Auto) 0.97 L [place] # (Auto) 1.46 H Eos # (Auto) 0.04 Baso # (Auto) 0.01 Toxic Granulation Dohle Bodies Polychromasia Anisocytosis Present Macrocytosis Sodium 131 L Potassium 3.7 Chloride 101 Carbon Dioxide 24 Anion Gap 6.0 BUN 9 Creatinine 0.55 L 0.56 L Est Cr Clr Drug Dosing 102.2 100.4 Est GFR ( Amer) 113.3 112.4 Est GFR (Non-Af Amer) 97.7 97.0 BUN/Creatinine Ratio 16.1 Glucose 171 H POC Glucose Calcium 8.2 L 06/13/18 06/13/18 06/13/18 07:38 11:54 16:34 WBC RBC Hgb Hct MCV MCH MCHC RDW Std Deviation RDW Coeff of Geovani Plt Count MPV Immature Gran % (Auto) Neut % (Auto) Lymph % (Auto) [place] % (Auto) Eos % (Auto) Baso % (Auto) Immature Gran # (Auto) Neut # (Auto) Lymph # (Auto) [place] # (Auto) Eos # (Auto) Baso # (Auto) Toxic Granulation Dohle Bodies Polychromasia Anisocytosis Macrocytosis Sodium Potassium Chloride Carbon Dioxide Anion Gap BUN Creatinine Est Cr Clr Drug Dosing Est GFR ( Amer) Est GFR (Non-Af Amer) BUN/Creatinine Ratio Glucose POC Glucose 178 H 174 H 157 H Calcium 06/13/18 06/14/18 06/14/18 20:04 07:29 07:29 WBC 14.27 H RBC 3.16 L Hgb 10.5 L Hct 31.1 L MCV 98.4 MCH 33.2 MCHC 33.8 RDW Std Deviation 77.7 H RDW Coeff of Geovani 21.7 H Plt Count 99 L MPV 9.5 Immature Gran % (Auto) 0.4 Neut % (Auto) 78.8 Lymph % (Auto) 8.5 [place] % (Auto) 11.5 Eos % (Auto) 0.7 Baso % (Auto) 0.1 Immature Gran # (Auto) 0.06 H Neut # (Auto) 11.24 H Lymph # (Auto) 1.21 [place] # (Auto) 1.64 H Eos # (Auto) 0.10 Baso # (Auto) 0.02 Toxic Granulation 1+ Dohle Bodies 2+ Polychromasia 1+ Anisocytosis Macrocytosis Present Sodium 134 L Potassium 3.7 Chloride 100 Carbon Dioxide 28 Anion Gap 6.0 BUN 11 Creatinine 0.72 Est Cr Clr Drug Dosing 76.7 Est GFR ( Amer) 101.4 Est GFR (Non-Af Amer) 87.5 BUN/Creatinine Ratio 15.5 Glucose 170 H POC Glucose 199 H Calcium 8.7 06/14/18 08:09 WBC RBC Hgb Hct MCV MCH MCHC RDW Std Deviation RDW Coeff of Geovani Plt Count MPV Immature Gran % (Auto) Neut % (Auto) Lymph % (Auto) [place] % (Auto) Eos % (Auto) Baso % (Auto) Immature Gran # (Auto) Neut # (Auto) Lymph # (Auto) [place] # (Auto) Eos # (Auto) Baso # (Auto) Toxic Granulation Dohle Bodies Polychromasia Anisocytosis Macrocytosis Sodium Potassium Chloride Carbon Dioxide Anion Gap BUN Creatinine Est Cr Clr Drug Dosing Est GFR ( Amer) Est GFR (Non-Af Amer) BUN/Creatinine Ratio Glucose POC Glucose 196 H Calcium
[2018-06-14] MEDS ORDERED: POLYETHYLENE (MIRALAX) 17 GM PACK PO PRN (14:21)
[2018-06-14] MEDS ORDERED: DOCUSATE SODIUM/SENNA 50/8.6MG TAB PO PRN (14:21)
[2018-06-14] MEDS ORDERED: Nursing to Pharmacy Communication ONE (14:35)
[2018-06-14] MEDS: SIMVASTATIN 40 MG TAB PO SCH (21:03)
[2018-06-15] MEDS: CHECK FENTANYL PATCH PLACEMENT SCH ×4 (00:23→15:54)
[2018-06-15] MEDS: HYDROmorphone HCL 2 MG TAB PO PRN ×4 (02:28→19:35)
[2018-06-15 05:48] LABS: Hematocrit (blood only) 29.4 % (42-52); Hemoglobin 9.8 g/dL (14.0-18.0); Mean Corpuscular Hgb Conc 33.3 g/dL (32-36); Mean Corpuscular Volume 98.3 fL (80-100); RDW Coefficient of Variation 21.5 % (11.5-14.5); RDW Standard Deviation 77.5 fL (36.4-46.3); Red Blood Count 2.99 M/uL (4.7-6.1); White Blood Count 14.75 K/uL (4.8-10.8)
[2018-06-15 06:00] LABS: Mean Platelet Volume 9.9 fL (7.4-10.4); Platelet Count 91 K/uL (130-400)
[2018-06-15 06:16] LABS: BUN Creatinine Ratio 15.2 (10-20); Calcium 7.9 mg/dl (8.5-10.1); Creatinine Clr Calc Pharmacy 90.4 ml/min; Est GFR (African American) 107.8; Potassium 3.5 mmol/L (3.5-5.1)
[2018-06-15 06:42] LABS: Anisocytosis Present; Basophils # (auto) 0.02 K/uL (0-0.2); Basophils % (auto) 0.1 %; Dohle Bodies Occasional; Eosinophils # (auto) 0.06 K/uL (0-0.5); Eosinophils % (auto) 0.4 %; Immature Granulocytes # (auto) 0.05 K/uL (0.00-0.02); Immature Granulocytes % (auto) 0.3 %; Lymphocytes # (auto) 1.33 K/uL (1.2-3.4); Monocytes # (auto) 1.51 K/uL (0.11-0.59); Monocytes % (auto) 10.2 %; Neutrophils # (auto) 11.78 K/uL (1.4-6.5); Polychromasia 1+; Toxic Granulation Occasional
[2018-06-15] MEDS: LEVOTHYROXINE SODIUM 100 MCG TABLET PO SCH (06:49)
[2018-06-15] MEDS: fentaNYL 100 MCG/HR TDSY TD SCH (08:24)
[2018-06-15] MEDS: INSULIN ASPART 100 UNITS/ML 3 ML PEN SC SCH ×4 (08:25→21:37)
[2018-06-15] MEDS: ESCITALOPRAM OXALATE 10 MG TAB PO SCH (08:29)
[2018-06-15] MEDS: PANTOprazole 40 MG TAB PO SCH ×2 (08:29→21:34)
[2018-06-15] MEDS: LORATADINE 10 MG TAB PO SCH (08:29)
[2018-06-15] MEDS: SUCRALFATE 1 GM/10 ML UDC PO SCH ×4 (08:30→21:33)
[2018-06-15] MEDS: FUROSEMIDE 40 MG TAB PO SCH (08:30)
[2018-06-15] MEDS: CARVEDILOL 3.125 MG TAB PO SCH ×2 (08:30→21:35)
[2018-06-15] MEDS: TAMSULOSIN HCL 0.4 MG CAP PO SCH (08:31)
[2018-06-15] MEDS: CEROVITE ADV FORMULA TAB PO SCH ×2 (08:31→21:33)
[2018-06-15] MEDS: METHYLNALTREXONE BROMIDE 12 MG/0.6 ML VIAL SQ SCH (08:32)
[2018-06-15] MEDS: HYDROCORTISONE ACETATE 25 MG SUPP PR SCH ×2 (08:32→21:33)
[2018-06-15] MEDS: APIXABAN 5 MG TABLET PO SCH ×2 (08:32→21:35)
[2018-06-15] MEDS: NITROGLYCERIN 2% 7.5 INCH, AQUAPHOR 67.5 GM, BARCODE IDENTIFIER 1 EA EXT SCH ×2 (08:33→21:36)
[2018-06-15] MEDS: NIFEDIPINE 0.2% TOP SCH ×4 (08:33→21:35)
--- NOTE | 2018-06-15 08:35 | Family Medicine Progress Note ---
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 Refractory anal pain in the setting of stage 4 rectal adenocarcinoma exacerbated by narcotic induced constipation -afebrile -Received last dose of Neulasta 2 days prior to admission -Pain management signed off -Pain Regimen -Patient agreeable with pain management expectations see subjective -increased home fentanyl 125mcg patch -Dilaudid 5 mg every 4 hours for breakthrough pain as needed -Resume Relistor today -Marinol 5 mg 3 times daily for cachexia and synergistic pain management -Patient reports significant improvement on this pain went 13 on admission to 9 and is now a 6 status post initiation of Marinol, Patient reported pain was a 4 yesterday afternoon -If any side effects or adverse events appear secondary to increase of Marinol would reduce dose back to 2.5 mg 3 times daily -Bowel regimen: Relistor DC all other meds as patient is having significant diarrhea -Continue home zofran and compazine for nausea/vomiting try to minimize usage as may be contributing to urinary -Surgery consulted -Outpatient follow-up in 4 weeks to discuss palliative colostomy -Hydrocortisone suppositories 25 mg twice daily -Can consider cansa if hydrocortisone is not effective -Due to location of tumor and relation to fissure doubtful if topical therapy will be effective -Senokot S twice daily MiraLAX daily rotate with milk of magnesia, mag citrate, and prune juice -Oncology consulted: Dr. Marcano -Consider palliative colostomy, likely will need to delay surgery as patient has been on biologic Bevacizumab -Consider transition to methadone -Palliative consulted -Goals of care discussed, patient wants to get back to doing simple things in life, wants to continue with chemotherapy but only if there is a benefit, if oncology feels that risk outweighs benefit he would like to stop. -Patient wants more time to think about CODE STATUS, he wants "every chance at life", however he does not want to live in a vegetative state or have his life prolonged by machines. -Increase home fentanyl to 125 mcg/HR -Consider adding Colace to bowel regimen -PT OT -Feel acute rehab is appropriate for this patient -If case management can assist anticipate the patient to be medically cleared for discharge in the next 24 to 48 hours Urinary retention During this admission patient began to experience urinary retention approximately on 06/11. Patient has been unable to control his voids and required intermittent straight cathing since. -Differential includes: Secondary to constipation, secondary to malignancy, BPH, significantly less likely secondary to pain management therapy -Straight cath every 6 hours for now as needed for bladder scan greater than 500 cc -Potentially a gravity dependent process patient was attempted he was standing up -Uro Cx -Every shift bladder scans straight catheter greater than 500 cc -new meds for symptoms seen ongoing health issues if he is feeling better. recheck symptoms tomorrow. Consider outpatient vs. PRN f/u depending on bladd er scan and symptoms. -Refrain from indwelling catheter and less for palliative purposes -Outpatient follow-up in 2 to 3 weeks but this must be patient initiated, please arrange through Case management Hypertension Patient's hypertension seems to have resolved status initiation of straight cath for bladder scan volumes greater than 500 cc -Potentially secondary to urinary retention Appears to have resolved status post every 6 hours straight cath -Responded to PRN hydralazine, 10 Mgs hydralazine every 2 hours as needed for systolic greater than 180 -Continue to monitor for now Anal fissure -Continue hydrocortisone suppository if ineffective try cansa -Continue nitro cream BID and started on nifedipine 2% cream 4 times daily applied to the anus -Requested pharmacy obtain Calmol 4, they said they will have it tomorrow -Calmol 4 every 4 H, placed nifedipine cream on the tip of the suppository prior to inserting into anus. Ideally this should be performed prior to bowel movements -Relistor q. every other day -Pain regimen as above CAD/HTN/HLD/AVR/MV stenosis/AFib -Continue home carvedilol, lasix, simvastatin and apixaban DM2 -On SSI with Novolog -No indication for basal insulin at present Hypothyroidism -Continue levothyroxine GERD -Continue prilosec Anemia -Hgb 10.5 (baseline 9-10) -No concern for acute bleed at this time -Continue to monitor CBC Mood disorder -Continue home escitalopram DVT prophylaxis: apixaban Diet: Heart healthy/DM 1 Code: Full Dispo: pending PT and OT final recs and evaluation Supervising Physician Co-Signing Physician Notes I personally examined the patient and verified all villaseñor points of history and exam, discussed case, and agree with decision making with Dr Medina. Pain improved overall, but with any bowel movement he still has a significant amount of pain. Vitals noted, in general he is awake and alert pleasant no distress. HEENT normocephalic atraumatic mucous membranes moist. Breathing is unlabored no accessory muscle use good. Skin shows no rashes no pallor or icterus. Rectal paincontinue to titrate meds. Hopefully topical barrier will be helpful as well. Does seem to be improving. Continue supportive care as well. Otherwise as above Subjective Patient laying in bed this morning in no acute distress.Patient reports doing well overnight, requiring straight cath for 700 cc. Patient states he still has urinary retention. Patient is still endorsing diarrhea even after holding Relistor and dc other constipation medications. Whenever he experiences an episode of diarrhea diarrhea contacting his fissure causes significant pain, this causes stress and decreased quality. Reports pain this morning is a 7 and was exacerbated secondary to diarrhea. Reports started tolerating Marinol well increased hunger, increased quality of life, decreased pain. No acute concerns at present, answered all questions. To meet with palliative and PT OT today. Patient denies fevers, chills, nausea, vomiting, abdominal pain, chest pain, chest pressure, shortness of breath, congestion, headache, or other signs or symptoms of acute infectious process Physical Exam 2 Physical Exam: General: In NAD, pleasant Neuro: alert, and oriented x 4 CV: RRR, 3/6 decrescendo murmur PULM: CTAB, equal breath sounds bilaterally GI: +BS, non-distended, Reports diarrhea and rectal pain. resolves LE: no calf TTP, no LE edema Results & Data Vital Signs (Past 12 Hours) Vital Signs Temp Pulse Pulse Resp BP Pulse Ox 06/15/18 06:56 36.6 C 60 18 126/64 97 06/15/18 03:55 36.6 C 60 18 116/65 96 06/14/18 22:43 36.4 C L 63 18 109/51 L 95 06/14/18 22:20 62 Laboratory Results 06/15/18 05:27 06/15/18 05:27 06/15/18 06/15/18 06/14/18 Range/Units 05:27 05:27 20:07 WBC 14.75 H (4.8-10.8) K/uL RBC 2.99 L (4.7-6.1) M/uL Hgb 9.8 L (14.0-18.0) g/dL Hct 29.4 L (42-52) % MCV 98.3 (80-100) fL MCH 32.8 (25-34) pg MCHC 33.3 (32-36) g/dL RDW Std Deviation 77.5 H (36.4-46.3) fL RDW Coeff of Geovani 21.5 H (11.5-14.5) % Plt Count 91 L (130-400) K/uL MPV 9.9 (7.4-10.4) fL Immature Gran % (Auto) 0.3 % Neut % (Auto) 80.0 % Lymph % (Auto) 9.0 % [place] % (Auto) 10.2 % Eos % (Auto) 0.4 % Baso % (Auto) 0.1 % Immature Gran # (Auto) 0.05 H (0.00-0.02) K/uL Neut # (Auto) 11.78 H (1.4-6.5) K/uL Lymph # (Auto) 1.33 (1.2-3.4) K/uL [place] # (Auto) 1.51 H (0.11-0.59) K/uL Eos # (Auto) 0.06 (0-0.5) K/uL Baso # (Auto) 0.02 (0-0.2) K/uL Toxic Granulation Occasional Dohle Bodies Occasional Polychromasia 1+ Anisocytosis Present Sodium 132 L (136-145) mmol/L Potassium 3.5 (3.5-5.1) mmol/L Chloride 100 (98-107) mmol/L Carbon Dioxide 25 (21-32) mmol/L Anion Gap 7.0 (3-11) BUN 9 (7-18) mg/dl Creatinine 0.62 (0.6-1.4) mg/dl Est Cr Clr Drug Dosing 90.4 ml/min Est GFR ( Amer) 107.8 Est GFR (Non-Af Amer) 93.0 BUN/Creatinine Ratio 15.2 (10-20) Glucose 160 H (70-99) mg/dl POC Glucose 178 H (70-99) Calcium 7.9 L (8.5-10.1) mg/dl 06/14/18 06/14/18 Range/Units 16:22 11:47 WBC (4.8-10.8) K/uL RBC (4.7-6.1) M/uL Hgb (14.0-18.0) g/dL Hct (42-52) % MCV (80-100) fL MCH (25-34) pg MCHC (32-36) g/dL RDW Std Deviation (36.4-46.3) fL RDW Coeff of Geovani (11.5-14.5) % Plt Count (130-400) K/uL MPV (7.4-10.4) fL Immature Gran % (Auto) % Neut % (Auto) % Lymph % (Auto) % [place] % (Auto) % Eos % (Auto) % Baso % (Auto) % Immature Gran # (Auto) (0.00-0.02) K/uL Neut # (Auto) (1.4-6.5) K/uL Lymph # (Auto) (1.2-3.4) K/uL [place] # (Auto) (0.11-0.59) K/uL Eos # (Auto) (0-0.5) K/uL Baso # (Auto) (0-0.2) K/uL Toxic Granulation Dohle Bodies Polychromasia Anisocytosis Sodium (136-145) mmol/L Potassium (3.5-5.1) mmol/L Chloride (98-107) mmol/L Carbon Dioxide (21-32) mmol/L Anion Gap (3-11) BUN (7-18) mg/dl Creatinine (0.6-1.4) mg/dl Est Cr Clr Drug Dosing ml/min Est GFR ( Amer) Est GFR (Non-Af Amer) BUN/Creatinine Ratio (10-20) Glucose (70-99) mg/dl POC Glucose 85 235 H (70-99) Calcium (8.5-10.1) mg/dl Medications Administered Current Inpatient Medications Albuterol (Ventolin Hfa) 2 puffs INH Q6H PRN PRN Reason: Shortness Of Breath Or Wheezin Apixaban (Eliquis) 5 mg PO BID [facility] Stop: 07/10/18 08:59 Last Admin: 06/14/18 21:05 Dose: 5 mg Documented by: Carvedilol (Coreg) 3.125 mg PO BID KARIS Stop: 07/10/18 01:41 Last Admin: 06/14/18 21:05 Dose: 3.125 mg Documented by: Nitroglycerin 7.5 inch/Emollient Ointment 67.5 gm/BARCODE IDENTIFIER 1 ea 0 inch EXT BID AKRIS Stop: 07/10/18 08:59 Last Admin: 06/14/18 21:06 Dose: 1 appln Documented by: Dextrose (Dextrose 50%) 25 - 50 ml IV UD PRN; Protocol PRN Reason: Hypoglycemia Protocol Stop: 07/10/18 03:59 Dronabinol (Marinol) 2.5 mg PO TID KARIS Stop: 07/12/18 19:29 Last Admin: 06/14/18 21:01 Dose: 2.5 mg Documented by: Escitalopram Oxalate (Lexapro) 15 mg PO DAILY [facility] Stop: 07/10/18 08:59 Last Admin: 06/14/18 08:28 Dose: 15 mg Documented by: Fentanyl (Duragesic) 100 mcg TD Q72H [facility] Stop: 06/26/18 07:59 Last Admin: 06/12/18 08:15 Dose: 100 mcg Documented by: Furosemide (Lasix) 40 mg PO DAILY [facility] Stop: 07/10/18 08:59 Last Admin: 06/14/18 08:34 Dose: 40 mg Documented by: Glucagon (Glucagen) 1 mg IM UD PRN; Protocol PRN Reason: Hypoglycemia Protocol Stop: 07/10/18 03:59 Glucose (Glucose 40%) 15 - 30 gm PO UD PRN; Protocol PRN Reason: Hypoglycemia Protocol Stop: 07/10/18 03:59 Glucose (Dex4 Glucose) 4 - 8 tabs PO UD PRN; Protocol PRN Reason: Hypoglycemia Protocol Stop: 07/10/18 03:59 Heparin Sodium (Porcine) (Heparin Sod 100 Unit/Ml Flush) 5 ml IV PRN PRN PRN Reason: Flush Stop: 07/11/18 20:59 Last Admin: 06/15/18 05:21 Dose: 5 ml Documented by: Hydralazine HCl (Hydralazine Hcl) 10 mg IV Q2H PRN PRN Reason: Hypertension Stop: 07/13/18 04:59 Hydrocortisone (Anusol Hc) 25 mg CO BID [facility] Stop: 07/10/18 20:59 Last Admin: 06/14/18 21:05 Dose: 25 mg Documented by: Hydromorphone HCl (Dilaudid) 5 mg PO Q4 PRN PRN Reason: Pain Stop: 06/25/18 08:36 Last Admin: 06/15/18 06:38 Dose: 5 mg Documented by: Insulin Aspart (Novolog Flexpen) 0 units SC ACHS [facility] Stop: 07/10/18 16:29 Last Admin: 06/14/18 21:12 Dose: 4 units Documented by: Levothyroxine Sodium (Synthroid) 100 mcg PO DAILYBB [facility] Stop: 07/10/18 06:29 Last Admin: 06/15/18 06:49 Dose: 100 mcg Documented by: Loratadine (Claritin) 10 mg PO QAM [facility] Stop: 07/10/18 08:59 Last Admin: 06/14/18 08:34 Dose: 10 mg Documented by: Magnesium Hydroxide (Milk Of Magnesia) 30 ml PO Q12H PRN PRN Reason: Constipation Stop: 07/10/18 01:41 Methylnaltrexone [place] (Relistor) 12 mg SQ Q2D@0900 [facility] Stop: 07/15/18 08:59 Miscellaneous (Fentanyl Patch Remove & Waste) 1 ea N/A Q72H [facility] Stop: 07/12/18 07:58 Last Admin: 06/12/18 08:16 Dose: 1 ea Documented by: Miscellaneous (Fentanyl Patch Check Placement) 1 ea N/A QS [facility] Stop: 07/10/18 07:59 Last Admin: 06/15/18 00:23 Dose: 1 ea Documented by: Miscellaneous (Carbohydrates For Hypoglycemia) 15 - 30 gm PO UD PRN PRN Reason: Hypoglycemia Treatment Stop: 07/10/18 03:59 Morphine Sulfate (Morphine Sulfate) 2 mg IV Q6H PRN PRN Reason: Breakthrough Pain Stop: 06/24/18 13:23 Last Admin: 06/12/18 10:54 Dose: 2 mg Documented by: Multivitamins/Minerals (Multivitamin W/ Minerals Tab) 1 tab PO BID [facility] Stop: 07/10/18 01:41 Last Admin: 06/14/18 21:06 Dose: 1 tab Documented by: Nifedipine (Nifedipine Rectal Ointment) 1 appln TOP QID [facility] Stop: 07/10/18 16:59 Last Admin: 06/14/18 21:07 Dose: 1 appln Documented by: Ondansetron HCl (Zofran Odt) 8 mg PO Q4H PRN PRN Reason: Nausea Stop: 07/10/18 01:41 Last Admin: 06/13/18 08:10 Dose: 8 mg Documented by: Pantoprazole Sodium (Protonix) 40 mg PO BID [facility] Stop: 07/10/18 08:59 Last Admin: 06/14/18 21:04 Dose: 40 mg Documented by: Polyethylene Glycol (Miralax Powder Packet) 17 gm PO DAILY PRN; Protocol PRN Reason: constipation Stop: 07/10/18 01:41 Prochlorperazine (Compazine) 10 mg PO Q6 PRN PRN Reason: Nausea Stop: 07/10/18 01:41 Last Admin: 06/12/18 23:37 Dose: 10 mg Documented by: Senna/Docusate Sodium (Senokot S) 1 tab PO BID PRN; Protocol PRN Reason: Constipation Stop: 07/10/18 20:59 Simvastatin (Zocor) 40 mg PO HS [facility] Stop: 07/10/18 20:59 Last Admin: 06/14/18 21:03 Dose: 40 mg Documented by: Sucralfate (Carafate) 1 gm PO QID [facility] Stop: 07/13/18 20:59 Last Admin: 06/14/18 21:05 Dose: 1 gm Documented by: Tamsulosin HCl (Flomax) 0.4 mg PO QAM [facility] Stop: 07/14/18 08:59 Last Admin: 06/14/18 08:52 Dose: 0.4 mg Documented by: Resident Activity Tracking Resident Involvement: Resident Care Provided Care Provided: Adult Hospital Medicine
[2018-06-15] MEDS ORDERED: POTASSIUM CHLORIDE 20 MEQ TABCR PO STA (08:48)
[2018-06-15] MEDS: DRONABINOL 2.5 MG CAP PO SCH ×3 (09:04→21:46)
--- NOTE | 2018-06-15 10:27 | Palliative Care Consultation ---
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 Patient diagnosed with colorectal cancer June 2017, was deemed unresectable by [facility]. 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 He continues to undergo chemo under the care of Dr. Marcano. He has been evaluated during this admission by general surgery for possible palliative diversion surgery to avoid/help the rectal pain and in anticipation of possible obstruction in the future (he is not obstructed now). However, patient received Avastin recently and would need to wait 4-6 weeks before any surgery due to impaired wound healing. Patient was also seen by pain management, but he is not a candidate for nerve block or intrathecal pump due to his open wound (anal fissure) and impaired healing. He was continued on his 100mcg/hr fentanyl patch and started on Dilaudid 5mg PO Q4h PRN pain. His Fairhope was discontinued. Apparently there have been problems with patient taking more breakthrough medication than ordered which did cause some concern. He is not a candidate for methadone due to his advanced age and questionable adherence to medical treatment plan. Patient was started on twice-daily Relistor and has had resolution of his constipation. Now, his pain is exacerbated again from frequent bowel movements. He's being given Anusol suppositories with some relief. In regards to discharge planning, patient's takes care of him at home and is having back surgery soon. She is concerned about whether or not she can take him home at this time. PT/OT are following and were to reevaluate him this week to see if rehab is recommended. Palliative care is consulted to discuss goals of care and for pain management. -Met with patient in room 253. He is awake, alert and oriented x4. His pain is currently a 7/10 in his rectum but he is in no distress, is smiling and talkative. -Patient's goal is to get back to doing simple things in life: going to islam, watch "Gunsmoke" and not being in pain, and visit with his grandchildren and great-grandchildren. -Patient wants to continue chemotherapy, but only wants to do so if there is benefit. He stated that if the oncologist stated that the risk outweighed the benefit, he would be okay with stopping chemo. Need to discuss with oncology and see if further chemo is an option. -Patient would be interested in palliative surgery if it was going to relieve his pain. There would be significant healing and recovery time associated with this, however. Also, unsure if chemo could be resumed after this surgery as there would be a significant amount of time between doses. -Patient wants to get back home to his house. I did not discuss whether or not he wants to go to rehab until we see what PT/OT recommend. -Discussed CODE STATUS. Patient wants some more time to think about this. He wants every chance at life but would NOT want to live in a vegetative status or have life prolonged by machines. -Will continue to follow and likely meet with patient and his at some point to discuss options and goals. (2) Cancer related pain: -Received 25mg PO Dilaudid in last 24 hours. Converts to 25mcg fentanyl patch with 50% incomplete cross tolerance reduction. -Has been on fentanyl patch at 100mcg/hr for quite some time. -Will increase fentanyl patch to 125mcg/hr. -Continue Dilaudid 5mg PO Q4h PRN breakthrough pain. Hopefully with increase in fentanyl patch, patient will need less breakthrough dosing. -Continue bowel regimen. Will defer to hospitalist on when to discontinue Relistor and restart Sennakot BID with PRN Miralax. Would add colace. (3) Colorectal cancer, stage IV: (4) Anal fissure: (5) Metastatic disease: Supervising Physician Co-Signing Physician Notes Patient seen and examined, no family at bedside. Patient is known to me from palliative clinic-patient has been seen on February 23 and again on March 12. Have not seen him since then. Patient's rectal pain due to his carcinoma is increasing-as is his opioid requirements for pain control. Patient is not a good candidate for methadone due to his age-markedly increased side effects in patients over 75. PE: Patient awake and alert, slightly drowsy HEENT: EOMI, hearing within normal limits CV: Regular rate Respiratory: Clear Abdomen: Soft, nontender to light palpation Patient was tried on Neurontin as an outpatient-patient had significant sedation on a dose of 100 mg nightly. 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 Patient diagnosed with colorectal cancer June 2017, was deemed unresectable by [facility]. 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 He continues to undergo chemo under the care of Dr. Marcano. He has been evaluated during this admission by general surgery for possible palliative diversion surgery to avoid/help the rectal pain and in anticipation of possible obstruction in the future (he is not obstructed now). However, patient received Avastin recently and would need to wait 4-6 weeks before any surgery due to impaired wound healing. Patient was also seen by pain management, but he is not a candidate for nerve block or intrathecal pump due to his open wound (anal fissure) and impaired healing. He was continued on his 100mcg/hr fentanyl patch and started on Dilaudid 5mg PO Q4h PRN pain. His [place] was discontinued. Apparently there have been problems with patient taking more breakthrough medication than ordered which did cause some concern. He is not a candidate for methadone due to his advanced age and questionable adherence to medical treatment plan. Patient was started on twice-daily Relistor and has had resolution of his constipation. Now, his pain is exacerbated again from frequent bowel movements. He's being given Anusol suppositories with some relief. In regards to discharge planning, patient's takes care of him at home and is having back surgery soon. She is concerned about whether or not she can take him home at this time. PT/OT are following and were to reevaluate him this week to see if rehab is recommended. Palliative care is consulted to discuss goals of care and for pain management. Thank you kindly for this consult. I will follow. Allergies Allergy/AdvReac Type Severity Reaction Status Date / Time No Known Allergies Allergy Verified 06/09/18 23:31 Home Medications Home Medications Medication Instructions Recorded Confirmed Type Novolog Flexpen U-100 Insulin 0 units SUBCUT DIRECTED 10/19/17 06/09/18 History Tresiba FlexTouch U-100 40 unit SUBCUT HS 10/19/17 06/09/18 History levothyroxine 100 mcg PO QAM 10/19/17 06/09/18 History omeprazole 20 mg PO BID 10/19/17 06/09/18 History simvastatin 40 mg PO HS 10/19/17 06/09/18 History sucralfate 1 g PO QID 10/19/17 06/09/18 History apixaban 5 mg tablet 5 mg PO BID 04/09/18 06/09/18 History loratadine 10 mg tablet 10 mg PO QAM 04/09/18 06/09/18 History carvedilol 3.125 mg PO BID 05/17/18 06/09/18 History fentanyl 100 mcg TRANSDERMAL Q72H 05/17/18 06/09/18 History albuterol sulfate [ProAir HFA] 1 - 2 puff INHALATION Q6H PRN 06/09/18 06/09/18 History escitalopram oxalate 15 mg PO DAILY 06/09/18 06/09/18 History furosemide 40 mg PO DAILY 06/09/18 06/09/18 History hydrocodone-acetaminophen 1 tab PO .Q 4-6HR PRN 06/09/18 06/09/18 History hydrocortisone 1 applic TOPICAL DIRECTED 06/09/18 06/09/18 History linaclotide [Linzess] 145 mg PO DAILY 06/09/18 06/09/18 History ondansetron HCl 8 mg PO Q8 PRN 06/09/18 06/09/18 History prochlorperazine maleate 10 mg PO Q6 PRN 06/09/18 06/09/18 History vit C-E-zinc [id number] 1 tab PO BID 06/09/18 06/09/18 History [[facility]] Patient History Medical History Anal fissure (Acute) Fusion of spine LUMBAR Osteoarthritis Sleep apnea Hypertension Hyperlipidemia GERD (gastroesophageal reflux disease) Sepsis Pneumonia (Acute) Hypotension (Acute) Hypomagnesemia (Acute) CAD (coronary artery disease) (Chronic) Pacemaker (Chronic) Hypothyroid (Chronic) Complete heart block (Chronic) HTN (hypertension) (Chronic) History of atrial fibrillation (Chronic) Aortic stenosis (Chronic) Mitral stenosis (Chronic) GERD (gastroesophageal reflux disease) (Chronic) Dyslipidemia (Chronic) Sleep apnea (Chronic) Rectal adenocarcinoma (Chronic 06/03/17) "Rectal bleeding Evaluation under anethesia and finding of a rectal mass June 03, 2017 Biopsy revealing adenocarcinoma Plan for radiation and Xeloda Status post completion of combined neoadjuvant radiation and chemotherapy. Radiation was completed August 29, 2017. He received 5040 cGy" On 07/08/17 10:30 Rebecca Campbell wrote "Rectal bleeding Evaluation under anethesia and finding of a rectal mass June 03, 2017 Biopsy revealing adenocarcinoma Plan for radiation and Xeloda" On 07/08/17 10:23 Bayron Barajas wrote "Rectal bleeding Evaluation under anethesia and finding of a rectal mass Biopsy revealing adenocarcinoma Plan for radiation and Xeloda" Constipation (Acute) Elevated troponin Heart block (Chronic) Atrial fibrillation (Chronic) Diabetes (Chronic) Heart disease (Chronic) Rectal cancer (Chronic) RECENT DIAGNOSIS, REASON FOR A-PORT PLACEMENT Slow urinary stream Degenerative disc disease Surgical History History of total knee replacement B/L History of cholecystectomy History of colonoscopy History of coronary artery bypass graft 2 VESSELS PER MEDICAL RECORD 05/2013 Hx of cholecystectomy (Resolved) History of back surgery (Resolved) S/P AVR (aortic valve replacement) (Chronic) "06/16/2013- # 23 Chow II bioprosthesis, [facility] [place]" S/P CABG x 2 (Chronic) "CABG x 2; 06/16/2013; [facility] [place]" History of carpal tunnel surgery (Chronic) S/P AVR (aortic valve replacement) (Chronic) 05/2013 Status cardiac pacemaker (Chronic) 2014. FOLLOWS WITH DR. LASSITER IN CARDIO. Family History Other DM type 2 (diabetes mellitus, type 2) Hypertension Social History Preferred Language: Indonesian Communication Ability: Effective Visual Impairment: No Limitations Beliefs That Will Affect Care: None marital status: Current Living Situation: Spouse current occupational status: retired Feels Safe at Home: Yes Smoking Status: Never smoker Second Hand Exposure: No Hx Alcohol Use: No Hx Substance Use: No Review of Systems Constitutional: + weakness (mild, generalized) Ear, Nose, Mouth, Throat: no dysphagia Respiratory: no cough and no dyspnea Cardiovascular: no chest pain Gastrointestinal: no abdominal pain, no nausea (has had chemo-induced nausea, none at this time) and no constipation (constipation resolved) Neurologic: no confusion Psychiatric: no depression and no anxiety Physical Exam Constitutional: well developed and well nourished; no acute distress Eyes: PERRL ENMT: external ear and nose normal, oropharynx normal Ears: no hearing impairment Neck: normal visual inspection Respiratory: normal respiratory effort, lungs clear to auscultation Cardiovascular: Rate/Rhythm: regular rate and regular rhythm Heart Sounds: + murmur Gastrointestinal (Abdomen): Inspection/Auscultation: abdomen normal to inspection and normal bowel sounds Percussion/Palpation: abdomen soft Skin: normal turgor Neurologic: moves all extremities and awake; not confused Psychiatric: A+Ox3, euthymic affect Results & Data Vital Signs (Past 12 Hours) Vital Signs Temp Pulse Resp BP Pulse Ox 06/15/18 06:56 36.6 C 60 18 126/64 97 06/15/18 03:55 36.6 C 60 18 116/65 96 06/14/18 22:43 36.4 C L 63 18 109/51 L 95 Time Spent Midlevel 70 minutes with >50% of time spent at bedside with patient discussing condition, GOC, and pain management.
--- NOTE | 2018-06-15 10:58 | Urology Progress Note ---
Date of Service June 15, 2018 Assessment & Plan (1) Slow urinary stream: 82yo M with metastatic colorectal CA, some difficulty with voiding. Pt continues to void small, frequent amounts. Required straight cath last evening for >700cc. Tolerating procedure well. Given the severity of his cancer diagnosis, we do not want to introduce an indwelling catheter unless absolutely necessary or if patient requests for palliative purposes. Okay to continue qshift bladder scans, straight cath >500cc or PRN suprapubic pressure/pain. Would entertain outpatient f/u in 2-3 weeks with PVR if voiding symptoms are bothersome to patient, possible CIC teaching. This will be patient driven. Please have CM make us aware if patient would like to pursue this. We will continue to monitor patient peripherally while inpatient. Thank you for allowing us to participate in the acute care of Mr. Hammond. Subjective 82yo M admitted with rectal pain, hx of metastatic colorectal CA with bothersome voiding symptoms. He continues to void spontaneously, small volumes. Denies dysuria, urgency/frequency. Pt did require straight cath last evening for >700cc. He tolerates the straight cath procedure well. Last bladder scan for approx 200cc this AM. Most of his attention relates to his rectal pain. He appears comfortable on exam today, lying on his side where he is most comfortable due to rectal pain. No other issues or concerns today. Review of Systems Review of Systems: All systems reviewed & are unremarkable except as noted in HPI & below Physical Exam Physical Exam: A&Ox3 RRR ABd soft, nontender No suprapubic pain on palpation Results & Data Vital Signs (Past 12 Hours) Vital Signs Temp Pulse Resp BP Pulse Ox 06/15/18 06:56 36.6 C 60 18 126/64 97 06/15/18 03:55 36.6 C 60 18 116/65 96
--- NOTE | 2018-06-15 13:06 | Progress Note ---
DATE: 06/15/2018 DIAGNOSES: 1. Intractable perirectal pain. 2. Anal fissure. 3. Metastatic colorectal cancer. 4. Hypertension. 5. Urinary retention. HISTORY OF PRESENT ILLNESS: The patient is a pleasant 82-year-old gentleman well known to me, currently receiving combination of FOLFOX, bevacizumab for metastatic colorectal cancer. I had not seen the patient in a couple of days, but he seems to be making slow but steady progress. Apparently Dilaudid was added to his current pain regimen and thus far the patient is quite happy with the results. It is still somewhat unclear if we will pursue surgical intervention in the future. I will withhold further bevacizumab if and when he resumes chemotherapy. He is tolerating his diet in addition to having regular bowel movements, which have been much softer, which in my opinion goes long way in keeping his comfort level maximal. OBJECTIVE: GENERAL: The patient is a pleasant 82-year-old gentleman in no acute distress. VITAL SIGNS: Temperature 36.6, pulse 60, respiratory rate 18, blood pressure 126/64. SKIN: Without rash or lesion. HEENT: Oral mucosa without erythema or ulceration. HEART: 2/6 early systolic murmur, otherwise regular. LUNGS: Clear to auscultation bilaterally. ABDOMEN: Soft, nontender, nondistended. EXTREMITIES: No clubbing, cyanosis or edema. NEUROLOGIC: He is grossly intact. LABORATORY DATA: WBC count 14,750, hemoglobin 9.8, platelet count 91,000. Sodium 132, potassium 3.5, chloride 100, carbon dioxide 25, creatinine 0.62, BUN 9. IMPRESSION: 1. Intractable perirectal pain. 2. Urinary retention. 3. Hypertension. 4. Anal fissure. 5. Metastatic colorectal cancer. 6. Chronic anemia. PLAN: The patient seems to be doing much better with pain management. His bowel habits have also improved. He reports softer stools, which again I think would be very helpful moving forward in preventing aggravation of the anal fissure. Palliative Surgery has not been ruled out and we will continue to hold Avastin until a final decision is made. He otherwise seems to be doing relatively well, tolerating his diet. He is getting out of bed. I anticipate if he continues to improve, discharge within next 24-48 hours or so. Urology remains on consult for urinary retention. Hopefully, there is some resolution in this regard with improvement of the constipation issue. We will continue to follow the patient periodically. Thank you very much for your assistance in caring for this very pleasant gentleman. KATHY
[2018-06-15] MEDS: fentaNYL 25 MCG/HR TDSY TD SCH (13:42)
[2018-06-15] MEDS ORDERED: fentaNYL 100 MCG/HR TDSY TD SCH (14:00)
[2018-06-15] MEDS ORDERED: DRONABINOL 2.5 MG CAP PO ONE (15:45)
--- OUTSIDE RECORDS SUMMARY | 2018-06-15 18:19 | External Medical Summary | Continuity of Care Document ---
:1935 Author Name Joel Groves, Provider Address Unavailable Unavailable , Care Team Providers Name Role Phone Uma Humphries DO Unavailable [email or web address] Unavailable [email or web address]. UMA Wright Unavailable Joanne Frias M.D. 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) Diabetes mellitus (250.00) (E11.9) Hyperlipidemia (272.4) (E78.5) Aortic Valve Replacement Seasonal allergies (477.9) (J30.2) Colon cancer (153.9) (C18.9) Atrial fibrillation (427.31) (I48.91) Cardiac pacemaker in situ (V45.01) (Z95.0) Coronary artery disease (414.00) (I25.10) Sacral region somatic dysfunction (739.4) (M99.04) Segmental and somatic dysfunction of lumbar region (739.3) ( M99.03) Lumbar pain (724.2) (M54.5) Vision problem (V41.0) (H54.7) Hearing difficulty (389.9) (H91.90) Fatty liver (571.8) (K76.0) History of rectal cancer (V10.06) (Z85.048) Aortic valve disorder (424.1) (I35.9) Arteriosclerosis of coronary artery (414.00) (I25.10) Renal cyst (753.10) (N28.1) Pre-operative cardiovascular examination (V72.81) (Z01.810) Supraventricular aortic stenosis (747.22) (Q25.3) Sleep apnea (780.57) (G47.30) Shortness of breath (786.05) (R06.02) Sciatica (724.3) (M54.30) Inhibited sexual excitement (302.72) (F52.8) Spinal stenosis (724.00) (M48.00) Spondylolisthesis, acquired (738.4) (M43.10) 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) Osteoarthritis (715.90) Mechanical heart valve present (V43.3) (Z95.2) Constipation (564.00) (K59.00) Rectal cancer (154.1) (C20) Situational anxiety (300.09) (F41.8) Diarrhea (787.91) (R19.7) Anal fissure (565.0) (K60.2) Hypertension (401.9) (I10) Aspiration pneumonia (507.0) (J69.0) Nausea (787.02) (R11.0) Cough (786.2) (R05) Hypothyroidism (244.9) (E03.9) History of chemotherapy (V87.41) (Z92.21) Allergies and Adverse Reactions No Known Drug Allergies (Allergy) Medications Simvastatin 40 MG Oral Tablet; TAKE ONE TABLET BY MOUT H AT BEDTIME DO Uma Humphries Start: 11-May-2018 Quantity: 90 Refills: 0 Loperamide HCl - 2 MG Oral Tablet; TAKE 2 TABLETS INITIALLY, FOLLOWED BY 1 TABLET AFTER EACH LOOSE BOWEL MOVEMENT. DO NOT EXCEED 8 TABLETS/DAY. DO Uma Humphries Start: 25-May-2018 Quantity: 1 36 Tablet Box Refills: 0 Linzess 145 MCG Oral Capsule; TAKE 1 CAP SYLVIA Daily Take 30 minutes prior to first meal of the day. Do not open or crush capsule DO Uma Humphries S tart: 29-May-2018 Quantity: 30 Refills: 2 Omeprazole 20 MG Oral Tablet Delayed Release; Take 1 t ablet twice daily DO Uma Humphries Quantity: 60 Refills: 3 NovoLOG FlexPen 100 UNIT/ML SOLN; INJECT SUBCUTANEOUSLY D IRECTED. 3 ML Pen (5 Pens) Refills: 0 Ocuvite TABS; TAKE 1 TABLET TWICE DAILY. Refills: 0 Carafate 1 GM Oral Tablet; TAKE 1 TABLET 4 TIMES DAILY. Refills: 0 fentaNYL 50 MCG/HR Transdermal Patch 72 Hour Start: 22-Oct-2017 Refills: 0 NovoFine 32G X 6 MM; Uses 1 needle daily or as directed Mill DO Uma watkins Start: 27-Jan-2018 Quantity: 1 100 Unit Box Refills: 11 HYDROcodone-Acetaminophen 10-325 MG Oral Tablet; TAKE 1 TABLET EVERY 4 TO 6 HOURS NEEDED FOR PAIN. Start: 13-Apr-2018 Quantity: 120 Refills: 0 Loratadine 10 MG Oral Tablet; TAKE 1 TABLET DAILY NEEDED. Start: 13-Apr-2018 Refills: 0 Hydrocortisone 2.5 % Rectal Cream; USE 1 APPLICATORFUL RECTALLY 1-2 TIMES DAILY. DO Uma Humphries Start: 19-May-2018 Quantity: 1 30 GM Tube Refills: 5 Prochlorperazine Maleate 10 MG Oral Tabl et; TAKE 1 TABLET EVERY 6 HOURS NEEDED. Start: 02-Mar-2018 Refills: 0 ProAir HFA 108 (90 Base) MCG/ACT Inhalat ion Aerosol Solution; INHALE 1 TO 2 PUFFS EVERY 6 HOURS NEEDED. MEREDITH Pino Start: 23-Apr-2018 Quantity: 1 8.5 GM Inhaler Refills: 2 Carvedilol 3.125 MG Oral Tablet; Twice daily DO Joshua Humphries Start: 13-Apr-2018 Quantity: 180 Refills: 1 Ondansetron HCl - 8 MG Oral Tablet; Take one tablet by mouth every 8 hours as needed for nausea. MEREDITH Pino Start: 23-Feb-2018 Quantity: 20 Refills: 0 Escitalopram Oxalate 10 MG Oral Tablet; TAKE 1 AND 1/2 TABLETS DAILY. DO Uma Humphries Start: 23-Feb-2018 Quantity: 45 Refills: 2 Shingrix 50 MCG Intramuscular Suspension Reconstituted ; Inject IM DO Uma Humphries Start: 23-Sep-2017 Quantity: 1 Refills: 0 Tresiba FlexTouch 100 UNIT/ML Subcutaneo us Solution Pen-injector; INJECT 40 UNIT Bedtime Start: 23-Sep-2017 Refills: 0 5 x 3 ML Pen Eliquis 5 MG Oral Tablet; TAKE ONE TABLET BY MOUTH TWI CE DAILY DO Uma Humphries Start: 24-Nov-2015 Quantity: 180 Refills: 1 Levothyroxine Sodium 100 MCG Oral Tablet; TAKE 1 TABLE T DAILY. DO Uma Humphries Quantity: 90 Refills: 3 Furosemide 40 MG Oral Tablet; TAKE ONE TABLET BY MOUTH ONCE DAILY DO Uma Humphries Start: 20-Apr-2018 Quantity: 30 Refills: 5 Procedures History of Cholecystectomy Status: Compl eted History of Back Surgery Status: Complete d History of Knee Surgery Status: Complete d History of Implantation Of Diaphragmatic Pacemaker Status: Completed History of wisdom tooth extraction Statu s: Completed History of Tonsillectomy Status: Complet ed Aortic Valve Replacement Immunizations Influenza On: 04-Dec-2017 Family History Unknown Family Member Family history of multiple myeloma (V16.7) Status: Active Comments: Family History (Z80.7) Family history of lung disease (V19.8) Status: Active C omments: Family History (Z83.6) Family history of hypertension (V17.49) Status: Active Comments: Family History (Z82.49) Family history of diabetes mellitus (V18.0) Status: Active Comments: Family History (Z83.3) Mother Family history of multiple myeloma (V16.7) (Z80.7) Status: A ctive Family history of lung disease (V19.8) (Z83.6) Status: Activ e Family history of hypertension (V17.49) (Z82.49) Status: Act rodney Family history of malignant neoplasm (V16.9) (Z80.9) Status: Active Father Family history of hypertension (V17.49) (Z82.49) Status: Act rodney aunt Family history of diabetes mellitus (V18.0) (Z83.3) Status: Active Social History - Smoking Status Never smoker Plan of Treatment Planned Encounters Appointment; Uma Humphries DO Start: 28-Jul-2018 10:00 Req uest Planned Observations Planned Goals not documented Results X-Ray Chest 1 View Portable (Pending) Laboratory: [facility] Diagnostic Imaging [facility] [address] [facility] 17-May-2018 16:44 X-Ray Chest 1 VW Portable (CXR1P) [facility], [place] [phone] XRay Report Patien t: YASMINE CALVO JR Admit Date : MR#: [id number] Address1: [address] Acct ID:[id number] Address2 : Date: 1935 [facility] Zip: [facility] [address] Age: 82 Location: ED Sex: M Room/Bed: Att Phy: Diagnosis : CONSTIPATED AND CAN NOT VOID Sherie Phy: Uma Humphries, Service Date: 05/17/18 Fam Phy: Interpreting Phy: Rob maddox MD Admit Ph y: Ordering Phy: Pablo Jean-Baptiste M.D. cc: XR chest 1V portable CLINICAL HISTORY: Abdomina l pain. Rectal cancer. COMPARISON STUDY: Chest CT January 30, 2018. Ches t radiograph April 09, 2018. FINDI NGS: Note is made of a right subclavian Tsxycy-i-Ohti, dual lead left subclavian pacemaker, median sternotomy wires and mediastinal surgical clips. There is no pneumothorax or pleural effusion. There are old right rib fractures. Cardiomegaly is unchanged without evidence for pulmonary edema. The pulmonary nodules shown on est CT of January 30, 2018 are not evident, likely due to technique. IMPRESSIO N: 1. No acute cardiopulmonary findings . No change in appearance of the chest. 2. Cardiomegaly without evidence for pulmon lesly edema. 3. Pulmonary nodules on ches t CT January 30, 2018 not evident, likely du e to technique. Electronically signed by: Stephen Ricketts M.D. 05/17 4:47 PM Dictated: 05/17/18 1644 Transcribed: 05/17/[address] abd pelvis IV con only (Pending) Laboratory: [facility] Diagnostic Imaging [address] [facility] 17-May-2018 18:16 CT abd pelvis IV con only [facility], [place] CT Scan Report Patient: GÉNESIS CALVO JR Admit Date: MR#: [id number] Address 1: [address] Acct ID:[id number] Address2: Date: 1935 [facility] Zip: [place] [address] Age: 82 Location: ED Sex: M Room/Bed: Att Phy: Diagnosis: CONSTIPATED AND CAN NOT VOID Sherie Phy: Uma Humphries, Service Date: 05/17/18 [facility] Phy: Interpreting Phy: Rob maddox MD Admit Ph y: Ordering Phy: Pablo Jean-Baptiste M.D. cc: CT OF THE AB DOMEN AND PELVIS WITH CONTRAST CLINICAL HISTORY: Abdominal pain, constipation, u rine retention. Rectal cancer. SALVADOR RISON STUDY: CT of the abdomen and pelvis Jan. TECHNIQUE: Following IV administration of 90 mL of Optiray-320, axial images of the abdomen and pelvis were obtained from the lung bases to the prox imal femurs. Images were reviewed in the axia l, sagittal, and coronal planes. IV contras t was administered without complication. Auto mated exposurecontrol was utilized for the jurgen dy. A dose lowering technique was utilized adhering to the principles of ALARA. CT DOSE: 641.22 mGy.cm FINDINGS: Multiple irregular pulmonary nodules wit hin the lower lungs are again noted. A 1.1 c m nodule within the medial basilar segment of the right lower lobe on image 69 of 421 has slightly decreased in size since CT of January 30, 2018 when it measured 1.2 c m. Additional nodules are either unchanged or slightly decreased in size. No pneumatos is, free air or portal venous gas is present . A right hepatic lobe cyst is noted. There are no suspicious hepatic lesions. Mild dilatation of the common bile duct is unchanged and likely related to previous cholecystectomy. There are bilateral lavern al cysts and a 1.3 cm calculus within the l ower pole pf the left kidney. There are no ureteral calculi. There is no hydronephr osis. Alejandro balloon is present within the blad annemarie which is collapsed. Infiltration of the subcutaneous tissues of the anterior abdominal wall are noted. There are postoperative findings within the spine. There are no suspicious osseous lesions. No enlarged abdominal or pelvic lymph nodes are present. There is a large amount of stoo l within the colon and rectum. There is apparent distal rectal wall thickening w hich may be due to underdistention. No pneumatosis, free air or portal venous g as is present. There are bilateral renalcysts. IMPRESSION: 1. Large amount of stool within the colon and rectum. No evidence for a bowel obstruction. Apparentdistal rectal wall thickening. T his may be due to underdistention however a mucosal lesion could appear similar. 2. Multiple irregular pulmonary nodules wit hin the lower lungs which are either unchang ed or slightly decreased in size since CT of January 30, 2018. 3. No abdominal or pelvic lymphadenopathy. 4. 1.3 cm l eft renal calculus. No ureteral calculi or hydronephrosis. Electronicall y signed by: Stephen Ricketts M.D. 05/17 6:30 PM Dictated: 05/17/181815 Transcribed: 05/17/181815 X-ray 1 view Abdomen (KUB) (Pending) Laboratory: [facility] Diagnostic Imaging [address] [facility] 24-May-2018 7:28 [place], [place] [phone] XRay Report Pat ient: LUBNAYASMINE Vega BOLAND Admit Date : 09/04 MR#: [id number] Address1: [address] [facility] Acct ID:[id number] Address2 : Date: 1935 [facility] Zip: [place] [address] Age: 82 Location: ED Sex: M Room/Bed: Att Phy: Diagnosis : RECTAL PAIN Sherie Phy: Uma Humphries, DO Service D ate: 05/24/18 Fam Phy: Interpreting Phy: Aramis Dodson MD Admit Phy: Ordering Phy: Sheryl Hargrove M.D. cc: XR KUB/Abdomen 1 view CLINICAL HISTORY: 82 years-old Male presenting with constipation. TECHNIQUE: Single supine view of the abd omen was obtained. COMPARISON: 10/18/[address] from 05/17/2018. FINDINGS: Now mild to moderate stool burden throughout the colon with significant decrease in stool burde n within the transverse and right colon.. Nonobstructive bowel gas pattern. No subhash ss pneumoperitoneum allowing for supine technique. Cholecystectomy clips noted. Calculus noted at the lower pole the lef t kidney. No ureteral calculus is evident. Osteopenia. Degenerative changes of the spine. Posterior lumbar fusion hardware at L2-3 and L5-S1 with laminectomy defects and interbody spacers. Lung bases clear. IMPRESSION: 1. Decreased stool burden . 2. Left nephrolithiasis. 3. Osteopenia. Electronically si gned by: Aramis Dodson M.D. 05/24/2018 7:29 AM Dictated: 05/24/18727 Transcribed: 05/24/18727 CT abd pelvis IV con only (Pending) Laboratory: [facility] Diagnostic Imaging [address] [place] 09-Jun-2018 21:48 CT abd pelvis IV con only [facility], [place] CT Scan Report Patient: GÉNESIS CALVO JR Admit Date: MR#: [id number] Address 1: [address] [place] [address] Acct ID:[id number] Address2: Date: 1935 [facility] Zip: [facility] [address] Age: 82 Location: ED Sex: M Room/Bed: Att Phy: Diagnosis: RECTAL PAIN Sherie Phy: Uma Humphries, DO Service D ate: 06/09/18 Fam Phy: Interpreting Phy: Maikel Michelle Admit Phy: Ordering Phy: Pablo Jean-Baptiste M.D. cc: CT abd pelvis IV con only CLINICAL HISTORY: abdominal/rectal pain, metastatic rectal ca COMPARISON STUDY: 05/17/2018 TECHNIQUE: The pa tient was scanned in a dynamic helical fashion during intravenous administration of 94 cc of Optiray 320. A dose lowering technique was utilized adhering to the principles of A BHUPINDER. CT DOSE: 504.22 mGy.cm FIND INGS: Lower chest: There are bilateral lo wer lobe pulmonary nodules, similar to the preceding study. Liver: The serosal surface is somewhat nodular. Early cirrh osis must be considered. There is a stable 1 cm right lobe hypodensity. This likely represents a cyst. The portal vein is pa tent. Mild prominence the common bile duct lik tabitha relates to prior cholecystectomy Gallbladder: Surgically absent Sple en: Normal in size and attenuation. Pancreas: Unremarkable. Adrenal gla nds: Unremarkable. Kidneys: There are bilateral renal cysts. The largest on th e left measures 6.2 cm. The largest in the right measures 6.7 cm. There is a 1 cm l eft renal calculus. There is no hydronephros is. No ureteral calculi are visualized. Bowel: There are no transition zones ind icate bowel obstruction. There is moderate fec al retention.There is stable nonspecific thickening at the rectoanal junction. Peritoneum: There is no intraperitoneal free air or abdominal ascites. Vasculatu re: The abdominal aorta is normal in course and caliber. Adenopathy: None. Pel uday viscera: The bladder is distended measur ing 19 cm in length. Skeletal structure s: Postsurgical changes within the lumbar s pine are again evident. IMPRESSION: 1. No evidence of bowel obstruction. No eviden ce of free air 2. Moderate fecal retention 3. Stable nonspecific thickening at the rectoanal junction 4. Multiple lower l obe pulmonary nodules similar to the prior s tudy 5. Left-sided nephrolithiasis 6. Inte rval development of a distended urinary bladd er which measures 19 cm in length Electronically signed by: Maikel lin M.D. 06/09/2018 9:55 PM Dictat ed: 06/09/182147 Transcribed: 2147 Vital Signs 29-May-2018 9:23 Systolic 120 mm[Hg] Comments: Location: RUE; Position: Sitting Diastolic 64 mm[Hg] Comments: Location: RUE; Position: Sitting BMI Calculated 31.52 kg/m2 Weight 183.6 lb Heart Rate 61 /min O2 Saturation 98 % Comments: Source: RA BSA Calculated 1.89 m2 Respiration 16 /min Comments: Quality: N ormal 19-May-2018 9:32 Systolic 116 mm[Hg] Comments: Location: RUE; Position: Sitting Diastolic 60 mm[Hg] Comments: Location: RUE; Position: Sitting BMI Calculated 32.85 kg/m2 Weight 191.4 lb Heart Rate 66 /min O2 Saturation 99 % Comments: Source: RA BSA Calculated 1.92 m2 Respiration 16 /min Height 64 in Temperature 98.4 f Comments: Method: Or al Encounters Appointment; Uma Humphries DO 29-May-2018 9:20 Encounter Diagnosis: Problem not documented Appointment; Uma Humphries DO 19-May-2018 9:20 Encounter Diagnosis: Problem not documented Appointment; Seda Pino CRNP 23-Apr-2018 14:40 Encounter Diagnosis: Problem not documented Appointment; Uma Humphries DO 23-Mar-2018 11:00 Encounter Diagnosis: Problem not documented Appointment; Adolfo He M.D. 10-Mar-2018 8:00 Encounter Diagnosis: Problem not documented Appointment; Adolfo He M.D. 02-Mar-2018 11:00 Encounter Diagnosis: Problem not documented Appointment; Chris Garcia M.D. 03-Nov-2017 15:30 Encounter Diagnosis: Problem not documented Appointment; Uma Humphries DO 27-Oct-2017 9:20 Encounter Diagnosis: Problem not documented Appointment; Uma Humphries DO 23-Sep-2017 14:40 Encounter Diagnosis: Problem not documented Appointment; Michelet Fair M.D. 05-May-2017 13:15 Encounter Diagnosis: Problem not documented Appointment; Chris Frias M.D. 26-Dec-2016 10:30 Encounter Diagnosis: Problem not documented Appointment; Michelle Zarco PA-C 11-Sep-2016 9:00 Encounter Diagnosis: Problem not documented Appointment; Toño Humphries M.D. 05-Jul-2016 10:00 Encounter Diagnosis: Problem not documented Appointment; Chris Frias M.D. 25-Jun-2016 11:30 Encounter Diagnosis: Problem not documented Appointment; Uma Humphries DO 28-Jul-2018 10:00 Encounter Diagnosis: Problem not documented
[2018-06-15] MEDS: SIMVASTATIN 40 MG TAB PO SCH (21:35)
[2018-06-16] MEDS: HYDROmorphone HCL 2 MG TAB PO PRN ×4 (00:29→12:13)
[2018-06-16] MEDS: CHECK FENTANYL PATCH PLACEMENT SCH ×6 (00:30→16:26)
[2018-06-16] MEDS: LEVOTHYROXINE SODIUM 100 MCG TABLET PO SCH (04:54)
[2018-06-16 07:04] LABS: Est GFR (African American) 105.1; Est GFR (Non-African American) 90.7
[2018-06-16] MEDS: INSULIN ASPART 100 UNITS/ML 3 ML PEN SC SCH ×4 (08:01→20:32)
[2018-06-16] MEDS: DRONABINOL 2.5 MG CAP PO SCH ×3 (08:03→20:48)
[2018-06-16] MEDS: NITROGLYCERIN 2% 7.5 INCH, AQUAPHOR 67.5 GM, BARCODE IDENTIFIER 1 EA EXT SCH ×2 (08:03→20:49)
[2018-06-16] MEDS: NIFEDIPINE 0.2% TOP SCH ×4 (08:03→20:34)
[2018-06-16] MEDS: [UNRECOGNIZED DRUG - OTHER] PR SCH ×4 (08:03→21:42)
[2018-06-16] MEDS: CARVEDILOL 3.125 MG TAB PO SCH ×2 (08:04→20:35)
[2018-06-16] MEDS: HYDROCORTISONE ACETATE 25 MG SUPP PR SCH ×2 (08:04→20:34)
[2018-06-16] MEDS: PANTOprazole 40 MG TAB PO SCH ×2 (08:04→20:36)
[2018-06-16] MEDS: FUROSEMIDE 40 MG TAB PO SCH (08:04)
[2018-06-16] MEDS: APIXABAN 5 MG TABLET PO SCH ×2 (08:04→20:34)
[2018-06-16] MEDS: CEROVITE ADV FORMULA TAB PO SCH ×2 (08:04→20:36)
[2018-06-16] MEDS: TAMSULOSIN HCL 0.4 MG CAP PO SCH (08:04)
[2018-06-16] MEDS: SUCRALFATE 1 GM/10 ML UDC PO SCH ×4 (08:04→20:32)
[2018-06-16] MEDS: LORATADINE 10 MG TAB PO SCH (08:04)
[2018-06-16] MEDS: ESCITALOPRAM OXALATE 10 MG TAB PO SCH (08:04)
--- NOTE | 2018-06-16 08:10 | Family Medicine Progress Note ---
Date of Service June 16, 2018 Assessment & Plan (1) Intractable pain: 82 yo M with h/o of CAD s/p CABGx 2, AVR, MV stenosis, Afib, HTN, HLD, complete heart block with pacemaker, DM2, ESME, GERD, hypothyroidism, mood disorder and rectal adenocarcinoma stage 4 ([id number]) presents with severe rectal pain exacerbated by constipation and anal fissure. Awaiting placement Refractory anal pain in the setting of stage 4 rectal adenocarcinoma exacerbated by narcotic induced constipation -afebrile -Received last dose of Neulasta 2 days prior to admission -Pain management signed off -Pain Regimen -Patient was a little loopy this morning, after reviewing the med rec, he is still taking Dilaudid 5 mg regularly despite increase in fentanyl dose -increased home fentanyl 125mcg patch -Decrease Dilaudid 2 mg every 4 hours for breakthrough pain as needed -Resume Relistor today -Marinol 5 mg 3 times daily for cachexia and synergistic pain management patient tolerating 5 mg 3 times daily -Patient reports significant improvement on this pain went 13 on admission to 9 and is now a 6 status post initiation of Marinol, Patient reported pain was a 4 yesterday afternoon -Bowel regimen: Relistor every other day, will need prescription for p.o. Relistor on discharge and/or amitiza -Continue home zofran and compazine for nausea/vomiting try to minimize usage as may be contributing to urinary -Surgery consulted -Outpatient follow-up in 4 weeks to discuss palliative colostomy -Hydrocortisone suppositories 25 mg twice daily -Can consider cansa if hydrocortisone is not effective -Due to location of tumor and relation to fissure doubtful if topical therapy will be effective -Senokot S twice daily MiraLAX daily rotate with milk of magnesia, mag citrate, and prune juice -Oncology consulted: Dr. Marcano -Consider palliative colostomy, likely will need to delay surgery as patient has been on biologic Bevacizumab -Per palliative not a candidate for methadone given age -Palliative consulted -Goals of care discussed, patient wants to get back to doing simple things in life, wants to continue with chemotherapy but only if there is a benefit, if oncology feels that risk outweighs benefit he would like to stop. -Patient wants more time to think about CODE STATUS, he wants "every chance at life", however he does not want to live in a vegetative state or have his life prolonged by machines. -Increase home fentanyl to 125 mcg/HR -Consider adding Colace to bowel regimen -PT OT -Feel acute rehab is appropriate for this patient -If case management can assist anticipate the patient to be medically cleared for discharge in the next 24 to 48 hours Urinary retention During this admission patient began to experience urinary retention approximately on 06/11. Patient has been unable to control his voids and required intermittent straight cathing since 06/12. Patient continues to improve symptomatically -Differential includes: Secondary to constipation, secondary to malignancy, BPH, significantly less likely secondary to pain management therapy -Straight cath every 6 hours for now as needed for bladder scan greater than 500 cc -Potentially a gravity dependent process patient was attempted he was standing up -Uro Cx -Every shift bladder scans straight catheter greater than 500 cc -new meds for symptoms seen ongoing health issues if he is feeling better. -recheck symptoms tomorrow. Consider outpatient vs. PRN f/u depending on bladder scan and symptoms. -Refrain from indwelling catheter and less for palliative purposes -Outpatient follow-up in 2 to 3 weeks but this must be patient initiated, please arrange through Case management Hypertension Patient's hypertension seems to have resolved status initiation of straight cath for bladder scan volumes greater than 500 cc -Potentially secondary to urinary retention Appears to have resolved status post every 6 hours straight cath -Responded to PRN hydralazine, 10 Mgs hydralazine every 2 hours as needed for systolic greater than 180 -Continue to monitor for now Anal fissure -Continue hydrocortisone suppository if ineffective try cansa -Continue nitro cream BID and started on nifedipine 2% cream 4 times daily applied to the anus -Requested pharmacy obtain Calmol 4, they said they will have it tomorrow -Calmol 4 every 4 H, placed nifedipine cream on the tip of the suppository prior to inserting into anus. Ideally this should be performed prior to bowel movements -Relistor q. every other day -Pain regimen as above CAD/HTN/HLD/AVR/MV stenosis/AFib -Continue home carvedilol, lasix, simvastatin and apixaban DM2 -On SSI with Novolog -No indication for basal insulin at present Hypothyroidism -Continue levothyroxine GERD -Continue prilosec Anemia -Hgb 10.5 (baseline 9-10) -No concern for acute bleed at this time -Continue to monitor CBC Mood disorder -Continue home escitalopram DVT prophylaxis: apixaban Diet: Heart healthy/DM 1 Code: Full Dispo: pending acceptance to [facility] and insurance authorization Supervising Physician Co-Signing Physician Notes I personally examined the patient and verified all villaseñor points of history and exam, discussed case, and agree with decision making with Dr Medina. Appears to be more comfortable, is a little bit groggy this afternoon. Vitals noted, in general he is awake and alert pleasant no distress. HEENT no rmocephalic atraumatic mucous membranes moist. Breathing is unlabored no accessory muscle use good. Skin shows no rashes no pallor or icterus. No focal neuro deficits. Rectal paincontinue to titrate meds. I suspect that the current bit of grogginess relates to the increase in the fentanyl patch, Dr. Medina has reduced the breakthrough meds accordingly, we will continue to follow. Hopefully topical barrier will be helpful as well. Does seem to be improving overall. Continue supportive care as well. Case discussed with palliative as well. Otherwise as above Subjective Patient sleeping in bed this morning in no acute distress. Patient was a little groggy upon awakening this morning after reviewing his nighttime medication regimen I am concerned that he may be smidge overmedicated. Patient denies this and says he is pleased with his current medication regimen. We will decrease PRN hydromorphone dose as fentanyl has been increased. Case management met with the patient and is in the process of obtaining rehab approval.patient is tolerating his diet well, reports urinary retention improving, diarrhea has resolved, sleeping appropriately. No acute concerns at present answered all questions. Plan to check in with patient later today to see how, all is working Patient denies fevers, chills, nausea, vomiting, diarrhea, constipation, pains in muscles, headache, vision changes, hearing changes, chest pain, chest pressure, shortness of breath, or other signs or symptoms of acute infectious process Physical Exam Physical Exam: General: In NAD, pleasant Neuro: alert, and oriented x 4 CV: RRR, 3/6 decrescendo murmur PULM: CTAB, equal breath sounds bilaterally GI: +BS, non-distended, Reports diarrhea and rectal pain. resolves LE: no calf TTP, no LE edema Results & Data Vital Signs (Past 12 Hours) Vital Signs Temp Pulse Pulse Resp BP Pulse Ox 06/16/18 07:08 36.7 C 67 18 124/70 94 06/16/18 04:23 36.5 C 60 18 136/75 99 06/15/18 23:19 36.6 C 64 18 117/56 L 95 06/15/18 22:24 65 Resident Activity Tracking Resident Involvement: Resident Care Provided Care Provided: Adult Hospital Medicine
--- NOTE | 2018-06-16 14:28 | Palliative Care Progress Note ---
Date of Service June 16, 2018 Assessment & Plan (1) Cancer related pain: Continue fentanyl patch at 125 mcg Agree with decreasing p.o. PRN Dilaudid to 2 mg per dose-we will continue to monitor daily opioid requirements (2) Colorectal cancer, stage IV: Discussed with patient yesterday regarding quality of life-patient thinking about whether or not to have a diverting colostomy (3) Anal fissure: -Discussed with patient yesterday that having a diverting colostomy may help heal the anal fissure-patient cannot receive nerve block while anal fissure is present Subjective Patient appears comfortable-increased sedation with PRN Dilaudid at 5 mg p.o., patient received 5 doses of PRN Dilaudid in the past 24 hours, dosage was decreased to 2 mg as needed-we will continue to monitor daily opioid requirements with increase in his fentanyl patch. Patient voiding small amounts-we will need to continue to monitor for urinary retention. Physical Exam Physical Exam: PE: Patient is asleep, appears comfortable Respirations: Unlabored CV: Appears well perfused Neuro: Sedated Results & Data Vital Signs (Past 12 Hours) Vital Signs Temp Pulse Resp BP Pulse Ox 06/16/18 11:47 97.5 F L 63 18 123/71 99 06/16/18 07:08 98.1 F 67 18 124/70 94 06/16/18 04:23 97.7 F 60 18 136/75 99
[2018-06-16] MEDS: SIMVASTATIN 40 MG TAB PO SCH (20:35)
[2018-06-17] MEDS: HYDROmorphone HCL 2 MG TAB PO PRN ×3 (00:12→08:32)
[2018-06-17] MEDS: CHECK FENTANYL PATCH PLACEMENT SCH ×6 (00:16→16:47)
[2018-06-17] MEDS: [UNRECOGNIZED DRUG - OTHER] PR SCH ×6 (01:23→22:10)
[2018-06-17] MEDS: LEVOTHYROXINE SODIUM 100 MCG TABLET PO SCH (06:12)
[2018-06-17] MEDS: INSULIN ASPART 100 UNITS/ML 3 ML PEN SC SCH ×4 (08:31→21:09)
[2018-06-17] MEDS: DRONABINOL 2.5 MG CAP PO SCH ×3 (08:32→21:07)
[2018-06-17] MEDS: NITROGLYCERIN 2% 7.5 INCH, AQUAPHOR 67.5 GM, BARCODE IDENTIFIER 1 EA EXT SCH ×2 (08:33→21:08)
[2018-06-17] MEDS: NIFEDIPINE 0.2% TOP SCH ×4 (08:33→21:08)
[2018-06-17] MEDS: SUCRALFATE 1 GM/10 ML UDC PO SCH ×4 (08:34→21:08)
[2018-06-17] MEDS: ESCITALOPRAM OXALATE 10 MG TAB PO SCH (08:34)
[2018-06-17] MEDS: CEROVITE ADV FORMULA TAB PO SCH ×2 (08:34→21:07)
[2018-06-17] MEDS: HYDROCORTISONE ACETATE 25 MG SUPP PR SCH ×2 (08:34→21:07)
[2018-06-17] MEDS: LORATADINE 10 MG TAB PO SCH (08:34)
[2018-06-17] MEDS: APIXABAN 5 MG TABLET PO SCH ×2 (08:35→21:07)
[2018-06-17] MEDS: METHYLNALTREXONE BROMIDE 12 MG/0.6 ML VIAL SQ SCH (08:35)
[2018-06-17] MEDS: TAMSULOSIN HCL 0.4 MG CAP PO SCH (08:35)
[2018-06-17] MEDS: CARVEDILOL 3.125 MG TAB PO SCH ×2 (08:35→21:07)
[2018-06-17] MEDS: FUROSEMIDE 40 MG TAB PO SCH (08:35)
[2018-06-17] MEDS: PANTOprazole 40 MG TAB PO SCH ×2 (08:35→21:08)
[2018-06-17 08:38] LABS: BUN Creatinine Ratio 11.9 (10-20); Calcium 8.7 mg/dl (8.5-10.1); Creatinine Clr Calc Pharmacy 79.7 ml/min; Est GFR (African American) 102.6; Est GFR (Non-African American) 88.5; Potassium 3.8 mmol/L (3.5-5.1)
--- NOTE | 2018-06-17 10:27 | Family Medicine Progress Note ---
Date of Service June 17, 2018 Assessment & Plan (1) Intractable pain: 82 yo M with h/o of CAD s/p CABGx 2, AVR, MV stenosis, Afib, HTN, HLD, complete heart block with pacemaker, DM2, ESME, GERD, hypothyroidism, mood disorder and rectal adenocarcinoma stage 4 ([id number]) presents with severe rectal pain exacerbated by constipation and anal fissure. Awaiting placement Refractory anal pain in the setting of stage 4 rectal adenocarcinoma exacerbated by narcotic induced constipation -afebrile -Received last dose of Neulasta 2 days prior to admission -Pain management signed off -Pain Regimen -Patient was a little loopy this morning, after reviewing the med rec, he is still taking Dilaudid 5 mg regularly despite increase in fentanyl dose -increased home fentanyl 125mcg patch -Decrease Dilaudid 2 mg every 6 hours for breakthrough pain as needed -Resume Relistor today -Marinol 7.5 mg 3 times daily for cachexia and synergistic pain management and decrease Dilaudid usage -Patient reports significant improvement on this pain went 13 on admission to 9 and is now a 6 status post initiation of Marinol, Patient reported pain was a 4 yesterday afternoon -Bowel regimen: Relistor every other day, will need prescription for p.o. Relistor on discharge and/or amitiza -Continue home zofran and compazine for nausea/vomiting try to minimize usage as may be contributing to urinary -Surgery consulted -Outpatient follow-up in 4 weeks to discuss palliative colostomy -Hydrocortisone suppositories 25 mg twice daily -Can consider cansa if hydrocortisone is not effective -Due to location of tumor and relation to fissure doubtful if topical therapy will be effective -Senokot S twice daily MiraLAX daily rotate with milk of magnesia, mag citrate, and prune juice -Oncology consulted: Dr. Marcano -Consider palliative colostomy, likely will need to delay surgery as patient has been on biologic Bevacizumab -Per palliative not a candidate for methadone given age -Palliative consulted -Goals of care discussed, patient wants to get back to doing simple things in life, wants to continue with chemotherapy but only if there is a benefit, if oncology feels that risk outweighs benefit he would like to stop. -Patient wants more time to think about CODE STATUS, he wants "every chance at life", however he does not want to live in a vegetative state or have his life prolonged by machines. -Increase home fentanyl to 125 mcg/HR -Consider adding Colace to bowel regimen -PT OT -Feel acute rehab is appropriate for this patient -If case management can assist anticipate the patient to be medically cleared for discharge in the next 24 to 48 hours Urinary retention During this admission patient began to experience urinary retention approximately on 06/11. Patient has been unable to control his voids and required intermittent straight cathing since 06/12. Patient continues to improve symptomatically -Differential includes: Secondary to constipation, secondary to malignancy, BPH, significantly less likely secondary to pain management therapy -Straight cath every 6 hours for now as needed for bladder scan greater than 500 cc -Potentially a gravity dependent process patient was attempted he was standing up -Uro Cx -Every shift bladder scans straight catheter greater than 500 cc -new meds for symptoms seen ongoing health issues if he is feeling better. -recheck symptoms tomorrow. Consider outpatient vs. PRN f/u depending on bladder scan and symptoms. -Refrain from indwelling catheter and less for palliative purposes -Outpatient follow-up in 2 to 3 weeks but this must be patient initiated, please arrange through Case management Hypertension Patient's hypertension seems to have resolved status initiation of straight cath for bladder scan volumes greater than 500 cc -Potentially secondary to urinary retention Appears to have resolved status post every 6 hours straight cath -Responded to PRN hydralazine, 10 Mgs hydralazine every 2 hours as needed for systolic greater than 180 -Continue to monitor for now Anal fissure -Continue hydrocortisone suppository if ineffective try cansa -Continue nitro cream BID and started on nifedipine 2% cream 4 times daily marlo lied to the anus -Requested pharmacy obtain Calmol 4, they said they will have it tomorrow -Calmol 4 every 4 H, placed nifedipine cream on the tip of the suppository prior to inserting into anus. Ideally this should be performed prior to bowel movements -Relistor q. every other day -Pain regimen as above CAD/HTN/HLD/AVR/MV stenosis/AFib -Continue home carvedilol, lasix, simvastatin and apixaban DM2 -On SSI with Novolog -No indication for basal insulin at present Hypothyroidism -Continue levothyroxine GERD -Continue prilosec Anemia -last Hgb 10.5 (baseline 9-10) -No concern for acute bleed at this time -Continue to monitor CBC Mood disorder -Continue home escitalopram DVT prophylaxis: apixaban Diet: Heart healthy/DM 1 Code: Full Dispo: d/c over the next day or 2 Supervising Physician Co-Signing Physician Notes I personally examined the patient and verified all villaseñor points of history and exam, discussed case, and agree with decision making with Dr Medina. Seen walking the hallways with therapy, no distress then. Later seen in his room, resting comfortably and happily. Notes pain overall is better controlled Vitals noted, in general he is awake and alert pleasant no distress. HEENT normocephalic atraumatic mucous membranes moist. Breathing is unlabored no accessory muscle use good. Skin shows no rashes no pallor or icterus. No focal neuro deficits. Rectal painseems to be doing much better overall. Continue current med regimen. Disposition planning is a little bit difficult as he was looking for the safety of going to skilled before looking to go back home, but he may be doing too well overall for this to be an option. Discussed this with him frankly, case management will continue to help with discharge planning. Otherwise as above Subjective Patient sitting up in his chair this morning in no acute distress. Patient reports significant improvement in his pain, mood, and diet. We had a lengthy conversation about what he opted doing at home which included fishing with his grandchild and helping his grandchild work on the house. Our goal is to ultimately get him on the smallest amount of opioids that allow him to tolerate the pain. Reports significant improvement with Marinol and is tolerating the med well. Patient is eating well, sleeping, voiding, and stool is more formed. I am very pleased with this patient's progress and improvement, he is stable for medical discharge and would expect him to be discharged in the next day or 2. Reports pain as a 5 out of 10 well controlled him well managed. no acute concerns at present all questions answered.try to space out his narcotics as much as possible. Physical Exam Physical Exam: General: In NAD, pleasant Neuro: alert, and oriented x 4 CV: RRR, 3/6 decrescendo murmur PULM: CTAB, equal breath sounds bilaterally GI: +BS, non-distended, Reports diarrhea resolving and rectal pain. LE: no calf TTP, no LE edema Results & Data Vital Signs (Past 12 Hours) Vital Signs Temp Pulse Pulse Resp BP BP Pulse Ox 06/17/18 07:00 36.5 C 60 20 114/62 94 06/17/18 04:00 36.8 C 60 20 120/67 93 06/16/18 23:45 63 06/16/18 22:53 36.8 C 64 20 130/62 95 Resident Activity Tracking Resident Involvement: Resident Care Provided Care Provided: Adult Hospital Medicine
--- NOTE | 2018-06-17 12:46 | Palliative Care Progress Note ---
Date of Service June 17, 2018 Assessment & Plan (1) Cancer related pain: -Continue fentanyl patch at 125mcg/hr. -Continue Dilaudid 2mg PO Q6h PRN. -Resident physician ordered Marinol. -Patient states his pain is well-controlled at this time. There has been no further discussion of goals of care at this time, I have not seen patient's or other family. Patient states he will give code status some thought, but no change in decision at this time. -Please contact me with any further palliative care needs. Patient is nearing discharge, we'd be happy to follow him in the future if the need arises. (2) Colorectal cancer, stage IV: (3) Anal fissure: (4) Metastatic disease: Subjective Patient is smiling and pleasantly talkative today. States he just had a BM, so his rectal pain is 7/10 now, but the PO DIlaudid has been effective. He is tolerating the increase in fentanyl patch. Review of Systems Review of Systems: Does c/o mild weakness, still has rectal pain with bowel movements that is 7/10. Denies SOB, chest pain, N/V, abdominal pain. Physical Exam Constitutional: well developed and well nourished; no acute distress Eyes: PERRL ENMT: external ear and nose normal, oropharynx normal Ears: no hearing impairment Neck: normal visual inspection Respiratory: normal respiratory effort, lungs clear to auscultation Cardiovascular: Rate/Rhythm: regular rate and regular rhythm Heart Sounds: + murmur Gastrointestinal (Abdomen): Inspection/Auscultation: abdomen normal to inspection and normal bowel sounds Percussion/Palpation: abdomen soft Skin: normal turgor Neurologic: moves all extremities and awake; not confused Psychiatric: A+Ox3, euthymic affect Results & Data Vital Signs (Past 12 Hours) Vital Signs Temp Pulse Pulse Resp BP Pulse Ox 06/17/18 11:41 63 06/17/18 11:30 36.7 C 58 L 20 126/62 95 06/17/18 07:00 36.5 C 60 20 114/62 94 06/17/18 04:00 36.8 C 60 20 120/67 93 Time Spent Midlevel 25 minutes with >50% of time spent at bedside with patient discussing pain management.
[2018-06-17] MEDS: SIMVASTATIN 40 MG TAB PO SCH (21:08)
[2018-06-18] MEDS: CHECK FENTANYL PATCH PLACEMENT SCH ×6 (00:32→15:51)
[2018-06-18] MEDS: HYDROmorphone HCL 2 MG TAB PO PRN ×2 (01:06→15:56)
[2018-06-18] MEDS: [UNRECOGNIZED DRUG - OTHER] PR SCH ×6 (01:45→22:20)
[2018-06-18] MEDS: LEVOTHYROXINE SODIUM 100 MCG TABLET PO SCH (06:14)
[2018-06-18] MEDS: HYDROCORTISONE ACETATE 25 MG SUPP PR SCH ×2 (07:51→21:06)
[2018-06-18] MEDS: ESCITALOPRAM OXALATE 10 MG TAB PO SCH (07:51)
[2018-06-18] MEDS: APIXABAN 5 MG TABLET PO SCH ×2 (07:52→21:06)
[2018-06-18] MEDS: FUROSEMIDE 40 MG TAB PO SCH (07:52)
[2018-06-18] MEDS: CEROVITE ADV FORMULA TAB PO SCH ×2 (07:52→21:07)
[2018-06-18] MEDS: LORATADINE 10 MG TAB PO SCH (07:52)
[2018-06-18] MEDS: PANTOprazole 40 MG TAB PO SCH ×2 (07:52→21:08)
[2018-06-18] MEDS: TAMSULOSIN HCL 0.4 MG CAP PO SCH (07:52)
[2018-06-18] MEDS: SUCRALFATE 1 GM/10 ML UDC PO SCH ×4 (07:52→21:02)
[2018-06-18] MEDS: CARVEDILOL 3.125 MG TAB PO SCH ×2 (07:53→21:06)
[2018-06-18] MEDS: fentaNYL 100 MCG/HR TDSY TD SCH (07:53)
[2018-06-18] MEDS: NIFEDIPINE 0.2% TOP SCH ×4 (07:54→21:07)
[2018-06-18] MEDS: NITROGLYCERIN 2% 7.5 INCH, AQUAPHOR 67.5 GM, BARCODE IDENTIFIER 1 EA EXT SCH ×2 (07:55→21:09)
[2018-06-18] MEDS: INSULIN ASPART 100 UNITS/ML 3 ML PEN SC SCH ×4 (07:57→21:08)
[2018-06-18] MEDS: DRONABINOL 2.5 MG CAP PO SCH ×3 (09:13→21:07)
--- NOTE | 2018-06-18 09:27 | Urology Progress Note ---
Date of Service June 18, 2018 Assessment & Plan (1) Slow urinary stream: 82yo M with metastatic colorectal ca, voiding difficulties. Pt appears to be much more comfortable and in better spirits than when I evaluated him earlier this week. He verbalizes that he is comfortable to continue Q shift bladder scans and straight cath as needed for PVR >500 or for suprapubic pain/pressure. He continue to prefer this method over indwelling catheter, we agree. I am unsure what his discharge planning includes, however we recommend a facility that can perform CIC. He is welcome to followup with us outpatient if he prefers. Will allow patient/ case management to contact our office if patient wishes to pursue. No formal appointments made at this time. Thank you for the consultation. Please reconsult with additional questions, concerns or changes in patient status. Subjective 82yo M with metastatic colorectal cancer, difficulty emptying. Pt sitting up and ready to eat breakfast at time of evaluation. Appears comfortable and in good spirits. Voiding small amounts, needs to push/strain. Continues to require straight cath for incomplete emptying but he is comfortable with this. No other complaints. Review of Systems Review of Systems: All systems reviewed & are unremarkable except as noted in HPI & below Physical Exam Physical Exam: A&Ox3 RRR abd soft Results & Data Vital Signs (Past 12 Hours) Vital Signs Temp Pulse Pulse Resp BP Pulse Ox 06/18/18 07:17 36.9 C 59 L 20 115/62 93 06/18/18 04:00 36.8 C 61 18 113/63 94 06/18/18 01:55 60 06/17/18 23:00 36.6 C 61 61 H 114/62 94
--- NOTE | 2018-06-18 09:55 | Family Medicine Progress Note ---
Date of Service June 18, 2018 Assessment & Plan (1) Intractable pain: 82 yo M with h/o of CAD s/p CABGx 2, AVR, MV stenosis, Afib, HTN, HLD, complete heart block with pacemaker, DM2, ESME, GERD, hypothyroidism, mood disorder and rectal adenocarcinoma stage 4 ([id number]) presents with severe rectal pain exacerbated by constipation and anal fissure. Awaiting placement Refractory anal pain in the setting of stage 4 rectal adenocarcinoma exacerbated by narcotic induced constipation -afebrile -Received last dose of Neulasta 2 days prior to admission -Pain management signed off -Pain Regimen -Patient was a little loopy this morning, after reviewing the med rec, he is still taking Dilaudid 5 mg regularly despite increase in fentanyl dose -increased home fentanyl 125mcg patch -Decrease Dilaudid 2 mg every 6 hours for breakthrough pain as needed, significant decrease in his need for opiates secondary to Marinol initiation. -Resume Relistor today -Marinol 7.5 mg 3 times daily for cachexia and synergistic pain management and decrease Dilaudid usage -Patient reports significant improvement on this pain went 13 on admission to 9 and is now a 6 status post initiation of Marinol, Patient reported pain was a 4 yesterday afternoon -Bowel regimen: Relistor every other day, will need prescription for p.o. Relistor on discharge and/or amitiza -Continue home zofran and compazine for nausea/vomiting try to minimize usage as may be contributing to urinary -Surgery consulted -Outpatient follow-up in 4 weeks to discuss palliative colostomy -Hydrocortisone suppositories 25 mg twice daily -Can consider cansa if hydrocortisone is not effective -Due to location of tumor and relation to fissure doubtful if topical therapy will be effective -Senokot S twice daily MiraLAX daily rotate with milk of magnesia, mag citrate, and prune juice -Oncology consulted: Dr. Marcano -Consider palliative colostomy, likely will need to delay surgery as patient has been on biologic Bevacizumab -Per palliative not a candidate for methadone given age -Palliative consulted -Goals of care discussed, patient wants to get back to doing simple things in life, wants to continue with chemotherapy but only if there is a benefit, if oncology feels that risk outweighs benefit he would like to stop. -Patient wants more time to think about CODE STATUS, he wants "every chance at life", however he does not want to live in a vegetative state or have his life prolonged by machines. -Increase home fentanyl to 125 mcg/HR -Consider adding Colace to bowel regimen -PT OT -Feel acute rehab is appropriate for this patient -If case management can assist anticipate the patient to be medically cleared for discharge in the next 24 to 48 hours Urinary retention During this admission patient began to experience urinary retention approximately on 06/11. Patient has been unable to control his voids and required intermittent straight cathing since 06/12. Patient continues to improve symptomatically -Differential includes: Secondary to constipation, secondary to malignancy, BPH, significantly less likely secondary to pain management therapy -Straight cath every 6 hours for now as needed for bladder scan greater than 500 cc -Potentially a gravity dependent process patient was attempted he was standing up -Uro Cx -Every shift bladder scans straight catheter greater than 500 cc -new meds for symptoms seen ongoing health issues if he is feeling better. -recheck symptoms tomorrow. Consider outpatient vs. PRN f/u depending on bladder scan and symptoms. -Refrain from indwelling catheter and less for palliative purposes -Outpatient follow-up in 2 to 3 weeks but this must be patient initiated, please arrange through Case management Hypertension Patient's hypertension seems to have resolved status initiation of straight cath for bladder scan volumes greater than 500 cc -Potentially secondary to urinary retention Appears to have resolved status post every 6 hours straight cath -Responded to PRN hydralazine, 10 Mgs hydralazine every 2 hours as needed for systolic greater than 180 -Continue to monitor for now Anal fissure -Continue hydrocortisone suppository if ineffective try cansa -Continue nitro cream BID and started on nifedipine 2% cream 4 times daily applied to the anus -Requested pharmacy obtain Calmol 4, they said they will have it tomorrow -Calmol 4 every 4 H, placed nifedipine cream on the tip of the suppository prior to inserting into anus. Ideally this should be performed prior to bowel movements -Relistor q. every other day -Pain regimen as above CAD/HTN/HLD/AVR/MV stenosis/AFib -Continue home carvedilol, lasix, simvastatin and apixaban DM2 -On SSI with Novolog -No indication for basal insulin at present Hypothyroidism -Continue levothyroxine GERD -Continue prilosec Anemia -last Hgb 10.5 (baseline 9-10) -No concern for acute bleed at this time -Continue to monitor CBC Mood disorder -Continue home escitalopram DVT prophylaxis: apixaban Diet: Heart healthy/DM 1 Code: Full Dispo: d/c over the next day or 2 Supervising Physician Co-Signing Physician Notes I personally examined the patient and verified all villaseñor points of history and exam, discussed case, and agree with decision making with Dr Medina. sleeping comfortably, easily awoken. Notes pain overall is better controlled. still hoping for SNF Vitals noted, in general he is awake and alert pleasant no distress. HEENT normocephalic atraumatic mucous membranes moist. Breathing is unlabored no accessory muscle use good. Skin shows no rashes no pallor or icterus. No focal neuro deficits. Rectal painseems to be doing much better overall. Continue current med regimen. awaiting final decisions on dispo planning. Otherwise as above Subjective Sitting upright in bed this morning in no acute distress. Patient did well overnight, tolerating his diet, voiding, stooling, sleeping well. Patient reports diarrhea has been improved, less pain with defecation. Patient is requiring significantly less Dilaudid is now requiring 2 mg pills overnight, down from 5 mg every 2 hours. No acute concerns at present, patient's family requested case management contact rehab on patient's behalf. No acute concerns at present all questions answered, patient continues to improve. Patient's urinary retention continues to improve Patient denies fevers chills nausea vomiting constipation abdominal pain pain in extremities headache chest pain chest pressure no signs or symptoms of acute infectious process Physical Exam Physical Exam: General: In NAD, pleasant Neuro: alert, and oriented x 4 CV: RRR, 3/6 decrescendo murmur PULM: CTAB, equal breath sounds bilaterally GI: +BS, non-distended, Reports diarrhea resolving and rectal pain. LE: no calf TTP, no LE edema Results & Data Vital Signs (Past 12 Hours) Vital Signs Temp Pulse Pulse Resp BP Pulse Ox 06/18/18 07:17 36.9 C 59 L 20 115/62 93 06/18/18 04:00 36.8 C 61 18 113/63 94 06/18/18 01:55 60 06/17/18 23:00 36.6 C 61 61 H 114/62 94 Laboratory Results 06/18/18 06/18/18 06/18/18 Range/Units 16:26 11:31 07:35 POC Glucose 198 H 181 H 201 H (70-99) 06/18/18 06/18/18 06/17/18 Range/Units 07:34 07:33 20:10 POC Glucose 191 H 365 H* 191 H (70-99) Medications Administered Current Inpatient Medications Albuterol (Ventolin Hfa) 2 puffs INH Q6H PRN PRN Reason: Shortness Of Breath Or Wheezin Apixaban (Eliquis) 5 mg PO BID KARIS Stop: 07/10/18 08:59 Last Admin: 06/18/18 07:52 Dose: 5 mg Documented by: Carvedilol (Coreg) 3.125 mg PO BID KARIS Stop: 07/10/18 01:41 Last Admin: 06/18/18 07:53 Dose: 3.125 mg Documented by: Nitroglycerin 7.5 inch/Emollient Ointment 67.5 gm/BARCODE IDENTIFIER 1 ea 0 inch EXT BID KARIS Stop: 07/10/18 08:59 Last Admin: 06/18/18 07:55 Dose: 1 appln Documented by: Dextrose (Dextrose 50%) 25 - 50 ml IV UD PRN; Protocol PRN Reason: Hypoglycemia Protocol Stop: 07/10/18 03:59 Dronabinol (Marinol) 7.5 mg PO TID KARIS Stop: 07/17/18 13:59 Last Admin: 06/18/18 14:08 Dose: 7.5 mg Documented by: Escitalopram Oxalate (Lexapro) 15 mg PO DAILY KARIS Stop: 07/10/18 08:59 Last Admin: 06/18/18 07:51 Dose: 15 mg Documented by: Fentanyl (Duragesic) 100 mcg TD Q72H KARIS Stop: 06/26/18 07:59 Last Admin: 06/18/18 07:53 Dose: 100 mcg Documented by: Fentanyl (Duragesic) 25 mcg TD Q3D@1400 KARIS Stop: 06/29/18 13:59 Last Admin: 06/18/18 13:05 Dose: 25 mcg Documented by: Furosemide (Lasix) 40 mg PO DAILY KARIS Stop: 07/10/18 08:59 Last Admin: 06/18/18 07:52 Dose: 40 mg Documented by: Glucagon (Glucagen) 1 mg IM UD PRN; Protocol PRN Reason: Hypoglycemia Protocol Stop: 07/10/18 03:59 Glucose (Glucose 40%) 15 - 30 gm PO UD PRN; Protocol PRN Reason: Hypoglycemia Protocol Stop: 07/10/18 03:59 Glucose (Dex4 Glucose) 4 - 8 tabs PO UD PRN; Protocol PRN Reason: Hypoglycemia Protocol Stop: 07/10/18 03:59 Heparin Sodium (Porcine) (Heparin Sod 100 Unit/Ml Flush) 5 ml IV PRN PRN PRN Reason: Flush Stop: 07/11/18 20:59 Last Admin: 06/17/18 07:50 Dose: 5 ml Documented by: Hydralazine HCl (Hydralazine Hcl) 10 mg IV Q2H PRN PRN Reason: Hypertension Stop: 07/13/18 04:59 Hydrocortisone (Anusol Hc) 25 mg GA BID KARIS Stop: 07/10/18 20:59 Last Admin: 06/18/18 07:51 Dose: 25 mg Documented by: Hydromorphone HCl (Dilaudid) 2 mg PO Q6 PRN PRN Reason: Pain Stop: 06/30/18 13:59 Last Admin: 06/18/18 15:56 Dose: 2 mg Documented by: Insulin Aspart (Novolog Flexpen) 0 units SC ACHS [facility] Stop: 07/10/18 16:29 Last Admin: 06/18/18 17:33 Dose: 12 units Documented by: Levothyroxine Sodium (Synthroid) 100 mcg PO DAILYBB [facility] Stop: 07/10/18 06:29 Last Admin: 06/18/18 06:14 Dose: 100 mcg Documented by: Loratadine (Claritin) 10 mg PO QAM [facility] Stop: 07/10/18 08:59 Last Admin: 06/18/18 07:52 Dose: 10 mg Documented by: Magnesium Hydroxide (Milk Of Magnesia) 30 ml PO Q12H PRN PRN Reason: Constipation Stop: 07/10/18 01:41 Methylnaltrexone [place] (Relistor) 12 mg SQ Q2D@0900 [facility] Stop: 07/15/18 08:59 Last Admin: 06/17/18 08:35 Dose: 12 mg Documented by: Miscellaneous (Fentanyl Patch Remove & Waste) 1 ea N/A Q72H [facility] Stop: 07/12/18 07:58 Last Admin: 06/18/18 13:06 Dose: 1 ea Documented by: Miscellaneous (Fentanyl Patch Check Placement) 1 ea N/A QS [facility] Stop: 07/10/18 07:59 Last Admin: 06/18/18 15:51 Dose: 1 ea Documented by: Miscellaneous (Carbohydrates For Hypoglycemia) 15 - 30 gm PO UD PRN PRN Reason: Hypoglycemia Treatment Stop: 07/10/18 03:59 Miscellaneous (Fentanyl Patch Remove & Waste) 1 ea N/A Q72H [facility] Stop: 07/18/18 13:59 Last Admin: 06/18/18 13:07 Dose: 1 ea Documented by: Miscellaneous (Fentanyl Patch Check Placement) 1 ea N/A QS [facility] Stop: 07/15/18 15:59 Last Admin: 06/18/18 15:51 Dose: 1 ea Documented by: Multivitamins/Minerals (Multivitamin W/ Minerals Tab) 1 tab PO BID [facility] Stop: 07/10/18 01:41 Last Admin: 06/18/18 07:52 Dose: 1 tab Documented by: Nifedipine (Nifedipine Rectal Ointment) 1 appln TOP QID [facility] Stop: 07/10/18 16:59 Last Admin: 06/18/18 16:45 Dose: 1 appln Documented by: Calmol 4 Suppository ~Non-Formulary Medication (Calmol 4 1 Supp) 1 supp GA Q4H [facility] Stop: 07/16/18 09:59 Last Admin: 06/18/18 17:34 Dose: 1 supp Documented by: Ondansetron HCl (Zofran Odt) 8 mg PO Q4H PRN PRN Reason: Nausea Stop: 07/10/18 01:41 Last Admin: 06/13/18 08:10 Dose: 8 mg Documented by: Pantoprazole Sodium (Protonix) 40 mg PO BID [facility] Stop: 07/10/18 08:59 Last Admin: 06/18/18 07:52 Dose: 40 mg Documented by: Polyethylene Glycol (Miralax Powder Packet) 17 gm PO DAILY PRN; Protocol PRN Reason: constipation Stop: 07/10/18 01:41 Prochlorperazine (Compazine) 10 mg PO Q6 PRN PRN Reason: Nausea Stop: 07/10/18 01:41 Last Admin: 06/12/18 23:37 Dose: 10 mg Documented by: Senna/Docusate Sodium (Senokot S) 1 tab PO BID PRN; Protocol PRN Reason: Constipation Stop: 07/10/18 20:59 Last Admin: 06/15/18 08:31 Dose: 1 tab Documented by: Simvastatin (Zocor) 40 mg PO HS [facility] Stop: 07/10/18 20:59 Last Admin: 06/17/18 21:08 Dose: 40 mg Documented by: Sucralfate (Carafate) 1 gm PO QID [facility] Stop: 07/13/18 20:59 Last Admin: 06/18/18 16:44 Dose: 1 gm Documented by: Tamsulosin HCl (Flomax) 0.4 mg PO QAM [facility] Stop: 07/14/18 08:59 Last Admin: 06/18/18 07:52 Dose: 0.4 mg Documented by: Resident Activity Tracking Resident Involvement: Resident Care Provided Care Provided: Adult Hospital Medicine
[2018-06-18] MEDS: fentaNYL 25 MCG/HR TDSY TD SCH (13:05)
[2018-06-18] MEDS: SIMVASTATIN 40 MG TAB PO SCH (21:08)
[2018-06-19] MEDS: CHECK FENTANYL PATCH PLACEMENT SCH ×6 (00:22→16:07)
[2018-06-19] MEDS: [UNRECOGNIZED DRUG - OTHER] PR SCH ×6 (01:44→21:51)
[2018-06-19] MEDS: HYDROmorphone HCL 2 MG TAB PO PRN ×2 (04:14→16:09)
[2018-06-19] MEDS: LEVOTHYROXINE SODIUM 100 MCG TABLET PO SCH (05:39)
[2018-06-19 06:41] LABS: Creatinine Clr Calc Pharmacy 77.3 ml/min; Est GFR (African American) 101.4; Est GFR (Non-African American) 87.5
[2018-06-19 07:43] LABS: Basophils # (auto) 0.02 K/uL (0-0.2); Basophils % (auto) 0.2 %; Eosinophils # (auto) 0.18 K/uL (0-0.5); Eosinophils % (auto) 1.5 %; Hematocrit (blood only) 31.6 % (42-52); Hemoglobin 10.5 g/dL (14.0-18.0); Immature Granulocytes # (auto) 0.05 K/uL (0.00-0.02); Immature Granulocytes % (auto) 0.4 %; Lymphocytes # (auto) 1.13 K/uL (1.2-3.4); Lymphocytes % (auto) 9.2 %; Mean Corpuscular Hgb Conc 33.2 g/dL (32-36); Mean Corpuscular Volume 99.4 fL (80-100); Mean Platelet Volume 9.8 fL (7.4-10.4); Monocytes # (auto) 1.34 K/uL (0.11-0.59); Monocytes % (auto) 10.9 %; Neutrophils # (auto) 9.56 K/uL (1.4-6.5); Neutrophils % (auto) 77.8 %; Platelet Count 156 K/uL (130-400); RDW Coefficient of Variation 21.2 % (11.5-14.5); RDW Standard Deviation 77.4 fL (36.4-46.3); Red Blood Count 3.18 M/uL (4.7-6.1); White Blood Count 12.28 K/uL (4.8-10.8)
--- NOTE | 2018-06-19 07:46 | Family Medicine Progress Note ---
Date of Service June 19, 2018 Assessment & Plan (1) Intractable pain: 82 yo M with h/o of CAD s/p CABGx 2, AVR, MV stenosis, Afib, HTN, HLD, complete heart block with pacemaker, DM2, ESME, GERD, hypothyroidism, mood disorder and rectal adenocarcinoma stage 4 ([id number]) presents with severe rectal pain exacerbated by constipation and anal fissure. Awaiting placement Refractory anal pain in the setting of stage 4 rectal adenocarcinoma exacerbated by narcotic induced constipation On admission patient elevated white count this was secondary to receiving Neulasta 2 days prior to admission, throughout his admission he has been afebrile. Patient distraucourtneyt describes constant pain rating it is a 13 out of 10 that would become significantly worse with bowel movements furthermore he was experiencing significant constipation likely opioid induced. The patient was st arted on Relistor and a bowel regimen. His constipation significantly improved to the point where he is having profound diarrhea. All laxative medications with the exception of Relistor were discontinued. Per oncology consultation/note there is been prior outpatient discussions of a palliative ostomy, so general surgery was consulted, they felt that this was appropriate however currently could not perform the surgery secondary to patient's recent chemotherapy. General surgery also made recommendations regarding the patient's rectal pain. pain management was consulted for recommendations for the patient's pain. They recommended increasing his Angelo patch to 125 mcg/day well providing breakthrough Dilaudid 5 mg every 4 hours. Although this did relieve the patient's pain he was experiencing significant constipation and cachexia. He was started on Marinol 2.5 mg 3 times daily and tolerated it well, simultaneously he was titrated down on Dilaudid. Over the next 2 days the doses were optimized to his final regimen which includes fentanyl patch 125 mcg every 3 days, Marinol 7.5 mg 3 times daily, breakthrough Dilaudid 2 mg every 6 hours. Finally at the request of Dr. Marcano palliative care was consulted for the initiation of methadone, and discuss goals of care/end-of-life care. The patient relayed that he wants to get back to doing simple things in life, fishing with his grandson, working on the house. He wants to continue with chemotherapy but only if there is a benefit however if oncology feels there is no benefit he is going to discontinue. Patient has not made a final decision on CODE STATUS, however he states he "wants every chance at life", with that being said he would not like to have his life prolonged artificially by machines or in a vegetative sedate. -Pain Regimen -Patient was a little loopy this morning, after reviewing the med rec, he is still taking Dilaudid 5 mg regularly despite increase in fentanyl dose -increased home fentanyl 125mcg patch -Decrease Dilaudid 2 mg every 6 hours for breakthrough pain as needed, significant decrease in his need for opiates secondary to Marinol initiation. -Resume Relistor today -Marinol 7.5 mg 3 times daily for cachexia and synergistic pain management and decrease Dilaudid usage -Patient has had significant decrease in overall opioid usage only requiring breakthrough Dilaudid after bowel movements -Bowel regimen: Relistor every other day, will need prescription for p.o. Relistor on discharge and/or amitiza -Continue home zofran and compazine for nausea/vomiting try to minimize usage as may be contributing to urinary retention -Topical regimen:Calmol-4 QID, Anusol 25 BID, NG cream BID, Nifedipine Cream -If anything would consider dcing nitroglycerin cream and Anusol. -If elected to DC Anusol would add topical hydrocortisone cream to calmol Urinary retention During this admission patient began to experience urinary retention approximately on 06/11. Patient has been unable to control his voids and required intermittent straight cathing since 06/12. Patient continues to improve symptomatically although still not back to baseline. This is a new onset symp nichole that occurred during his hospitalization. -Differential includes: Secondary to constipation, secondary to malignancy, BPH, significantly less likely secondary to pain management therapy -Straight cath every 6 hours for now as needed for bladder scan greater than 500 cc -Potentially a gravity dependent process patient was attempted he was standing up -Uro Cx -Every shift bladder scans straight catheter greater than 500 cc -new meds for symptoms seen ongoing health issues if he is feeling better. -recheck symptoms tomorrow. Consider outpatient vs. PRN f/u depending on bladder scan and symptoms. -Refrain from indwelling catheter and less for palliative purposes -Outpatient follow-up in 2 to 3 weeks but this must be patient initiated, please arrange through Case management Hypertension Patient's hypertension seems to have resolved status initiation of straight cath for bladder scan volumes greater than 500 cc -Potentially secondary to urinary retention Appears to have resolved status post every 6 hours straight cath -Responded to PRN hydralazine, 10 Mgs hydralazine every 2 hours as needed for systolic greater than 180 -Continue to monitor for now Anal fissure See above -Pain regimen as above CAD/HTN/HLD/AVR/MV stenosis/AFib -Continue home carvedilol, lasix, simvastatin and apixaban DM2 -On SSI with Novolog -No indication for basal insulin at present Hypothyroidism -Continue levothyroxine GERD -Continue prilosec Anemia -last Hgb 10.5 (baseline 9-10) -No concern for acute bleed at this time -Continue to monitor CBC Mood disorder -Continue home escitalopram Hypokalemia Intermittently hypokalemic repleted as indicated -Repleted 20 meq kcl x3 DVT prophylaxis: apixaban Diet: Heart healthy/DM 1 Code: Full Dispo: Hopefully will be accepted to SNF over the next day or 2 Supervising Physician Co-Signing Physician Notes I personally examined the patient and verified all villaseñor points of history and exam, discussed case, and agree with decision making with Dr Medina. sleeping comfortably, extensive discussion with case management, family still trying to pursue SNF. Case management thinks it may be more realistic with his more recent therapy notes. But notes there is unlikely ability to get him to SNF until at least early next week. Vitals noted, in general he in no distress. HEENT normocephalic atraumatic mucous membranes moist. Breathing is unlabored no accessory muscle use good. Skin shows no rashes no pallor or icterus. No focal neuro deficits. Rectal painpain reasonable control, discharge planning. Otherwise as above Subjective Patient sleeping in his chair this morning in no acute distress. Patient reports he did well overnight, although had a bowel movement at approximately 4 AM causing him significant pain requiring pain medication. Otherwise the patient has been doing fairly well requiring 2 mg Dilaudid roughly every 6-10 hours. This is a significant decrease in overall opioid consumption likely attributable to Marinol therapy, I have very pleased with this patient's progres s. Patient still having some intermittent urinary retention, requiring steak straight cath.per discussion with case management patient is awaiting to hear if he will be accepted to [facility] for SNF. Patient is tolerating his diet, voiding, stooling, sleeping. No acute concerns at present, answered all questions Patient denies: Fevers, chills, nausea, vomiting,, muscle aches or pains, chest pressure, chest pain, shortness of breath, congestion, other signs or symptoms of acute infectious process Physical Exam Physical Exam: General: In NAD, pleasant Neuro: alert, and oriented x 4 CV: RRR, 3/6 decrescendo murmur PULM: CTAB, equal breath sounds bilaterally GI: +BS, non-distended, Reports diarrhea resolving and rectal pain. LE: no calf TTP, no LE edema Results & Data Vital Signs (Past 12 Hours) Vital Signs Temp Pulse Resp BP Pulse Ox 06/19/18 07:24 36.5 C 60 20 120/68 95 06/19/18 04:25 36.7 C 59 L 16 119/59 L 96 06/18/18 22:50 36.7 C 65 18 127/70 91 06/18/18 20:59 60 151/83 H 92 Laboratory Results 06/19/18 06/19/18 06/19/18 Range/Units 07:21 07:21 05:42 WBC 12.28 H (4.8-10.8) K/uL RBC 3.18 L (4.7-6.1) M/uL Hgb 10.5 L (14.0-18.0) g/dL Hct 31.6 L (42-52) % MCV 99.4 (80-100) fL MCH 33.0 (25-34) pg MCHC 33.2 (32-36) g/dL RDW Std Deviation 77.4 H (36.4-46.3) fL RDW Coeff of Geovani 21.2 H (11.5-14.5) % Plt Count 156 (130-400) K/uL MPV 9.8 (7.4-10.4) fL Immature Gran % (Auto) 0.4 % Neut % (Auto) 77.8 % Lymph % (Auto) 9.2 % Kay % (Auto) 10.9 % Eos % (Auto) 1.5 % Baso % (Auto) 0.2 % Immature Gran # (Auto) 0.05 H (0.00-0.02) K/uL Neut # (Auto) 9.56 H (1.4-6.5) K/uL Lymph # (Auto) 1.13 L (1.2-3.4) K/uL Kay # (Auto) 1.34 H (0.11-0.59) K/uL Eos # (Auto) 0.18 (0-0.5) K/uL Baso # (Auto) 0.02 (0-0.2) K/uL Sodium Pending Potassium Pending Chloride Pending Carbon Dioxide Pending Anion Gap Pending BUN Pending Creatinine Pending 0.72 (0.6-1.4) mg/dl Est Cr Clr Drug Dosing Pending 77.3 ml/min Est GFR ( Amer) Pending 101.4 Est GFR (Non-Af Amer) Pending 87.5 BUN/Creatinine Ratio Pending Glucose Pending POC Glucose (70-99) Calcium Pending 06/18/18 06/18/18 06/18/18 Range/Units 20:14 16:26 11:31 WBC (4.8-10.8) K/uL RBC (4.7-6.1) M/uL Hgb (14.0-18.0) g/dL Hct (42-52) % MCV (80-100) fL MCH (25-34) pg MCHC (32-36) g/dL RDW Std Deviation (36.4-46.3) fL RDW Coeff of Geovani (11.5-14.5) % Plt Count (130-400) K/uL MPV (7.4-10.4) fL Immature Gran % (Auto) % Neut % (Auto) % Lymph % (Auto) % Kay % (Auto) % Eos % (Auto) % Baso % (Auto) % Immature Gran # (Auto) (0.00-0.02) K/uL Neut # (Auto) (1.4-6.5) K/uL Lymph # (Auto) (1.2-3.4) K/uL Kay # (Auto) (0.11-0.59) K/uL Eos # (Auto) (0-0.5) K/uL Baso # (Auto) (0-0.2) K/uL Sodium Potassium Chloride Carbon Dioxide Anion Gap BUN Creatinine (0.6-1.4) mg/dl Est Cr Clr Drug Dosing ml/min Est GFR ( Amer) Est GFR (Non-Af Amer) BUN/Creatinine Ratio Glucose POC Glucose 186 H 198 H 181 H (70-99) Calcium Medications Administered Current Inpatient Medications Albuterol (Ventolin Hfa) 2 puffs INH Q6H PRN PRN Reason: Shortness Of Breath Or Wheezin Apixaban (Eliquis) 5 mg PO BID [facility] Stop: 07/10/18 08:59 Last Admin: 06/18/18 21:06 Dose: 5 mg Documented by: Carvedilol (Coreg) 3.125 mg PO BID [facility] Stop: 07/10/18 01:41 Last Admin: 06/18/18 21:06 Dose: 3.125 mg Documented by: Nitroglycerin 7.5 inch/Emollient Ointment 67.5 gm/BARCODE IDENTIFIER 1 ea 0 inch EXT BID [facility] Stop: 07/10/18 08:59 Last Admin: 06/18/18 21:09 Dose: 1 appln Documented by: Dextrose (Dextrose 50%) 25 - 50 ml IV UD PRN; Protocol PRN Reason: Hypoglycemia Protocol Stop: 07/10/18 03:59 Dronabinol (Marinol) 7.5 mg PO TID [facility] Stop: 07/17/18 13:59 Last Admin: 06/18/18 21:07 Dose: 7.5 mg Documented by: Escitalopram Oxalate (Lexapro) 15 mg PO DAILY [facility] Stop: 07/10/18 08:59 Last Admin: 06/18/18 07:51 Dose: 15 mg Documented by: Fentanyl (Duragesic) 100 mcg TD Q72H [facility] Stop: 06/26/18 07:59 Last Admin: 06/18/18 07:53 Dose: 100 mcg Documented by: Fentanyl (Duragesic) 25 mcg TD Q3D@1400 [facility] Stop: 06/29/18 13:59 Last Admin: 06/18/18 13:05 Dose: 25 mcg Documented by: Furosemide (Lasix) 40 mg PO DAILY [facility] Stop: 07/10/18 08:59 Last Admin: 06/18/18 07:52 Dose: 40 mg Documented by: Glucagon (Glucagen) 1 mg IM UD PRN; Protocol PRN Reason: Hypoglycemia Protocol Stop: 07/10/18 03:59 Glucose (Glucose 40%) 15 - 30 gm PO UD PRN; Protocol PRN Reason: Hypoglycemia Protocol Stop: 07/10/18 03:59 Glucose (Dex4 Glucose) 4 - 8 tabs PO UD PRN; Protocol PRN Reason: Hypoglycemia Protocol Stop: 07/10/18 03:59 Heparin Sodium (Porcine) (Heparin Sod 100 Unit/Ml Flush) 5 ml IV PRN PRN PRN Reason: Flush Stop: 07/11/18 20:59 Last Admin: 06/17/18 07:50 Dose: 5 ml Documented by: Hydralazine HCl (Hydralazine Hcl) 10 mg IV Q2H PRN PRN Reason: Hypertension Stop: 07/13/18 04:59 Hydrocortisone (Anusol Hc) 25 mg OR BID [facility] Stop: 07/10/18 20:59 Last Admin: 06/18/18 21:06 Dose: 25 mg Documented by: Hydromorphone HCl (Dilaudid) 2 mg PO Q6 PRN PRN Reason: Pain Stop: 06/30/18 13:59 Last Admin: 06/19/18 04:14 Dose: 2 mg Documented by: Insulin Aspart (Novolog Flexpen) 0 units SC ACHS [facility] Stop: 07/10/18 16:29 Last Admin: 06/18/18 21:08 Dose: 2 units Documented by: Levothyroxine Sodium (Synthroid) 100 mcg PO DAILYBB [facility] Stop: 07/10/18 06:29 Last Admin: 06/19/18 05:39 Dose: 100 mcg Documented by: Loratadine (Claritin) 10 mg PO QAM [facility] Stop: 07/10/18 08:59 Last Admin: 06/18/18 07:52 Dose: 10 mg Documented by: Magnesium Hydroxide (Milk Of Magnesia) 30 ml PO Q12H PRN PRN Reason: Constipation Stop: 07/10/18 01:41 Methylnaltrexone [place] (Relistor) 12 mg SQ Q2D@0900 [facility] Stop: 07/15/18 08:59 Last Admin: 06/17/18 08:35 Dose: 12 mg Documented by: Miscellaneous (Fentanyl Patch Remove & Waste) 1 ea N/A Q72H [facility] Stop: 07/12/18 07:58 Last Admin: 06/18/18 13:06 Dose: 1 ea Documented by: Miscellaneous (Fentanyl Patch Check Placement) 1 ea N/A QS [facility] Stop: 07/10/18 07:59 Last Admin: 06/19/18 00:22 Dose: 1 ea Documented by: Miscellaneous (Carbohydrates For Hypoglycemia) 15 - 30 gm PO UD PRN PRN Reason: Hypoglycemia Treatment Stop: 07/10/18 03:59 Miscellaneous (Fentanyl Patch Remove & Waste) 1 ea N/A Q72H [facility] Stop: 07/18/18 13:59 Last Admin: 06/18/18 13:07 Dose: 1 ea Documented by: Miscellaneous (Fentanyl Patch Check Placement) 1 ea N/A QS [facility] Stop: 07/15/18 15:59 Last Admin: 06/19/18 00:22 Dose: 1 ea Documented by: Multivitamins/Minerals (Multivitamin W/ Minerals Tab) 1 tab PO BID [facility] Stop: 07/10/18 01:41 Last Admin: 06/18/18 21:07 Dose: 1 tab Documented by: Nifedipine (Nifedipine Rectal Ointment) 1 appln TOP QID [facility] Stop: 07/10/18 16:59 Last Admin: 06/18/18 21:07 Dose: 1 appln Documented by: Calmol 4 Suppository ~Non-Formulary Medication (Calmol 4 1 Supp) 1 supp OR Q4H [facility] Stop: 07/16/18 09:59 Last Admin: 06/19/18 05:43 Dose: Not Given Documented by: Ondansetron HCl (Zofran Odt) 8 mg PO Q4H PRN PRN Reason: Nausea Stop: 07/10/18 01:41 Last Admin: 06/13/18 08:10 Dose: 8 mg Documented by: Pantoprazole Sodium (Protonix) 40 mg PO BID [facility] Stop: 07/10/18 08:59 Last Admin: 06/18/18 21:08 Dose: 40 mg Documented by: Polyethylene Glycol (Miralax Powder Packet) 17 gm PO DAILY PRN; Protocol PRN Reason: constipation Stop: 07/10/18 01:41 Prochlorperazine (Compazine) 10 mg PO Q6 PRN PRN Reason: Nausea Stop: 07/10/18 01:41 Last Admin: 06/12/18 23:37 Dose: 10 mg Documented by: Senna/Docusate Sodium (Senokot S) 1 tab PO BID PRN; Protocol PRN Reason: Constipation Stop: 07/10/18 20:59 Last Admin: 06/15/18 08:31 Dose: 1 tab Documented by: Simvastatin (Zocor) 40 mg PO HS [facility] Stop: 07/10/18 20:59 Last Admin: 06/18/18 21:08 Dose: 40 mg Documented by: Sucralfate (Carafate) 1 gm PO QID [facility] Stop: 07/13/18 20:59 Last Admin: 06/18/18 21:02 Dose: 1 gm Documented by: Tamsulosin HCl (Flomax) 0.4 mg PO QAM [facility] Stop: 07/14/18 08:59 Last Admin: 06/18/18 07:52 Dose: 0.4 mg Documented by: Resident Activity Tracking Resident Involvement: Resident Care Provided Care Provided: Adult Hospital Medicine
[2018-06-19] MEDS: INSULIN ASPART 100 UNITS/ML 3 ML PEN SC SCH ×4 (07:50→20:52)
[2018-06-19] MEDS: PANTOprazole 40 MG TAB PO SCH ×2 (07:51→20:56)
[2018-06-19] MEDS: SUCRALFATE 1 GM/10 ML UDC PO SCH ×4 (07:51→20:54)
[2018-06-19] MEDS: ESCITALOPRAM OXALATE 10 MG TAB PO SCH (07:51)
[2018-06-19] MEDS: FUROSEMIDE 40 MG TAB PO SCH (07:52)
[2018-06-19] MEDS: APIXABAN 5 MG TABLET PO SCH ×2 (07:52→20:54)
[2018-06-19] MEDS: TAMSULOSIN HCL 0.4 MG CAP PO SCH (07:52)
[2018-06-19] MEDS: CARVEDILOL 3.125 MG TAB PO SCH ×2 (07:52→20:54)
[2018-06-19] MEDS: LORATADINE 10 MG TAB PO SCH (07:52)
[2018-06-19] MEDS: HYDROCORTISONE ACETATE 25 MG SUPP PR SCH ×2 (07:52→20:54)
[2018-06-19] MEDS: NITROGLYCERIN 2% 7.5 INCH, AQUAPHOR 67.5 GM, BARCODE IDENTIFIER 1 EA EXT SCH ×2 (07:53→20:55)
[2018-06-19] MEDS: NIFEDIPINE 0.2% TOP SCH ×4 (07:53→20:56)
[2018-06-19] MEDS: CEROVITE ADV FORMULA TAB PO SCH ×2 (07:53→20:55)
[2018-06-19] MEDS: METHYLNALTREXONE BROMIDE 12 MG/0.6 ML VIAL SQ SCH (07:54)
[2018-06-19 08:11] LABS: Anisocytosis Present; Basophilic Stippling 1+; Ovalocytes 1+; Polychromasia 1+
[2018-06-19 08:16] LABS: BUN Creatinine Ratio 14.7 (10-20); Calcium 8.6 mg/dl (8.5-10.1); Creatinine Clr Calc Pharmacy 89.7 ml/min; Est GFR (African American) 107.8; Potassium 3.3 mmol/L (3.5-5.1)
[2018-06-19] MEDS: DRONABINOL 2.5 MG CAP PO SCH ×3 (08:27→20:55)
[2018-06-19] MEDS: POTASSIUM CHLORIDE 20 MEQ TABCR PO SCH ×3 (16:06→19:42)
[2018-06-19] MEDS: SIMVASTATIN 40 MG TAB PO SCH (20:56)
[2018-06-20] MEDS: CHECK FENTANYL PATCH PLACEMENT SCH ×8 (00:33→23:59)
[2018-06-20] MEDS: [UNRECOGNIZED DRUG - OTHER] PR SCH ×6 (01:48→21:35)
[2018-06-20] MEDS: HYDROmorphone HCL 2 MG TAB PO PRN ×3 (03:02→21:45)
[2018-06-20] MEDS: LEVOTHYROXINE SODIUM 100 MCG TABLET PO SCH (05:35)
[2018-06-20] MEDS: INSULIN ASPART 100 UNITS/ML 3 ML PEN SC SCH ×4 (08:05→21:26)
[2018-06-20] MEDS: CARVEDILOL 3.125 MG TAB PO SCH ×2 (08:06→21:29)
[2018-06-20] MEDS: LORATADINE 10 MG TAB PO SCH (08:06)
[2018-06-20] MEDS: PANTOprazole 40 MG TAB PO SCH ×2 (08:06→21:30)
[2018-06-20] MEDS: FUROSEMIDE 40 MG TAB PO SCH (08:07)
[2018-06-20] MEDS: TAMSULOSIN HCL 0.4 MG CAP PO SCH (08:07)
[2018-06-20] MEDS: APIXABAN 5 MG TABLET PO SCH ×2 (08:07→21:27)
[2018-06-20] MEDS: DRONABINOL 2.5 MG CAP PO SCH ×3 (08:07→21:27)
[2018-06-20] MEDS: HYDROCORTISONE ACETATE 25 MG SUPP PR SCH ×2 (08:07→21:29)
[2018-06-20] MEDS: ESCITALOPRAM OXALATE 10 MG TAB PO SCH (08:07)
[2018-06-20] MEDS: SUCRALFATE 1 GM/10 ML UDC PO SCH ×4 (08:08→21:28)
[2018-06-20] MEDS: CEROVITE ADV FORMULA TAB PO SCH ×2 (08:08→21:27)
[2018-06-20] MEDS: NITROGLYCERIN 2% 7.5 INCH, AQUAPHOR 67.5 GM, BARCODE IDENTIFIER 1 EA EXT SCH ×2 (08:08→21:33)
[2018-06-20] MEDS: NIFEDIPINE 0.2% TOP SCH ×4 (08:08→21:27)
--- NOTE | 2018-06-20 10:54 | Family Medicine Progress Note ---
Date of Service June 20, 2018 Assessment & Plan (1) Intractable pain: 82 yo M with h/o of CAD s/p CABGx 2, AVR, MV stenosis, Afib, HTN, HLD, complete heart block with pacemaker, DM2, ESME, GERD, hypothyroidism, mood disorder and rectal adenocarcinoma stage 4 ([id number]) presents with severe rectal pain exacerbated by constipation and anal fissure. Awaiting placement Refractory anal pain in the setting of stage 4 rectal adenocarcinoma exacerbated by narcotic induced constipation -Bowel regimen: Relistor every other day, will need prescription for p.o. Relistor on discharge and/or amitiza - BM's remaining loose - Patient pain better controlled currently on fentanyl patch and 2mg dilaudid prn for breakthrough pain -Continue home zofran and compazine for nausea/vomiting try to minimize usage as may be contributing to urinary retention -Topical regimen:Calmol-4 QID, Anusol 25 BID, NG cream BID, Nifedipine Cream Urinary retention During this admission patient began to experience urinary retention approximately on 06/11. Patient has been unable to control his voids and required intermittent straight cathing since 06/12. Patient continues to improve symptomatically although still not back to baseline. This is a new onset symptom that occurred during his hospitalization. -Differential includes: Secondary to constipation, secondary to malignancy, BPH, significantly less likely secondary to pain management therapy -Likely will be sent home with catheter still in place, will need outpatient urology follow up for catheter removal Hypertension -Responded to PRN hydralazine, 10 Mgs hydralazine every 2 hours as needed for systolic greater than 180 -Continue to monitor for now CAD/HTN/HLD/AVR/MV stenosis/AFib -Continue home carvedilol, lasix, simvastatin and apixaban DM2 -On SSI with Novolog -No indication for basal insulin at present Hypothyroidism -Continue levothyroxine GERD -Continue prilosec Anemia -No concern for acute bleed at this time -Continue to monitor CBC Mood disorder -Continue home escitalopram Hypokalemia Intermittently hypokalemic repleting -3.3 today DVT prophylaxis: apixaban Diet: Heart healthy/DM 1 Code: Full Dispo: Hopefully will be accepted to SNF on Friday otherwise will attempt home with home health. Supervising Physician Co-Signing Physician Notes I personally examined the patient and verified all villaseñor points of history and exam, discussed case, and agree with decision making with Dr Sahni. Feeling pretty good overall. Family present, discussed situation extensively. Answered all questions to the best my ability. Informed him that he may not be approved for SNF, but we will not really be able to find out until Friday. Did ask him to start planning for possible alternate discharge arrangements if SNF is not possible. They noted that her SNF of choice might be able to take him by Friday if approved. Vitals noted, in general he in no distress. HEENT normocephalic atraumatic mu cous membranes moist. Breathing is unlabored no accessory muscle use good. Skin shows no rashes no pallor or icterus. No focal neuro deficits. Rectal paincontinue current plan for pain since he seems to be doing pretty well overall, continue discharge planning. Otherwise as above Subjective Arsenio Hammond reports his pain is under better control. Still having pain with BM but he is doing well at rest. Eating better than he has been. Patient is in high spirits and awaiting SNF decision on Friday. Review of Systems Constitutional: no fever and no chills Respiratory: no cough, no dyspnea, no pain with cough and no wheezing Cardiovascular: no chest pain, no dyspnea, no orthopnea, no palpitations, no syncope and no calf pain Gastrointestinal: no abdominal pain, no nausea and no vomiting Pain with stooling as described above Physical Exam Constitutional: well nourished; no acute distress and not ill appearing Eyes: PERRL, conjunctivae normal, anicteric sclerae Neck: trachea midline, no thyromegaly Respiratory: normal respiratory effort; no respiratory distress Auscultation: no diminished lung sounds, no crackles, no rales, no rhonchi and no wheezes Cardiovascular: Rate/Rhythm: regular rate and regular rhythm Heart Sounds: + murmur (slight systolic murmur); no click, no gallop and no cardiac rub Gastrointestinal (Abdomen): Inspection/Auscultation: abdomen normal to inspection and normal bowel sounds; abdomen not distended Percussion/Palpation: + abdomen tender Results & Data Vital Signs (Past 12 Hours) Vital Signs Temp Pulse Pulse Resp BP Pulse Ox 06/20/18 08:00 60 06/20/18 07:58 37.1 C 74 18 130/64 96 06/20/18 04:00 36.7 C 61 19 131/69 91 06/19/18 23:16 36.8 C 59 L 18 113/55 L 93 Resident Activity Tracking Resident Involvement: Resident Care Provided Care Provided: Adult Hospital Medicine
[2018-06-20] MEDS ORDERED: MICONAZOLE NITRATE POWDER 43 GM EXT PRN (12:43)
[2018-06-20] MEDS: SIMVASTATIN 40 MG TAB PO SCH (21:31)
[2018-06-21] MEDS: [UNRECOGNIZED DRUG - OTHER] PR SCH ×6 (01:20→20:59)
[2018-06-21] MEDS: HYDROmorphone HCL 2 MG TAB PO PRN ×4 (05:09→20:55)
[2018-06-21] MEDS: LEVOTHYROXINE SODIUM 100 MCG TABLET PO SCH (05:09)
[2018-06-21] MEDS: CHECK FENTANYL PATCH PLACEMENT SCH ×6 (09:11→23:40)
[2018-06-21] MEDS: DRONABINOL 2.5 MG CAP PO SCH ×3 (09:12→21:19)
[2018-06-21] MEDS: ESCITALOPRAM OXALATE 10 MG TAB PO SCH (09:13)
[2018-06-21] MEDS: FUROSEMIDE 40 MG TAB PO SCH (09:13)
[2018-06-21] MEDS: CEROVITE ADV FORMULA TAB PO SCH ×2 (09:13→20:58)
[2018-06-21] MEDS: PANTOprazole 40 MG TAB PO SCH ×2 (09:13→20:58)
[2018-06-21] MEDS: TAMSULOSIN HCL 0.4 MG CAP PO SCH (09:13)
[2018-06-21] MEDS: SUCRALFATE 1 GM/10 ML UDC PO SCH ×4 (09:14→20:56)
[2018-06-21] MEDS: NITROGLYCERIN 2% 7.5 INCH, AQUAPHOR 67.5 GM, BARCODE IDENTIFIER 1 EA EXT SCH ×2 (09:18→20:59)
[2018-06-21] MEDS: NIFEDIPINE 0.2% TOP SCH ×4 (09:19→20:58)
[2018-06-21] MEDS: APIXABAN 5 MG TABLET PO SCH ×2 (09:20→20:57)
[2018-06-21] MEDS: METHYLNALTREXONE BROMIDE 12 MG/0.6 ML VIAL SQ SCH (09:20)
[2018-06-21] MEDS: CARVEDILOL 3.125 MG TAB PO SCH ×2 (09:20→20:56)
[2018-06-21] MEDS: HYDROCORTISONE ACETATE 25 MG SUPP PR SCH ×2 (09:21→20:56)
[2018-06-21] MEDS: INSULIN ASPART 100 UNITS/ML 3 ML PEN SC SCH ×4 (09:25→21:49)
--- NOTE | 2018-06-21 09:36 | Family Medicine Progress Note ---
Date of Service June 21, 2018 Assessment & Plan (1) Intractable pain: 82 yo M with h/o of CAD s/p CABGx 2, AVR, MV stenosis, Afib, HTN, HLD, complete heart block with pacemaker, DM2, ESME, GERD, hypothyroidism, mood disorder and rectal adenocarcinoma stage 4 ([id number]) presents with severe rectal pain exacerbated by constipation and anal fissure. Awaiting placement Refractory anal pain in the setting of stage 4 rectal adenocarcinoma exacerbated by narcotic induced constipation * Bowel regimen: Relistor every other day, will need prescription for p.o. Relistor on discharge and/or amitiza * BM's remaining loose * Patient pain better controlled currently on fentanyl patch and 2mg dilaudid prn for breakthrough pain * Zofran and compazine for nausea/vomiting * Topical regimen:Calmol-4 QID, Anusol 25 BID, NG cream BID, Nifedipine Cream Urinary retention * Catheter draining well * Differential includes: Secondary to constipation, secondary to malignancy, BPH, significantly less likely secondary to pain management therapy * Likely will be sent home with catheter still in place, will need outpatient urology follow up for catheter removal Hypertension * Responded to PRN hydralazine, 10 Mgs hydralazine every 2 hours as needed for systolic greater than 180 * Continue to monitor for now CAD/HTN/HLD/AVR/MV stenosis/AFib * Continue home carvedilol, lasix, simvastatin and apixaban DM2 * On SSI with Novolog * No indication for basal insulin at present Hypothyroidism * Continue levothyroxine GERD * Continue prilosec Anemia * No concern for acute bleed at this time * Continue to monitor CBC Mood disorder * Continue home escitalopram DVT prophylaxis: apixaban Diet: Heart healthy/DM 1 Code: Full Dispo: Hopefully will be accepted to SNF on Friday otherwise will attempt home with home health. Supervising Physician Co-Signing Physician Notes I personally examined the patient and verified all villaseñor points of history and exam, discussed case, and agree with decision making with Dr Sahni. Feeling pretty good overall. Dtr did note that he had significant pain w BM and wondered if higher dosing of dilauded might help. also noted that he seems a little "off" mentally Vitals noted, in general he in no distress. HEENT normocephalic atraumatic mucous membranes moist. Breathing is unlabored no accessory muscle use good. Skin shows no rashes no pallor or icterus. No focal neuro deficits. Rectal painoverall better controlled, will cautiously escalate prn dilauded for severe, continue to follow mild AMS - probably med related > hospital acquired delirium. discussed with family risks/benefits right now would favor continuing current meds rather than weaning since mental status not severely impaired and pain so much better/eating so much better. family expressed agreement with this. if AMS were to worsen or persist, then may need to change meds - continue current for now Otherwise as above Subjective Arsenio Hammond resting comfortably this morning, very sleepy. He reports he slept well overnight and his pain is well controlled. No concerns this morning, just waiting for a decision on SNF placement Friday. No family in room this morning. Review of Systems Review of Systems: Unobtainable due to reduced consciousness Physical Exam Constitutional: well nourished; no acute distress and not ill appearing Eyes: PERRL, conjunctivae normal, anicteric sclerae Neck: trachea midline, no thyromegaly Respiratory: normal respiratory effort; no respiratory distress Auscultation: no diminished lung sounds, no crackles, no rales, no rhonchi and no wheezes Cardiovascular: Rate/Rhythm: regular rate and regular rhythm Heart Sounds: + murmur (slight systolic murmur); no click, no gallop and no cardiac rub Gastrointestinal (Abdomen): Inspection/Auscultation: abdomen normal to inspection and normal bowel sounds; abdomen not distended Per cussion/Palpation: abdomen soft; abdomen nontender Results & Data Vital Signs (Past 12 Hours) Vital Signs Temp Pulse Pulse Resp BP BP Pulse Ox 06/21/18 07:56 36.8 C 60 17 150/68 H 95 06/21/18 07:19 60 06/21/18 04:11 36.5 C 60 18 130/66 95 06/21/18 01:02 64 06/20/18 23:00 36.9 C 62 18 104/47 L Resident Activity Tracking Resident Involvement: Resident Care Provided Care Provided: Adult Hospital Medicine
[2018-06-21] MEDS ORDERED: HYDROmorphone HCL 2 MG TAB PO ONE (09:53)
[2018-06-21] MEDS ORDERED: HYDROmorphone HCL 2 MG TAB PO STA (09:55)
[2018-06-21] MEDS: fentaNYL 25 MCG/HR TDSY TD SCH (13:19)
[2018-06-21] MEDS: fentaNYL 100 MCG/HR TDSY TD SCH (13:19)
[2018-06-21] MEDS: SIMVASTATIN 40 MG TAB PO SCH (20:59)
[2018-06-22] MEDS: [UNRECOGNIZED DRUG - OTHER] PR SCH ×6 (01:15→21:42)
[2018-06-22] MEDS: LEVOTHYROXINE SODIUM 100 MCG TABLET PO SCH (05:52)
[2018-06-22 07:01] LABS: Creatinine Clr Calc Pharmacy 92.1 ml/min; Est GFR (African American) 108.6; Est GFR (Non-African American) 93.7
[2018-06-22] MEDS: CHECK FENTANYL PATCH PLACEMENT SCH ×6 (07:50→23:14)
[2018-06-22] MEDS: DRONABINOL 2.5 MG CAP PO SCH ×3 (08:45→23:10)
[2018-06-22] MEDS: CARVEDILOL 3.125 MG TAB PO SCH ×2 (08:46→23:13)
[2018-06-22] MEDS: APIXABAN 5 MG TABLET PO SCH ×2 (08:47→21:38)
[2018-06-22] MEDS: TAMSULOSIN HCL 0.4 MG CAP PO SCH (08:47)
[2018-06-22] MEDS: HYDROCORTISONE ACETATE 25 MG SUPP PR SCH ×2 (08:47→23:11)
[2018-06-22] MEDS: ESCITALOPRAM OXALATE 10 MG TAB PO SCH (08:48)
[2018-06-22] MEDS: SUCRALFATE 1 GM/10 ML UDC PO SCH ×4 (08:49→21:39)
[2018-06-22] MEDS: INSULIN ASPART 100 UNITS/ML 3 ML PEN SC SCH ×4 (08:50→21:40)
[2018-06-22] MEDS: FUROSEMIDE 40 MG TAB PO SCH (08:51)
[2018-06-22] MEDS: PANTOprazole 40 MG TAB PO SCH ×2 (08:51→21:39)
[2018-06-22] MEDS: CEROVITE ADV FORMULA TAB PO SCH ×2 (08:51→21:39)
[2018-06-22] MEDS: NIFEDIPINE 0.2% TOP SCH ×4 (08:54→21:41)
--- NOTE | 2018-06-22 10:54 | Family Medicine Progress Note ---
Date of Service June 22, 2018 Assessment & Plan (1) Intractable pain: 82 yo M with h/o of CAD s/p CABGx 2, AVR, MV stenosis, Afib, HTN, HLD, complete heart block with pacemaker, DM2, ESME, GERD, hypothyroidism, mood disorder and rectal adenocarcinoma stage 4 ([id number]) presents with severe rectal pain exacerbated by constipation and anal fissure. Awaiting placement Refractory anal pain in the setting of stage 4 rectal adenocarcinoma exacerbated by narcotic induced constipation * Bowel regimen: Relistor every other day, will need prescription for p.o. Relistor on discharge * BM's remaining loose * Patient pain better controlled currently on fentanyl patch and 2mg dilaudid prn for moderate breakthrough pain and 4mg for severe * Zofran and compazine for nausea/vomiting * Topical regimen:Calmol-4 QID, Anusol 25 BID, NG cream BID, Nifedipine Cream Urinary retention * Catheter draining well * Differential includes: Secondary to constipation, secondary to malignancy, BPH, significantly less likely secondary to pain management therapy * Likely will be sent home with catheter still in place, will need outpatient urology follow up for catheter removal Hypertension * Responded to PRN hydralazine, 10 Mgs hydralazine every 2 hours as needed for systolic greater than 180 * Continue to monitor for now CAD/HTN/HLD/AVR/MV stenosis/AFib * Continue home carvedilol, lasix, simvastatin and apixaban DM2 * On SSI with Novolog * No indication for basal insulin at present Hypothyroidism * Continue levothyroxine GERD * Continue prilosec Anemia * No concern for acute bleed at this time * Continue to monitor CBC Mood disorder * Continue home escitalopram DVT prophylaxis: apixaban Diet: Heart healthy/DM 1 Code: Full Dispo: Awaiting SNF decision Supervising Physician Co-Signing Physician Notes Resident Physician Supervision Note: I independently interviewed and examined the patient and verified the villaseñor history and physical, reviewed labs and image studies, discussed the case with the resident Dr. Sahni and agree with the findings and care plan. Subjective Mr. Hammond tells me his pain is very well controlled today and that he had no issues with appetite this morning for breakfast. He is anxious to hear from case management about placement. Review of Systems Constitutional: no fever and no chills Eyes: no problem reported Respiratory: no cough, no dyspnea and no pain on inspiration Cardiovascular: no chest pain, no dyspnea, no dyspnea on exertion, no palpitations and no calf pain Gastrointestinal: no abdominal pain Pain with stooling Physical Exam Constitutional: well developed, well nourished, cooperative and comfortable; no acute distress Eyes: PERRL, conjunctivae normal, anicteric sclerae Neck: trachea midline, no thyromegaly Respiratory: normal respiratory effort; no respiratory distress Aus cultation: no diminished lung sounds, no crackles, no rales, no rhonchi and no wheezes Cardiovascular: Rate/Rhythm: regular rate and regular rhythm Heart Sounds: + murmur (slight systolic murmur); no click, no gallop and no cardiac rub Gastrointestinal (Abdomen): Inspection/Auscultation: abdomen normal to inspection and normal bowel sounds; abdomen not distended Percussion/Palpation: abdomen soft; abdomen nontender Results & Data Vital Signs (Past 12 Hours) Vital Signs Temp Pulse Pulse Resp BP Pulse Ox 06/22/18 07:18 36.9 C 60 18 119/64 97 06/22/18 04:06 36.6 C 60 16 120/78 96 06/22/18 00:12 60 06/21/18 22:56 36.9 C 69 16 99/53 L 94
[2018-06-22] MEDS: NITROGLYCERIN 2% 7.5 INCH, AQUAPHOR 67.5 GM, BARCODE IDENTIFIER 1 EA EXT SCH ×2 (14:25→21:42)
[2018-06-22] MEDS: HYDROmorphone HCL 2 MG TAB PO PRN (21:35)
[2018-06-22] MEDS: SIMVASTATIN 40 MG TAB PO SCH (21:38)
[2018-06-23] MEDS: [UNRECOGNIZED DRUG - OTHER] PR SCH ×6 (02:04→22:25)
[2018-06-23] MEDS: LEVOTHYROXINE SODIUM 100 MCG TABLET PO SCH (05:52)
[2018-06-23] MEDS: CHECK FENTANYL PATCH PLACEMENT SCH ×4 (07:40→15:45)
[2018-06-23] MEDS: DRONABINOL 2.5 MG CAP PO SCH ×3 (08:50→22:40)
[2018-06-23] MEDS: ESCITALOPRAM OXALATE 10 MG TAB PO SCH (08:51)
[2018-06-23] MEDS: CEROVITE ADV FORMULA TAB PO SCH ×2 (08:51→22:24)
[2018-06-23] MEDS: TAMSULOSIN HCL 0.4 MG CAP PO SCH (08:51)
[2018-06-23] MEDS: FUROSEMIDE 40 MG TAB PO SCH (08:52)
[2018-06-23] MEDS: SUCRALFATE 1 GM/10 ML UDC PO SCH ×4 (08:52→22:22)
[2018-06-23] MEDS: PANTOprazole 40 MG TAB PO SCH ×2 (08:52→22:24)
[2018-06-23] MEDS: METHYLNALTREXONE BROMIDE 12 MG/0.6 ML VIAL SQ SCH (08:53)
[2018-06-23] MEDS: CARVEDILOL 3.125 MG TAB PO SCH ×2 (08:55→22:21)
[2018-06-23] MEDS: INSULIN ASPART 100 UNITS/ML 3 ML PEN SC SCH ×4 (08:56→22:22)
[2018-06-23] MEDS: APIXABAN 5 MG TABLET PO SCH ×2 (08:58→22:19)
[2018-06-23] MEDS: NITROGLYCERIN 2% 7.5 INCH, AQUAPHOR 67.5 GM, BARCODE IDENTIFIER 1 EA EXT SCH ×2 (09:06→22:25)
[2018-06-23] MEDS: NIFEDIPINE 0.2% TOP SCH ×4 (09:06→22:23)
[2018-06-23] MEDS: HYDROCORTISONE ACETATE 25 MG SUPP PR SCH ×2 (14:45→22:24)
--- NOTE | 2018-06-23 16:01 | Family Medicine Progress Note ---
Date of Service June 23, 2018 Assessment & Plan (1) Goals of care, counseling/discussion: Intractable pain: 82 yo M with h/o of CAD s/p CABGx 2, AVR, MV stenosis, Afib, HTN, HLD, complete heart block with pacemaker, DM2, ESME, GERD, hypothyroidism, mood disorder and rectal adenocarcinoma stage 4 ([id number]) presents with severe rectal pain exacerbated by constipation and anal fissure. Awaiting placement, bed opened up for him at [facility], but patient's insurance did not approve. Patient's and daughter hoping to appeal. Refractory anal pain in the setting of stage 4 rectal adenocarcinoma exacerbated by narcotic induced constipation * Bowel regimen: Relistor every other day, will need to optimize home regimen * BM's remaining loose * Patient pain better controlled currently on fentanyl patch and 2mg dilaudid prn for moderate breakthrough pain and 4mg for severe * Zofran and compazine for nausea/vomiting Hemorrhoids * Topical regimen:Calmol-4 QID, Anusol 25 BID, NG cream BID, Nifedipine Cream Urinary retention * Catheter draining well * Differential includes: Secondary to constipation, secondary to malignancy, BPH, significantly less likely secondary to pain management therapy * Likely will be sent home with catheter still in place, will need outpatient urology follow up for catheter removal Hypertension * Responded to PRN hydralazine, 10 Mgs hydralazine every 2 hours as needed for systolic greater than 180 * Continue to monitor for now CAD/HTN/HLD/AVR/MV stenosis/AFib * Continue home carvedilol, lasix, simvastatin and apixaban DM2 * On SSI with Novolog * No indication for basal insulin at present Hypothyroidism * Continue levothyroxine GERD * Continue prilosec Anemia * No concern for acute bleed at this time * Continue to monitor CBC Mood disorder * Continue home escitalopram DVT prophylaxis: apixaban Diet: Heart healthy/DM 1 Code: Full Dispo: Awaiting SNF appeal. (2) Cancer related pain: (3) Slow urinary stream: (4) Colorectal cancer, stage IV: (5) Anal fissure: (6) History of cholecystectomy: (7) History of coronary artery bypass graft: (8) Osteoarthritis: (9) Sleep apnea: (10) Hypertension: (11) Hyperlipidemia: (12) GERD (gastroesophageal reflux disease): (13) Intractable pain: (14) Metastatic disease: Supervising Physician Co-Signing Physician Notes Resident Physician Supervision Note: I independently interviewed and examined the patient and verified the villaseñor history and physical, reviewed labs and image studies, discussed the case with the resident Dr. Sahni and agree with the findings and care plan. Subjective Mr. Hammond tells me his pain is very well controlled today, just awaiting placement as he was denied SNF placement by insurance today. Review of Systems Constitutional: no fever, no chills and no fatigue Respiratory: no cough, no chest congestion and no dyspnea Cardiovascular: no chest pain, no dyspnea, no syncope and no calf pain Gastrointestinal: no abdominal pain, no nausea and no vomiting Physical Exam Constitutional: well developed, well nourished, cooperative and comfortable; no acute distress Eyes: PERRL, conjunctivae normal, anicteric sclerae Neck: trachea midline, no thyromegaly Respiratory: normal respiratory effort; no respiratory distress Auscultation: no diminished lung sounds, no crackles, no rales, no rhonchi and no wheezes Cardiovascular: Rate/Rhythm: regular rate and regular rhythm Heart Sounds: + murmur (slight systolic murmur); no click, no gallop and no cardiac rub Gastrointestinal (Abdomen): Inspection/Auscultation: abdomen normal to inspection and normal bowel sounds; abdomen not distended Percussion/Palpation: abdomen soft; abdomen nontender Results & Data Vital Signs (Past 12 Hours) Vital Signs Temp Pulse Resp BP BP Pulse Ox 06/23/18 15:08 36.9 C 60 18 119/63 93 06/23/18 11:38 36.3 C L 69 18 105/62 95 06/23/18 07:17 36.8 C 68 18 121/66 95 06/23/18 04:00 36.7 C 62 20 118/61 95 Resident Activity Tracking Resident Involvement: Resident Care Provided Care Provided: Adult Hospital Medicine
[2018-06-23] MEDS: SIMVASTATIN 40 MG TAB PO SCH (22:20)
[2018-06-24] MEDS: CHECK FENTANYL PATCH PLACEMENT SCH ×6 (00:09→15:19)
[2018-06-24] MEDS: [UNRECOGNIZED DRUG - OTHER] PR SCH ×6 (02:08→21:39)
[2018-06-24] MEDS: LEVOTHYROXINE SODIUM 100 MCG TABLET PO SCH (05:35)
[2018-06-24] MEDS: HYDROmorphone HCL 2 MG TAB PO PRN ×3 (05:40→21:59)
[2018-06-24] MEDS: FUROSEMIDE 40 MG TAB PO SCH (08:14)
[2018-06-24] MEDS: PANTOprazole 40 MG TAB PO SCH ×2 (08:14→21:39)
[2018-06-24] MEDS: TAMSULOSIN HCL 0.4 MG CAP PO SCH (08:15)
[2018-06-24] MEDS: ESCITALOPRAM OXALATE 10 MG TAB PO SCH (08:15)
[2018-06-24] MEDS: CEROVITE ADV FORMULA TAB PO SCH ×2 (08:16→21:40)
[2018-06-24] MEDS: CARVEDILOL 3.125 MG TAB PO SCH ×2 (08:28→21:40)
[2018-06-24] MEDS: SUCRALFATE 1 GM/10 ML UDC PO SCH ×4 (08:28→21:37)
[2018-06-24] MEDS: APIXABAN 5 MG TABLET PO SCH ×2 (08:29→21:41)
[2018-06-24] MEDS: NITROGLYCERIN 2% 7.5 INCH, AQUAPHOR 67.5 GM, BARCODE IDENTIFIER 1 EA EXT SCH ×2 (08:29→21:43)
[2018-06-24] MEDS: HYDROCORTISONE ACETATE 25 MG SUPP PR SCH ×2 (08:30→21:41)
[2018-06-24] MEDS: DOCUSATE SODIUM 100 MG CAP PO SCH ×2 (08:31→21:37)
[2018-06-24] MEDS: NIFEDIPINE 0.2% TOP SCH ×4 (08:31→21:45)
[2018-06-24] MEDS: INSULIN ASPART 100 UNITS/ML 3 ML PEN SC SCH ×4 (08:32→21:45)
[2018-06-24] MEDS: DRONABINOL 2.5 MG CAP PO SCH ×3 (08:36→22:45)
[2018-06-24] MEDS: POLYETHYLENE (MIRALAX) 17 GM PACK PO SCH (11:02)
--- NOTE | 2018-06-24 14:04 | Family Medicine Progress Note ---
Date of Service June 24, 2018 Assessment & Plan (1) Colorectal cancer, stage IV: 82 yo M with pMHx of CAD s/p CABGx 2, AVR, MV stenosis, Afib, HTN, HLD, complete heart block with pacemaker, DM2, ESME, GERD, hypothyroidism, mood disorder and rectal adenocarcinoma stage 4 (Dx 2018) admitted with severe rectal pain exacerbated by constipation and anal fissure. Rectal adenocarcinoma, stage IV, with intractable pain Pain likely related to disease process, hx of radiation proctitis, and constipation/fissure (see below) Seen by surgery, may consider diverting ostomy in future to help with some of these symptoms and possible diversion for obstruction (not present currently) - Continue pain regimen: fentanyl patch, scaled hydromorphone PRN for break through pain Constipation In the setting of stage 4 rectal adenocarcinoma and likely exacerbated by narcotic induced constipation. Improved with current bowel regimen - BM occurring EOD, associated with tolerable discomfort - Continue bowel regimen: Relistor every other day and daily scheduled docusate, senna, MiraLax Hemorrhoids - Continue regimen: Calmol-4 suppository QID, hydrocortisone cream BID, nitroglycerin cream BID, nifedipine cream QID Slow urinary stream with episode of urinary retention Ddx: secondary to constipation, secondary to malignancy, BPH, secondary to pain management therapy (less likely) Was seen by urology and required intermittent straight cath since admission. Vela inserted for retention 06/20, and patient requested removal 06/24. - Qshift bladder scans with straight cath >500cc or PRN suprapubic pressure/pain - Continue tamsulosin - Reinsert vela for recurrence of retention Decreased appetite Liekly related to malignancy - Continue dronabinol - PRN ondansetron and prochlorperazine for N/V CAD/HTN/HLD/AVR/MV stenosis/AFib - Continue home carvedilol, furosemide, simvastatin and apixaban and PRN IV hydralazine DM2 - On ISS with BSG ac/hs, no indication for basal insulin at present Hypothyroidism - Continue levothyroxine GERD - Continue pantoprazole and sucralfate Anemia Vitals and Hb stable since admission, no concern for acute bleed at this time. - Continue to monitor CBC Mood disorder - Continue home escitalopram VTE ppx - Anticoagulated with apixaban as above F/E/N - Drinking well, no IVF - Electrolytes, no acute concerns, will check BMP in AM - Diet: Heart healthy, DM Dispo - Patient feels he will be unable to cope at home. PT/OT recommend SNF. Declined by insurance despite [id number] review. Family working on [employer]. CODE STATUS: FULL (2) Intractable pain: (3) Anal fissure: (4) Urinary retention: (5) Hypertension: (6) CAD (coronary artery disease): (7) Diabetes: (8) Hyperlipidemia: (9) Hypothyroid: (10) GERD (gastroesophageal reflux disease): (11) Atrial fibrillation: Supervising Physician Co-Signing Physician Notes Resident Physician Supervision Note: I independently interviewed and examined the patient and verified the villaseñor history and physical, reviewed labs and image studies, discussed the case with the resident Dr. Rosenthal and agree with the findings and care plan. Subjective Patient feeling well this morning. He states pain is ongoing, but tolerable - significantly improved since admission. He is having BM almost EOD, with tolerable discomfort. He notes some blood on wiping, but not really mixed in with stools. He is amenable to scheduling some of the PRN laxatives. He is wondering if he can get his urinary Vela out, and understands it may need to be re-inserted if retention recurs. His appetite is still not at baseline, but he notes he is eating more. He denies fevers, chills, sweats, URI sx, chest pain, dyspnea, abdo pain. He does have chronic, ongoing back pain. He has not been walking much and is concerned about his care post discharge. He notes his family is working on the [employer]. He denies leg swelling or skin rashes/bruises or any new extremity numbness/tingling. He has no acute concerns or questions at this time. Review of Systems Review of Systems: All systems reviewed & are unremarkable except as noted in HPI & below Physical Exam Constitutional: WD/WN, vitals as above average body habitus; no acute distress and not ill appearing Eyes: no conjunctival abnormality and no scleral abnormality ENMT: external ear and nose normal, oropharynx normal Mouth: no oral mucosal abnormality Neck: trachea midline, no thyromegaly Respiratory: normal respiratory effort, lungs clear to auscultation no cough Cardiovascular: RRR, no murmur, no edema Vessels: posterior tibial pulses present Extremities: no calf tenderness, no edema and no varicosities Chest (Breasts): Chest: normal inspection of chest Gastrointestinal (Abdomen): normal bowel sounds, soft, nontender, no hepatosplenomegaly Inspection/Auscultation: abdomen not distended Percussion/Palpation: no guarding and abdomen not rigid Musculoskeletal: Head/Neck/Chest: head atraumatic, + limited ROM of neck and neck supple Extremities: extremities normal to inspection Skin: no rashes, warm and dry Neurologic: normal touch/pain/proprioception and moves all extremities; no focal motor deficits Psychiatric: A+Ox3, euthymic affect Insight: good insight Judgement: good judgement Genitourinary: Vela in situ Lymphatic: no cervical lymphadenopathy Results & Data Vital Signs (Past 12 Hours) Vital Signs Temp Pulse Pulse Resp BP BP Pulse Ox 06/24/18 11:51 36.4 C L 65 17 100/54 L 96 06/24/18 11:43 60 06/24/18 07:59 36.5 C 59 L 19 161/73 H 96 06/24/18 02:50 36.8 C 62 18 142/69 H 95 Laboratory Results Laboratory Results - last 24 hr 06/23/18 06/23/18 06/24/18 16:41 20:39 07:02 POC Glucose 200 H 248 H 217 H 06/24/18 11:29 POC Glucose 226 H Resident Activity Tracking Resident Involvement: Resident Care Provided Care Provided: Adult Hospital Medicine
[2018-06-24] MEDS: fentaNYL 25 MCG/HR TDSY TD SCH (14:55)
[2018-06-24] MEDS: fentaNYL 100 MCG/HR TDSY TD SCH (14:55)
[2018-06-24] MEDS: SIMVASTATIN 40 MG TAB PO SCH (21:38)
[2018-06-25] MEDS: CHECK FENTANYL PATCH PLACEMENT SCH ×8 (00:05→23:50)
[2018-06-25] MEDS: [UNRECOGNIZED DRUG - OTHER] PR SCH ×6 (00:38→21:47)
[2018-06-25] MEDS: LEVOTHYROXINE SODIUM 100 MCG TABLET PO SCH (06:04)
[2018-06-25] MEDS: HYDROmorphone HCL 2 MG TAB PO PRN ×2 (06:05→19:37)
[2018-06-25 06:19] LABS: Hematocrit (blood only) 31.5 % (42-52); Hemoglobin 10.5 g/dL (14.0-18.0); Mean Corpuscular Hgb Conc 33.3 g/dL (32-36); Mean Corpuscular Volume 100.3 fL (80-100); Platelet Count 167 K/uL (130-400); RDW Coefficient of Variation 20.4 % (11.5-14.5); RDW Standard Deviation 74.4 fL (36.4-46.3); Red Blood Count 3.14 M/uL (4.7-6.1); White Blood Count 8.08 K/uL (4.8-10.8)
[2018-06-25 06:58] LABS: BUN Creatinine Ratio 26.8 (10-20); Calcium 8.4 mg/dl (8.5-10.1); Creatinine Clr Calc Pharmacy 101.7 ml/min; Est GFR (African American) 113.3; Est GFR (Non-African American) 97.7; Potassium 3.7 mmol/L (3.5-5.1)
[2018-06-25] MEDS: INSULIN ASPART 100 UNITS/ML 3 ML PEN SC SCH ×4 (08:41→21:49)
[2018-06-25] MEDS: DOCUSATE SODIUM 100 MG CAP PO SCH ×2 (08:43→21:48)
[2018-06-25] MEDS: FUROSEMIDE 40 MG TAB PO SCH (08:43)
[2018-06-25] MEDS: ESCITALOPRAM OXALATE 10 MG TAB PO SCH (08:43)
[2018-06-25] MEDS: SUCRALFATE 1 GM/10 ML UDC PO SCH ×4 (08:43→21:49)
[2018-06-25] MEDS: APIXABAN 5 MG TABLET PO SCH ×2 (08:43→21:47)
[2018-06-25] MEDS: PANTOprazole 40 MG TAB PO SCH ×2 (08:44→21:48)
[2018-06-25] MEDS: POLYETHYLENE (MIRALAX) 17 GM PACK PO SCH (08:44)
[2018-06-25] MEDS: NITROGLYCERIN 2% 7.5 INCH, AQUAPHOR 67.5 GM, BARCODE IDENTIFIER 1 EA EXT SCH ×2 (08:45→21:55)
[2018-06-25] MEDS: TAMSULOSIN HCL 0.4 MG CAP PO SCH (08:46)
[2018-06-25] MEDS: CARVEDILOL 3.125 MG TAB PO SCH ×2 (08:46→21:48)
[2018-06-25] MEDS: CEROVITE ADV FORMULA TAB PO SCH ×2 (08:46→21:48)
[2018-06-25] MEDS: METHYLNALTREXONE BROMIDE 12 MG/0.6 ML VIAL SQ SCH (08:47)
[2018-06-25] MEDS: HYDROCORTISONE ACETATE 25 MG SUPP PR SCH ×2 (08:47→21:20)
[2018-06-25] MEDS: NIFEDIPINE 0.2% TOP SCH ×4 (08:48→21:50)
[2018-06-25] MEDS: DRONABINOL 2.5 MG CAP PO SCH ×3 (09:18→21:46)
--- NOTE | 2018-06-25 10:54 | Family Medicine Progress Note ---
Date of Service June 25, 2018 Assessment & Plan (1) Colorectal cancer, stage IV: 82 yo M with pMHx of CAD s/p CABGx 2, AVR, MV stenosis, Afib, HTN, HLD, complete heart block with pacemaker, DM2, ESME, GERD, hypothyroidism, mood disorder and rectal adenocarcinoma stage 4 (Dx 2018) admitted with severe rectal pain exacerbated by constipation and anal fissure. Rectal adenocarcinoma, stage IV, with intractable pain Pain likely related to disease process, hx of radiation proctitis, and constipation/fissure (see below) Seen by surgery, may consider diverting ostomy in future to help with some of these symptoms and possible diversion for obstruction (not present currently) - Continue pain regimen: fentanyl patch, scaled hydromorphone PRN for break through pain - Continue positioning with HOB elevated and pillow support to minimize rectal pressure/pain when lying in bed - For outpatient follow up with surgery to discuss surgical intervention further Constipation In the setting of stage 4 rectal adenocarcinoma and likely exacerbated by narcotic induced constipation. Improved with current bowel regimen - BM occurring EOD, associated with tolerable discomfort - Continue bowel regimen: Relistor every other day and daily scheduled docusate, senna, MiraLax Hemorrhoids - Continue regimen: Calmol-4 suppository QID, hydrocortisone cream BID, nitroglycerin cream BID, nifedipine cream QID Slow urinary stream with episode of urinary retention Ddx: secondary to constipation, secondary to malignancy, BPH, secondary to pain management therapy (less likely) Was seen by urology and required intermittent straight cath since admission. Alejandro inserted for retention 06/20, and patient requested removal 06/24. - Encourage attempt to void 1- 2 times during shift + Qshift bladder scans with straight cath >500cc or PRN suprapubic pressure/pain - Continue tamsulosin - Reinsert Alejandro for recurrence of retention Decreased appetite Likely related to malignancy, weights reduced from baseline but now relatively stable - Continue dronabinol - PRN ondansetron and prochlorperazine for N/V CAD/HTN/HLD/AVR/MV stenosis/AFib - Continue home carvedilol, furosemide, simvastatin and apixaban and PRN IV hydralazine DM2 - On ISS with BSG ac/hs, no indication for basal insulin at present Hypothyroidism - Continue levothyroxine GERD - Continue pantoprazole and sucralfate Anemia Vitals and Hb stable since admission, no concern for acute bleed at this time. - Continue to monitor CBC Mood disorder - Continue home escitalopram VTE ppx - Anticoagulated as above F/E/N - Drinking well, no IVF - Electrolytes, no acute concerns - Diet: Heart healthy, DM Dispo - Patient feels he will be unable to cope at home. PT/OT recommend SNF. Declined by insurance despite [employer] review. Family working on [employer]. If appeal denied again - Patient will hospital bed. He requires positioning of the body in ways not feasible with an ordinary bed in order to alleviate severe rectal pain. CODE STATUS: FULL (2) Anal fissure: (3) Urinary retention: (4) Hypertension: (5) CAD (coronary artery disease): (6) Diabetes: (7) Hyperlipidemia: (8) Hypothyroid: (9) GERD (gastroesophageal reflux disease): (10) Atrial fibrillation: Supervising Physician Co-Signing Physician Notes Resident Physician Supervision Note: I independently interviewed and examined the patient and verified the villaseñor history and physical, reviewed labs and image studies, discussed the case with the resident Dr. Rosenthal and agree with the findings and care plan. Subjective Patient feeling well this morning. No acute issues overnight, he states he slept well. Ongoing rectal pain, but tolerable - significantly improved since admission. Continues to have BM almost EOD, with tolerable discomfort. Blood on wiping, but not really mixed in with stools. Stools are soft but not watery. Has no issues with the daily scheduled laxatives and is applying the different rectal creams through out the day at different times, and believes these remedies are helpful. He is very happy to have his urinary Alejandro out and is proud that he voided himself at 5am. Per nursing, did require straight cath at midnight. His appetite is still not at baseline, but he tolerated his breakfast without issue. He denies fevers, chills, sweats, URI sx, chest pain, dyspnea, abdo pain. He does have chronic, ongoing back pain and plans on walking more once his family arrives to visit. He notes his family is still working on the [employer]. He denies leg swelling or skin rashes/bruises or any new extremity numbness/tingling. He has no questions at this time. Review of Systems Review of Systems: All systems reviewed & are unremarkable except as noted in HPI & below Physical Exam Constitutional: WD/WN, vitals as above average body habitus; no acute distress and not ill appearing Eyes: no conjunctival abnormality and no scleral abnormality ENMT: external ear and nose normal, oropharynx normal Mouth: no oral mucosal abnormality Neck: trachea midline, no thyromegaly Respiratory: normal respiratory effort, lungs clear to auscultation no cough Cardiovascular: RRR, no murmur, no edema Vessels: posterior tibial pulses present Extremities: no calf tenderness, no edema and no varicosities Chest (Breasts): Chest: normal inspection of chest Gastrointestinal (Abdomen): normal bowel sounds, soft, nontender, no hepatosplenomegaly Inspection/Auscultation: abdomen not distended Percussion/Palpation: no guarding and abdomen not rigid Musculoskeletal: Head/Neck/Chest: normocephalic, head atraumatic and neck supple Extremities: extremities normal to inspection Skin: no rashes, warm and dry Neurologic: normal touch/pain/proprioception and moves all extremities; no focal motor deficits Psychiatric: A+Ox3, euthymic affect Insight: good insight Judgement: good judgement Lymphatic: no cervical lymphadenopathy Results & Data Vital Signs (Past 12 Hours) Vital Signs Temp Pulse Pulse Resp BP BP Pulse Ox 06/25/18 07:18 36.4 C L 62 20 125/71 95 06/25/18 07:00 60 06/25/18 03:57 36.5 C 64 18 147/70 H 97 06/25/18 00:00 61 06/24/18 23:12 36.6 C 63 18 146/73 H 95 Laboratory Results Laboratory Results - last 24 hr 06/24/18 06/24/18 06/24/18 11:29 16:23 20:38 WBC RBC Hgb Hct MCV MCH MCHC RDW Std Deviation RDW Coeff of Geovani Plt Count MPV Sodium Potassium Chloride Carbon Dioxide Anion Gap BUN Creatinine Est Cr Clr Drug Dosing Est GFR ( Amer) Est GFR (Non-Af Amer) BUN/Creatinine Ratio Glucose POC Glucose 226 H 142 H 189 H Calcium 06/25/18 06/25/18 06/25/18 05:49 05:49 07:33 WBC 8.08 RBC 3.14 L Hgb 10.5 L Hct 31.5 L MCV 100.3 H MCH 33.4 MCHC 33.3 RDW Std Deviation 74.4 H RDW Coeff of Geovani 20.4 H Plt Count 167 MPV 9.0 Sodium 135 L Potassium 3.7 Chloride 100 Carbon Dioxide 31 Anion Gap 4.0 BUN 15 Creatinine 0.55 L Est Cr Clr Drug Dosing 101.7 Est GFR ( Amer) 113.3 Est GFR (Non-Af Amer) 97.7 BUN/Creatinine Ratio 26.8 H Glucose 158 H POC Glucose 173 H Calcium 8.4 L Resident Activity Tracking Resident Involvement: Resident Care Provided Care Provided: Adult Hospital Medicine
[2018-06-25] MEDS: SIMVASTATIN 40 MG TAB PO SCH (21:48)
[2018-06-26] MEDS: [UNRECOGNIZED DRUG - OTHER] PR SCH ×4 (01:39→14:23)
[2018-06-26] MEDS: LEVOTHYROXINE SODIUM 100 MCG TABLET PO SCH (06:09)
[2018-06-26 06:24] LABS: Basophils # (auto) 0.05 K/uL (0-0.2); Basophils % (auto) 0.7 %; Eosinophils # (auto) 0.36 K/uL (0-0.5); Eosinophils % (auto) 4.8 %; Hematocrit (blood only) 32.1 % (42-52); Hemoglobin 10.5 g/dL (14.0-18.0); Immature Granulocytes # (auto) 0.02 K/uL (0.00-0.02); Immature Granulocytes % (auto) 0.3 %; Lymphocytes # (auto) 1.48 K/uL (1.2-3.4); Lymphocytes % (auto) 19.8 %; Mean Corpuscular Hgb Conc 32.7 g/dL (32-36); Mean Corpuscular Volume 102.2 fL (80-100); Mean Platelet Volume 9.3 fL (7.4-10.4); Monocytes # (auto) 0.95 K/uL (0.11-0.59); Monocytes % (auto) 12.7 %; Neutrophils # (auto) 4.61 K/uL (1.4-6.5); Neutrophils % (auto) 61.7 %; Platelet Count 169 K/uL (130-400); RDW Coefficient of Variation 20.4 % (11.5-14.5); RDW Standard Deviation 76.3 fL (36.4-46.3); Red Blood Count 3.14 M/uL (4.7-6.1); White Blood Count 7.47 K/uL (4.8-10.8)
[2018-06-26 06:56] LABS: Albumin Level 2.5 gm/dl (3.4-5.0); BUN Creatinine Ratio 25.3 (10-20); Calcium 8.5 mg/dl (8.5-10.1); Creatinine Clr Calc Pharmacy 96.4 ml/min; Est GFR (Non-African American) 94.9; Potassium 3.9 mmol/L (3.5-5.1)
[2018-06-26 06:57] LABS: Anisocytosis Present; Basophilic Stippling Occasional; Polychromasia 1+; Stomatocytes 1+
[2018-06-26 06:58] LABS: Albumin Globulin Ratio 0.6 (0.9-2); Bilirubin,Total 0.5 mg/dl (0.2-1); Total Protein 6.5 gm/dl (6.4-8.2)
[2018-06-26] MEDS: DOCUSATE SODIUM 100 MG CAP PO SCH (08:28)
[2018-06-26] MEDS: ESCITALOPRAM OXALATE 10 MG TAB PO SCH (08:28)
[2018-06-26] MEDS: TAMSULOSIN HCL 0.4 MG CAP PO SCH (08:29)
[2018-06-26] MEDS: APIXABAN 5 MG TABLET PO SCH (08:29)
[2018-06-26] MEDS: PANTOprazole 40 MG TAB PO SCH (08:29)
[2018-06-26] MEDS: SUCRALFATE 1 GM/10 ML UDC PO SCH ×2 (08:30→12:15)
[2018-06-26] MEDS: CARVEDILOL 3.125 MG TAB PO SCH (08:30)
[2018-06-26] MEDS: FUROSEMIDE 40 MG TAB PO SCH (08:30)
[2018-06-26] MEDS: CHECK FENTANYL PATCH PLACEMENT SCH ×2 (08:30→08:31)
[2018-06-26] MEDS: NIFEDIPINE 0.2% TOP SCH ×2 (08:32→12:15)
[2018-06-26] MEDS: HYDROCORTISONE ACETATE 25 MG SUPP PR SCH (08:32)
[2018-06-26] MEDS: NITROGLYCERIN 2% 7.5 INCH, AQUAPHOR 67.5 GM, BARCODE IDENTIFIER 1 EA EXT SCH (08:32)
[2018-06-26] MEDS: CEROVITE ADV FORMULA TAB PO SCH (08:33)
[2018-06-26] MEDS: POLYETHYLENE (MIRALAX) 17 GM PACK PO SCH (08:33)
[2018-06-26] MEDS: INSULIN ASPART 100 UNITS/ML 3 ML PEN SC SCH ×2 (08:35→12:14)
[2018-06-26] MEDS: HYDROmorphone HCL 2 MG TAB PO PRN (08:37)
[2018-06-26] MEDS: DRONABINOL 2.5 MG CAP PO SCH ×2 (09:29→14:23)
--- NOTE | 2018-06-26 11:42 | Discharge Summary ---
Date of Service June 26, 2018 Admission HPI Per Admitting Provider 82 yo M with h/o of CAD s/p CABGx 2, AVR, MV stenosis, Afib, HTN, HLD, complete heart block with pacemaker, DM2, ESME, GERD, hypothyroidism, mood disorder and rectal adenocarcinoma stage 4 ([id number]) presents with severe rectal pain exacerbated by constipation and anal fissure. Pt is on narcotics for significant anal pain secondary to stage 4 rectal cancer which subsequently causes constipation and exacerbated anal pain. He currently also has an anal fissure. Last BM was 4 days ago and semi-hard. He did not note any bleeding or dark stools. A/w nausea. Oncologist is Dr. Marcano. Denies any f/c, HAMM/dizziness, cp, sob, abdominal pain, vomiting, hematochezia, melena, hematuria, dysuria. Surgical hx: cholecystectomy, back surgery, AVR, CABGx2 Principal Diagnosis Intractable rectal pain from stage 4 rectal adenocarcinoma and constipation/anal fissure Discharge Exam Constitutional WD/WN, vitals as above average body habitus; no acute distress and not ill appearing Eyes no conjunctival abnormality and no scleral abnormality ENMT external ear and nose normal, oropharynx normal Mouth: no oral mucosal abnormality Neck trachea midline, no thyromegaly Respiratory normal respiratory effort, lungs clear to auscultation no cough Cardiovascular RRR, no murmur, no edema Vessels: posterior tibial pulses present Extremities: no calf tenderness, no edema and no varicosities Chest (Breasts) Chest: normal inspection of chest Gastrointestinal (Abdomen) normal bowel sounds, soft, nontender, no hepatosplenomegaly Inspection/Auscultation: abdomen not distended Percussion/Palpation: no guarding and abdomen not rigid Musculoskeletal Head/Neck/Chest: normocephalic, head atraumatic and neck supple Extremities: extremities normal to inspection Skin no rashes, warm and dry Neurologic normal touch/pain/proprioception and moves all extremities; no focal motor deficits Psychiatric A+Ox3, euthymic affect Insight: good insight Judgement: good judgement Lymphatic no cervical lymphadenopathy Discharge Data Allergies Allergy/AdvReac Type Severity Reaction Status Date / Time No Known Allergies Allergy Verified 06/09/18 23:31 Consultations 06/09/18 22:42 ED Decision to Admit Stat 06/10/18 01:42 Consult General Surgery Routine Consult Oncology Stat 06/10/18 08:37 Consult Pain Management Routine 06/12/18 19:06 Consult Palliative Care Routine 06/13/18 14:17 Consult Urology Routine Ordered Studies 06/09/18 20:33 CT abd pelvis IV con only Stat Hospital Course (1) Colorectal cancer, stage IV: 82 yo M with pMHx of CAD s/p CABGx 2, AVR, MV stenosis, Afib, HTN, HLD, complete heart block with pacemaker, DM2, ESME, GERD, hypothyroidism, mood disorder and rectal adenocarcinoma stage 4 (Dx 2018) admitted with severe rectal pain exacerbated by constipation and anal fissure. Rectal adenocarcinoma, stage IV, with intractable pain Pain likely related to disease process, hx of radiation proctitis, and constipation/fissure (see below) Seen by surgery, may consider diverting ostomy in future to help with some symptoms and possible diversion for obstruction (not present currently) - Discharge pain regimen: fentanyl patch 125mcg q72h, scaled hydromorphone 2-4mg q6h PRN for break through pain - Recommend positioning with HOB elevated and pillow support to minimize rectal pressure/pain when lying in bed - Follow up appointment will be arranged with surgery to discuss future surgical intervention further Constipation In the setting of stage 4 rectal adenocarcinoma and likely exacerbated by narcotic induced constipation. Improved with current bowel regimen. Realistor discontinued on discharge due to high copay even with insurance authorization. - Continue bowel regimen: Continue daily scheduled docusate, senna, MiraLax. Linzess may also be resumed upon discharge. Hemorrhoids - Continue regimen: Calmol-4 suppository QID, hydrocortisone cream BID, nitroglycerin cream BID, nifedipine cream QID Slow urinary stream with episode of urinary retention Ddx: secondary to constipation, secondary to malignancy, BPH, secondary to pain management therapy (less likely) Was seen by urology and required intermittent straight cath since admission. Alejandro inserted for retention 06/20, and patient requested removal 06/24. - Continue tamsulosin - Encourage frequent attempts to void - Follow up with urology will be arranged to discuss ongoing issues if any, or patient may cancel appt Decreased appetite Likely related to malignancy, weights reduced from baseline but now relatively stable - Continue dronabinol - PRN ondansetron and prochlorperazine for N/V CAD/HTN/HLD/AVR/MV stenosis/AFib - Continue home carvedilol, furosemide, simvastatin and apixaban DM2 - Resume home regimen with half dose of basal insulin and continued short-acting insulin with meals (if eating only) - Discuss further insulin mx with PCP Hypothyroidism - Continue levothyroxine GERD - Continue pantoprazole and sucralfate Anemia Vitals and Hb stable since admission, no concern for acute bleed at this time. Mood disorder - Continue escitalopram CODE STATUS: FULL (2) Anal fissure: (3) Urinary retention: (4) Hypertension: (5) CAD (coronary artery disease): (6) Diabetes: (7) Hyperlipidemia: (8) Hypothyroid: (9) GERD (gastroesophageal reflux disease): (10) Atrial fibrillation: Total Time Total Time Spent Total Time Spent (In Minutes): 45 Total Time Includes: Examination of the Patient, Discharge Planning, Medication Reconciliation and Communication With Other Providers Discharge Plan Discharge Items Patient Disposition: Home - Home Health Services Reason For Visit: RECTAL PAIN Discharge Diagnosis: Stage 4 rectal adenocarcinoma - pain and constipation Condition: Fair Discharge Goals: Decrease discomfort and Increase independence Activity: Resume your previous activity Non-emergency contact: Primary Care Provider, Surgeon and Oncologist Call non-emergency contact if: you have any medication questions, your symptoms worsen and your pain is not controlled Follow-up/Referrals: Michael Humphries DO [Primary Care Provider] - 06/30/18 9:20 am (Please, follow up with Dr. Michael Humphries on FridayJune 30 at 9:20 am. *If you need to change this appointment, call the office at [phone].) Ophelia Escobar MD [Physician] - 07/09/18 10:45 am (Please, follow up at [facility] Office with Dr. Ophelia Escobar (surgeon) on July 09 at 11:00 am (arrive 10:45 am). *This office is located at [address] [facility] in [place]. If you need to change this appointment, call the office at [phone].) Diet: Carb Consistent or DM2 and Heart Healthy Addtl Provider Instructions: You were admitted with significant rectal pain and constipation. You will be discharged on a regimen that we hope provides better control. Pain control - Baseline control: continue fentanyl patch 100mcg + 25mcg and remember to change patch every 72hours (3 days) - Breakthrough pain control: Use hydromorphone 2mg (1 tab) for moderate pain (1- 6/10), and hydromorphone 4mg (2 tab) for severe pain (7-10/10) - Continue pillow support to minimize rectal pressure/pain when lying in bed Constipation - We encourage drinking plenty of water - Continue home medication Linzess - remember to take it on an empty stomach, ~30 min before meals. - Continue bowel regimen: Colace, Sennakot, MiraLax as prescribed. - Call your PCP if you go more than 3 days without a bowel movement and straining is increasing Hemorrhoids - Continue regimen: Calmol-4 suppository 4 times a day, hydrocortisone cream twice daily, nitroglycerin cream twice daily, nifedipine cream 4 times a day - The Desenex (miconazole) powder can be used as needed for itching Slow urinary stream with episodes of inability to urinate - Continue tamsulosin daily as this helps relax prostate and makes urinating relatively easier - Seek medical care urgently if you are unable to urinate and are experiencing bladder pain or fullness. Low appetite - Continue dronabinol to help improve hunger - Use ondansetron and prochlorperazine as needed for nausea and vomiting. Diabetes - Half your basal dose of insulin, continue your meal doses depending on meal and sugar levels Continue all other home medications as before. Follow up will be arranged with - Your PCP: to discuss medications and refills and overall reassessment. - Surgery: to discuss snf management option further. - Urology: to discuss urinary issues further (you may cancel the appointment up to 24 hours before if you have no issues to discuss) - PT/OT and home health services. Prescriptions: New nifedipine (bulk) Powder 1 ea topical QID Qty: 25 RF: 0 tamsulosin 0.4 mg Capsule 0.4 mg PO QAM Qty: 30 RF: 0 Calmol 4 1 supp AZ Q4H Qty: 120 RF: 0 hydromorphone 2 mg Tablet 4 mg PO Q6H PRN (Reason: pain) Qty: 28 RF: 0 hydromorphone 2 mg Tablet 2 mg PO Q6 PRN (Reason: pain) Qty: 28 RF: 0 fentanyl 25 mcg/hr Patch 72 Hour 25 mcg transdermal Q3D@1400 Qty: 10 RF: 0 polyethylene glycol 3350 [Miralax] 17 gram Powder In Packet 17 g PO DAILY Qty: 30 RF: 0 sennosides-docusate sodium [Senokot-S] 8.6-50 mg Tablet 1 tab PO BID Qty: 60 RF: 0 dronabinol 2.5 mg Capsule 7.5 mg PO TID Qty: 90 RF: 0 docusate sodium 100 mg Capsule 100 mg PO BID Qty: 60 RF: 0 Desenex 2 % Powder 1 % EXT PRN PRN (Reason: apply as needed for groin or back itching) Qty: 5 RF: 0 nitroglycerin 0.4 % (w/w) ointment 7.5 mg AZ BID 21 Days Qty: 30 RF: 0 Continued loratadine [Claritin] 10 mg tablet 10 mg PO QAM RF: 0 sucralfate 1 gram Tablet 1 g PO QID RF: 0 simvastatin 40 mg Tablet 40 mg PO HS RF: 0 levothyroxine 100 mcg Tablet 100 mcg PO QAM RF: 0 Novolog Flexpen U-100 Insulin 100 unit/mL Insulin Pen subcut DIRECTED RF: 0 apixaban [Eliquis] 5 mg tablet 5 mg PO BID RF: 0 carvedilol 3.125 mg tablet 3.125 mg PO BID RF: 0 fentanyl 100 mcg/hr patch 72 hour 100 mcg transdermal Q72H RF: 0 escitalopram oxalate 10 mg tablet 15 mg PO DAILY RF: 0 Linzess 145 mcg capsule 145 mg PO DAILY RF: 0 furosemide 40 mg tablet 40 mg PO DAILY RF: 0 ondansetron HCl 8 mg tablet 8 mg PO Q8 PRN (Reason: Nausea) RF: 0 prochlorperazine maleate 10 mg tablet 10 mg PO Q6 PRN (Reason: Nausea) RF: 0 albuterol sulfate [ProAir HFA] 90 mcg/actuation Hfa Aerosol Inhaler 1 - 2 puff INHALATION Q6H PRN (Reason: Shortness Of Breath Or Wheezing) RF: 0 Ocuvite Eye Health 50 mg-15 unit- 4.5 mg-2.5 mg Tablet,Chewable 1 tab PO BID RF: 0 hydrocortisone 2.5 % Cream 1 applic TOPICAL DIRECTED RF: 0 omeprazole 20 mg Tablet,Delayed Release (Dr/Ec) 20 mg PO BID Qty: 0 RF: 0 Changed Tresiba FlexTouch U-100 100 unit/mL (3 mL) Insulin Pen 20 unit SUBCUT HS Qty: 0 RF: 0 Discontinued hydrocodone-acetaminophen 10-325 mg tablet 1 tab PO .Q 4-6HR PRN (Reason: Pain) RF: 0 Stand-Alone Forms: [facility] Discharge Orders: Discharge Order (Routine); Ordered 06/26/18 Ordered By: Suzette Rosenthal Admission Data Admit Date/Time: 06/10/18 00:33 Attending Provider: Kiesha Gama Admit Provider: Ashok Rollins Primary Care Provider: Michael Humphries Other Providers: Ashok Rollins ; Rambo Marcano V ; Ophelia Escobar ; Dipak Villarreal ; Anabel Christine ; Cristino Barbosa ; Sabine Gill ; Toño Humphries I. ; Oscar Pearson ; [place] ; Leonid Monroe Service: Telemetry Medical Other Interventions: Discharge Summary Assessment (RN) Last Done: 06/26/18 14:44 DC Date/Time DO NOT enter until pt leaves facility: 06/26/18 14:58 Supervising Physician Co-Signing Physician Notes Resident Physician Supervision Note: I independently interviewed and examined the patient and verified the villaseñor history and physical, reviewed labs and image studies, discussed the case with the resident Dr. Rosenthal and agree with the findings and care plan. Time spent in discharge 35 min Resident Activity Tracking Resident Involvement: Resident Care Provided Care Provided: Adult Hospital Medicine
== END 2018-06-26 14:58 | disposition home health service (06) | DRG 948 ==
LOC: ED 19:27 → SUATTDRO 06-10 00:33 → 2W 06-10 00:33
DX: R39.198 Other difficulties with micturition; Z92.3 Personal history of irradiation; I48.91 Unspecified atrial fibrillation; K59.03 Drug induced constipation; K62.7 Radiation proctitis; R63.0 Anorexia; G89.3 Neoplasm related pain (acute) (chronic); I25.10 Atherosclerotic heart disease of native coronary artery without angina pectoris; F39 Unspecified mood [affective] disorder; E11.40 Type 2 diabetes mellitus with diabetic neuropathy, unspecified; Z96.653 Presence of artificial knee joint, bilateral; N40.1 Benign prostatic hyperplasia with lower urinary tract symptoms; E78.5 Hyperlipidemia, unspecified; Z95.1 Presence of aortocoronary bypass graft; T40.2X5A Adverse effect of other opioids, initial encounter; K60.2 Anal fissure, unspecified; C78.00 Secondary malignant neoplasm of unspecified lung; K64.9 Unspecified hemorrhoids; R33.9 Retention of urine, unspecified; E87.6 Hypokalemia; Z95.0 Presence of cardiac pacemaker; Z95.2 Presence of prosthetic heart valve; Y92.009 Unspecified place in unspecified non-institutional (private) residence as the place of occurrence of the external cause; C20 Malignant neoplasm of rectum; E03.9 Hypothyroidism, unspecified; Z79.4 Long term (current) use of insulin; I10 Essential (primary) hypertension; K21.9 Gastro-esophageal reflux disease without esophagitis; Z79.891 Long term (current) use of opiate analgesic

== ENCOUNTER 2018-09-27 01:39 | Inpatient (IN) ==
[2018-09-27] MEDS ORDERED: fentaNYL citrate 100 MCG/2 ML VIAL IV STA ×2 (01:53→02:48)
[2018-09-27] MEDS ORDERED: ONDANSETRON INJ 2 MG/ML 2 ML VIAL IV STA ×2 (01:53→02:48)
[2018-09-27] MEDS ORDERED: SODIUM CHLORIDE 0.9% 1000ML 1,000 ML IV SCH (02:00)
[2018-09-27 02:31] LABS: Basophils # (auto) 0.02 K/uL (0-0.2); Basophils % (auto) 0.3 %; Eosinophils # (auto) 0.02 K/uL (0-0.5); Eosinophils % (auto) 0.3 %; Hematocrit (blood only) 35.8 % (42-52); Hemoglobin 12.2 g/dL (14.0-18.0); Immature Granulocytes # (auto) 0.02 K/uL (0.00-0.02); Immature Granulocytes % (auto) 0.3 %; Lymphocytes # (auto) 1.22 K/uL (1.2-3.4); Lymphocytes % (auto) 16.6 %; Mean Corpuscular Hgb Conc 34.1 g/dL (32-36); Mean Corpuscular Volume 85.2 fL (80-100); Mean Platelet Volume 9.1 fL (7.4-10.4); Monocytes # (auto) 0.49 K/uL (0.11-0.59); Monocytes % (auto) 6.7 %; Neutrophils # (auto) 5.56 K/uL (1.4-6.5); Neutrophils % (auto) 75.8 %; Platelet Count 189 K/uL (130-400); RDW Coefficient of Variation 15.8 % (11.5-14.5); RDW Standard Deviation 49.9 fL (36.4-46.3); White Blood Count 7.33 K/uL (4.8-10.8)
[2018-09-27 02:47] LABS: Alanine Aminotransferase 17 U/L (12-78); Albumin Level 3.1 gm/dl (3.4-5.0); Aspartate Aminotransferase 23 U/L (15-37); BUN Creatinine Ratio 13.4 (10-20); Bilirubin Direct 0.1 mg/dl (0-0.2); Blood Urea Nitrogen 12 mg/dl (7-18); Calcium 8.5 mg/dl (8.5-10.1); Carbon Dioxide 27 mmol/L (21-32); Chloride 100 mmol/L (98-107); Est GFR (African American) 93.6; Est GFR (Non-African American) 80.8; Glucose 276 mg/dl (70-99); Magnesium 1.6 mg/dl (1.8-2.4); Potassium 3.3 mmol/L (3.5-5.1); Sodium 137 mmol/L (136-145)
[2018-09-27 03:01] LABS: Alkaline Phosphatase 249 U/L (45-117); Bilirubin,Total 0.5 mg/dl (0.2-1); Creatine Kinase 72 U/L (39-308); Total Protein 7.9 gm/dl (6.4-8.2); Troponin I 0.244 ng/ml (0-0.045)
[2018-09-27] MEDS ORDERED: ASPIRIN 81 MG CHEW PO STA (03:19)
[2018-09-27] MEDS ORDERED: PROCHLORPERAZINE 10 MG in SYRINGE 8 ML IV PRN (04:25)
[2018-09-27] MEDS ORDERED: HYDROmorphone INJ 0.5 MG/0.5 ML SYR IV STA (04:26)
[2018-09-27] MEDS ORDERED: PROCHLORPERAZINE 5 MG/ML 2 ML VIAL ONE (04:29)
--- NOTE | 2018-09-27 04:34 | History & Physical Report ---
Date of Service September 27, 2018 Assessment & Plan (1) Cancer-related pain: Severe generalized body pains/ nausea and vomiting/metastatic rectal adenocarcinoma/inadvertent withdrawal from fentanyl patches due to not sticking- Replace fentanyl patches. Give Dilaudid 0.5 mg IV now. Dilaudid 0.5 mg IV every 2 hours as needed moderate pain. Dilaudid 1 mg IV every 2 hours as needed severe pain none. Acetaminophen 1 g IV every 8 hours as needed mild pain or temperature. Zofran 4 mg IV every 6 hours as needed. Compazine 10 mg IV every 6 hours as needed. NSS + KCl 20 mEq at 100 mils per hour. Present on Admission?: Yes (2) Rectal adenocarcinoma: See above. Present on Admission?: Yes (3) Elevated troponin: Elevated troponin/CAD/hypertension/atrial fibrillation/aortic stenosis/mitral stenosis- Supply demand mismatch. Follow serial troponins. Do not anticipate any intervention. Medications on hold while n.p.o. and blood pressure is relatively low. Present on Admission?: Yes (4) HTN (hypertension): See above. Present on Admission?: Yes (5) Hypothyroid: Change Synthroid from 100 mcg p.o. to 50 mcg IV if remains n.p.o. Present on Admission?: Yes (6) CAD (coronary artery disease): See above Present on Admission?: Yes (7) Metastatic disease: See above Present on Admission?: Yes (8) Hyperlipidemia: Holding simvastatin while n.p.o. Present on Admission?: Yes (9) History of atrial fibrillation: See above Present on Admission?: Yes History of Present Illness Chief Complaint: The patient presents to the emergency department, with and son, with complaint of intractable nausea, vomiting, shakes, fevers and sweats and severe generalized pain worsening over the past 24 hours. Primary Care Provider: Michael Humphries, The patient is an 83-year-old male with a past medical history including metastatic rectal adenocarcinoma and chronic pain syndrome, who presents to the emergency department with the above symptoms. Upon questioning his , she reports that she placed his most recent fentanyl patches on about 24 hours ago, had difficulty with them sticking, and has tried to tape them back in place. Chronologically, the patient's symptoms have been intensifying since the change of these patches. Allergies Allergy/AdvReac Type Severity Reaction Status Date / Time No Known Allergies Allergy Verified 09/27/18 03:29 Home Medications Home Medications Medication Instructions Recorded Confirmed Type apixaban 5 mg tablet 2.5 mg PO BID 04/09/18 09/27/18 History carvedilol 3.125 mg PO BID 05/17/18 09/27/18 History fentanyl 100 mcg TRANSDERMAL Q72H 05/17/18 09/27/18 History Ocuvite [facility] 1 tab PO BID 06/09/18 09/27/18 History furosemide 40 mg PO DAILY 06/09/18 09/27/18 History ondansetron HCl 8 mg PO Q8 PRN 06/09/18 09/27/18 History prochlorperazine maleate 10 mg PO Q6 PRN 06/09/18 09/27/18 History Bedside commode #1 ea 08/26/18 09/27/18 Rx Transfer tub bench #1 ea 08/26/18 09/27/18 Rx dronabinol 2.5 mg capsule 2.5 mg PO TID #270 cap 08/27/18 09/27/18 Rx docusate sodium 100 mg capsule 100 mg PO BID #60 cap 09/09/18 09/27/18 Rx albuterol sulfate HFA 90 1 - 2 puff INHALATION Q6H PRN 09/16/18 09/27/18 History mcg/actuation aerosol inhaler hydrocortisone 2.5 % topical cream 1 applic TOPICAL DIRECTED 09/16/18 09/27/18 History hydromorphone 2 mg tablet 2 mg PO Q6 PRN #28 tab 09/16/18 09/27/18 Rx hydromorphone 2 mg tablet 4 mg PO Q6H PRN #28 tab 09/16/18 09/27/18 Rx insulin aspart (U-100) 100 unit/mL See Rx Instructions SUBCUT 09/16/18 09/27/18 History (3 mL) subcutaneous pen DIRECTED levothyroxine 100 mcg tablet 100 mcg PO QAM 09/16/18 09/27/18 History omeprazole 20 mg tablet,delayed 20 mg PO BID #0 tab 09/16/18 09/27/18 Rx release polyethylene glycol 3350 17 gram 17 g PO DAILY #30 ea 09/16/18 09/27/18 Rx oral powder packet sennosides 8.6 mg-docusate sodium 1 tab PO BID #60 tab 09/16/18 09/27/18 Rx 50 mg tablet simvastatin 40 mg tablet 40 mg PO HS 09/16/18 09/27/18 History sucralfate 1 gram tablet 1 g PO QID 09/16/18 09/27/18 History escitalopram 10 mg tablet 15 mg PO DAILY #60 tab 09/25/18 09/27/18 Rx fentanyl 50 mcg TRANSDERMAL [id number] 09/27/18 09/27/18 History Past Med/Surg History Medical History Vision problem (Acute) Spondylolisthesis, acquired (Acute) Spinal stenosis (Acute) Situational anxiety (Acute) Seasonal allergies (Acute) Sciatica (Acute) Renal cyst (Acute) Nephrolithiasis (Acute) Inhibited sexual excitement (Acute) Hearing difficulty (Acute) Fatty liver (Acute) Enlarged prostate without lower urinary tract symptoms (luts) (Acute) Colon cancer (Acute) Cirrhosis (Acute) Castano's palsy (Acute) Tate's esophagus (Acute) Aspiration pneumonia (Acute) Abnormal electrocardiogram (Acute) Anal fissure (Acute) Fusion of spine LUMBAR Osteoarthritis Sleep apnea Hypertension Hyperlipidemia GERD (gastroesophageal reflux disease) Sepsis Pneumonia (Acute) Hypotension (Acute) Hypomagnesemia (Acute) CAD (coronary artery disease) (Chronic) Pacemaker (Chronic) Hypothyroid (Chronic) Complete heart block (Chronic) HTN (hypertension) (Chronic) History of atrial fibrillation (Chronic) Aortic stenosis (Chronic) Mitral stenosis (Chronic) GERD (gastroesophageal reflux disease) (Chronic) Dyslipidemia (Chronic) Sleep apnea (Chronic) Rectal adenocarcinoma (Chronic 06/03/17) "Rectal bleeding Evaluation under anethesia and finding of a rectal mass June 03, 2017 Biopsy revealing adenocarcinoma Plan for radiation and Xeloda Status post completion of combined neoadjuvant radiation and chemotherapy. Radiation was completed August 29, 2017. He received 5040 cGy" On 07/08/17 10:30 Rebecca Campbell wrote "Rectal bleeding Evaluation under anethesia and finding of a rectal mass June 03, 2017 Biopsy revealing adenocarcinoma Plan for radiation and Xeloda" On 07/08/17 10:23 Bayron Barajas wrote "Rectal bleeding Evaluation under anethesia and finding of a rectal mass Biopsy revealing adenocarcinoma Plan for radiation and Xeloda" Constipation (Acute) Elevated troponin Atrial fibrillation (Chronic) Degenerative disc disease Slow urinary stream Surgical History History of total knee replacement B/L History of cholecystectomy History of colonoscopy History of coronary artery bypass graft 2 VESSELS PER MEDICAL RECORD 05/2013 Hx of cholecystectomy (Resolved) History of back surgery (Resolved) S/P AVR (aortic valve replacement) (Chronic) "06/16/2013- # 23 Chow II bioprosthesis, [place]. [place] [facility] [place] S/P CABG x 2 (Chronic) "CABG x 2; 06/16/2013; Dr. William [facility] [place] History of carpal tunnel surgery (Chronic) S/P AVR (aortic valve replacement) (Chronic) 05/2013 Status cardiac pacemaker (Chronic) 2014. FOLLOWS WITH DR. LASSITER IN [facility]. 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 The review of systems is otherwise negative other than for that already noted above, and at least 10 systems have been reviewed. Physical Exam Physical Exam: The patient is awake, alert and oriented 3, has whole body shakes, is perspiring, looks to be in pain. HEENT--PERRL, EOMI, mucous membranes and oropharynx dry. Neck--supple. No JVD. No bruits. Thyroid normal, trachea midline, no adenopathy. Heart--normal S1 and S2. No murmurs, rubs or gallops. Lungs--clear bilaterally, no respiratory distress, no accessory muscle use. Abdomen--normal bowel sounds and soft. Nontender. Nondistended. Extremities--no cyanosis or clubbing. No edema. There are good distal pulses b/l. Dermatologic--normal skin turgor, normal color, no abnormal lymph nodes, no rash. Neurologic--cranial nerves II through XII grossly intact. Rheumatologic--limited exam due to pain Psychiatric--in severe pain. Results & Data Vital Signs (Past 12 Hours) Vital Signs Temp Pulse Resp BP Pulse Ox 09/27/18 04:01 83 20 164/124 H 97 09/27/18 03:31 76 32 H 161/99 H 98 09/27/18 03:30 79 26 H 100 09/27/18 03:01 78 19 158/96 H 92 09/27/18 03:00 80 22 90 09/27/18 02:31 78 14 163/106 H 97 09/27/18 01:44 97.3 F L 77 20 167/89 H 100 Laboratory Results Laboratory Results WBC 7.33 K/uL (4.8-10.8) 09/27/18 02:21 RBC 4.20 M/uL (4.7-6.1) L 09/27/18 02:21 Hgb 12.2 g/dL (14.0-18.0) L 09/27/18 02:21 Hct 35.8 % (42-52) L 09/27/18 02:21 MCV 85.2 fL (80-100) 09/27/18 02:21 MCH 29.0 pg (25-34) 09/27/18 02:21 MCHC 34.1 g/dL (32-36) 09/27/18 02:21 RDW Std Deviation 49.9 fL (36.4-46.3) H 09/27/18 02:21 RDW Coeff of Geovani 15.8 % (11.5-14.5) H 09/27/18 02:21 Plt Count 189 K/uL (130-400) 09/27/18 02:21 MPV 9.1 fL (7.4-10.4) 09/27/18 02:21 Immature Gran % (Auto) 0.3 % 09/27/18 02:21 Neut % (Auto) 75.8 % 09/27/18 02:21 Lymph % (Auto) 16.6 % 09/27/18 02:21 [place] % (Auto) 6.7 % 09/27/18 02:21 Eos % (Auto) 0.3 % 09/27/18 02:21 Baso % (Auto) 0.3 % 09/27/18 02:21 Immature Gran # (Auto) 0.02 K/uL (0.00-0.02) 09/27/18 02:21 Neut # (Auto) 5.56 K/uL (1.4-6.5) 09/27/18 02:21 Lymph # (Auto) 1.22 K/uL (1.2-3.4) 09/27/18 02:21 [place] # (Auto) 0.49 K/uL (0.11-0.59) 09/27/18 02:21 Eos # (Auto) 0.02 K/uL (0-0.5) 09/27/18 02:21 Baso # (Auto) 0.02 K/uL (0-0.2) 09/27/18 02:21 Sodium 137 mmol/L (136-145) 09/27/18 02:21 Potassium 3.3 mmol/L (3.5-5.1) L 09/27/18 02:21 Chloride 100 mmol/L (98-107) 09/27/18 02:21 Carbon Dioxide 27 mmol/L (21-32) 09/27/18 02:21 Anion Gap 10.0 (3-11) 09/27/18 02:21 BUN 12 mg/dl (7-18) 09/27/18 02:21 Creatinine 0.86 mg/dl (0.6-1.4) 09/27/18 02:21 Est Cr Clr Drug Dosing Not Reportable 09/27/18 02:21 Est GFR ( Amer) 93.6 09/27/18 02:21 Est GFR (Non-Af Amer) 80.8 09/27/18 02:21 BUN/Creatinine Ratio 13.4 (10-20) 09/27/18 02:21 Glucose 276 mg/dl (70-99) H 09/27/18 02:21 Lactate 3.3 mmol/L (0.4-2.0) H* 09/27/18 02:21 Calcium 8.5 mg/dl (8.5-10.1) 09/27/18 02:21 Magnesium 1.6 mg/dl (1.8-2.4) L 09/27/18 02:21 Total Bilirubin 0.5 mg/dl (0.2-1) 09/27/18 02:21 Direct Bilirubin 0.1 mg/dl (0-0.2) 09/27/18 02:21 AST 23 U/L (15-37) 09/27/18 02:21 ALT 17 U/L (12-78) 09/27/18 02:21 Alkaline Phosphatase 249 U/L (45-117) H 09/27/18 02:21 Total Creatine Kinase 72 U/L (39-308) 09/27/18 02:21 Troponin I 0.244 ng/ml (0-0.045) H* 09/27/18 02:21 Total Protein 7.9 gm/dl (6.4-8.2) 09/27/18 02:21 Albumin 3.1 gm/dl (3.4-5.0) L 09/27/18 02:21 Code Status & VTE Plan VTE Prophylaxis Plan VTE Prophylaxis will be ordered: Yes PG Care Time/CCT Total # of Minutes Spent Total Time Spent with Patient: Total time spent is greater than 50% in coordination of care (as documented) at patient's floor/unit and/or counseling patient:
[2018-09-27 04:37] LABS: Appearance Urine Clear (Clear); Bacteria Urine Automated Negative (Negative); Bilirubin Urine Negative (Negative); Blood Urine Trace (Negative); Cast Urine Automated 0 /lpf (0-5); Color Urine Yellow; Glucose Urine UA 3+ (Negative); Ketones Urine 2+ (Negative); Leukocyte Esterase Urine Negative (Negative); Nitrite Urine Negative (Negative); Protein Urine 2+ (Negative); RBC Urine Automated 0-4 /hpf (0-4); Specific Gravity Urine 1.019 (1.000-1.030); Urobilinogen Urine Negative (Negative)
[2018-09-27] MEDS ORDERED: ONDANSETRON INJ 2 MG/ML 2 ML VIAL IV PRN (05:52)
[2018-09-27] MEDS ORDERED: GLUCOSE 40% GEL 15 GM TUBE PO PRN (05:52)
[2018-09-27] MEDS ORDERED: GLUCOSE 10 TABS/TUBE PO PRN (05:52)
[2018-09-27] MEDS ORDERED: GLUCAGON FOR INJ 1 MG VIAL SQ PRN (05:52)
[2018-09-27] MEDS ORDERED: HYDROmorphone INJ 1 MG/ML SYRINGE IV PRN (05:52)
[2018-09-27] MEDS ORDERED: NSS + 20MEQ KCL 20 MEQ/1,000 ML BAG IV SCH (05:52)
[2018-09-27] MEDS ORDERED: CARBOHYDRATES FOR HYPOGLYCEMIA PO PRN (05:52)
[2018-09-27] MEDS ORDERED: DEXTROSE 50% 50 ML SYRINGE IV PRN (05:52)
--- NOTE | 2018-09-27 05:55 | Emergency Department Note ---
Entered by Ethan Dai acting as a scribe for ED Provider Note Name: Arsenio Hammond Age: 83, male Arrives Via: EMS Informant: Patient CC: Generalized pain HPI: The patient is an 83 year old male who presents to the emergency department with complaints of worsening generalized pain beginning yesterday. The patient states that he is having pain all over and he notes that his current pain is worse than his usual pain. He reports that he took some of his Dilaudid with no relief of his pain. The patient states that his fentanyl patch has been coming up because of his diaphoresis. He notes that he has also been having nausea and been vomiting since 1999 yesterday. He reports that he has a history of metastatic stage 4 colon cancer, and he states that he had a colostomy placed recently. ROS: See above HPI for pertinent positives & negatives. A total of 10 systems reviewed and were otherwise negative. Past Medical History: Please see past medical history Past Surgical History: Please see past surgical history Family History: Diabetes and hypertension Social History: , lives with family, retired Home Medications: Please see medication list Allergies: None Physical: Vitals: BP 163/106, Pulse 78, Resp 14, Temp 97.3 F, O2 Sat 97 Exam: GENERAL: Patient is very uncomfortable appearing and in moderate distress. EYES: No scleral icterus, unremarkable pupils. ENT: Mucous membranes moist, no nasal congestion. NECK: No masses appreciated, no meningismus, trachea is midline. RESPIRATORY: No dyspnea. Clear to auscultation and equal bilaterally. No wheeze, no rhonchi. CARDIOVASCULAR: Regular rate and rhythm. No murmurs, rubs, gallops appreciated. GASTROINTESTINAL: Abdomen soft, non-tender, no peritonitis. Bowel sounds positive. No masses appreciated. Ostomy in lower abdomen with moderately firm stool, brown, no blood. BACK: No midline tenderness, no CVA tenderness EXTREMITIES: Normal motion all extremities, no cyanosis, no edema. NEUROLOGIC: Alert and oriented, no acute motor or sensory deficits, no focal weakness, cranial nerves grossly intact. SKIN: No rash, no jaundice, pale, diaphoretic, port in right upper chest. ED Course: Prior Medical Record, Triage/Nursing Notes, Medications, Allergies reviewed by 0151: The patient was evaluated in room A3. A complete history and physical exam was performed. 0211: Nursing just accessed the patient's port and are now giving him IV pain medication. 0247: I reevaluated and updated the patient. He looks much more comfortable. He still notes some continued pain and nausea. Further medications ordered. 0313: I rechecked the patient. He has some improvement in his pain. He is mildly hypoxic on room air without significant SOB. 0328: Upon reevaluation, the patient is stable. I discussed the findings and the treatment plan with the patient. He expresses agreement and understanding. I spoke with Dr. Addison of the [facility] [facility]. The patient will be evaluated for further management. Vital Signs: reviewed and remarkable for HTN Labs: Reviewed and remarkable for elevated trop, elevated lactic acid Interventions: Saline lock, fentanyl 100mcg IV x 2, Zofran 4mg IV, NSS infusion Imaging: CHEST X-RAY: X ray results are stated below per my interpretation: Chest: 1 view: Diffuse interstitial congestion/infiltrates without effusion nor pneumothorax. Improvement LLL density from previous EKG: Per My Interpretation: Indication Body Pain: Atrial sensed ventricular paced 77 bpm qtc 574 without clear ischemia nor ectopy Consults: 0328: I reviewed the patient's case with Dr. Addison - Hospitalist, [facility]. He will evaluate the patient for further management. Blood pressure: Elevated - Elevated blood pressure will be monitored by hosp italist. Disposition: Hospitalization Differentials: Differential: Cancer related pain, Sepsis, Infectious (UTI/Pneumonia/Meningitis/etc), Metabolic/Electrolyte Abnormality, Cardiac, Dehydration, Anemia, Hepatic, Endocrine, Toxicologic, Neurologic, amongst other pathologies entertained. Medical Decision Making: Pleasant 83 yr old male very uncomfortable with total body pain and nausea. Diaphoretic and ill appearing on arrival. Already fenanyl patch and po dilaudid at home without improvement. IV fentanyl x 2 prior to getting pain under control. Trop is bumped without specific chest pain nor EKG ischemia thus likely secondary NV as opposed to clear ACS. He has elevated lactic which is consistent with distress he was in on arrival. feeling much improved. Reviewed with hospitalist who note this may be withdrawal symptoms related. Regardless, he will come in for better pain management as well as further evaluation of elevated trop/lactic. I did opt to give him dose of Aspirin for cardioprotection in addition to the eliquis he is already on. Impression: Cancer-related pain, elevated troponin Nahid Sandhu MD The scribe's documentation has been prepared under my direction and personally reviewed by me in its entirety. I confirm that the note above accurately reflects all work, treatment, procedures, and medical decision making performed by me. Impression & Plan Cancer-related pain, Elevated troponin Past Med/Surg History Medical History Vision problem (Acute) Spondylolisthesis, acquired (Acute) Spinal stenosis (Acute) Situational anxiety (Acute) Seasonal allergies (Acute) Sciatica (Acute) Renal cyst (Acute) Nephrolithiasis (Acute) Inhibited sexual excitement (Acute) Hearing difficulty (Acute) Fatty liver (Acute) Enlarged prostate without lower urinary tract symptoms (luts) (Acute) Colon cancer (Acute) Cirrhosis (Acute) Castano's palsy (Acute) Tate's esophagus (Acute) Aspiration pneumonia (Acute) Abnormal electrocardiogram (Acute) Anal fissure (Acute) Fusion of spine LUMBAR Osteoarthritis Sleep apnea Hypertension Hyperlipidemia GERD (gastroesophageal reflux disease) Sepsis Pneumonia (Acute) Hypotension (Acute) Hypomagnesemia (Acute) CAD (coronary artery disease) (Chronic) Pacemaker (Chronic) Hypothyroid (Chronic) Complete heart block (Chronic) HTN (hypertension) (Chronic) History of atrial fibrillation (Chronic) Aortic stenosis (Chronic) Mitral stenosis (Chronic) GERD (gastroesophageal reflux disease) (Chronic) Dyslipidemia (Chronic) Sleep apnea (Chronic) Rectal adenocarcinoma (Chronic 06/03/17) "Rectal bleeding Evaluation under anethesia and finding of a rectal mass June 03, 2017 Biopsy revealing adenocarcinoma Plan for radiation and Xeloda Status post completion of combined neoadjuvant radiation and chemotherapy. Radiation was completed August 29, 2017. He received 5040 cGy" On 07/08/17 10:30 Rebecca Campbell wrote "Rectal bleeding Evaluation under anethesia and finding of a rectal mass June 03, 2017 Biopsy revealing adenocarcinoma Plan for radiation and Xeloda" On 07/08/17 10:23 Bayron Barajas wrote "Rectal bleeding Evaluation under anethesia and finding of a rectal mass Biopsy revealing adenocarcinoma Plan for radiation and Xeloda" Constipation (Acute) Elevated troponin Atrial fibrillation (Chronic) Degenerative disc disease Slow urinary stream Surgical History History of total knee replacement B/L History of cholecystectomy History of colonoscopy History of coronary artery bypass graft 2 VESSELS PER MEDICAL RECORD 05/2013 Hx of cholecystectomy (Resolved) History of back surgery (Resolved) S/P AVR (aortic valve replacement) (Chronic) "06/16/2013- # 23 Chow II bioprosthesis, Dr. William, [facility]" S/P CABG x 2 (Chronic) "CABG x 2; 06/16/2013; Dr. William, [facility]" History of carpal tunnel surgery (Chronic) S/P AVR (aortic valve replacement) (Chronic) 05/2013 Status cardiac pacemaker (Chronic) 2014. FOLLOWS WITH DR. LASSITER IN [facility]. 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 Required: No Beliefs That Will Affect Care: None marital status: Current Living Situation: Spouse current occupational status: retired Feels Safe at Home: Yes Smoking Status: Never smoker Second Hand Exposure: No ; Hx Alcohol Use: No Hx Substance Use: No Results & Data Vital Signs Vital Signs - 24 hr 09/27/18 01:44 09/27/18 02:31 09/27/18 03:00 Temperature 36.3 C L Temperature Source Oral Sepsis Recent Fever Within 48 Hours No Sepsis Action Taken by Nursing No Action Required Pulse Rate 77 78 80 Pulse Rate from SpO2 Sensor 78 80 Pulse Rhythm Regular Respiratory Rate 20 14 22 Respiratory Effort / Characteristics Non-Labored Respiratory Depth Normal Respiratory Pattern Regular Blood Pressure 167/89 H 163/106 H Blood Pressure Mean 115 125 Blood Pressure Position Sitting Pulse Oximetry 100 97 90 Oxygen Delivery Method Room Air Room Air Room Air Oxygen Flow Rate 09/27/18 03:01 09/27/18 03:30 09/27/18 03:31 Temperature Temperature Source Sepsis Recent Fever Within 48 Hours Sepsis Action Taken by Nursing Pulse Rate 78 79 76 Pulse Rate from SpO2 Sensor 79 78 78 Pulse Rhythm Respiratory Rate 19 26 H 32 H Respiratory Effort / Characteristics Respiratory Depth Respiratory Pattern Blood Pressure 158/96 H 161/99 H Blood Pressure Mean 116 119 Blood Pressure Position Pulse Oximetry 92 100 98 Oxygen Delivery Method Room Air Nasal Cannula Nasal Cannula Oxygen Flow Rate 2 2 09/27/18 04:01 Temperature Temperature Source Sepsis Recent Fever Within 48 Hours Sepsis Action Taken by Nursing Pulse Rate 83 Pulse Rate from SpO2 Sensor 82 Pulse Rhythm Respiratory Rate 20 Respiratory Effort / Characteristics Respiratory Depth Respiratory Pattern Blood Pressure 164/124 H Blood Pressure Mean 137 Blood Pressure Position Pulse Oximetry 97 Oxygen Delivery Method Nasal Cannula Oxygen Flow Rate 2 Home Medications Current Medication List: was personally reviewed by me Laboratory Data Attestation: I reviewed the patient's lab results. Result diagrams: 09/27/18 02:21 09/27/18 02:21 Lab Results 09/27/18 09/27/18 09/27/18 Range/Units 02:21 02:21 02:21 WBC 7.33 (4.8-10.8) K/uL RBC 4.20 L (4.7-6.1) M/uL Hgb 12.2 L (14.0-18.0) g/dL Hct 35.8 L (42-52) % MCV 85.2 (80-100) fL MCH 29.0 (25-34) pg MCHC 34.1 (32-36) g/dL RDW Std Deviation 49.9 H (36.4-46.3) fL RDW Coeff of Geovani 15.8 H (11.5-14.5) % Plt Count 189 (130-400) K/uL MPV 9.1 (7.4-10.4) fL Immature Gran % (Auto) 0.3 % Neut % (Auto) 75.8 % Lymph % (Auto) 16.6 % Limestone % (Auto) 6.7 % Eos % (Auto) 0.3 % Baso % (Auto) 0.3 % Immature Gran # (Auto) 0.02 (0.00-0.02) K/uL Neut # (Auto) 5.56 (1.4-6.5) K/uL Lymph # (Auto) 1.22 (1.2-3.4) K/uL Limestone # (Auto) 0.49 (0.11-0.59) K/uL Eos # (Auto) 0.02 (0-0.5) K/uL Baso # (Auto) 0.02 (0-0.2) K/uL Sodium 137 (136-145) mmol/L Potassium 3.3 L (3.5-5.1) mmol/L Chloride 100 (98-107) mmol/L Carbon Dioxide 27 (21-32) mmol/L Anion Gap 10.0 (3-11) BUN 12 (7-18) mg/dl Creatinine 0.86 (0.6-1.4) mg/dl Est Cr Clr Drug Dosing Not Reportable Est GFR ( Amer) 93.6 Est GFR (Non-Af Amer) 80.8 BUN/Creatinine Ratio 13.4 (10-20) Glucose 276 H (70-99) mg/dl Lactate 3.3 H* (0.4-2.0) mmol/L Calcium 8.5 (8.5-10.1) mg/dl Magnesium 1.6 L (1.8-2.4) mg/dl Total Bilirubin 0.5 (0.2-1) mg/dl Direct Bilirubin 0.1 (0-0.2) mg/dl AST 23 (15-37) U/L ALT 17 (12-78) U/L Alkaline Phosphatase 249 H (45-117) U/L Total Creatine Kinase 72 (39-308) U/L Troponin I 0.244 H* (0-0.045) ng/ml Total Protein 7.9 (6.4-8.2) gm/dl Albumin 3.1 L (3.4-5.0) gm/dl Administered Medications Sodium Chloride (Nss 1000ml) 1,000 mls @ 125 mls/hr IV .Q8H [facility] Stop: 10/27/18 01:59 Last Admin: 09/27/18 02:22 Dose: 125 mls/hr Documented by: [id number] Prochlorperazine 10 mg/ (Syringe) 10 mls @ 5 mls/min IV Q6H PRN PRN Reason: Nausea And Vomiting Stop: 10/27/18 04:24 Last Admin: 09/27/18 04:32 Dose: 5 mls/min Documented by: [id number] Discontinued Medications Aspirin (Aspirin Chew) 324 mg PO NOW STA Stop: 09/27/18 03:20 Last Admin: 09/27/18 03:23 Dose: 324 mg Documented by: [id number] Fentanyl Citrate (Fentanyl Citrate) 100 mcg IV NOW STA Stop: 09/27/18 01:54 Last Admin: 09/27/18 02:21 Dose: 100 mcg Documented by: [id number] Fentanyl Citrate (Fentanyl Citrate) 100 mcg IV NOW STA Stop: 09/27/18 02:49 Last Admin: 09/27/18 02:54 Dose: 100 mcg Documented by: [id number] Hydromorphone HCl (Dilaudid) 0.5 mg IV NOW STA Stop: 09/27/18 04:27 Last Admin: 09/27/18 04:32 Dose: 0.5 mg Documented by: [id number] Ondansetron HCl (Zofran) 4 mg IV NOW STA Stop: 09/27/18 01:54 Last Admin: 09/27/18 02:21 Dose: 4 mg Documented by: [id number] Ondansetron HCl (Zofran) 4 mg IV NOW STA Stop: 09/27/18 02:49 Last Admin: 09/27/18 02:54 Dose: 4 mg Documented by: [id number] Prochlorperazine (Compazine) Confirm Administered Dose 10 mg .ROUTE .STK-MED ONE Stop: 09/27/18 04:30 Last Admin: 09/27/18 04:32 Dose: Not Given Documented by: [id number] Discharge Plan Visit Data Chief Complaint: Pain (Generalized) Stated Complaint: GENERAL PAIN ED Provider: Nahid Sandhu Discharge Problem: Cancer-related pain, Elevated troponin Patient Disposition: Being Evaluated by Hospitalist Discharge Instructions Interventions: ED Discharge Assessment Last Done: 09/27/18 05:18 The scribe's documentation has been prepared under my direction and personally reviewed by me in its entirety. I confirm that the note above accurately reflects all work, treatment, procedures, and medical decision making performed by me.
--- NOTE | 2018-09-27 06:21 | XRay Report ---
XR chest 1V portable CLINICAL HISTORY: 83 years-old Male presenting with Diffuse pain. TECHNIQUE: Portable upright AP view of the chest was obtained. COMPARISON: 05/17/2018. FINDINGS: Left subclavian pacer with leads to the right atrium and right ventricular apex. Median sternotomy wi res. Right subclavian Mediport has been accessed and terminates in the lower SVC. Cardiac silhouette moderately enlarged. Pulmonary vascular prominence with bronchial wall cuffing and interlobular septal thickening suspected. Added density of the lungs with irregular reticular opacit ies in the central and basilar regions, right greater than left. Trace right pleural effusion suspect ed. No large pneumothorax. Partially visualized lumbar fusion hardware. Right chronic rotator cuff te ar may be present. Upper abdomen normal. IMPRESSION: 1. Cardiomegaly with volume overload and congestive change. Developing asymmetric edema in the right lung may be present versus, less likely, multifocal infiltrate. PA and lateral views may better nav acterize. Electronically signed by: Aramis Dodson M.D. 09/27/2018 6:20 AM
[2018-09-27] MEDS ORDERED: POTASSIUM CHLORIDE 20 MEQ TABCR PO STA (09:49)
[2018-09-27] MEDS: fentaNYL 50 MCG/HR TDSY TD SCH (10:01)
[2018-09-27] MEDS: fentaNYL 100 MCG/HR TDSY TD SCH (10:01)
[2018-09-27] MEDS ORDERED: ASPIRIN 81 MG ECTAB PO STA (10:18)
[2018-09-27] MEDS: MAGNESIUM OXIDE 400 MG TAB PO SCH ×2 (10:34→20:32)
--- NOTE | 2018-09-27 14:11 | Hospitalist Progress Note ---
Date of Service September 27, 2018 Assessment & Plan (1) Cancer-related pain: Severe generalized body pains/ nausea and vomiting/metastatic rectal adenocarcinoma/inadvertent withdrawal from fentanyl patches due to not sticking- Replace fentanyl patches. Will discontinue 1 mg dilaudid q2h due to sedation but will continue prn 0.5 mg dilaudid Acetaminophen 1 g IV every 8 hours as needed mild pain or temperature. Zofran 4 mg IV every 6 hours as needed. Compazine 10 mg IV every 6 hours as needed. Discontinued fluids for congestive changes on CXR - equivocal for pna, may need to do further imaging if concern for pna but currently no cough, leukocytosis or fever. Patient did have elevated lactic acid at 3.3 which is trending down. Will avoid diuresis due to lactic and now low normal blood pressures - can resume furosemide tomorrow. Patient sees Dr. Contreras outpatient for palliative care (2) Rectal adenocarcinoma: See above. (3) Elevated troponin: Supply demand mismatch. Continues to trend up to 0.9 - repeat this afternoon. Patient is having no symptoms, no changes on EKG though it is somewhat obscured by ventricular pacing. Will order TTE. Patient is anticoagulated with Eliquis. Received ASA in ED May want to consult cardiology tomorrow depending on results of echo - patient sees Dr. Frias outpatient (4) HTN (hypertension): Continue carvedilol with hold parameters (5) Hypothyroid: continue synthroid (6) CAD (coronary artery disease): continue carvedilol, statin (7) Metastatic disease: See above (8) Hyperlipidemia: continue statin (9) History of atrial fibrillation: Continue coreg, apixaban (10) Electrolyte abnormality: hypomagnesemia, hypokalemia replaced with po repeat bmp am (11) DM type 2 (diabetes mellitus, type 2): bsgs ac & hs pharmacy glycemic consult (12) DVT prophylaxis: apixaban Subjective Mr. Hammond was very drowsy this morning but denied pain. Continues to have nausea. Review of Systems Review of Systems: All systems reviewed & are unremarkable except as noted in HPI & below Physical Exam Physical Exam: General: no distress Eyes: normal inspection, PERLL Respiratory: chest non tender, clear to auscultation, normal breath sounds, no respiratory distress, no accessory muscle use Cardiac: regular rate and rhythm, no rub or gallop, no murmur, no edema, no jvd GI/: active bowel sounds, no abd pain or tenderness, soft, non distended Extremities: normal range of motion, normal strength, non tender Neuro/Psych: drowsy and oriented x 3, normal mood and affect Skin: normal color, dry Results & Data Vital Signs (Past 12 Hours) Vital Signs Temp Pulse Pulse Resp BP BP Pulse Ox 09/27/18 12:49 36.9 C 82 12 97/61 L 97 09/27/18 07:18 89 09/27/18 07:08 37.2 C 88 18 118/72 96 09/27/18 05:54 36.5 C 96 H 20 164/75 H 97 09/27/18 05:38 96 H 09/27/18 05:01 92 H 23 177/111 H 97 09/27/18 04:31 89 42 H 163/106 H 99 09/27/18 04:01 83 20 164/124 H 97 09/27/18 03:31 76 32 H 161/99 H 98 09/27/18 03:30 79 26 H 100 09/27/18 03:01 78 19 158/96 H 92 09/27/18 03:00 80 22 90 09/27/18 02:31 78 14 163/106 H 97 PG Care Time/CCT Total # of Minutes Spent Total Time Spent with Patient: Total time spent is greater than 50% in coordination of care (as documented) at patient's floor/unit and/or counseling patient:
[2018-09-27] MEDS ORDERED: PROCHLORPERAZINE MALEATE 10 MG TAB PO PRN (14:16)
[2018-09-27] MEDS ORDERED: ALBUTEROL HFA 8 GM INHALER INH PRN (14:16)
[2018-09-27] MEDS ORDERED: ONDANSETRON 8 MG TABLET PO PRN (14:16)
[2018-09-27] MEDS ORDERED: PHARMACY GLYCEMIC MGMT CONSULT PRN (14:51)
--- NOTE | 2018-09-27 14:56 | Pharmacy Report ---
Glycemic Control Consultation - Date of Service September 27, 2018 - Scope Scope: Glycemic Pharmacist consulted by MEREDITH Heard on 09/27/18 for glycemic control and to write orders per [facility] inpatient glycemic control protocol - Objective Weight: 80.9 kg Accuchecks BSG (last 24hrs): 09/27/18 02:21 Glucose 276 H Laboratory Data (last 24hrs): 09/27/18 02:21 Potassium 3.3 L Carbon Dioxide 27 Anion Gap 10.0 Creatinine 0.86 Est Cr Clr Drug Dosing Not Reportable - Recent Pertinent Medications Outpatient Anti-diabetic Regimen: * Novolog Sliding Scale * A1c = 8.7 % 03/25/18 Risk Factors for Insulin Resistance: * Diet: Clear liquid - Assessment & Plan Assessment & Plan: ASSESSMENT: * 83 year old male admitted for Cancer-related pain, metastatic rectal adenocarcinoma/inadvertent withdrawal from fentanyl patches due to not sticking * Type 2 diabetic using only sliding scale Novolog at home, unable to verify how patient takes at home at this time, will pass off to second shift pharmacist to make changes if orders are inappropriate. * Will begin with only a CF and CR based on patient's weight and stress at this time and add basal insulin if needed. PLAN FOR INPATIENT GLYCEMIC CONTROL: * Bolus insulin * NovoLog per scale ACHS or Q6hrs while NPO * Goal Range: Low 110 mg/dL - High 140 mg/dL * Correction Factor: 25 mg/dL/unit * Nutritional / Prandial insulin per carb ratio of 1 unit per 8 grams CHO consumed * Please note that the plan above was derived based on current level of insulin resistance and hospital stress. These recommendations are appropriate for inpatient admission only. Plan of care upon discharge will need to be reassessed to avoid potential outpatient hypo/hyperglycemia. Thank you.
[2018-09-27] MEDS ORDERED: PERFLUTREN LIPID MICROSPHERE (DEFINITY) IV ONE (15:34)
[2018-09-27] MEDS: SUCRALFATE 1 GM TAB PO SCH ×2 (16:13→20:31)
[2018-09-27] MEDS: CHECK FENTANYL PATCH PLACEMENT SCH (16:13)
[2018-09-27] MEDS: ASPIRIN 81 MG ECTAB PO SCH (17:21)
[2018-09-27] MEDS: INSULIN ASPART 100 UNITS/ML 3 ML PEN SC SCH ×2 (17:29→20:42)
[2018-09-27] MEDS ORDERED: Heparin IV Standard *NO* Bolus IV SCH (18:50)
[2018-09-27] MEDS ORDERED: INSULIN GLARGINE SOLOSTAR 100 UNITS/ML 3 ML PEN SC STA (19:34)
[2018-09-27] MEDS: HYDROCORTISONE 2.5% CR 30 GM TUBE EXT SCH (20:31)
[2018-09-27] MEDS: DOCUSATE SODIUM/SENNA 50/8.6MG TAB PO SCH (20:31)
[2018-09-27] MEDS: SIMVASTATIN 40 MG TAB PO SCH (20:31)
[2018-09-27] MEDS: PANTOprazole 40 MG TAB PO SCH (20:31)
[2018-09-27] MEDS: CEROVITE ADV FORMULA TAB PO SCH (20:31)
[2018-09-27] MEDS: DOCUSATE SODIUM 100 MG CAP PO SCH (20:31)
[2018-09-27] MEDS: CARVEDILOL 3.125 MG TAB PO SCH (20:31)
[2018-09-27] MEDS: DRONABINOL 2.5 MG CAP PO SCH (20:40)
[2018-09-27] MEDS ORDERED: APIXABAN 2.5 MG TAB PO SCH (21:00)
[2018-09-27 21:09] LABS: Partial Thromboplastin Ratio 1.1; Partial Thromboplastin Time 28.7 Seconds (21.0-31.0)
[2018-09-27] MEDS: HEPARIN SODIUM/DEXTROSE 25,000 UNITS/500 ML BAG IV SCH (21:49)
[2018-09-28] MEDS: INSULIN ASPART 100 UNITS/ML 3 ML PEN SC SCH ×6 (00:23→20:59)
[2018-09-28] MEDS: CHECK FENTANYL PATCH PLACEMENT SCH ×4 (00:42→23:24)
[2018-09-28] MEDS: LEVOTHYROXINE SODIUM 100 MCG TABLET PO SCH (04:22)
[2018-09-28 04:23] LABS: Partial Thromboplastin Ratio 2.1
[2018-09-28 04:28] LABS: BUN Creatinine Ratio 14.4 (10-20); Calcium 8.3 mg/dl (8.5-10.1); Creatinine Clr Calc Pharmacy 80.9 ml/min; Est GFR (African American) 102.5; Est GFR (Non-African American) 88.4; Partial Thromboplastin Time 55.8 Seconds (21.0-31.0); Potassium 3.8 mmol/L (3.5-5.1)
[2018-09-28 06:50] LABS: Estimated Average Glucose 203 mg/dl; Hemoglobin A1C 8.7 % (4.5-5.6)
[2018-09-28] MEDS: SUCRALFATE 1 GM TAB PO SCH ×4 (09:00→20:55)
[2018-09-28] MEDS: ESCITALOPRAM OXALATE 10 MG TAB PO SCH (09:00)
[2018-09-28] MEDS: CARVEDILOL 3.125 MG TAB PO SCH ×2 (09:00→20:56)
[2018-09-28] MEDS: MAGNESIUM OXIDE 400 MG TAB PO SCH ×2 (09:00→20:57)
[2018-09-28] MEDS: HYDROCORTISONE 2.5% CR 30 GM TUBE EXT SCH ×2 (09:00→20:57)
[2018-09-28] MEDS: FUROSEMIDE 40 MG TAB PO SCH (09:00)
[2018-09-28] MEDS: DRONABINOL 2.5 MG CAP PO SCH ×3 (09:00→20:58)
[2018-09-28] MEDS: CEROVITE ADV FORMULA TAB PO SCH ×2 (09:00→20:58)
[2018-09-28] MEDS: ASPIRIN 81 MG ECTAB PO SCH (09:00)
[2018-09-28] MEDS: DOCUSATE SODIUM/SENNA 50/8.6MG TAB PO SCH ×2 (09:00→20:58)
[2018-09-28] MEDS: POLYETHYLENE (MIRALAX) 17 GM PACK PO SCH (09:00)
[2018-09-28] MEDS: DOCUSATE SODIUM 100 MG CAP PO SCH ×2 (09:00→20:55)
[2018-09-28] MEDS: PANTOprazole 40 MG TAB PO SCH ×2 (09:00→20:58)
--- NOTE | 2018-09-28 14:37 | Cardiology Consultation ---
Date of Consultation September 28, 2018 Assessment & Plan (1) Elevated troponin: 2. New severe LV dysfunction 3. Coronary artery disease post two-vessel CABG (RICK LAD, vein graft to ramus in parentheses. 4. History of bioprosthetic AVR and mitral valve repair 5. History of complete heart block post permanent pacemaker 6. Prior atrial fibrillation previously on anticoagulation with Eliquis 7. Stage IV rectal cancer 8. Chronic pain Patient admitted with diffuse, generalized pain found to have elevated troponin and new severe LV dysfunction. At present patient chest pain-free, hemodynamically and electrically stable.Well-perfused with mild congestion on exam. Reviewed echocardiogram. Wall motion most consistent with stress-induced cardiomyopathy versus large wraparound LAD disease. Reviewed prior cardiac cath images from 2013. Current wall motion abnormality would require severe disease involving proximal LAD along with both RICK and vein graft. Suspect this degree of graft disease unlikely and feel stress-induced cardiomyopathy more likely. Regardless in the setting of patient's stage IV rectal cancer would favor conservative approach at this point and will defer cardiac catheterization at this time. Going forward: Continue heparin infusion overnight, can stop tomorrow and resume prior Eliquis. Additional IV Lasix today in the setting of mild congestion on exam, O2 requirement, and + fluid balance -- Continue maintenance Lasix 40 mg daily Maximize GDMT for cardiomyopathyin the setting of relative hypotension would transition carvedilol to Toprol-XL 25 mg daily and start low-dose SIMI inhibitor as BP allows -- Continue ASA, statin Repeat echocardiogram in 1 month as an outpatient No plans for additional cardiac testing at this time. History of Present Illness Attending Physician: Blas Crooks History of Present Illness Mr. Hammond is a very pleasant 83-year-old man with a history of hypertension, diabetes, prior severe left ear post bioprosthetic AVR in 2013 with accompanying mitral valve repair and two-vessel CABG (RICK to LAD, vein graft to ramus), postop complete heart block requiring dual-chamber pacemaker, atrial fibrillation and stage IV rectal cancer complicated by chronic pain and post recent colostomy 08/2018 readmitted with diffuse pain, nausea. Cardiology consult in the setting of elevated troponin, new LV dysfunction. Patient was admitted yesterday in the setting of diffuse, whole body generalized pain. This was accompanied by episodes of nausea and vomiting along with some diaphoresis which affected his fentanyl patches. Denies any real chest pain. Reports may be some chest pressure after several episodes of vomiting. Since admission pain is been better controlled. Feeling well currently. Denies any significant shortness of breath. Tolerating clear diet. Rhythm paced on EKG. Troponin elevated on admission and peaked at 1.4 yesterday. Echocardiogram yesterday showed new severe LV dysfunction with preserved basal wall motion. Eliquis stopped. Started on heparin infusion yesterday. Continued on home carvedilol and daily Lasix. Allergies Allergy/AdvReac Type Severity Reaction Status Date / Time No Known Allergies Allergy Verified 09/27/18 03:29 Home Medications Home Medications Medication Instructions Recorded Confirmed Type apixaban 5 mg tablet 2.5 mg PO BID 04/09/18 09/27/18 History carvedilol 3.125 mg PO BID 05/17/18 09/27/18 History fentanyl 100 mcg TRANSDERMAL Q72H 05/17/18 09/27/18 History Ocuvite [facility] 1 tab PO BID 06/09/18 09/27/18 History furosemide 40 mg PO DAILY 06/09/18 09/27/18 History ondansetron HCl 8 mg PO Q8 PRN 06/09/18 09/27/18 History prochlorperazine maleate 10 mg PO Q6 PRN 06/09/18 09/27/18 History Bedside commode #1 ea 08/26/18 09/27/18 Rx Transfer tub bench #1 ea 08/26/18 09/27/18 Rx dronabinol 2.5 mg capsule 2.5 mg PO TID #270 cap 08/27/18 09/27/18 Rx docusate sodium 100 mg capsule 100 mg PO BID #60 cap 09/09/18 09/27/18 Rx albuterol sulfate HFA 90 1 - 2 puff INHALATION Q6H PRN 09/16/18 09/27/18 History mcg/actuation aerosol inhaler hydrocortisone 2.5 % topical cream 1 applic TOPICAL DIRECTED 09/16/18 09/27/18 History hydromorphone 2 mg tablet 2 mg PO Q6 PRN #28 tab 09/16/18 09/27/18 Rx hydromorphone 2 mg tablet 4 mg PO Q6H PRN #28 tab 09/16/18 09/27/18 Rx insulin aspart (U-100) 100 unit/mL See Rx Instructions SUBCUT 09/16/18 09/27/18 History (3 mL) subcutaneous pen DIRECTED levothyroxine 100 mcg tablet 100 mcg PO QAM 09/16/18 09/27/18 History omeprazole 20 mg tablet,delayed 20 mg PO BID #0 tab 09/16/18 09/27/18 Rx release polyethylene glycol 3350 17 gram 17 g PO DAILY #30 ea 09/16/18 09/27/18 Rx oral powder packet sennosides 8.6 mg-docusate sodium 1 tab PO BID #60 tab 09/16/18 09/27/18 Rx 50 mg tablet simvastatin 40 mg tablet 40 mg PO HS 09/16/18 09/27/18 History sucralfate 1 gram tablet 1 g PO QID 09/16/18 09/27/18 History escitalopram 10 mg tablet 15 mg PO DAILY #60 tab 09/25/18 09/27/18 Rx fentanyl 50 mcg TRANSDERMAL [id number] 09/27/18 09/27/18 History Patient History Medical History Vision problem (Acute) Spondylolisthesis, acquired (Acute) Spinal stenosis (Acute) Situational anxiety (Acute) Seasonal allergies (Acute) Sciatica (Acute) Renal cyst (Acute) Nephrolithiasis (Acute) Inhibited sexual excitement (Acute) Hearing difficulty (Acute) Fatty liver (Acute) Enlarged prostate without lower urinary tract symptoms (luts) (Acute) Colon cancer (Acute) Cirrhosis (Acute) Castano's palsy (Acute) Tate's esophagus (Acute) Aspiration pneumonia (Acute) Abnormal electrocardiogram (Acute) Anal fissure (Acute) Fusion of spine LUMBAR Osteoarthritis Sleep apnea Hypertension Hyperlipidemia GERD (gastroesophageal reflux disease) Sepsis Pneumonia (Acute) Hypotension (Acute) Hypomagnesemia (Acute) CAD (coronary artery disease) (Chronic) Pacemaker (Chronic) Hypothyroid (Chronic) Complete heart block (Chronic) HTN (hypertension) (Chronic) History of atrial fibrillation (Chronic) Aortic stenosis (Chronic) Mitral stenosis (Chronic) GERD (gastroesophageal reflux disease) (Chronic) Dyslipidemia (Chronic) Sleep apnea (Chronic) Rectal adenocarcinoma (Chronic 06/03/17) "Rectal bleeding Evaluation under anethesia and finding of a rectal mass June 03, 2017 Biopsy revealing adenocarcinoma Plan for radiation and Xeloda Status post completion of combined neoadjuvant radiation and chemotherapy. Radiation was completed August 29, 2017. He received 5040 cGy" On 07/08/17 10:30 Rebecca Campbell wrote "Rectal bleeding Evaluation under anethesia and finding of a rectal mass June 03, 2017 Biopsy revealing adenocarcinoma Plan for radiation and Xeloda" On 07/08/17 10:23 Bayron Barajas wrote "Rectal bleeding Evaluation under anethesia and finding of a rectal mass Biopsy revealing adenocarcinoma Plan for radiation and Xeloda" Constipation (Acute) Elevated troponin Atrial fibrillation (Chronic) Degenerative disc disease Slow urinary stream Surgical History History of total knee replacement B/L History of cholecystectomy History of colonoscopy History of coronary artery bypass graft 2 VESSELS PER MEDICAL RECORD 05/2013 Hx of cholecystectomy (Resolved) History of back surgery (Resolved) S/P AVR (aortic valve replacement) (Chronic) "06/16/2013- # 23 Chow II bioprosthesis, [place]. [place] [facility] [place] S/P CABG x 2 (Chronic) "CABG x 2; 06/16/2013; Dr. William, [facility] [place] History of carpal tunnel surgery (Chronic) S/P AVR (aortic valve replacement) (Chronic) 05/2013 Status cardiac pacemaker (Chronic) 2014. FOLLOWS WITH DR. LASSITER IN CARDIO. Social History Preferred Language: Irish Communication Ability: Impaired Visual Impairment: No Limitations Solutions Consultant Required: No Beliefs That Will Affect Care: None marital status: Current Living Situation: Spouse current occupational status: retired Feels Safe at Home: Yes Smoking Status: Never smoker Second Hand Exposure: No ; Hx Alcohol Use: No Hx Substance Use: No Review of Systems Review of Systems: All systems reviewed & are unremarkable except as noted in HPI & below Physical Exam Physical Exam: General: Comfortable, thin, Eyes: Sclerae anicteric, extraocular movements intact HENT: Oropharynx clear mucous membranes moist Neck: Normal carotid upstrokes, no bruits. JVP around 8 Lungs: Decreased breath sounds at right base, otherwise clear Cardiac: Regular rate, no murmurs Abdomen: Soft, colostomy in place, brown stool. Nontender Extremities: Well perfused, no peripheral edema Skin: No rashes or lesions. Neuro: Nonfocal Psych: Alert orient x3, normal affect and mood Results & Data Vital Signs (Past 12 Hours) Vital Signs Temp Pulse Pulse Resp BP BP Pulse Ox 09/28/18 11:29 36.9 C 59 L 18 92/56 L 95 09/28/18 09:00 60 09/28/18 07:29 36.4 C L 63 18 106/61 97 09/28/18 05:02 36.7 C 60 16 93/56 L 96 PG Care Time/CCT Total # of Minutes Spent Total Time Spent with Patient: Total time spent is greater than 50% in coordination of care (as documented) at patient's floor/unit and/or counseling patient:
--- NOTE | 2018-09-28 15:57 | Pharmacy Report ---
Pharmacy Glycemic Short Note 2 - Date of Service September 28, 2018 - Glycemic Short BSG Results (Last 24 hours): 09/27/18 09/27/18 09/28/18 17:25 20:22 00:17 Glucose POC Glucose 268 H 157 H 169 H 09/28/18 09/28/18 09/28/18 03:45 04:14 07:44 Glucose 180 H POC Glucose 166 H 166 H 09/28/18 11:29 Glucose POC Glucose 148 H ASSESSMENT: * 83 year old male admitted for Cancer-related pain, metastatic rectal adenocarcinoma/inadvertent withdrawal from fentanyl patches due to not sticking * Type 2 diabetic using only sliding scale Novolog at home, unable to verify how patient takes at home at this time, will pass off to second shift pharmacist to make changes if orders are inappropriate. * Will begin with only a CF and CR based on patient's weight and stress at this time and add basal insulin if needed. 09/28: * Patient received 35 units of insulin yesterday, of which 20 were basal * Fasting BSG 166 mg/dL - will have scale for Lantus this evening PLAN FOR INPATIENT GLYCEMIC CONTROL: * Hold outpatient oral diabetes medications * Basal insulin * Lantus HS per scale (15 or 20 units if >/< 140 mg/dl) * Bolus insulin - no change * NovoLog per scale ACHS or Q6hrs while NPO * Goal Range: Low 110 mg/dL - High 140 mg/dL * Correction Factor: 25 mg/dL/unit * Nutritional / Prandial insulin per carb ratio of 1 unit per 8 grams CHO co nsumed
[2018-09-28] MEDS: HEPARIN SODIUM/DEXTROSE 25,000 UNITS/500 ML BAG IV SCH (18:06)
--- NOTE | 2018-09-28 20:25 | Hospitalist Progress Note ---
Date of Service September 28, 2018 Assessment & Plan (1) Nausea and vomitin possibilities - either due to fentanyl withdrawal and/or cardiac/ischemic in nature in light of elevated troponin. Either way symptoms are resolved. Advance diet to AHA diet. Observe. Present on Admission?: Yes (2) Chronic pain syndrome: 2nd to stage 4 colorectal cancer. Had had severe rectal pain in the past s/p diverting colostomy last month at [facility]. Remains on fentanyl patch 150mcg q3d. Pain controlled today. Present on Admission?: Yes (3) Systolic CHF, acute: Either 2nd to stress-induced cardiomyopathy OR ischemia. Appreciate cardiology consultation. Additional IV lasix given by cardiology today. Cont BB. Cont lasix daily. Will need low-dose SIMI or ARB if BP will allow. O2 weaned off this afternoon. No plans for heart cath at this time -- med management for now. Present on Admission?: Yes (4) Elevated troponin: see discussion in "acute systolic CHF." this may be due to mild NSTEMI or could have been myocardial demand ischemia in setting of narcotic withdrawal, etc. medical management at this time. stop heparin drip tomorrow at 48 hour nita. Present on Admission?: Yes (5) Pacemaker: placed in past for high degree AV block. no issues. tele stable. Present on Admission?: Yes (6) Hypothyroid: TSH 03/2018 was wnl. Cont synthroid. Present on Admission?: Yes (7) HTN (hypertension): Controlled. Present on Admission?: Yes (8) History of atrial fibrillation: Resume apixaban once heparin drip has been stopped. Present on Admission?: Yes (9) Aortic stenosis: s/p AVR in 05/2013. good function on echo this admission. bioprosthetic. Present on Admission?: No (10) S/P CABG x 2: 2013. see discussion above in "elevated troponin". Present on Admission?: No (11) S/P AVR (aortic valve replacement): 2013 as above Present on Admission?: No (12) Colorectal cancer, stage IV: s/p diverting colostomy creation August 2018 at [facility] [place] due to severe rectal pain from the cancer itself. 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 followed by [facility]. receives fentanyl patches for chronic pain. Present on Admission?: Yes (13) DM type 2 (diabetes mellitus, type 2): control adequate at this time pharmacy managing appreciate their assistance (14) DVT prophylaxis: on heparin infusion stop this tomorrow resume guido araujo PT/OT lew updated by phone this evening Subjective patient states he is "feeling great." nausea, emesis, sweats, diaphoresis - all resolved. chronic pain is controlled. denies dyspnea, chest pain or orthopnea today. tele stable overnight. Review of Systems Constitutional: no fever, no chills, no body aches, no fatigue, no malaise, no weakness and no anorexia Respiratory: no cough and no dyspnea Cardiovascular: no chest pain, no orthopnea, no paroxysmal nocturnal dyspnea and no edema Gastrointestinal: no abdominal pain, no nausea and no vomiting Physical Exam Constitutional: well developed and well nourished; no acute distress and no altered mental status ENMT: external ear and nose normal, oropharynx normal Respiratory: Auscultation: + crackles (fine - bases) Cardiovascular: Rate/Rhythm: regular rate and regular rhythm Heart Sounds: normal S1 and normal S2; no murmur Vessels: posterior tibial pulses present and dorsalis pedis pulses present; no JVD Extremities: no edema Gastrointestinal (Abdomen): normal bowel sounds, soft, nontender, no hepatosplenomegaly colostomy bag in place with brown stool Psychiatric: A+Ox3, euthymic affect Results & Data Vital Signs (Past 12 Hours) Vital Signs Temp Pulse Pulse Resp BP Pulse Ox 09/28/18 15:26 36.7 C 65 18 103/62 91 09/28/18 11:29 36.9 C 59 L 18 92/56 L 95 09/28/18 09:00 60 Laboratory Results Laboratory Results - last 24 hr 09/27/18 09/27/18 09/27/18 17:25 20:22 20:53 APTT 28.7 PTT Ratio 1.1 Sodium Potassium Chloride Carbon Dioxide Anion Gap BUN Creatinine Est Cr Clr Drug Dosing Est GFR ( Amer) Est GFR (Non-Af Amer) BUN/Creatinine Ratio Glucose POC Glucose 268 H 157 H Estimat Average Glucose Hemoglobin A1c Calcium 09/28/18 09/28/18 09/28/18 00:17 03:45 03:45 APTT 55.8 H* PTT Ratio 2.1 Sodium 138 Potassium 3.8 D Chloride 101 Carbon Dioxide 31 Anion Gap 6.0 BUN 10 Creatinine 0.69 Est Cr Clr Drug Dosing 80.9 Est GFR ( Amer) 102.5 Est GFR (Non-Af Amer) 88.4 BUN/Creatinine Ratio 14.4 Glucose 180 H POC Glucose 169 H Estimat Average Glucose Hemoglobin A1c Calcium 8.3 L 09/28/18 09/28/18 09/28/18 03:45 04:14 07:44 APTT PTT Ratio Sodium Potassium Chloride Carbon Dioxide Anion Gap BUN Creatinine Est Cr Clr Drug Dosing Est GFR ( Amer) Est GFR (Non-Af Amer) BUN/Creatinine Ratio Glucose POC Glucose 166 H 166 H Estimat Average Glucose 203 Hemoglobin A1c 8.7 H Calcium 09/28/18 09/28/18 11:29 16:44 APTT PTT Ratio Sodium Potassium Chloride Carbon Dioxide Anion Gap BUN Creatinine Est Cr Clr Drug Dosing Est GFR ( Amer) Est GFR (Non-Af Amer) BUN/Creatinine Ratio Glucose POC Glucose 148 H 173 H Estimat Average Glucose Hemoglobin A1c Calcium PG Care Time/CCT Total # of Minutes Spent Total Time Spent with Patient: Total time spent is greater than 50% in coordination of care (as documented) at patient's floor/unit and/or counseling patient: (1) Hypothyroid Hypothyroidism type: acquired Qualified Code(s): E03.9 - Hypothyroidism, unspecified (2) HTN (hypertension) Hypertension type: essential hypertension Qualified Code(s): I10 - Essential (primary) hypertension (3) Aortic stenosis Cardiac valve disease etiology: etiology unspecified Qualified Code(s): I35.0 - Nonrheumatic aortic (valve) stenosis (4) Nausea and vomiting Vomiting type: unspecified Vomiting Intractability: unspecified Qualified Code(s): R11.2 - Nausea with vomiting, unspecified (5) DM type 2 (diabetes mellitus, type 2) Diabetes mellitus snf insulin use: with snf use Diabetes mellitus complication status: without complication Qualified Code(s): E11.9 - Type 2 diabetes mellitus without complications; Z79.4 - USP (current) use of insulin
[2018-09-28] MEDS: SIMVASTATIN 40 MG TAB PO SCH (20:58)
[2018-09-28] MEDS ORDERED: INSULIN GLARGINE SOLOSTAR 100 UNITS/ML 3 ML PEN SC SCH (21:00)
[2018-09-29] MEDS: LEVOTHYROXINE SODIUM 100 MCG TABLET PO SCH (05:40)
[2018-09-29] MEDS: HYDROmorphone INJ 0.5 MG/0.5 ML SYR IV PRN (06:16)
[2018-09-29 08:43] LABS: Partial Thromboplastin Time 81.2 Seconds (21.0-31.0)
[2018-09-29 08:53] LABS: BUN Creatinine Ratio 16.1 (10-20); Calcium 8.5 mg/dl (8.5-10.1); Est GFR (African American) 102.5; Est GFR (Non-African American) 88.4
[2018-09-29 08:56] LABS: Magnesium 2.1 mg/dl (1.8-2.4)
[2018-09-29] MEDS: CHECK FENTANYL PATCH PLACEMENT SCH ×3 (09:07→23:55)
[2018-09-29] MEDS: ESCITALOPRAM OXALATE 10 MG TAB PO SCH (09:11)
[2018-09-29] MEDS: SUCRALFATE 1 GM TAB PO SCH ×3 (09:11→21:12)
[2018-09-29] MEDS: ASPIRIN 81 MG ECTAB PO SCH (09:11)
[2018-09-29] MEDS: FUROSEMIDE 40 MG TAB PO SCH (09:11)
[2018-09-29] MEDS: DOCUSATE SODIUM 100 MG CAP PO SCH ×2 (09:11→21:03)
[2018-09-29] MEDS: POLYETHYLENE (MIRALAX) 17 GM PACK PO SCH (09:12)
[2018-09-29] MEDS: DRONABINOL 2.5 MG CAP PO SCH ×2 (09:12→13:31)
[2018-09-29] MEDS: PANTOprazole 40 MG TAB PO SCH ×2 (09:12→21:01)
[2018-09-29] MEDS: CEROVITE ADV FORMULA TAB PO SCH ×2 (09:12→21:01)
[2018-09-29] MEDS: HYDROCORTISONE 2.5% CR 30 GM TUBE EXT SCH ×2 (09:12→21:03)
[2018-09-29] MEDS: MAGNESIUM OXIDE 400 MG TAB PO SCH ×2 (09:12→21:03)
[2018-09-29] MEDS: CARVEDILOL 3.125 MG TAB PO SCH ×2 (09:12→21:17)
[2018-09-29] MEDS: DOCUSATE SODIUM/SENNA 50/8.6MG TAB PO SCH ×2 (09:13→21:01)
[2018-09-29] MEDS: INSULIN ASPART 100 UNITS/ML 3 ML PEN SC SCH ×4 (09:14→21:15)
[2018-09-29] MEDS ORDERED: LIDOCAINE 2% JELLY 5 ML TUBE EXT PRN (14:13)
--- NOTE | 2018-09-29 18:02 | Cardiology Progress Note ---
Date of Service September 29, 2018 Assessment & Plan (1) Elevated troponin: 2. New severe LV dysfunction 3. Coronary artery disease post two-vessel CABG (RICK LAD, vein graft to ramus in parentheses. 4. History of bioprosthetic AVR and mitral valve repair 5. History of complete heart block post permanent pacemaker 6. Prior atrial fibrillation previously on anticoagulation with Eliquis 7. Stage IV rectal cancer 8. Chronic pain Feeling well today. No new cardiac symptoms. Hemodynamically and electrically stable. -- Heparin discontinued. Can resume eliquis tomorrow. -- continue maintenance lasix. -- continue carvedilol. Will try to add SIMI as an outpatient. -- Continue ASA, statin Repeat echocardiogram in 1 month as an outpatient From a cardiac standpoint OK for discharge tomorrow. Subjective Feeling well today. No chest pain, no shortness of breath. Mild diffuse pain this morning relieved with PRN meds. No other new complaints. Tele reviewed -- paced rhythm. Review of Systems Review of Systems: All systems reviewed & are unremarkable except as noted in HPI & below Physical Exam Constitutional: well developed; no acute distress Eyes: + anicteric sclerae Respiratory: normal respiratory effort Auscultation: + diminished lung sounds (RT base) and + crackles port in place without surrounding erythema. Cardiovascular: Rate/Rhythm: regular rate Heart Sounds: no murmur Vessels: no JVD Gastrointestinal (Abdomen): normal bowel sounds, soft, nontender, no hepatosplenomegaly Skin: no rashes, warm and dry Psychiatric: A+Ox3, euthymic affect Results & Data Vital Signs (Past 12 Hours) Vital Signs Temp Pulse Pulse Resp BP Pulse Ox 09/29/18 15:00 36.8 C 67 18 137/66 95 09/29/18 09:42 63 09/29/18 07:12 36.7 C 59 L 18 115/66 92
--- NOTE | 2018-09-29 20:55 | Hospitalist Progress Note ---
Date of Service September 29, 2018 Assessment & Plan (1) Nausea and vomitin possibilities - either due to fentanyl withdrawal and/or cardiac/ischemic in nature in light of elevated troponin (and echo findings). Symptoms resolved & have not recurred. Diet as tolerated. (2) Chronic pain syndrome: 2nd to stage 4 colorectal cancer. Had had severe rectal pain in the past s/p diverting colostomy last month at [facility]. Remains on fentanyl patch 150mcg q3d. Lidocaine jelly prn and HC cream prn for rectal pain. (3) Systolic CHF, acute: Either 2nd to stress-induced cardiomyopathy (AKA Takasubo's) OR ischemia. Appreciate cardiology consultation. Appears euvolemic. Cont BB. Cont lasix daily. Will need low-dose SIMI or ARB if BP will allow. No plans for heart cath at this time -- med management for now. (4) Elevated troponin: see discussion in "acute systolic CHF." this may be due to mild NSTEMI or due to Takatsubo's stress-induced cardiomyopathy. medical management at this time. no plans for cath. stop heparin drip today. (5) Pacemaker: placed in past for high degree AV block. no issues. tele stable. (6) Hypothyroid: TSH 03/2018 was wnl. Cont synthroid. (7) HTN (hypertension): Controlled. (8) History of atrial fibrillation: Resume apixaban in am. (9) Aortic stenosis: s/p AVR in 05/2013. good function on echo this admission. bioprosthetic. (10) S/P CABG x 2: 2013. see discussion above in "elevated troponin". (11) S/P AVR (aortic valve replacement): 2013 as above (12) Colorectal cancer, stage IV: s/p diverting colostomy creation August 2018 at [facility] [place] due to severe rectal pain from the cancer itself. 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 followed by [facility]. receives fentanyl patches for chronic pain. (13) DM type 2 (diabetes mellitus, type 2): control adequate at this time pharmacy managing appreciate their assistance (14) DVT prophylaxis: resume eliquis tomorrow am PT/OT evals appreciated -- cleared for home w/ updated at bedside today daughter updated by phone today Subjective having some intermittent rectal pain. otherwise in good spirits, eating well, feeling good. no cp, no dyspnea. no abd pain. cleared by PT for home. daughter called in today -- marinol and carafate should be BID. they inquire about what type of diet he should be one. Review of Systems Constitutional: no fever and no chills Respiratory: no cough Cardiovascular: no chest pain, no orthopnea, no paroxysmal nocturnal dyspnea and no edema Gastrointestinal: no abdominal pain, no nausea and no vomiting Physical Exam Constitutional: well developed and well nourished; no acute distress and no altered mental status ENMT: external ear and nose normal, oropharynx normal Respiratory: normal respiratory effort, lungs clear to auscultation Cardiovascular: Rate/Rhythm: regular rate and regular rhythm Heart Sounds: normal S1 and normal S2; no murmur Vessels: posterior tibial pulses present and dorsalis pedis pulses present; no JVD Extremities: no edema Gastrointestinal (Abdomen): normal bowel sounds, soft, nontender, no hepatosplenomegaly colostomy with brown stool Psychiatric: A+Ox3, euthymic affect Results & Data Vital Signs (Past 12 Hours) Vital Signs Temp Pulse Pulse Resp BP BP Pulse Ox 09/29/18 20:25 36.7 C 60 18 114/64 92 09/29/18 15:00 36.8 C 67 18 137/66 95 09/29/18 09:42 63 Laboratory Results Laboratory Results - last 24 hr 09/28/18 09/29/18 09/29/18 20:42 07:47 07:59 APTT PTT Ratio Sodium 138 Potassium 4.0 Chloride 100 Carbon Dioxide 33 H Anion Gap 5.0 BUN 11 Creatinine 0.69 Est Cr Clr Drug Dosing 79.0 Est GFR ( Amer) 102.5 Est GFR (Non-Af Amer) 88.4 BUN/Creatinine Ratio 16.1 Glucose 141 H POC Glucose 140 H 122 H Calcium 8.5 Magnesium 2.1 09/29/18 09/29/18 09/29/18 07:59 11:43 16:12 APTT 81.2 H* PTT Ratio 3.0 Sodium Potassium Chloride Carbon Dioxide Anion Gap BUN Creatinine Est Cr Clr Drug Dosing Est GFR ( Amer) Est GFR (Non-Af Amer) BUN/Creatinine Ratio Glucose POC Glucose 107 H 127 H Calcium Magnesium 09/29/18 20:36 APTT PTT Ratio Sodium Potassium Chloride Carbon Dioxide Anion Gap BUN Creatinine Est Cr Clr Drug Dosing Est GFR ( Amer) Est GFR (Non-Af Amer) BUN/Creatinine Ratio Glucose POC Glucose 155 H Calcium Magnesium PG Care Time/CCT Total # of Minutes Spent Total Time Spent with Patient: Total time spent is greater than 50% in coordination of care (as documented) at patient's floor/unit and/or counseling patient: (1) DM type 2 (diabetes mellitus, type 2) Diabetes mellitus complication status: without complication Diabetes mellitus custodial insulin use: with moth exterminator use Qualified Code(s): E11.9 - Type 2 diabetes mellitus without complications; Z79.4 - ocean transportation intermediary (current) use of insulin (2) Aortic stenosis Cardiac valve disease etiology: etiology unspecified Qualified Code(s): I35.0 - Nonrheumatic aortic (valve) stenosis (3) Hypothyroid Hypothyroidism type: acquired Qualified Code(s): E03.9 - Hypothyroidism, unspecified (4) Nausea and vomiting Vomiting Intractability: unspecified Vomiting type: unspecified Qualified Code(s): R11.2 - Nausea with vomiting, unspecified (5) HTN (hypertension) Hypertension type: essential hypertension Qualified Code(s): I10 - Essential (primary) hypertension
[2018-09-29] MEDS ORDERED: INSULIN GLARGINE SOLOSTAR 100 UNITS/ML 3 ML PEN SC SCH (21:00)
[2018-09-29] MEDS: SIMVASTATIN 40 MG TAB PO SCH (21:01)
[2018-09-30] MEDS: HYDROmorphone INJ 0.5 MG/0.5 ML SYR IV PRN ×2 (02:06→08:27)
[2018-09-30] MEDS: HEPARIN 100 UNIT/ML 5ML FLUSH FLUSH PRN ×3 (02:07→15:29)
[2018-09-30] MEDS: LEVOTHYROXINE SODIUM 100 MCG TABLET PO SCH (06:22)
[2018-09-30 07:05] LABS: BUN Creatinine Ratio 16.7 (10-20); Calcium 8.4 mg/dl (8.5-10.1); Creatinine Clr Calc Pharmacy 74.4 ml/min; Est GFR (African American) 100.1; Est GFR (Non-African American) 86.4
[2018-09-30] MEDS: CHECK FENTANYL PATCH PLACEMENT SCH (08:14)
[2018-09-30] MEDS: INSULIN ASPART 100 UNITS/ML 3 ML PEN SC SCH ×2 (08:21→12:37)
[2018-09-30] MEDS: fentaNYL 50 MCG/HR TDSY TD SCH (08:26)
[2018-09-30] MEDS: fentaNYL 100 MCG/HR TDSY TD SCH (08:26)
[2018-09-30] MEDS: POLYETHYLENE (MIRALAX) 17 GM PACK PO SCH (08:40)
[2018-09-30] MEDS: FUROSEMIDE 40 MG TAB PO SCH (08:41)
[2018-09-30] MEDS: DOCUSATE SODIUM 100 MG CAP PO SCH (08:41)
[2018-09-30] MEDS: ESCITALOPRAM OXALATE 10 MG TAB PO SCH (08:41)
[2018-09-30] MEDS: MAGNESIUM OXIDE 400 MG TAB PO SCH (08:43)
[2018-09-30] MEDS: PANTOprazole 40 MG TAB PO SCH (08:43)
[2018-09-30] MEDS: ASPIRIN 81 MG ECTAB PO SCH (08:43)
[2018-09-30] MEDS: CEROVITE ADV FORMULA TAB PO SCH (08:43)
[2018-09-30] MEDS: HYDROCORTISONE 2.5% CR 30 GM TUBE EXT SCH (08:43)
[2018-09-30] MEDS: DOCUSATE SODIUM/SENNA 50/8.6MG TAB PO SCH (08:44)
[2018-09-30] MEDS: CARVEDILOL 3.125 MG TAB PO SCH (08:51)
[2018-09-30] MEDS ORDERED: DRONABINOL 2.5 MG CAP PO SCH ×2 (09:00)
--- NOTE | 2018-09-30 09:24 | Cardiology Progress Note ---
Date of Service September 30, 2018 Assessment & Plan (1) Elevated troponin: 2. New severe LV dysfunction--possibly stress induced 3. Coronary artery disease post two-vessel CABG (RICK LAD, vein graft to ramus) 4. History of bioprosthetic AVR and mitral valve repair 5. History of complete heart block post permanent pacemaker 6. Prior atrial fibrillation previously on anticoagulation with Eliquis 7. Stage IV rectal cancer 8. Chronic pain Feeling well and plans to be discharged home today. No cardiac symptoms. Hemodynamically and electrically stable. On exam well perfused without significant congestion. -1.8 L yesterday. Renal function and electrolytes stable. --Eliquis resumed today --Continue Lasix 40 mg daily at discharge. Daily weights at home. Low sodium diet --Maximize guideline based medical therapy. Continue carvedilol. Start lisinopril 2.5 mg daily. Check BMP in 1 week. Patient will monitor BP at home. -- Continue ASA, statin Repeat echocardiogram in 1 month as an outpatient From a cardiac standpoint OK for discharge today Subjective Feeling well today, pain is controlled. No chest pain. No shortness of breath, orthopnea or PND. Participated in PT yesterday without exertional symptoms or lightheadedness. Plans to go home today. Tele reviewed-- paced Review of Systems Review of Systems: All systems reviewed & are unremarkable except as noted in HPI & below Physical Exam Physical Exam: General: No acute distress, comfortable. HEENT: Head is normal. Sclerae anicteric. Ears, nose and throat unremarkable. Mucous membranes moist. Neck: No appreciable JVD. Lungs: Diminished breath sounds right base. No rales, rhonchi or wheezes. Cardiac: Regular rate and rhythm. S1-S2 normal. Grade 1/6 basal systolic murmur +Port without surrounding erythema Abdomen: Soft and nontender. Bowel sounds normal. Extremities/vascular: --Well perfused. No peripheral edema. Psychiatric: Affect appropriate. Alert and oriented. Results & Data Vital Signs (Past 12 Hours) Vital Signs Temp Pulse Pulse Resp BP BP Pulse Ox 09/30/18 08:49 74 09/30/18 07:09 36.6 C 59 L 18 121/70 97 09/30/18 04:34 36.7 C 60 16 122/71 95 09/30/18 01:13 60 09/29/18 23:29 36.7 C 63 18 113/68 93 Laboratory Results Laboratory Results - last 24 hr 09/29/18 09/29/18 09/29/18 11:43 16:12 20:36 Sodium Potassium Chloride Carbon Dioxide Anion Gap BUN Creatinine Est Cr Clr Drug Dosing Est GFR ( Amer) Est GFR (Non-Af Amer) BUN/Creatinine Ratio Glucose POC Glucose 107 H 127 H 155 H Calcium Total Bilirubin Direct Bilirubin AST ALT Alkaline Phosphatase Total Protein Albumin 09/30/18 09/30/18 09/30/18 06:02 06:02 07:40 Sodium 138 Potassium 4.0 Chloride 101 Carbon Dioxide 32 Anion Gap 5.0 BUN 12 Creatinine 0.73 Est Cr Clr Drug Dosing 74.4 Est GFR ( Amer) 100.1 Est GFR (Non-Af Amer) 86.4 BUN/Creatinine Ratio 16.7 Glucose 112 H POC Glucose 110 H Calcium 8.4 L Total Bilirubin Pending Direct Bilirubin Pending AST Pending ALT Pending Alkaline Phosphatase Pending Total Protein Pending Albumin Pending PG Care Time/CCT Total # of Minutes Spent Total Time Spent with Patient: Total time spent is greater than 50% in coordination of care (as documented) at patient's floor/unit and/or counseling patient:
[2018-09-30 09:42] LABS: Alanine Aminotransferase 17 U/L (12-78); Albumin Level 2.7 gm/dl (3.4-5.0); Alkaline Phosphatase 211 U/L (45-117); Aspartate Aminotransferase 25 U/L (15-37); Bilirubin Direct < 0.1 mg/dl (0-0.2); Bilirubin,Total 0.3 mg/dl (0.2-1); Total Protein 6.8 gm/dl (6.4-8.2)
[2018-09-30] MEDS ORDERED: LISINOPRIL 2.5 MG TAB PO SCH (09:45)
[2018-09-30] MEDS ORDERED: APIXABAN 5 MG TABLET PO SCH (11:00)
[2018-09-30] MEDS: SUCRALFATE 1 GM TAB PO SCH (11:18)
[2018-09-30] MEDS ORDERED: INSULIN GLARGINE SOLOSTAR 100 UNITS/ML 3 ML PEN SC SCH ×2 (21:00)
--- NOTE | 2018-10-03 13:59 | Discharge Summary ---
Date of Service date of admission - 09/27/18 date of discharge - 09/30/18 Admission HPI Per Admitting Provider The patient is an 83-year-old male with a past medical history including metastatic rectal adenocarcinoma, diverting colostomy for pain control, and chronic pain syndrome, who presents to the emergency department with nausea, emesis, sweats/diaphoresis, and generalized pain. Upon questioning his , she reports that she placed his most recent fentanyl patches on about 24 hours ago, had difficulty with them sticking, and has tried to tape them back in place. Chronologically, the patient's symptoms have been intensifying since the change of these patches. Principal Diagnosis narcotic withdrawal +/- NSTEMI (or Takusubo's) Discharge Exam Constitutional well developed and well nourished; no acute distress and no altered mental status ENMT external ear and nose normal, oropharynx normal Respiratory normal respiratory effort, lungs clear to auscultation Auscultation: + crackles (fine - bases) Cardiovascular Rate/Rhythm: regular rate and regular rhythm Heart Sounds: normal S1 and normal S2; no murmur Vessels: posterior tibial pulses present and dorsalis pedis pulses present; no JVD Extremities: no edema Gastrointestinal (Abdomen) normal bowel sounds, soft, nontender, no hepatosplenomegaly colostomy in place with brown stool Psychiatric A+Ox3, euthymic affect Discharge Data Allergies Allergy/AdvReac Type Severity Reaction Status Date / Time No Known Allergies Allergy Verified 09/27/18 03:29 Consultations cardiology - Kendall Quiñones PT, OT porcelain slusher Procedures Performed 1. CT abd/pelvis: IMPRESSION: 1. There is no evidence of metastatic disease in the abdomen or pelvis. 2. A double barrel colostomy is identified in the left lower quadrant. There is no bowel obstruction. 3. Moderate constipation. 4. Circumferential rectal wall thickening is noted and likely corresponds to the reported history of a primary rectal carcinoma. 5. Cirrhotic liver morphology. 6. Bilateral nephrolithiasis. 7. Small right and trace left pleural effusions. 8. Cardiomegaly. 9. Irregular lower lobe pulmonary nodules are again noted. See report of chest CT performed concurrently for detailed intrathoracic findings. 2. CT chest: IMPRESSION: 1. Slight interval increase in the size of the multiple subpleural nodules. The findings are suspicious for progressive metastatic disease 2. Interval development of a small right pleural effusion and trace left pleural effusion 3. echocardiogram - * EF 20-25% * new wall motion abnormalities c/w stress-induced cardiomyopathy (Takutsubo's) vs LAD distribution infarct * AVR with good function * EF and wall motion abnormalities NEW in comparison to 2018 imaging Hospital Course (1) Nausea and vomitin possibilities - either due to fentanyl patch withdrawal and/or cardiac/ischemic in nature in light of elevated troponin (and echo findings). Symptoms resolved quickly after admission & did not recur. Diet was resumed and advanced without difficulty. (2) Chronic pain syndrome: 2nd to stage 4 colorectal cancer. Has had severe rectal pain in the past s/p diverting colostomy August 2018 at [facility]. Remains on fentanyl patch 150mcg q3d. Lidocaine jelly prn and HC cream prn for rectal pain. (3) Systolic CHF, acute: Either 2nd to stress-induced cardiomyopathy (AKA Takotsubo's) OR LAD distribution ischemia. Seen by cardiology - cardiac cath deferred and medical management recommended. He was mildly decompensated requiring brief period of IV lasix. At discharge he was euvolemic. Cont BB. Cont lasix daily. Low-dose SIMI initiated. He will follow-up with cardiology post-discharge and have repeat echo in about 1 month. (4) Elevated troponin: see discussion in "acute systolic CHF." peak troponin was 1.4. this may be due to mild NSTEMI or due to Takotsubo's stress-induced cardiomy opathy. medical management recommended by cardiology at this time. no plans for cath. received ~48 hours of heparin infusion in the event he suffered a mild NSTEMI. he will continue asa, statin, BB, SIMI. (5) Pacemaker: placed in past for high degree AV block. no issues while here. telemetry stable. (6) Hypothyroid: TSH 03/2018 was wnl. Cont synthroid. (7) HTN (hypertension): Controlled. (8) History of atrial fibrillation: Following heparin infusion for possible NSTEMI apixaban twice daily was resumed. (9) Aortic stenosis: s/p AVR in 05/2013. good function on echo this admission. bioprosthetic. (10) S/P CABG x 2: 2013. see discussion above in "elevated troponin". (11) S/P AVR (aortic valve replacement): 2014 as above (12) Colorectal cancer, stage IV: s/p diverting colostomy creation August 2018 at [facility] due to severe rectal pain from the cancer itself. anders-CT shows pulmonary mets. followed by [facility]. receives fentanyl patches for chronic pain. (13) DM type 2 (diabetes mellitus, type 2): control adequate during the visit with pharmacy consultation & management. Total Time Total Time Spent Total Time Spent (In Minutes): 45 Total Time Includes: Examination of the Patient, Discharge Planning, Medication Reconciliation and Communication With Other Providers Discharge Plan Discharge Items Patient Disposition: Home - Self-Care Reason For Visit: NAUSEA, VOMITING, SEVERE GENERALIZED PAIN Discharge Diagnosis: 1. possible narcotic withdrawal - resolved. 2. heart attack vs "broken heart syndrome" (stress-induced heart dysfunction) - cardiology follow-up needed. 3. new-onset weakening of the heart function/pumping ability of heart (also known as congestive heart failure). Discharge Goals: Decrease discomfort, Diagnostic testing and Therapeutic intervention Activity: As commented below Activity Comment: light activities until you are seen by cardiology Non-emergency contact: Primary Care Provider and Lang Interpreter Call non-emergency contact if: you have any medication questions, your symptoms worsen, your pain is not controlled and your temperature is above 100.5 Follow-up/Referrals: Oscar Frias MD [Physician] - 10/06/18 2:30 pm (A follow up appt. has been made for you with Dr. Frias on October 06 at 2:30pm.) Michael Humphries DO [Primary Care Provider] - 10/06/18 9:20 am (A follow up appt. has been scheduled with Dr. Humphries on 10/06 at 9:20am. ) Diet: Carb Consistent or DM2, Low Fiber and Low Sodium (2gm) Fluids: 1500ml (6 cups) Addtl Provider Instructions: You were seen and treated for nausea, vomiting, sweats, generalized pains, and simply not feeling well. These symptoms were either due to narcotic withdrawal OR a heart event. It could have been a combination of both issues. Your symptoms improved very quickly after admission with restarting your fentanyl patches. You were seen by the tail board man. An echocardiogram was completed showing that your heart function is significantly reduced from prior echocardiogram. The heart pumping ability (also known as the "ejection fraction") is 20-25%. It was normal previously. This is a form of congestive heart failure. It is uncertain if the pumping ability dropped because of blocked coronary arteries OR "broken heart syndrome" (physical/mental stress leading to the heart muscle weakening). The tail board man felt that we should medically manage your heart disease with medications rather than pursuing a heart catheterization at this time. They plan on repeating your echocardiogram in 1 month. Recommendations - 1. take aspirin 81mg daily. Purchase across the counter. 2. take lisinopril 2.5mg daily for your heart. New prescription given. 3. take magnesium supplement daily. New prescription given. 4. check your weight EVERY DAY upon awakening; see parameters below. 5. watch your salt intake; try to limit it to 2000mg each day. 6. watch your fluid intake; try to limit it to about 1500cc each day. Congestive Heart Failure instructions: Call 911 and go to the Emergency Room if: * You have tightness or pain in your chest that does not go away with rest or Nitroglycerin * You are very short of breath even with rest Call your doctor if any of the following symptoms or problems start or get worse: * Shortness of breath or difficulty breathing * Wake up at night short of breath * Chest pain * Cough * Swelling of your hands, fee, or legs * More fatigued or tired with your normal activity * Palpitations - sudden fast heart beats WEIGHT * Weigh yourself every morning after using the bathroom. * Use the same scale. * Wear the same amount of clothing. * Write your weight down on your chart. * Call your doctor if you gain more than 2-3 pounds in 1-2 days. This is often a sign of fluid retention from heart issues. MEDICATIONS * Use this discharge instruction sheet for instructions. * Take your medications at the time your doctor ordered. * Do not skip a dose of your medicines. * If you miss a dose of medicine, take as soon as possible, but DO NOT DOUBLE A DOSE. * Read your medicine information when you get home. * Know all of the side effects of your medicine. * Call your doctor's office if you have any side effects. * Be sure all of your doctors know what medicine and herbs you take (including cold, flu, and herbal medicine). * Pain Medicine: If you do not get relief from your pain, please call your doctor for help. Take the following with you to your follow-up doctor appointments: * Weight Chart * Medication List * List of questions Do not drink excessive alcohol, beer or wine. Follow-up -- see separate section. Also see Dr Marcano in the cancer center as scheduled. Return to [facility] if -- * you have uncontrolled pain * you are short of breath or having chest pain * you have to use nitroglycerin tablets under your tongue * you are concerned about fluid retention * any other concerns Prescriptions: New lisinopril 2.5 mg Tablet 2.5 mg PO QAM Qty: 30 RF: 5 lidocaine HCl 2 % Jelly 1 ml EXT Q6H PRN (Reason: rectal pain) Qty: 60 RF: 0 aspirin [Ecotrin Low Strength] 81 mg Tablet,Delayed Release (Dr/Ec) 81 mg PO QAM Qty: 90 RF: 3 magnesium oxide 400 mg (241.3 mg magnesium) Tablet 400 mg PO DAILY Qty: 30 RF: 5 nitroglycerin 0.4 mg tablet, sublingual 0.4 mg sublingual Q5M PRN (Reason: chest pain) Qty: 1 RF: 0 Continued docusate sodium 100 mg capsule 100 mg PO BID Qty: 60 RF: 0 escitalopram oxalate 10 mg tablet 15 mg PO DAILY Qty: 60 RF: 0 hydrocortisone 2.5 % cream 1 applic TOPICAL DIRECTED RF: 0 albuterol sulfate [ProAir HFA] 90 mcg/actuation HFA aerosol inhaler 1 - 2 puff INHALATION Q6H PRN (Reason: Shortness Of Breath Or Wheezing) RF: 0 omeprazole 20 mg tablet,delayed release (DR/EC) 20 mg PO BID Qty: 0 RF: 0 sennosides-docusate sodium [Senokot-S] 8.6-50 mg tablet 1 tab PO BID Qty: 60 RF: 0 Novolog Flexpen U-100 Insulin 100 unit/mL (3 mL) insulin pen See Patient Comments subcut DIRECTED RF: 0 polyethylene glycol 3350 [Miralax] 17 gram powder in packet 17 g PO DAILY Qty: 30 RF: 0 levothyroxine 100 mcg tablet 100 mcg PO QAM RF: 0 simvastatin 40 mg tablet 40 mg PO HS RF: 0 apixaban [Eliquis] 5 mg tablet 5 mg PO BID RF: 0 carvedilol 3.125 mg tablet 3.125 mg PO BID RF: 0 fentanyl 100 mcg/hr patch 72 hour 100 mcg transdermal Q72H RF: 0 furosemide 40 mg tablet 40 mg PO DAILY RF: 0 ondansetron HCl 8 mg tablet 8 mg PO Q8 PRN (Reason: Nausea) RF: 0 prochlorperazine maleate 10 mg tablet 10 mg PO Q6 PRN (Reason: Nausea) RF: 0 Ocuvite Eye Health 50 mg-15 unit- 4.5 mg-2.5 mg Tablet,Chewable 1 tab PO BID RF: 0 fentanyl 50 mcg/hr patch 72 hour 50 mcg transdermal [id number] RF: 0 hydromorphone 2 mg tablet 2 mg PO Q6 PRN (Reason: pain) Qty: 30 RF: 0 Changed sucralfate 1 gram tablet 2 g PO BID Qty: 0 RF: 0 dronabinol 2.5 mg capsule 2.5 mg PO BID Qty: 270 RF: 0 Discontinued hydromorphone 2 mg tablet 4 mg PO Q6H PRN (Reason: pain) Qty: 28 RF: 0 Stand-Alone Forms: [facility] Discharge Orders: Discharge Order (Routine); Ordered 09/30/18 Ordered By: Blas Crooks Admission Data Admit Date/Time: 09/27/18 04:11 Attending Provider: Blas Crooks Admit Provider: Jovany Addison Primary Care Provider: Michael Humphries Other Providers: Oscar Frias Service: Telemetry Medical Other Interventions: Discharge Summary Assessment (RN) Last Done: 09/30/18 15:41 Pending Studies at Discharge: No DC Date/Time DO NOT enter until pt leaves facility: 09/30/18 16:34
== END 2018-09-30 16:34 | disposition home or self-care (01) | DRG 896 ==
LOC: ED 01:39 → SUATTDRO 04:11 → 2N 04:11
DX: Z93.3 Colostomy status; I25.10 Atherosclerotic heart disease of native coronary artery without angina pectoris; I21.4 Non-ST elevation (NSTEMI) myocardial infarction; I44.2 Atrioventricular block, complete; I48.91 Unspecified atrial fibrillation; G89.4 Chronic pain syndrome; I50.21 Acute systolic (congestive) heart failure; C20 Malignant neoplasm of rectum; Z79.01 Long term (current) use of anticoagulants; I51.81 Takotsubo syndrome; E87.6 Hypokalemia; I11.0 Hypertensive heart disease with heart failure; Z79.899 Other long term (current) drug therapy; Z51.81 Encounter for therapeutic drug level monitoring; E83.42 Hypomagnesemia; E78.5 Hyperlipidemia, unspecified; K74.60 Unspecified cirrhosis of liver; Z95.5 Presence of coronary angioplasty implant and graft; K21.9 Gastro-esophageal reflux disease without esophagitis; Z95.1 Presence of aortocoronary bypass graft; E03.9 Hypothyroidism, unspecified; F11.23 Opioid dependence with withdrawal; Z95.2 Presence of prosthetic heart valve; G89.3 Neoplasm related pain (acute) (chronic); Z95.0 Presence of cardiac pacemaker